=== PATIENT | male | born 1945 | race Caucasian/White ===

== ENCOUNTER 2020-05-31 05:21 | Inpatient (IN) | payer MEDICARE, MEDICAID, SELFPAY ==
[2020-05-31] VITALS (11 sets, daily range): BP systolic 98–128; BP diastolic 65–94; PULSE 16–101; RESP 14–18; TEMP 31.6–36.6; O2SAT 93–98; BMI 18.2; BMI 18.5
--- NOTE | 2020-05-31 05:34 | CT_ITS ---
STUDY: CT ABDOMEN AND PELVIS WITH CONTRAST REASON FOR EXAM: Male, 75 years old. abdominal pain RADIATION DOSAGE (If Supplied By Facility): CTDIvol = ( 10.48 ) mGy, DLP = ( 404.31 ) mGycm TECHNIQUE: Transaxial images were obtained from the dome of the diaphragm to the symphysis pubis without oral contrast. IV 100mL Isovue-300 was administered. Sagittal and coronal images were reconstructed. Individualized dose optimization techniques were used for this CT. COMPARISON: None. FINDINGS: Alveolar opacity in the left lower lobe consistent with pneumonia. The visualized portions of the heart are within normal limits. Normal liver. Normal gallbladder and extrahepatic biliary system. Normal spleen. Normal pancreas. Normal bilateral adrenal glands. Normal right kidney. Normal left kidney. Normal visualized stomach. Normal small intestine. There is moderate dilatation of the sigmoid colon which extends superiorly out of the pelvis into the upper abdomen with some twisting of the mesenteric vessels worrisome for sigmoid volvulus. Colon proximal to this is moderately dilated and filled with stool worrisome for obstruction. No pneumatosis to suggest ischemia. No pneumoperitoneum to suggest perforation. There is a small amount of free fluid in the pelvis. The appendix is visualized and appears normal. There is diffuse atherosclerotic calcification of the abdominal aorta, without a demonstrated aneurysm. Normal inferior vena cava. Normal retroperitoneum. Normal urinary bladder. Normal abdominal wall. Mild dextroscoliosis of the thoracolumbar spine with degenerative disc disease. CT/Abdomen/Pelvis W IV Cont ONLY IMPRESSION: 1. 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 Small amount of free fluid in the pelvis. 2. Left lower lobe pneumonia. Electronically Signed: Blue Fong MD at 6:44 EST Tel , Service support ,
--- NOTE | 2020-05-31 05:35 | ED.VIS.GEN ---
History of Present Illness Chief Complaint: Abd Pain Informant: Patient Narrative: 75-year-old male presenting with abdominal pain which she describes as gas pain. Patient states that he is having bowel movements and lots of gas overnight. He is having trouble sleeping because of it. Patient has not been vomiting. He has no black or bloody stool. He has no urinary complaints. He says currently he does not have any pain. Patient has past medical history of non-small cell lung cancer and is on chemotherapy. Last chemotherapy was done on Friday. Patient is also getting radiation therapy to the left lung. Patient denies previous surgeries in his abdomen. Past Medical History - Allergies and Home Meds Allergies/Adverse Reactions: Allergies Penicillins Adverse Reaction (Verified 05/31/20 05:24) Rash sulfamethoxazole [From Bactrim] Adverse Reaction (Verified 05/31/20 05:24) Rash trimethoprim [From Bactrim] Adverse Reaction (Verified 05/31/20 05:24) Rash Primary Care Physician: Shai Faustin DO [STAFF PHYSICIAN] - Prior records reviewed: Yes Past Medical History: - - Non-small cell lung cancer with mets to right hip Lives: Spouse/ Significant Other Smoking Status: Former smoker Alcohol: None Drugs: None Review of Systems General: Denies: Chills, Fever, Sweats Eyes: Denies: Visual changes - bilaterally, Diplopia ENT: Denies: Rhinorrhea, Sore throat Cardiovascular: Denies: Chest pain, Palpitations Respiratory: Denies: Dyspnea, Cough, Dyspnea on exertion Gastrointestinal: Reports: Abdominal pain, Constipation. Denies: Nausea, Vomiting Genitourinary: Denies: Dysuria, Hematuria, Frequency Musculoskeletal: Denies: Myalgias, Arthralgias Skin: Denies: Rash, Abscess Neurological: Denies: Headache, Weakness Psych: Denies: Depression, Anxiety Physical Exam Vital Signs/Narrative: Vital Signs Temp Pulse Resp BP Pulse Ox 05/31/20 05:21 96.9 F L 93 18 128/94 H 93 General: Well nourished, No Acute Distress Head: Normocephalic, Atraumatic Eyes: Perrl, EOMI ENT: Moist mucous membranes, No rhinorrhea Cardiovascular: Regular rate, Regular rhythm Respiratory: No distress, CTA bilaterally Abdomen: Soft, Nontender, Nondistended Extremities: Nontender, No edema Skin: Normal color, No rash. Negative for: Cyanosis, Diaphoresis Neurological: Alert, Oriented x3, Cranial nerves II-XII grossly intact Psychological: Normal affect, Normal Mood Diagnostic/Tx/Re-eval - Medical Decision Making Patient presenting with lower abdominal pain which is resolved. He felt this was probably gas pain. He has been experiencing some constipation but also having bowel movements which she describes are loose but not quite diarrhea. He denies black or bloody stool. Patient CBC shows white blood cell count of 3.1, hemoglobin of 10.3 which is stable. Hematocrit 31.4, platelet count 167, BUN/creatinine 22/0.83. Electrolytes normal. LFTs are normal as well. Patient was given IV fluids but declined anything for pain or nausea as he is pain and nausea free. Patient had CT of the abdomen pelvis with IV contrast which shows concern for left lower lobe pneumonia as well as a sigmoid volvulus with obstruction. There is no evidence of perforation. There is a small amount of free fluid in the pelvis. At this point I added a lactic acid, and give the patient some morphine because he had return of his pain. I added a rapid Covid antigen test. I discussed the patient with Dr. Acevedo who came to see the patient in the ED. Patient will be taken to the OR. Take aspirin Covid antigen test are pending. Patient was discussed with Dr. Gonsalez who agreed he would admit the patient to medicine. Patient will get antibiotics on the medical floor. Impression: 1. Left lower lobe pneumonia 2. Sigmoid volvulus with obstruction ED Disposition - Plan for ED Patient: Disposition: Acute Care [facility] Referrals: Shai Faustin DO [STAFF PHYSICIAN] -
[2020-05-31 05:40] LABS: Absolute Lymphocyte Count 0.23 X10^3/uL (0.83-4.51); Absolute Neutrophil Count 2.3 X10^3/uL (2.0-7.7); Basophil# 0.01 X10^3/uL; Basophil% 0.4 % (0-1); Eosinophil# 0.02 X10^3/uL; Eosinophils% 0.8 % (0-5); Hematocrit 31.4 % (40-54); Hemoglobin 10.3 g/dL (13.0-16.5); Lymphocyte # 0.23 X10^3/ul (4.0); Lymphocyte % 8.8 % (19-41); Mean Corp Hgb Conc 32.8 g/dL (32-36); Mean Corpuscular Hgb 32.7 pg (27.0-32.0); Mean Corpuscular Volume 99.7 fL (80-94); Mean Platelet Vol. 9.3 fl (6.2-12.0); Monocyte# 0.08 X10^3/uL; Monocyte% 3.1 % (0-10); NRBC Flagged by Analyzer 0 % (0-5); Neutrophil # 2.25 X10^3/uL (2.7-7.7); Neutrophil % 86.5 % (47-70); POSITIVE DIFFERENTIAL YES; Platelet Count 167 K/mm3 (150-450); RBC Distribution Width CV 12.4 % (11.6-14.6); RBC Distribution Width SD 42.9 fl (35.1-43.9); Red Blood Count 3.15 M/mm3 (4.6-6.2); White Blood Count 2.6 K/mm3 (4.4-11.0)
[2020-05-31 05:49] LABS: Differential Indicated SCAN CRITERIA MET
[2020-05-31 05:56] LABS: ALB/GLOB Ratio 0.6 RATIO (0.9-2.4); AST(SGOT) 30 U/L (15-37); Alanine Aminotransfer ALT/SGPT 18 U/L (16-61); Albumin, Serum 2.6 g/dL (3.2-5.0); Alkaline Phosphatase 100 U/L (45-117); Anion Gap 6 (5-15); BUN 22 mg/dL (7-18); BUN/Creat Ratio 26.5 RATIO (10-20); Calcium,Total 8.7 mg/dL (8.5-10.1); Chloride 103 mmol/L (98-107); Creatinine, Serum 0.83 mg/dL (0.70-1.30); EST Glomerular Filtration Rate 96 mL/min (>60); Est Glom Filt Rate - Afr Amer 116 mL/min (>60); Estimated Creatinine Clearance 66.35 ml/min; Globulin 4.4 g/dL (2.2-4.2); Glucose 119 mg/dL (74-106); Potassium 3.9 mmol/L (3.5-5.1); Sodium Level 137 mmol/L (136-145)
[2020-05-31 06:04] LABS: Differential Comment SCANNED
[2020-05-31 07:01] LABS: Bacteria 0 SEEN /hpf (None Seen); Mucous, Urine 0 SEEN /hpf (<or=2+); Squamous Epithelial Cells - UA 0 SEEN /hpf (0-5); White Blood Cells 0 SEEN /hpf (0-5)
[2020-05-31] MEDS: Morphine 4 MG/ML Syringe IV (07:01)
[2020-05-31 07:02] LABS: Color, Urine Yellow (Yellow); Glucose, Dipstick Normal (Normal); Ketone-Dipstick Negative (Negative); Leukocyte Esterase-Dipstick Negative /ul (Negative); Nitrite-Dipstick Negative (Negative); Occult Blood-Urine 25 /ul (Negative); Protein-Dipstick Negative (Negative); Urine Bilirubin Dipstick Negative (Negative); Urine Clarity Clear (Clear); Urine Urobilinogen Normal (Normal)
[2020-05-31 07:08] LABS: Red Blood Cells-Urine 0-5 SEEN /hpf (0-5)
--- NOTE | 2020-05-31 07:17 | PCM.HP.STD ---
History of Present Illness The patient is a 75 year old M [] Past Medical History Allergies Penicillins Adverse Reaction (Verified 05/31/20 05:24) Rash sulfamethoxazole [From Bactrim] Adverse Reaction (Verified 05/31/20 05:24) Rash trimethoprim [From Bactrim] Adverse Reaction (Verified 05/31/20 05:24) Rash Home Medications: Ambulatory Orders Medication Instructions Recorded Benzonatate 100 - 200 mg PO TID PRN PRN 05/31/20 Calcium Citrate/Vitamin D3 2 ea PO DAILY 05/31/20 [Citracal + D Maximum Caplet] Ergocalciferol (Vitamin D2) 1,250 mcg PO QWEEK 05/31/20 [Vitamin D2] Iron,Carbonyl/Ascorbic Acid [Fe C 1 ea PO DAILY 05/31/20 Tablet] Multivitamins,Therapeutic 1 tab PO DAILY 05/31/20 [Multivitamin] Promethazine HCl 25 mg PO Q6H PRN PRN 05/31/20 Lives: Spouse/ Significant Other Smoking Status: Former smoker Alcohol: None Drugs: None - Physical Exam Vitals/I&O's: Vital Signs Temp Pulse Resp BP Pulse Ox 96.9 F L 93 18 128/94 H 93 05/31/20 05:21 05/31/20 05:21 05/31/20 05:21 05/31/20 05:21 05/31/20 05:21 Oxygen Delivery Method Room Air Weight: 134 lb 7.712 oz Body Mass Index (BMI) 18.2 Laboratory Results 05/31/20 05:35: WBC 2.6 L, RBC 3.15 L, Hgb 10.3 L, Hct 31.4 L, MCV 99.7 H, MCH 32.7 H, MCHC 32.8, RDW Std Deviation 42.9, RDW Coeff of Natalie 12.4, Plt Count 167, MPV 9.3, Immature Gran % (Auto) 0.400, Neut % (Auto) 86.5 H, Lymph % (Auto) 8.8 L, [place] % (Auto) 3.1, Eos % (Auto) 0.8, Baso % (Auto) 0.4, Absolute Neuts (auto) 2.3, Absolute Lymphs (auto) 0.23 L, Nucleated RBC % 0, Differential Comment SCANNED, Diff Path Review July05/31/20 05:35: Sodium 137, Potassium 3.9, Chloride 103, Carbon Dioxide 28.0, Anion Gap 6, BUN 22 H, Creatinine 0.83, Estim Creat Clear Calc 66.35, Est GFR (MDRD) Af Amer 116, Est GFR (MDRD) Non-Af 96, BUN/Creatinine Ratio 26.5 H, Glucose 119 H, Calcium 8.7, Total Bilirubin 0.40, AST 30, ALT 18, Alkaline Phosphatase 100, Total Protein 7.0, Albumin 2.6 L, Globulin 4.4 H, Albumin/Globulin Ratio 0.6 L 05/31/20 06:55: Urine Color Yellow, Urine Clarity Clear, Urine pH 6.0, Ur Specific [place] 1.020, Urine Protein Negative, Urine Glucose (UA) Normal, Urine Ketones Negative, Urine Occult Blood 25 H, Urine Nitrite Negative, Urine Bilirubin Negative, Urine Urobilinogen Normal, Ur Leukocyte Esterase Negative, Urine RBC 0-5 SEEN, Urine WBC 0 SEEN, Ur Squamous Epith Cells 0 SEEN, Urine Bacteria 0 SEEN, Urine Mucus 0 SEEN 05/31/20 06:55: Lactic Acid Pending
--- NOTE | 2020-05-31 07:28 | CON.PCM_ITS ---
Reason for Consult Date of Consultation: 05/31/20 History of Present Illness: The patient is a 75 year old M sent to the ER due to off-and-on abdominal pain starting this morning. Patient to get morphine in the ER currently denies any abdominal pain. Patient CT abdomen pelvis does show a cecal volvulus. Patient does have a past medical history for lung cancer and sounds like metastatic disease to his right pelvis --currently getting chemo patient is currently on his fifth out of 6 round of chemotherapy fifth week and of 6 weeks of radiation daily. His last round of chemotherapy was on Friday. Sees Dr. Faustin. Patient was on levofloxacin for questionable left lower lobe pneumonia which he did comp lete per patient. Patient is white blood cell count is 2.2. CT is also questioning whether he has a left lower lobe pneumonia but also this location of his cancer as well. Past Medical History Medical History: Medical History (Last Updated 05/31/20 @ 07:[address] 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, C79.51 Allergies Penicillins Adverse Reaction (Verified 05/31/20 05:24) Rash sulfamethoxazole [From Bactrim] Adverse Reaction (Verified 05/31/20 05:24) Rash trimethoprim [From Bactrim] Adverse Reaction (Verified 05/31/20 05:24) Rash Home Medications: Ambulatory Orders Medication Instructions Recorded Benzonatate 100 - 200 mg PO TID PRN PRN 05/31/20 Calcium Citrate/Vitamin D3 2 ea PO DAILY 05/31/20 [Citracal + D Maximum Caplet] Ergocalciferol (Vitamin D2) 1,250 mcg PO QWEEK 05/31/20 [Vitamin D2] Iron,Carbonyl/Ascorbic Acid [Fe C 1 ea PO DAILY 05/31/20 Tablet] Multivitamins,Therapeutic 1 tab PO DAILY 05/31/20 [Multivitamin] Promethazine HCl 25 mg PO Q6H PRN PRN 05/31/20 Surgical History: no surgical history Psychiatric History: No pertinent psych hx Lives: Spouse/ Significant Other Smoking Status: Former smoker Alcohol: None Drugs: None - *Family History Maternal History Items: No pertinent history Review of Systems Constitutional: Reports: Anorexia Eyes: Denies: Blurred vision HEENT: Denies: Difficulty Swallowing Respiratory: Denies: Hemoptysis Gastrointestinal: Reports: Abdominal Pain. Denies: Nausea, Vomiting Skin: Denies: Jaundice Psychiatric: Denies: Depression Hematologic/ Lymphatic: Denies: Easy Bleeding - Physical Exam Vitals/I&O's: Vital Signs Temp Pulse Resp BP Pulse Ox 96.9 F L 93 18 128/94 H 93 05/31/20 05:21 05/31/20 05:21 05/31/20 05:21 05/31/20 05:21 05/31/20 05:21 Oxygen Delivery Method Room Air Weight: 134 lb 7.712 oz Body Mass Index (BMI) 18.2 General: Alert, Oriented x3, Cooperative, No apparent distress Lungs: Normal air movement Cardiovascular: Regular rate Abdomen: Soft, Non Tender, Distended - Mild Neurological: Cranial nerves II-XII grossly intact Psych/Mental Status: Normal Affect Laboratory Results 05/31/20 05:35: WBC 2.6 L, RBC 3.15 L, Hgb 10.3 L, Hct 31.4 L, MCV 99.7 H, MCH 32.7 H, MCHC 32.8, RDW Std Deviation 42.9, RDW Coeff of [place] 12.4, Plt Count 167, MPV 9.3, Immature Gran % (Auto) 0.400, Neut % (Auto) 86.5 H, Lymph % (Auto) 8.8 L, [place] % (Auto) 3.1, Eos % (Auto) 0.8, Baso % (Auto) 0.4, Absolute Neuts (auto) 2.3, Absolute Lymphs (auto) 0.23 L, Nucleated RBC % 0, Differential Comment SCANNED, Diff Path Review July05/31/20 05:35: Sodium 137, Potassium 3.9, Chloride 103, Carbon Dioxide 28.0, A nion Gap 6, BUN 22 H, Creatinine 0.83, Estim Creat Clear Calc 66.35, Est GFR (MDRD) Af Amer 116, Est GFR (MDRD) Non-Af 96, BUN/Creatinine Ratio 26.5 H, Glucose 119 H, Calcium 8.7, Total Bilirubin 0.40, AST 30, ALT 18, Alkaline Phosphatase 100, Total Protein 7.0, Albumin 2.6 L, Globulin 4.4 H, Albumin/Globulin Ratio 0.6 L 05/31/20 06:55: Urine Color Yellow, Urine Clarity Clear, Urine pH 6.0, Ur Specific [place] 1.020, Urine Protein Negative, Urine Glucose (UA) Normal, Urine Ketones Negative, Urine Occult Blood 25 H, Urine Nitrite Negative, Urine Bilirubin Negative, Urine Urobilinogen Normal, Ur Leukocyte Esterase Negative, Urine RBC 0-5 SEEN, Urine WBC 0 SEEN, Ur Squamous Epith Cells 0 SEEN, Urine Bacteria 0 SEEN, Urine Mucus 0 SEEN 05/31/20 06:55: Lactic Acid Pending Assessment/Plan 75-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 Discussed with patient the need for urgent sigmoidoscopy, insertion of rectal tube. Discussed with patient that if this does untwist the colon we would not need to emergently remove the colon. However it is likely that this will not completely keep the bowel untwisted and that he will need sigmoidectomy and end colostomy due to him being on chemotherapy for the last 5 weeks. Discussed with patient that if I were to put the bowel back together likely would fall apart as chemo does impair healing. Patient was agreeable with plan. Discussed the risk including but not limited to bleeding, infection, injury to another organ, and anesthesia. Also discussed with patient that the left lobe pneumonia could also put him at higher risk for surgery as well. Also discussed with patient his CODE STATUS patient does want to be full code currently he does not have a POA. He does have 2 sisters. Nasima Acevedo M.D. Pager: [phone] [facility] [address] [place] [address], [facility], [address] [place] [address] Office: [phone]
[2020-05-31 07:37] LABS: Lactic Acid 2.4 mmol/L (0.4-1.9)
[2020-05-31] MEDS: Lactated Ringers 1,000 ML 100 ML IV ×2 (07:51→12:54)
--- NOTE | 2020-05-31 08:00 | HP.PCM_ITS ---
History and Physical Date of Admission: 05/31/20 History of Present Illness: The patient is a 75 year old M sent to the ER due to off-and-on abdominal pain starting this morning. Patient to get morphine in the ER currently denies any abdominal pain. Patient CT abdomen pelvis does show a cecal volvulus. Patient does have a past medical history for lung cancer and sounds like metastatic disease to his right pelvis --currently getting chemo patient is currently on his fifth out of 6 round of chemotherapy fifth week and of 6 weeks of radiation daily. His last round of chemotherapy was on Friday. Sees Dr. Faustin. Patient was on levofloxacin for questionable left lower lobe pneumonia which he did comp lete per patient. Patient is white blood cell count is 2.2. CT is also questioning whether he has a left lower lobe pneumonia but also this location of his cancer as well. Past Medical History Medical History: Medical History (Last Updated 05/31/20 @ 07:[address] 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, C79.51 Allergies Penicillins Adverse Reaction (Verified 05/31/20 05:24) Rash sulfamethoxazole [From Bactrim] Adverse Reaction (Verified 05/31/20 05:24) Rash trimethoprim [From Bactrim] Adverse Reaction (Verified 05/31/20 05:24) Rash Home Medications: Ambulatory Orders Medication Instructions Recorded Benzonatate 100 - 200 mg PO TID PRN PRN 05/31/20 Calcium Citrate/Vitamin D3 2 ea PO DAILY 05/31/20 [Citracal + D Maximum Caplet] Ergocalciferol (Vitamin D2) 1,250 mcg PO QWEEK 05/31/20 [Vitamin D2] Iron,Carbonyl/Ascorbic Acid [Fe C 1 ea PO DAILY 05/31/20 Tablet] Multivitamins,Therapeutic 1 tab PO DAILY 05/31/20 [Multivitamin] Promethazine HCl 25 mg PO Q6H PRN PRN 05/31/20 Surgical History: no surgical history Psychiatric History: No pertinent psych hx Lives: Spouse/ Significant Other Smoking Status: Former smoker Alcohol: None Drugs: None - *Family History Maternal History Items: No pertinent history Review of Systems Constitutional: Reports: Anorexia Eyes: Denies: Blurred vision HEENT: Denies: Difficulty Swallowing Respiratory: Denies: Hemoptysis Gastrointestinal: Reports: Abdominal Pain. Denies: Nausea, Vomiting Skin: Denies: Jaundice Psychiatric: Denies: Depression Hematologic/ Lymphatic: Denies: Easy Bleeding - Physical Exam Vitals/I&O's: Vital Signs Temp Pulse Resp BP Pulse Ox 96.9 F L 93 18 128/94 H 93 05/31/20 05:21 05/31/20 05:21 05/31/20 05:21 05/31/20 05:21 05/31/20 05:21 Oxygen Delivery Method Room Air Weight: 134 lb 7.712 oz Body Mass Index (BMI) 18.2 General: Alert, Oriented x3, Cooperative, No apparent distress Lungs: Normal air movement Cardiovascular: Regular rate Abdomen: Soft, Non Tender, Distended - Mild Neurological: Cranial nerves II-XII grossly intact Psych/Mental Status: Normal Affect Laboratory Results 05/31/20 05:35: WBC 2.6 L, RBC 3.15 L, Hgb 10.3 L, Hct 31.4 L, MCV 99.7 H, MCH 32.7 H, MCHC 32.8, RDW Std Deviation 42.9, RDW Coeff of [place] 12.4, Plt Count 167, MPV 9.3, Immature Gran % (Auto) 0.400, Neut % (Auto) 86.5 H, Lymph % (Auto) 8.8 L, [place] % (Auto) 3.1, Eos % (Auto) 0.8, Baso % (Auto) 0.4, Absolute Neuts (auto) 2.3, Absolute Lymphs (auto) 0.23 L, Nucleated RBC % 0, Differential Comment SCANNED, Diff Path Review July05/31/20 05:35: Sodium 137, Potassium 3.9, Chloride 103, Carbon Dioxide 28.0, A nion Gap 6, BUN 22 H, Creatinine 0.83, Estim Creat Clear Calc 66.35, Est GFR (MDRD) Af Amer 116, Est GFR (MDRD) Non-Af 96, BUN/Creatinine Ratio 26.5 H, Glucose 119 H, Calcium 8.7, Total Bilirubin 0.40, AST 30, ALT 18, Alkaline Phosphatase 100, Total Protein 7.0, Albumin 2.6 L, Globulin 4.4 H, Albumin/Globulin Ratio 0.6 L 05/31/20 06:55: Urine Color Yellow, Urine Clarity Clear, Urine pH 6.0, Ur Specific [place] 1.020, Urine Protein Negative, Urine Glucose (UA) Normal, Urine Ketones Negative, Urine Occult Blood 25 H, Urine Nitrite Negative, Urine Bilirubin Negative, Urine Urobilinogen Normal, Ur Leukocyte Esterase Negative, Urine RBC 0-5 SEEN, Urine WBC 0 SEEN, Ur Squamous Epith Cells 0 SEEN, Urine Bacteria 0 SEEN, Urine Mucus 0 SEEN 05/31/20 06:55: Lactic Acid Pending Assessment/Plan 75-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 Discussed with patient the need for urgent sigmoidoscopy, insertion of rectal tube. Discussed with patient that if this does untwist the colon we would not need to emergently remove the colon. However it is likely that this will not completely keep the bowel untwisted and that he will need sigmoidectomy and end colostomy due to him being on chemotherapy for the last 5 weeks. Discussed with patient that if I were to put the bowel back together likely would fall apart as chemo does impair healing. Patient was agreeable with plan. Discussed the risk including but not limited to bleeding, infection, injury to another organ, and anesthesia. Also discussed with patient that the left lobe pneumonia could also put him at higher risk for surgery as well. Also discussed with patient his CODE STATUS patient does want to be full code currently he does not have a POA. He does have 2 sisters. Nasima Acevedo M.D. Pager: [phone] [facility] [place] [facility] [address] [place] [address], [address] [place] [address] Office: [phone] Procedure Criteria Procedure Type: Elective COVID Risk Discussion: The surgeon/proceduralist and patient have discussed in detail the risk of exposure to and/or potential harm posed by the COVID-19 virus with having a surgery/procedure at this time versus the risk of delaying the surgery/procedure. It is not possible to know either the risk of delaying the surgery or procedure or chance of getting an infection with perfect accuracy, but a joint decision was made between the patient and the surgeon/proceduralist to proceed at this time with the scheduled surgery/procedure as indicated on the consent form.
[2020-05-31] MEDS: metroNIDAZOLE 500 MG/100 ML BAG 100 MG IV ×3 (08:11→22:24)
[2020-05-31] MEDS: Ciprofloxacin 400 MG/200 ML BAG 200 MG IV ×2 (08:11→23:34)
--- NOTE | 2020-05-31 09:14 | OP.COLON_ITS ---
Patient Name: Zay Melara Procedure Date: 05/31/2020 8:17 AM Date of : 1945 Age: 75 Procedure: Colonoscopy Indications: Generalized abdominal pain, Abnormal CT of the GI tract, Volvulus Providers: Nasima Acevedo MD Medicines: Monitored Anesthesia Care Patient Profile: This is a 75 year old male. Last Colonoscopy: date unknown. Complications: No immediate complications. Procedure: Pre-Anesthesia Assessment: - Prior to the procedure, a History and Physical was performed, and patient medications and allergies were reviewed. The patient's tolerance of previous anesthesia was also reviewed. The risks and benefits of the procedure and the sedation options and risks were discussed with the patient. All questions were answered, and informed consent was obtained. Prior Anticoagulants: The patient has taken no previous anticoagulant or antiplatelet agents. ASA Grade Assessment: Per anesthesia. After reviewing the risks and benefits, the patient was deemed in satisfactory condition to undergo the procedure. After I obtained informed consent, the scope was passed under direct vision. Throughout the procedure, the patient's blood pressure, pulse, and oxygen saturations were monitored continuously. The Colonoscope was introduced through the anus and advanced to the transverse colon for evaluation. This was the intended extent. The colonoscopy was performed without difficulty. The patient tolerated the procedure well. No bowel preparation was given prior to the procedure. Scope In: 8:44:05 AM Scope Out: 8:58:02 AM Total Procedure Duration Time 0 hours 13 minutes 57 seconds Findings: Colonoscope was advanced passed the area of twist of the bowel and to the transverse colon which had formed stool- no cutler of liquid stool upon untwisting only decompressed bowel; [address] placed as a rectal tube passed the area of the previous twist of the bowel. Secure with tape and ABD pain on gluteus. Decompression of the volvulus was attempted and was successful, with complete decompression achieved. Following the maneuver, a tube was placed to maintain the decompression. Impression: - No specimens collected. Recommendation: - Admit the patient to hospital buck for ongoing care. - Clear liquid diet. - Continue present medications. - Plan for sigmoidectomy with colostomy 2/2 chemo tomorrow AM - No recommendation at this time regarding repeat colonoscopy. Procedure Code(s): --- Professional --- 77215, 52, Colonoscopy, flexible; with decompression (for pathologic distention) (eg, volvulus, megacolon), including placement of decompression tube, when performed Diagnosis Code(s): --- Professional --- R10.84, Generalized abdominal pain K56.2, Volvulus R93.3, Abnormal findings on diagnostic imaging of other parts of digestive tract CPT copyright 2017 [employer]. All rights reserved. The codes documented in this report are preliminary and upon pre coder review may be revised to meet current compliance requirements. MD Nasima Jolly MD 05/31/2020 9:13:56 AM This report has been signed electronically. Number of Addenda: 0 Note Initiated On: 05/31/2020 8:17 AM
--- NOTE | 2020-05-31 09:14 | OP.CCLET_ITS ---
05/31/2020 Jan Benson [address] [place] [address] Re : Colonoscopy procedure for Zay Figueroayer Dear Dr. Benson This procedure was performed on Sunday, May 31, 2020. My impressions and recommendations are as follows: Impressions : - No specimens collected. Recommendations : - Admit the patient to hospital buck for ongoing care. - Clear liquid diet. - Continue present medications. - Plan for sigmoidectomy with colostomy 2/2 chemo tomorrow AM - No recommendation at this time regarding repeat colonoscopy. My findings are described in the full procedure note, which is enclosed. If I can be of further assistance, please feel free to contact me at Doctor phone number(s): , Work: . Sincerely, MD Nasima Jolly MD 05/31/2020 9:13:56 AM This report has been signed electronically.
--- NOTE | 2020-05-31 10:35 | RAD_ITS ---
STUDY: X-RAY - ABDOMEN/PELVIS REASON FOR EXAM: Male, 75 years old. rectal tube placement -- pacu TECHNIQUE: Single AP view of the abdomen / pelvis. COMPARISON: CT earlier today FINDINGS: Excreted contrast in the trabeculated urinary bladder. Fecal residue throughout the colon. Rectal tube is identified with tip extending to the left upper quadrant. There is no demonstrated free abdominal air. The visualized liver, spleen and kidneys are grossly normal in size and morphology. Normal soft tissue structures. Normal visualized osseous structures. RAD/Abdomen Single View (Portable) IMPRESSION: Rectal tube, as above. Electronically Signed: Carlo Yanez MD (Brooks) at 10:52 EST , Service support ,
[2020-05-31 11:00] LABS: Reflex Lactate? Y
--- NOTE | 2020-05-31 11:18 | NT.THERAPY_ITS ---
Nutrition Therapy Report - History Nutrition Services has been consulted to:: Manage nutrient details of diet order Current diet / nutrition support order:: clear liquids; NPO at midnight - Anthropometric Measurements Height:: 6 ft Weight:: 61.961 kg Body Mass Index (BMI):: 18.5 - Relevant Labs Relevant Labs:: WBC 2.6 K/mm3 (4.4-11.0) L 05/31/20 05:35 RBC 3.15 M/mm3 (4.6-6.2) L 05/31/20 05:35 Hgb 10.3 g/dL (13.0-16.5) L 05/31/20 05:35 Hct 31.4 % (40-54) L 05/31/20 05:35 MCV 99.7 fL (80-94) H 05/31/20 05:35 MCH 32.7 pg (27.0-32.0) H 05/31/20 05:35 Neut % (Auto) 86.5 % (47-70) H 05/31/20 05:35 Lymph % (Auto) 8.8 % (19-41) L 05/31/20 05:35 Absolute Lymphs (auto) 0.23 X10^3/uL (0.83-4.51) L 05/31/20 05:35 BUN 22 mg/dL (7-18) H 05/31/20 05:35 BUN/Creatinine Ratio 26.5 RATIO (10-20) H 05/31/20 05:35 Glucose 119 mg/dL (74-106) H 05/31/20 05:35 Lactic Acid 2.4 mmol/L (0.4-1.9) H* 05/31/20 06:55 Albumin 2.6 g/dL (3.2-5.0) L 05/31/20 05:35 Globulin 4.4 g/dL (2.2-4.2) H 05/31/20 05:35 Albumin/Globulin Ratio 0.6 RATIO (0.9-2.4) L 05/31/20 05:35 - Assessment Food / Nutrition-Related History:: Pt w/ poor PO intake since start of chemotherapy 1 month ago. Pt states he has altered tastes and early satiety. UBW 1 month ago was 150#, CBW 136.6#-13.4#/9% wt loss x 1 month is significant for malnutrition. Tries to drink 2 bottles of Boost/day for additional ca lories/protein. - Nutrition Diagnosis Problem / Etiology / Signs & Symptoms (PES):: acute, severe malnutrition related to inadequate energy intake w/ increased energy needs in context of metastatic cancer as evidenced by unintentional wt loss of 13.4#/9% wt loss x 1 month and estimated PO intake meeting <75% of estimated energy needs x 1 month. Evidence of Malnutrition Exists:: Yes Severe PCM:: Acute Illness - Nutrition Intervention Nutrition Prescription:: [id number] calories/day (35calories/kg for wt gain). 80-90 g protein (1.5g/kg). 2000mL fluid/day (1mL/calorie) - Food / Nutrient Delivery Interventions Summary of nutrition intervention:: Currently on clear liquid diet w/ plans for NPO at midnight for sigmoidectomy w/ colostomy. Discussed ONS w/ pt-agreeble to trying Ensure Clear while on clear liquid diet. Nutrition support ordered as / adjusted to:: will add ensure clear w/ medpass while on clear liquid diet; recommend advance diet as tolerated to transitional w/ ensure enlive w/ medpass. Nutrition education provided?: Yes - MNT Monitoring Further MNT monitoring and evaluation required?: Yes MNT Follow-up in:: 3-5 days
[2020-05-31 11:49] LABS: Lactic Acid 1.7 mmol/L (0.4-1.9)
--- NOTE | 2020-05-31 11:52 | NURSING ---
Was asked to alexandra patient for colostomy. surgery is scheduled for tomorrow am. Pt is scheduled for a sigmoidectomy with colostomy per Dr Acevedo. Pt was admitted for abdominal pain and had decompression of volvulus this am and has a rectal tube in place. Abdomen is very thin. patient states he wears his pants slightly below the umbilical line. good muscle tone noted to abdomen. abdomen marked to the LLQ and is 3 fingerbreadths from the umbilicus. had patient sit up slightly in bed and there are very few creases to abdomen since patient is so thin. placed an opsite over the marked area of the abdomen. teaching booklet given to patient and did show patient an ostomy appliance. will continue teaching with patient post op.
[2020-05-31] MEDS: Ensure Clear 120 ML Liquid PO ×3 (12:54→22:31)
[2020-05-31 13:31] LABS: Prealbumin 19.9 mg/dL (20.0-40.0)
--- NOTE | 2020-05-31 13:35 | PN_ITS ---
Reason for Visit: Consult for postop medical management Subjective: D5-year-old male with past medical history of non-small cell lung CA, with a static to his right pelvis, follows with Dr. Faustin in the outpatient, status post chemotherapy and radiation therapy who had chemotherapy 2 days prior to admission comes in with concern for gas pain. He has received 5 cycles of chemotherapy and radiation. Recently treated for postobstructive pneumonia with Levaquin. Work-up with CT of the abdomen and pelvis was significant for mild v olvulus with obstruction. Patient underwent decompressive colonoscopy with rectal tube placement. The plan is to go for sigmoidectomy with colostomy tomorrow. We have been consulted for postop medical management. Patient denies any fever or chills or abdominal pain or nausea or vomiting or diarrhea. He feels improved compared to prior to admission. Denied any chest pain or cough. Vitals/I&O's: Vital Signs Temp Pulse Resp BP Pulse Ox 97.3 F L 91 16 107/65 94 05/31/20 10:26 05/31/20 10:26 05/31/20 10:26 05/31/20 10:26 05/31/20 10:26 Oxygen Delivery Method Room Air Weight: 61.961 kg Body Mass Index (BMI) 18.5 Intake and Output for Last 24 Hours 05/29/20 05/30/20 05/31/20 23:59 23:59 23:59 Intake Total 1305 / 1305 Balance 1305 / 1305 General: Alert, Oriented x3, Cooperative, No apparent distress HEENT: Atraumatic, PERRLA, EOMI, Normocephalic Oral: Moist Mucosa Neck: Supple Lungs: Diminished - especially in left lower lobe Cardiovascular: Regular rate, Regular Rhythm, Normal S1, Normal S2 Abdomen: Bowel Sounds Present, Soft, Non Tender, Non-Distended, No Hepato- splenomegaly Extremities: No edema Skin: No rashes Musculoskeletal: No Tenderness to Palpation of Joints or Extremities Lymphatic: No Cervical, Supraclavicular, or Inguinal Adenopathy Neurological: Cranial nerves II-XII grossly intact, Neuro grossly intact Psych/Mental Status: Normal Affect, Appropriate Microbiology Past 72 Hours 05/31/20 07:04 Mucosa - Nose SARS-CoV-2 Antigen (Rapid) - Final Laboratory Results 05/31/20 05:35: WBC 2.6 L, RBC 3.15 L, Hgb 10.3 L, Hct 31.4 L, MCV 99.7 H, MCH 32.7 H, MCHC 32.8, RDW Std Deviation 42.9, RDW Coeff of Natalie 12.4, Plt Count 167, MPV 9.3, Immature Gran % (Auto) 0.400, Neut % (Auto) 86.5 H, Lymph % (Auto) 8.8 L, [place] % (Auto) 3.1, Eos % (Auto) 0.8, Baso % (Auto) 0.4, Absolute Neuts (auto) 2.3, Absolute Lymphs (auto) 0.23 L, Nucleated RBC % 0, Differential Comment SCANNED, Diff Path Review July05/31/20 05:35: Sodium 137, Potassium 3.9, Chloride 103, Carbon Dioxide 28.0, Anion Gap 6, BUN 22 H, Creatinine 0.83, Estim Creat Clear Calc 66.35, Est GFR (MDRD) Af Amer 116, Est GFR (MDRD) Non-Af 96, BUN/Creatinine Ratio 26.5 H, Glucose 119 H, Calcium 8.7, Total Bilirubin 0.40, AST 30, ALT 18, Alkaline Phosphatase 100, Total Protein 7.0, Albumin 2.6 L, Globulin 4.4 H, Albumin/Globulin Ratio 0.6 L 05/31/20 05:35: Prealbumin 19.9 L 05/31/20 06:55: Urine Color Yellow, Urine Clarity Clear, Urine pH 6.0, Ur Specific [place] 1.020, Urine Protein Negative, Urine Glucose (UA) Normal, Urine Ketones Negative, Urine Occult Blood 25 H, Urine Nitrite Negative, Urine Bilirubin Negative, Urine Urobilinogen Normal, Ur Leukocyte Esterase Negative, Urine RBC 0-5 SEEN, Urine WBC 0 SEEN, Ur Squamous Epith Cells 0 SEEN, Urine Bacteria 0 SEEN, Urine Mucus 0 SEEN 05/31/20 06:55: Lactic Acid 2.4 H* 05/31/20 11:15: Lactic Acid 1.7 Current Medications Acetaminophen (Acetaminophen 325 Mg Tablet) 650 mg PO Q6H PRN PRN PRN Reason: Pain Score 1-10/Temp > 100.7 F Famotidine (Famotidine 20 Mg Tablet) 20 mg PO BID ARLENE Lactated Ringer's () 1,000 mls @ 100 mls/hr IV .Q10H ARLENE Last Admin: 05/31/20 12:54 Dose: 100 mls/hr Documented by: Sodium Chloride () 250 mls @ 15 mls/hr IV .[id number] PRN PRN Reason: Saline Flush Sodium Chloride () 250 mls @ 15 mls/hr IV .[id number] PRN PRN Reason: Additional IVPB Infusion Ciprofloxacin (Cipro) 400 mg in 200 mls @ 200 mls/hr IV Q12 ARLENE Metronidazole (Flagyl) 500 mg in 100 mls @ 100 mls/hr IV Q8 ARLENE Morphine Sulfate (Morphine 4 Mg/Ml Syringe) 4 mg IV Q3H PRN PRN PRN Reason: Pain Score 6-10 Nutritional Formula (Lactose Free) (Ensure Clear 120 Ml Liquid) 120 ml PO 4X/DAY [facility] Last Admin: 05/31/20 12:54 Dose: 120 ml Documented by: Ondansetron HCl (Ondansetron 4 Mg/2 Ml Vial) 4 mg IV Q8H PRN PRN PRN Reason: NAUSEA/VOMITING Oxycodone HCl (Oxycodone 5 Mg Tablet) 5 mg PO Q4H PRN PRN PRN Reason: Pain Score 4-5 Sodium Chloride (0.9% Saline Lock 10 Ml Syringe) 10 - 40 ml IV UD PRN PRN Reason: SALINE FLUSH STROKE Vital Signs/Narrative: Vital Signs Temp Pulse Resp BP Pulse Ox 05/31/20 10:26 97.3 F L 91 16 107/65 94 Medical Necessity - Tobacco Use Smoking Status: Former smoker Assessment/Plan All Active Problems (Last Updated 05/31/20 @ 07:[address] Nasima Acevedo MD) Lung cancer metastatic to bone (Acute) 1. Acute sigmoid volvulus status post decompressive sigmoidoscopy/rectal tube insertion Plan for sigmoidectomy with colostomy tomorrow Continue on IV fluids, clear liquid diet 2. Anemia, likely secondary to therapy side effects, no previous hemoglobin to compare We will continue to monitor with repeat blood work in a.m. 3. Leukopenia secondary to chemotherapy side effect, absolute neutrophil count is 2300. We will continue to monitor 4. Non-small cell lung CA status post chemotherapy and radiation therapy Follows with oncology in the outpatient. 5. DVT prophylaxis?Lovenox subcu/SCDS -would hold off on starting Lovenox till after surgery; encourage early ambulation Inpatient E&M: 65701 Init Hosp L3
--- NOTE | 2020-05-31 14:04 | NURSING ---
RN CM Assessment Introduced role of RN CM to patient and significant other Amina at bedside.? Patient is alert, oriented and able?to participate in RN CM Assessment. ?Care providers, pharmacy, and demographics verified. Admit Dx: Abd Pain, Plan for Sigmoid Colectomy tomorrow. Presentation: Per MD H&P- Patient CT abdomen pelvis does show a cecal volvulus. Patient does have a past medical history for lung cancer and sounds like metastatic disease to his right pelvis --currently getting chemo patient is currently on his fifth out of 6 round of chemotherapy fifth week and of 6 weeks of radiation daily. His last round of chemotherapy was on Friday. Sees Dr. Faustin. Patient was on levofloxacin for questionable left lower lobe pneumonia which he did complete per patient. Re-Admit: No Barriers/Issues: Patient has been staying with his Significant other's [address], [place] [address] while he is getting Chemo/Radiation, has lost a lot of weight. Significant other and her son are there to help patient with care needs- patient is never home alone. PCP: Jan Benson- has not seen in approx 3yrs Specialists: Onc- Dr Faustin Preferred [facility]acy: [facility] Insurance: [facility] A/B, [facility] Rx Benefit:?Yes LNOK: Significant other- Amina Bach LW/HPOA: None, provided advanced directive information with social service director rack card. Aware can return as an outpatient to complete with older adult social work specialist. Living Arrangements:? Lives alone in a mobile home, 3-4 steps to enter. ADL?s: Ambulated independently and independent with ADLs. Transportation: Patient drives, Sig. other to transport up on DC. DME: [employer] HHC: None SNF: None Goal: Home and does not think will have any needs. Denies any concerns, questions or issues with DC planning at this time. Aware RNCM will remain available should any emerging needs arise. DC PLAN: Home with no anticipated needs identified at this time. RNCM to f/u on mobility and potential needs after sigmoid colectomy tomorrow. RADHA Rogel
--- NOTE | 2020-05-31 14:19 | EKG12_ITS ---
Test Reason : Blood Pressure : / mmHG Vent. Rate : 101 BPM Atrial Rate : 101 BPM P-R Int : 126 ms QRS Dur : 078 ms QT Int : 378 ms P-R-T Axes : 086 043 085 degrees QTc Int : 490 ms Sinus tachycardia with occasional Premature ventricular complexes Nonspecific ST and T wave abnormality Abnormal ECG Confirmed by DAYANA AMAYA, CRISTIANA ([id number]), newspaper managing editor SAVANNA LEWIS ([id number]) on 06/05/2020 2:48:11 PM Referred By: Nasima Acevedo Confirmed By:CRISTIANA ANNE MD
--- NOTE | 2020-05-31 14:30 | RAD_ITS ---
STUDY: X-RAY CHEST REASON FOR EXAM: Male, 75 years old. pre op TECHNIQUE: Single AP portable view of the chest. COMPARISON: 10/06/2011 FINDINGS: Right internal jugular chest port which is unchanged. There is hyperinflation of the lungs consistent with chronic obstructive lung disease (COPD). There is no demonstrated pleural abnormality. Normal size heart. Normal mediastinum and aniket. Normal visualized pulmonary arteries. Normal visualized aortic arch and descending thoracic aorta. Normal visualized thoracic spine. Healed fracture the right clavicle. There is no demonstrated abnormality of the visualized soft tissue structures of the upper abdomen. RAD/Chest 1 View (Portable) IMPRESSION: Emphysema without pneumonia or atelectasis. Electronically Signed: Blue Fong MD at 14:56 EST Tel , Service support ,
[2020-05-31 14:56] LABS: Pathologist Review Reviewed
[2020-05-31] MEDS: Lactated Ringers 1,000 ML 999 ML IV (15:02)
[2020-05-31] MEDS: Famotidine 20 MG Tablet PO (22:27)
[2020-06-01] VITALS (12 sets, daily range): BP systolic 81–113; BP diastolic 56–87; PULSE 81–100; RESP 12–18; TEMP 36.4–37.3; O2SAT 95–100; BMI 18.5
[2020-06-01] MEDS: Lactated Ringers 1,000 ML 100 ML IV ×2 (02:26→16:12)
[2020-06-01] MEDS: metroNIDAZOLE 500 MG/100 ML BAG 100 MG IV ×3 (05:29→21:19)
[2020-06-01 06:30] LABS: Absolute Lymphocyte Count 0.18 X10^3/uL (0.83-4.51); Absolute Neutrophil Count 2.1 X10^3/uL (2.0-7.7); Eosinophil# 0.01 X10^3/uL; Eosinophils% 0.4 % (0-5); Hematocrit 26.8 % (40-54); Hemoglobin 9.1 g/dL (13.0-16.5); Lymphocyte # 0.18 X10^3/ul (4.0); Lymphocyte % 7.7 % (19-41); Mean Corpuscular Volume 97.1 fL (80-94); Mean Platelet Vol. 8.8 fl (6.2-12.0); Monocyte# 0.07 X10^3/uL; NRBC Flagged by Analyzer 0 % (0-5); Neutrophil # 2.07 X10^3/uL (2.7-7.7); POSITIVE DIFFERENTIAL YES; Platelet Count 132 K/mm3 (150-450); RBC Distribution Width CV 12.4 % (11.6-14.6); RBC Distribution Width SD 41.1 fl (35.1-43.9); Red Blood Count 2.76 M/mm3 (4.6-6.2); White Blood Count 2.4 K/mm3 (4.4-11.0)
[2020-06-01 06:36] LABS: Differential Indicated SCAN CRITERIA MET
[2020-06-01 06:49] LABS: Differential Comment SCANNED
[2020-06-01 06:53] LABS: Anion Gap 4 (5-15); BUN 10 mg/dL (7-18); BUN/Creat Ratio 14.4 RATIO (10-20); Calcium,Total 8.4 mg/dL (8.5-10.1); Chloride 105 mmol/L (98-107); Creatinine, Serum 0.69 mg/dL (0.70-1.30); EST Glomerular Filtration Rate 118 mL/min (>60); Est Glom Filt Rate - Afr Amer 143 mL/min (>60); Estimated Creatinine Clearance 55.94 ml/min; Glucose 97 mg/dL (74-106); Potassium 4.1 mmol/L (3.5-5.1); Sodium Level 138 mmol/L (136-145)
[2020-06-01] MEDS: Famotidine 20 MG Tablet PO ×2 (07:44→21:09)
--- NOTE | 2020-06-01 07:59 | NURSING ---
Pt having surgery this am. do recommend home health at discharge since patient will have colostomy. home health will be able to continue ostomy teaching with patient and family. script on front of chart for ostomy supplies. will discuss with case management. will hopefully get some more teaching with patient prior to discharge since this nurse will be out next week.
--- NOTE | 2020-06-01 08:33 | PCM.PN.SRG ---
Subjective: Retention Mccain was placed yesterday for 1300. Has had minimal stool out. - Physical Exam Vitals/I&O's: Vital Signs Temp Pulse Resp BP Pulse Ox 98.7 F 100 16 110/67 95 06/01/20 07:33 06/01/20 07:33 06/01/20 07:33 06/01/20 07:33 06/01/20 07:33 Oxygen Delivery Method Room Air Weight: 136 lb 9.61 oz Body Mass Index (BMI) 18.5 Intake and Output for Last 24 Hours 05/30/20 05/31/20 06/01/20 23:59 23:59 23:59 Intake Total 3676.66 / 3876.66 983.34 / 983.34 Output Total 1900 / 2900 1850 / 1850 Balance 1776.66 / 976.66 -866.66 / -866.66 General: Alert, Oriented x3, Cooperative, No apparent distress HEENT: Atraumatic Lungs: Normal air movement Cardiovascular: Regular rate Abdomen: Soft, Non Tender, Non-Distended, - - Rectal tube removed at bedside. Small stool present. Microbiology Past 72 Hours 05/31/20 07:04 Mucosa - Nose SARS-CoV-2 Antigen (Rapid) - Final Laboratory Results 05/31/20 05:35: Diff Path Review Reviewed 05/31/20 05:35: Prealbumin 19.9 L 05/31/20 11:15: Lactic Acid 1.7 06/01/20 06:20: WBC 2.4 L, RBC 2.76 L, Hgb 9.1 L, Hct 26.8 L, MCV 97.1 H, MCH 33.0 H, MCHC 34.0, RDW Std Deviation 41.1, RDW Coeff of Natalie 12.4, Plt Count 132 L, MPV 8.8, Immature Gran % (Auto) 0.900, Neut % (Auto) 88.0 H, Lymph % (Auto) 7.7 L, [place] % (Auto) 3.0, Eos % (Auto) 0.4, Baso % (Auto) 0.0, Absolute Neuts (auto) 2.1, Absolute Lymphs (auto) 0.18 L, Nucleated RBC % 0, Differential Comment SCANNED, Diff Path Review July06/01/20 06:20: Sodium 138, Potassium 4.1, Chloride 105, Carbon Dioxide 29.0, Anion Gap 4 L, BUN 10, Creatinine 0.69 L, Estim Creat Clear Calc 55.94, Est GFR (MDRD) Af Amer 143, Est GFR (MDRD) Non-Af 118, BUN/Creatinine Ratio 14.4, Glucose 97, Calcium 8.4 L 06/01/20 07:25: Blood Type O POSITIVE, Antibody Screen NEGATIVE Current Medications Acetaminophen (Acetaminophen 325 Mg Tablet) 650 mg PO Q6H PRN PRN PRN Reason: Pain Score 1-10/Temp > 100.7 F Enoxaparin Sodium (Enoxaparin 40 Mg/0.4 Ml Syringe) 40 mg SC DAILY@0600 ON LICENSE OF [facility] Famotidine (Famotidine 20 Mg Tablet) 20 mg PO BID ON LICENSE OF [facility] Last Admin: 06/01/20 07:44 Dose: 20 mg Documented by: Lactated Ringer's () 1,000 mls @ 100 mls/hr IV .Q10H ON LICENSE OF [facility] Last Infusion: 06/01/20 06:29 Dose: 100 mls/hr Documented by: Sodium Chloride () 250 mls @ 15 mls/hr IV .[id number] PRN PRN Reason: Saline Flush Sodium Chloride () 250 mls @ 15 mls/hr IV .[id number] PRN PRN Reason: Additional IVPB Infusion Ciprofloxacin (Cipro) 400 mg in 200 mls @ 200 mls/hr IV Q12 ON LICENSE OF [facility] Last Infusion: 06/01/20 00:34 Dose: Infused Documented by: Metronidazole (Flagyl) 500 mg in 100 mls @ 100 mls/hr IV Q8 ON LICENSE OF [facility] Last Infusion: 06/01/20 06:29 Dose: Infused Documented by: Morphine Sulfate (Morphine 4 Mg/Ml Syringe) 4 mg IV Q3H PRN PRN PRN Reason: Pain Score 6-10 Nutritional Formula (Lactose Free) (Ensure Clear 120 Ml Liquid) 120 ml PO 4X/DAY ON LICENSE OF [facility] Last Admin: 06/01/20 07:44 Dose: Not Given Documented by: Ondansetron HCl (Ondansetron 4 Mg/2 Ml Vial) 4 mg IV Q8H PRN PRN PRN Reason: NAUSEA/VOMITING Oxycodone HCl (Oxycodone 5 Mg Tablet) 5 mg PO Q4H PRN PRN PRN Reason: Pain Score 4-5 Sodium Chloride (0.9% Saline Lock 10 Ml Syringe) 10 - 40 ml IV UD PRN PRN Reason: SALINE FLUSH Medical Necessity - Tobacco Use Smoking Status: Former smoker Assessment/Plan All Active Problems (Last Updated 05/31/20 @ 07:[address] Nasima Acevedo MD) Lung cancer metastatic to bone (Acute) 75-year-old male with sigmoid volvulus status post rectal tube, lung cancer s/p chemo 1. Plan for an open sigmoidectomy and end colostomy due to him being on chemotherapy for the last 5 weeks. Discussed with patient that if I were to put the bowel back together likely would fall apart as chemo does impair healing. Patient was agreeable with plan. Discussed the risk including but not limited to bleeding, infection, injury to another organ, and anesthesia. Also discussed with patient that the possible (also location of cancer) left lobe pneumonia could also put him at higher risk for surgery as well. 2. Urinary retention for 1300 Mccain placed Nasima Acevedo M.D. Pager: [phone] [facility] [address] [place] [address], [address] [place] [address] Office: [phone]
--- NOTE | 2020-06-01 09:30 | COL_PTH ---
PATIENT: MICKY WOMACK Jr. LOC: [facility] U#:[id number] AGE/SX: 75/M ROOM: [facility] RE05/31/[address]: Dr. Pastora Henderson MD : 1945 BED: 1 DIS: 06/05/2020 SPEC #: [id number] RECD: 06/01/20 11:14 STATUS: DIALLO BARB #: [id number] PERRY: 06/01/20 09:[address]: Nasima Acevedo DEPT: SURGICAL PATHOLOGY RECD BY: Peace Mas ENTERED: 06/01/20 12:28 SP TYPE: COLON OTHR DR: MD Dr. Jan Metcalf MD Tissues: A - Colon, NOS B - Skin, NOS Procedures: Surgery Specimen Level III Surgery Specimen Level V HEADER OPERATION: Open sigmoidectomy, Richards procedure PRE-OP DIAGNOSIS: Sigmoid volvulus, lung cancer TISSUE SUBMITTED: A - Sigmoid colon, suture carolina distal sigmoid, B - Skin discs MICROSCOPIC DIAGNOSIS A. Sigmoid colon, sigmoidectomy: Dilated segment of colon, consistent with volvulus. Colonic donut, no pathologic diagnosis. B. Skin disc: A piece of skin, no pathologic diagnosis. SANJUANA:any 06/05/2020 MICROSCOPIC DESCRIPTION Slides are reviewed. GROSS DESCRIPTION A - Received in fixative is one container labeled with the patient's name and designated suture carolina distal sigmoid colon. The specimen consists of a segment of colon measuring 30 cm in length. A 16 cm segment of colon is dilated and measures up to 7 cm in diameter. The rest of the colon measures up to 4 cm in diameter. The attached pericolonic adipose tissue measures up to 4 cm in width. The distal margin is oriented by a suture. Both resection margins are stapled. The lumen is filled with solid fecal material. No mucosal lesion is identified. Also present in the container is a donut-shaped piece of colonic tissue measuring 3 x 1 x 0.5 cm. Sections will be submitted after overnight fixation. / SANJUANA:any 06/01/20 Sections of the pericolonic adipose tissue do not reveal any obvious mass lesion. No mucosal lesion is identified. Pail Tester sections are submitted as follows: 1 - donut, 2 - proximal resection margin, 3 - distal resection margin, 4 & 5 - dilated portion of bowel, 6 - uninvolved portion of bowel and pericolonic adipose tissue. / SANJUANA:any 06/02/20 B - Received in fixative is one container labeled with the patient's name and designated skin discs. The specimen consists of a round piece of skin measuring 2 x 1.5 x 0.5 cm. No skin lesion is identified. The specimen is serially sectioned and submitted entirely in one cassette. / SANJUANA:any 06/01/20 TC:5 CPT: 55036, 91835 x2
[2020-06-01] MEDS: Bupiv/Epi 0.25% 30 ML Vial (09:50)
[2020-06-01] MEDS: Ciprofloxacin 400 MG/200 ML BAG 200 MG IV ×2 (10:01→21:08)
--- NOTE | 2020-06-01 10:36 | OP.PCM_ITS ---
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 Timeout was completed verifying correct patient, procedure, site, positioning, special, prior began procedure. General anesthesia was induced. Patient previously had Mccain placed on the floor due to urinary retention. Abdomen is prepped and draped in usual sterile fashion. An inferior umbilical midline incision was made with a 10 blade scalpel. The fascia was elevated and incised with Metzenbaums. A large wound protector was placed. The dilated sigmoid colon was brought into the incision with edema in the mesentery. The rectosigmoid junction was noted as well as the distal descending colon. A SOL blue load stapler was used to divide the descending and sigmoid colon as well as the colon at the rectosigmoid junction. The LigaSure impact was used to come across the mesentery. There was good blood supply to the distal descending colon. Disk of skin was removed in the left lower quadrant to accommodate the ostomy. Electrocautery was used to deepen to the fascia. Fascia was incised with electrocautery muscle were split. The ostomy easily accommodated 2 fingers. The distal descending colon was brought into the ostomy location without any tension or twisting. Wound was irrigated with saline. Fascia was closed with 1-0 PDS running suture. Skin was closed with skin debra. Left lower quadrant colostomy was matured using 3-0 Vicryl sutures in a Adrienne fashion. Midline incision was dressed with Telfa and 4 x 4's and tape. The ostomy appliance was applied. Was extubated and tolerated procedure well. - Complications none
[2020-06-01] MEDS: 0.9% Saline Lock 10 ML Syringe IV ×3 (12:23→21:20)
[2020-06-01] MEDS: Morphine 2 MG/ML Syringe IV (12:23)
--- NOTE | 2020-06-01 12:53 | CASEMGMT ---
RN CM Note: Palliative Care referral made to [facility] [place] palliative Care. Parminder GROVEN RN ACM
[2020-06-01 13:33] LABS: Pathologist Review Reviewed
[2020-06-01] MEDS: Lactated Ringers 1,000 ML 999 ML IV (14:44)
[2020-06-01] MEDS: Ensure Clear 120 ML Liquid PO ×3 (14:44→21:09)
--- NOTE | 2020-06-01 14:46 | NURSING ---
In to assess the abdominal dressing and the the ostomy appliance. the midline abdominal dressing is currently D&I. ostomy appliance intact. there is a small amount of serosanguineous drainage noted in the appliance. pt states pain is tolerable. no needs voiced at this time.
--- NOTE | 2020-06-01 16:35 | PN_ITS ---
Patient Problems: Active and Suspected Problems (Last Updated 05/31/20 @ 07:[address] Nasima Acevedo MD) NSCLC metastatic to bone (Acute) Leukopenia due to antineoplastic chemotherapy (Acute) Malnutrition (Acute) Weakness (Acute) Reason for Visit: Follow-up on post-op medical management/sigmoid volvulus Subjective: Patient was seen and examined. He was seen on the immediate post-op period. He has slight pain in his abdomen, otherwise denied chest pain, fever or chills. Objective: Physical exam: General: Alert, Oriented x3, Cooperative, No apparent distress HEENT: Atraumatic, PERRLA, EOMI, Normocephalic Oral: Moist Mucosa Neck: Supple Lungs: Diminished - especially in left lower lobe Cardiovascular: Regular rate, Regular Rhythm, Normal S1, Normal S2 Abdomen: Bowel Sounds Present, Soft, Non Tender, Non-Distended, No Hepato- splenomegaly, LLQ colostomy, red Extremities: No edema Skin: No rashes Musculoskeletal: No Tenderness to Palpation of Joints or Extremities Lymphatic: No Cervical, Supraclavicular, or Inguinal Adenopathy Neurological: Cranial nerves II-XII grossly intact, Neuro grossly intact Psych/Mental Status: Normal Affect, Appropriate Vitals/I&O's: Vital Signs Temp Pulse Resp BP Pulse Ox 99.2 F H 99 16 101/63 98 06/01/20 16:07 06/01/20 16:07 06/01/20 16:07 06/01/20 16:07 06/01/20 16:07 Oxygen Flow Rate (L/min) 2 Oxygen Delivery Method Nasal Cannula Weight: 61.961 kg Body Mass Index (BMI) 18.5 Intake and Output for Last 24 Hours 05/30/20 05/31/20 06/01/20 23:59 23:59 23:59 Intake Total 3676.66 / 3876.66 2978.34 / 2978.34 Output Total 1900 / 2900 2049 / 2049 Balance 1776.66 / 976.66 928.34 / 928.34 Microbiology Past 72 Hours 05/31/20 07:04 Mucosa - Nose SARS-CoV-2 Antigen (Rapid) - Final Laboratory Results 06/01/20 06:20: WBC 2.4 L, RBC 2.76 L, Hgb 9.1 L, Hct 26.8 L, MCV 97.1 H, MCH 33.0 H, MCHC 34.0, RDW Std Deviation 41.1, RDW Coeff of Natalie 12.4, Plt Count 132 L, MPV 8.8, Immature Gran % (Auto) 0.900, Neut % (Auto) 88.0 H, Lymph % (Auto) 7.7 L, Dare % (Auto) 3.0, Eos % (Auto) 0.4, Baso % (Auto) 0.0, Absolute Neuts (auto) 2.1, Absolute Lymphs (auto) 0.18 L, Nucleated RBC % 0, Differential Comment SCANNED, Diff Path Review Reviewed 06/01/20 06:20: Sodium 138, Potassium 4.1, Chloride 105, Carbon Dioxide 29.0, Anion Gap 4 L, BUN 10, Creatinine 0.69 L, Estim Creat Clear Calc 55.94, Est GFR (MDRD) Af Amer 143, Est GFR (MDRD) Non-Af 118, BUN/Creatinine Ratio 14.4, Glucose 97, Calcium 8.4 L 06/01/20 07:25: Blood Type O POSITIVE, Antibody Screen NEGATIVE Current Medications Acetaminophen (Acetaminophen 325 Mg Tablet) 650 mg PO Q6H PRN PRN PRN Reason: Pain Score 1-10/Temp > 100.7 F Enoxaparin Sodium (Enoxaparin 40 Mg/0.4 Ml Syringe) 40 mg SC DAILY@0600 [facility] Famotidine (Famotidine 20 Mg Tablet) 20 mg PO BID [facility] Last Admin: 06/01/20 07:44 Dose: 20 mg Documented by: Lactated Ringer's () 1,000 mls @ 100 mls/hr IV .Q10H [facility] Last Admin: 06/01/20 16:12 Dose: 100 mls/hr Documented by: Sodium Chloride () 250 mls @ 15 mls/hr IV .[id number] PRN PRN Reason: Saline Flush Sodium Chloride () 250 mls @ 15 mls/hr IV .[id number] PRN PRN Reason: Additional IVPB Infusion Ciprofloxacin (Cipro) 400 mg in 200 mls @ 200 mls/hr IV Q12 [facility] Last Infusion: 06/01/20 11:03 Dose: Infused Documented by: Metronidazole (Flagyl) 500 mg in 100 mls @ 100 mls/hr IV Q8 [facility] Last Infusion: 06/01/20 14:45 Dose: Infused Documented by: Ketorolac Tromethamine (Ketorolac 15 Mg/Ml Vial) 15 mg IV Q6H PRN PRN PRN Reason: pain 3-7 Morphine Sulfate (Morphine 4 Mg/Ml Syringe) 4 mg IV Q3H PRN PRN PRN Reason: Pain Score 6-10 Morphine Sulfate (Morphine 2 Mg/Ml Syringe) 2 mg IV Q2H PRN PRN PRN Reason: Pain Score 1-10 Last Admin: 06/01/20 12:23 Dose: 2 mg Documented by: Nutritional Formula (Lactose Free) (Ensure Clear 120 Ml Liquid) 120 ml PO 4X/DAY [facility] Last Admin: 06/01/20 14:44 Dose: 120 ml Documented by: Ondansetron HCl (Ondansetron 4 Mg/2 Ml Vial) 4 mg IV Q8H PRN PRN PRN Reason: NAUSEA/VOMITING Oxycodone HCl (Oxycodone 5 Mg Tablet) 5 mg PO Q4H PRN PRN PRN Reason: Pain Score 4-5 Sodium Chloride (0.9% Saline Lock 10 Ml Syringe) 10 - 40 ml IV UD PRN PRN Reason: SALINE FLUSH Last Admin: 06/01/20 12:23 Dose: 10 ml Documented by: STROKE Vital Signs/Narrative: Vital Signs Temp Pulse Resp BP BP Pulse Ox 06/01/20 16:07 99.2 F H 99 16 101/63 98 06/01/20 15:04 97.6 F L 88 18 95/57 L 99 06/01/20 13:19 98.5 F 85 12 81/56 L 98 Medical Necessity - Tobacco Use Smoking Status: Former smoker Assessment/Plan All Active Problems (Last Updated 05/31/20 @ 07:[address] Nasima Acevedo MD) NSCLC metastatic to bone (Acute) Leukopenia due to antineoplastic chemotherapy (Acute) Malnutrition (Acute) Weakness (Acute) 1. POD #0, s/p open sigmoidectomy with Richards's procedur efor Acute sigmoid volvulus Status post decompressive sigmoidoscopy/rectal tube insertion on 05/31/20 Continue with pain control, IV fluids, empiric antibiotics 2. Anemia, likely secondary to therapy side effects, no previous hemoglobin to compare We will continue to monitor with repeat blood work in a.m. 3. Leukopenia secondary to chemotherapy side effect, absolute neutrophil count is 2300. We will continue to monitor 4. Severe malnutrition, mainframe developer consulted, will follow-up on recommendations 5. Non-small cell lung CA status post chemotherapy and radiation therapy Follows with oncology in the outpatient. 6. DVT prophylaxis?Lovenox subcu/SCDS Inpatient E&M: 37838 Subs Hosp L2
[2020-06-01] MEDS: Ketorolac 15 MG/ML Vial IV (17:45)
--- NOTE | 2020-06-01 17:49 | CON.PCM_ITS ---
Problem List (1) Weakness Status: Acute (2) Anemia Status: Chronic Qualifiers: Anemia type: unspecified type Qualified Code(s): D64.9 - Anemia, unspecified (3) NSCLC metastatic to bone Status: Acute (4) Leukopenia due to antineoplastic chemotherapy Status: Acute (5) Malnutrition Status: Acute Qualifiers: Malnutrition type: unspecified type Qualified Code(s): E46 - Unspecified protein-calorie malnutrition (6) Former smoker Status: Chronic (7) Lung cancer metastatic to bone Status: Chronic History of Present Illness Date of Consult: 06/01/20 Reason for Consult: metastatic NSCLC, weakness Requesting physician: [] Primary care physician: Dr. Jan Benson MD - History of Present Illness The patient is a 75 year old M with past medical history of NSCLC with mets to the right hip, being seen today for palliative care consultation secondary to weakness and malnutrition. Other past medical history as below. He presented to the emergency room with abdominal pain. His bowels were moving, but he was unable to sleep secondary to the intensity of the pain. No nausea or vomiting. Denied any blood in his stool. Patient does follow with Dr. Faustin, oncology and is currently receiving radiation to the left lung (6 weeks, daily) and chemotherapy is carbotaxol, which he gets every Friday. Last dose 05/29/2020. He has an inactive port to the chest which does not work. Work-up in the ED i ncluded a CT of the abdomen and pelvis, which showed a cecal volvulus. There was also a questionable left lower lobe pneumonia. Patient underwent an open sigmoidectomy with ostomy to the left lower quadrant. Patient lives with his significant other and is typically fairly independent, is able to do all ADLs independently. Lives at home but has significant other. Patient has developed acute, severe malnutrition related to inadequate energy intake with increased energy needs in context of metastatic cancer. He has had a weight loss of approximately 13.5 pounds in the last 30 days, with more in the past few months. His appetite has been very poor. Is not able to tolerate much solid food, gets full fast. Feels very weak and not sure he can tolerate radiation at this point. Dr. Faustin was wanting to start Zometa for bone health but patient needs dental work done prior to this. He has an appointment on June 15. Mr. Melara states it may be too early for a palliative care referral but is unable to tell me what he believes palliative care consists of, but is open to discussion. We discussed palliative care services and his questions were all answered. He is open to a f/u visit as an outpatient to explore his options some more. He reiterates that he is unsure of what the future will hold. Patient Problems: Chronic Problems (Last Updated 06/06/20 @ 08:30 by Juliette oKenig) Anemia (Chronic) Former smoker (Chronic) Postobstructive pneumonia (Chronic) Chronic cough (Chronic) Iron deficiency anemia (Chronic) Nausea (Chronic) Lung cancer metastatic to bone (Chronic) Surgical History: - - Sigmoidectomy with ostomy 06/01/2020 Psychiatric History: No pertinent psych hx Home Medications: Ambulatory Orders Medication Instructions Recorded Benzonatate 100 - 200 mg PO TID PRN PRN 05/31/20 Calcium Citrate/Vitamin D3 2 ea PO DAILY 05/31/20 [Citracal + D Maximum Caplet] Ergocalciferol (Vitamin D2) 1,250 mcg PO QWEEK 05/31/20 [Vitamin D2] Iron,Carbonyl/Ascorbic Acid [Fe C 1 ea PO DAILY 05/31/20 Tablet] Multivitamins,Therapeutic 1 tab PO DAILY 05/31/20 [Multivitamin] Promethazine HCl 25 mg PO Q6H PRN PRN 05/31/20 Acetaminophen [Tylenol Tablet] 650 mg PO Q6H PRN PRN tab 06/05/20 Amiodarone HCl [Cordarone] 200 mg PO BID 06/05/20 Apixaban [Eliquis] 2.5 mg PO BID 06/05/20 Allergies Penicillins Adverse Reaction (Verified 05/31/20 05:24) Rash sulfamethoxazole [From Bactrim] Adverse Reaction (Verified 05/31/20 05:24) Rash trimethoprim [From Bactrim] Adverse Reaction (Verified 05/31/20 05:24) Rash Maternal History Items: No pertinent history - Social History Lives: Spouse/ Significant Other Smoking Status: Former smoker Tobacco Use: Cigarettes Alcohol: None Drugs: None Code Status: Full Code Review of Systems Constitutional: Reports: Anorexia, Weakness, Weight Change, Fatigue. Denies: Chills, Fever Eyes: Denies: Vision Change HEENT: Denies: Difficulty Swallowing, Sore Throat Cardiovascular: Denies: Chest Pain, Edema, Palpitations Respiratory: Reports: Shortness of Breath. Denies: Cough, Sputum production Gastrointestinal: Reports: Abdominal Pain, Nausea, - - new colostomy. Denies: Constipation, Diarrhea, Vomiting Genitourinary: Denies: Dysuria, Incontinence Musculoskeletal: Reports: Back Pain, Joint Pain Skin: Reports: - - surgical sites to abdomen Neurological: Denies: Focal weakness, Numbness, Tingling Psychiatric: Denies: Anxiety, Depression Hematologic/ Lymphatic: Reports: Anemia Physical Exam General: Alert, Oriented x3, Cooperative, No apparent distress HEENT: Atraumatic, Normocephalic Oral: - - Poor dentition Neck: Supple, Trachea Midline, - - Neck muscles very apparent, emaciated Lungs: Clear to auscultation, Diminished Cardiovascular: Regular rate, Regular Rhythm, Normal S1, Normal S2, - - Port to right chest visible Abdomen: Soft, Tender, - - Abdominal dressing intact from surgery Extremities: No cyanosis, No edema Skin: No rashes, Incision - Not observed, fresh postop Musculoskeletal: Cachexia, Muscle Wasting Neurological: Cranial nerves II-XII grossly intact Psych/Mental Status: Normal Affect, Appropriate Objective: Vital Signs Temp Pulse Resp BP Pulse Ox 99.2 F H 99 16 101/63 98 06/01/20 16:07 06/01/20 16:07 06/01/20 16:07 06/01/20 16:07 06/01/20 16:07 Oxygen Flow Rate (L/min) 2 Oxygen Delivery Method Nasal Cannula Weight: 61.961 kg Body Mass Index (BMI) 18.5 Intake and Output for Last 24 Hours 05/30/20 05/31/20 06/01/20 23:59 23:59 23:59 Intake Total 3676.66 / 3876.66 3178.34 / 3178.34 Output Total 1900 / 2900 2400 / 2400 Balance 1776.66 / 976.66 778.34 / 778.34 Microbiology Past 72 Hours 05/31/20 07:04 SARS-CoV-2 Antigen (Rapid) - Final Mucosa - Nose Laboratory Tests Past 24 Hrs 06/01/20 06/01/20 06/01/20 06:20 06:20 07:25 WBC 2.4 L RBC 2.76 L Hgb 9.1 L Hct 26.8 L MCV 97.1 H MCH 33.0 H MCHC 34.0 RDW Std Deviation 41.1 RDW Coeff of Natalie 12.4 Plt Count 132 L MPV 8.8 Immature Gran % (Auto) 0.900 Neut % (Auto) 88.0 H Lymph % (Auto) 7.7 L Sherman % (Auto) 3.0 Eos % (Auto) 0.4 Baso % (Auto) 0.0 Absolute Neuts (auto) 2.1 Absolute Lymphs (auto) 0.18 L Nucleated RBC % 0 Differential Comment SCANNED Diff Path Review Reviewed Sodium 138 Potassium 4.1 Chloride 105 Carbon Dioxide 29.0 Anion Gap 4 L BUN 10 Creatinine 0.69 L Estim Creat Clear Calc 55.94 Est GFR (MDRD) Af Amer 143 Est GFR (MDRD) Non-Af 118 BUN/Creatinine Ratio 14.4 Glucose 97 Calcium 8.4 L Blood Type O POSITIVE Antibody Screen NEGATIVE Assessment/Plan All Active Problems (Last Updated 06/06/20 @ 08:30 by Juliette Koenig) Postoperative atrial fibrillation (Acute) NSCLC metastatic to bone (Acute) Leukopenia due to antineoplastic chemotherapy (Acute) Malnutrition (Acute) Weakness (Acute) Atrial fibrillation with RVR (Acute) Debility (Acute) Abdominal pain (Acute) Sigmoid volvulus (Acute) 75-year-old with metastatic NSCLC to bone, following with Dr. Faustin. Palliative care consultation due to comorbid conditions, as well as profound weakness and malnutrition. 1. Weakness/malnutrition: While he is in the hospital, he is following with the dietitian. Hopefully when he starts recovering from surgery, his appetite will improve. He is still on chemo and radiation as well. Receiving Ensure clear for caloric intake. He may need an appetite stimulant, we can assess as outpatient once he is ok to d/c. Unclear at this point if will go to SNF or home. 2. NSCLC with mets to the bone: Again, following with Dr. Faustin. Continuing with chemo and radiation. Very weak at this point but still able to function at home. Does have some nausea surrounding his chemotherapy at times but infrequent, may benefit from olanzapine if returns. Would start him at 10 mg nightly prior to chemo treatment, then for a few days after unless nausea is persistent, then would just continue it daily. He will have scans soon to see if improvement. 3. Anemia: Stable, hemoglobin 10.3 prior to surgery. no issues. Greater than 50% of visit dedicated to education and counseling of patient regarding palliative care services. Explained in great detail and answered any questions that he had. Touched lightly on advance directives, he is currently full code and will stay at that. Discussed his comorbid conditions, which are very few, however he has had significant weakness and malnutrition associated with his cancer and treatment. Thank you for the opportunity to participate in this patient's care, please do not hesitate to contact us with any further questions or concerns. RN visit will occur hopefully within 3 days of discharge to get services established.
[2020-06-02] VITALS (29 sets, daily range): BP systolic 71–114; BP diastolic 43–72; PULSE 86–217; RESP 12–23; TEMP 36.4–37.1; O2SAT 92–98; BMI 18.5
[2020-06-02] MEDS: Ketorolac 15 MG/ML Vial IV (05:07)
[2020-06-02] MEDS: Enoxaparin 40 MG/0.4 ML Syringe SC (05:08)
[2020-06-02] MEDS: Lactated Ringers 1,000 ML 100 ML IV (05:09)
[2020-06-02] MEDS: metroNIDAZOLE 500 MG/100 ML BAG 100 MG IV ×2 (05:28→13:31)
[2020-06-02 06:14] LABS: Absolute Lymphocyte Count 0.08 X10^3/uL (0.83-4.51); Absolute Neutrophil Count 1.2 X10^3/uL (2.0-7.7); Eosinophil# 0.02 X10^3/uL; Eosinophils% 1.5 % (0-5); Hematocrit 24.8 % (40-54); Hemoglobin 8.2 g/dL (13.0-16.5); Lymphocyte # 0.08 X10^3/ul (4.0); Lymphocyte % 6.2 % (19-41); Mean Corp Hgb Conc 33.1 g/dL (32-36); Mean Corpuscular Hgb 32.4 pg (27.0-32.0); Mean Platelet Vol. 9.3 fl (6.2-12.0); Monocyte# 0.04 X10^3/uL; Monocyte% 3.1 % (0-10); NRBC Flagged by Analyzer 0 % (0-5); Neutrophil # 1.15 X10^3/uL (2.7-7.7); Neutrophil % 88.4 % (47-70); POSITIVE COUNT YES; POSITIVE DIFFERENTIAL YES; Platelet Count 116 K/mm3 (150-450); RBC Distribution Width CV 12.5 % (11.6-14.6); RBC Distribution Width SD 42.2 fl (35.1-43.9); Red Blood Count 2.53 M/mm3 (4.6-6.2)
[2020-06-02 06:20] LABS: Differential Indicated SCAN CRITERIA MET; White Blood Count 1.3 K/mm3 (4.4-11.0)
[2020-06-02 06:41] LABS: Anion Gap 6 (5-15); BUN 10 mg/dL (7-18); BUN/Creat Ratio 16.1 RATIO (10-20); Calcium,Total 7.8 mg/dL (8.5-10.1); Chloride 103 mmol/L (98-107); Creatinine, Serum 0.62 mg/dL (0.70-1.30); EST Glomerular Filtration Rate 134 mL/min (>60); Est Glom Filt Rate - Afr Amer 163 mL/min (>60); Estimated Creatinine Clearance 55.94 ml/min; Glucose 106 mg/dL (74-106); Magnesium 1.3 mg/dL (1.6-2.6); Potassium 3.9 mmol/L (3.5-5.1); Sodium Level 137 mmol/L (136-145)
[2020-06-02 06:45] LABS: Differential Comment SCANNED
[2020-06-02] MEDS: Acetaminophen 325 MG Tablet 650 MG PO ×2 (07:17→21:17)
--- NOTE | 2020-06-02 07:39 | PCM.PN.SRG ---
Patient Problems: Active and Suspected Problems (Last Updated 05/31/20 @ 07:[address] Nasima Acevedo MD) NSCLC metastatic to bone (Acute) Leukopenia due to antineoplastic chemotherapy (Acute) Malnutrition (Acute) Weakness (Acute) Subjective: Patient is up to the chair had a little bit gas in his colostomy bag, pain controlled well with Toradol - Physical Exam Vitals/I&O's: Vital Signs Temp Pulse Resp BP Pulse Ox 98.4 F 100 16 108/66 96 06/02/20 02:05 06/02/20 07:26 06/02/20 02:05 06/02/20 02:05 06/02/20 07:29 Oxygen Flow Rate (L/min) 2 Oxygen Delivery Method Nasal Cannula Weight: 136 lb 9.61 oz Body Mass Index (BMI) 18.5 Intake and Output for Last 24 Hours 05/31/20 06/01/20 06/02/20 23:59 23:59 23:59 Intake Total 3676.66 / 3876.66 3975.01 / 3975.01 710.83 / 710.83 Output Total 1900 / 2900 2400 / 3075 1475 / 1475 Balance 1776.66 / 976.66 1575.01 / 900.01 -764.17 / -764.17 General: Alert, Oriented x3, Cooperative, No apparent distress Lungs: Normal air movement Cardiovascular: Regular rate Abdomen: Soft, Distended - Mild, Tender - Near incision clean dry intact dressing in place, - - Colostomy edematous/pink, small amount of sanguinous fluid in bag with some air. Microbiology Past 72 Hours 05/31/20 07:04 Mucosa - Nose SARS-CoV-2 Antigen (Rapid) - Final Laboratory Results 06/01/20 06:20: Diff Path Review Reviewed 06/01/20 07:25: Blood Type O POSITIVE, Antibody Screen NEGATIVE 06/02/20 05:45: WBC 1.3 L*, RBC 2.53 L, Hgb 8.2 L, Hct 24.8 L, MCV 98.0 H, MCH 32.4 H, MCHC 33.1, RDW Std Deviation 42.2, RDW Coeff of Natalie 12.5, Plt Count 116 L, MPV 9.3, Immature Gran % (Auto) 0.800, Neut % (Auto) 88.4 H, Lymph % (Auto) 6.2 L, [place] % (Auto) 3.1, Eos % (Auto) 1.5, Baso % (Auto) 0.0, Absolute Neuts (auto) 1.2 L, Absolute Lymphs (auto) 0.08 L, Nucleated RBC % 0, Differential Comment SCANNED, Diff Path Review July06/02/20 05:45: Sodium 137, Potassium 3.9, Chloride 103, Carbon Dioxide 28.0, Anion Gap 6, BUN 10, Creatinine 0.62 L, Estim Creat Clear Calc 55.94, Est GFR (MDRD) Af Amer 163, Est GFR (MDRD) Non-Af 134, BUN/Creatinine Ratio 16.1, Glucose 106, Calcium 7.8 L, Magnesium 1.3 L Current Medications Acetaminophen (Acetaminophen 325 Mg Tablet) 650 mg PO Q6H PRN PRN PRN Reason: Pain Score 1-10/Temp > 100.7 F Last Admin: 06/02/20 07:17 Dose: 650 mg Documented by: Enoxaparin Sodium (Enoxaparin 40 Mg/0.4 Ml Syringe) 40 mg SC DAILY@0600 [facility] Last Admin: 06/02/20 05:08 Dose: 40 mg Documented by: Famotidine (Famotidine 20 Mg Tablet) 20 mg PO BID [facility] Last Admin: 06/01/20 21:09 Dose: 20 mg Documented by: Sodium Chloride () 250 mls @ 15 mls/hr IV .[id number] PRN PRN Reason: Saline Flush Last Infusion: 06/02/20 06:28 Dose: 15 mls/hr Documented by: Sodium Chloride () 250 mls @ 15 mls/hr IV .[id number] PRN PRN Reason: Additional IVPB Infusion Ciprofloxacin (Cipro) 400 mg in 200 mls @ 200 mls/hr IV Q12 [facility] Last Infusion: 06/01/20 22:08 Dose: Infused Documented by: Metronidazole (Flagyl) 500 mg in 100 mls @ 100 mls/hr IV Q8 [facility] Last Infusion: 06/02/20 06:28 Dose: Infused Documented by: Magnesium Sulfate () 4 gm in 100 mls @ 25 mls/hr IV X1 ONE Stop: 06/02/20 11:44 Ketorolac Tromethamine (Ketorolac 15 Mg/Ml Vial) 15 mg IV Q6H PRN PRN PRN Reason: pain 3-7 Last Admin: 06/02/20 05:07 Dose: 15 mg Documented by: Morphine Sulfate (Morphine 4 Mg/Ml Syringe) 4 mg IV Q3H PRN PRN PRN Reason: Pain Score 6-10 Morphine Sulfate (Morphine 2 Mg/Ml Syringe) 2 mg IV Q2H PRN PRN PRN Reason: Pain Score 1-10 Last Admin: 06/01/20 12:23 Dose: 2 mg Documented by: Nutritional Formula (Lactose Free) (Ensure Clear 120 Ml Liquid) 120 ml PO 4X/DAY [facility] Last Admin: 06/01/20 21:09 Dose: 120 ml Documented by: Ondansetron HCl (Ondansetron 4 Mg/2 Ml Vial) 4 mg IV Q8H PRN PRN PRN Reason: NAUSEA/VOMITING Oxycodone HCl (Oxycodone 5 Mg Tablet) 5 mg PO Q4H PRN PRN PRN Reason: Pain Score 4-5 Sodium Chloride (0.9% Saline Lock 10 Ml Syringe) 10 - 40 ml IV UD PRN PRN Reason: SALINE FLUSH Last Admin: 06/01/20 21:20 Dose: 10 ml Documented by: Medical Necessity - Tobacco Use Smoking Status: Former smoker Tobacco Use: Cigarettes Assessment/Plan All Active Problems (Last Updated 05/31/20 @ 07:[address] Nasima Acevedo MD) NSCLC metastatic to bone (Acute) Leukopenia due to antineoplastic chemotherapy (Acute) Malnutrition (Acute) Weakness (Acute) 75-year-old male with sigmoid volvulus status post rectal tube--postop day 1 status post sigmoidectomy, Albert's procedure, lung cancer s/p chemo 1. Patient tolerated clears having some flatus in his colostomy bag will advance diet to full's if tolerates will advance to regular. 2. Urinary retention Mccain removed this morning we will continue to monitor Nasima Acevedo M.D. Pager: [phone] [facility] [address] [place] [address], [facility], [address] [place] [address] Office: [phone]
--- NOTE | 2020-06-02 08:07 | EKG12_ITS ---
Test Reason : POSS A FIB Blood Pressure : / mmHG Vent. Rate : 102 BPM Atrial Rate : 102 BPM P-R Int : 120 ms QRS Dur : 086 ms QT Int : 340 ms P-R-T Axes : 082 047 082 degrees QTc Int : 443 ms Sinus tachycardia with frequent Premature ventricular complexes Otherwise normal ECG When compared with ECG of 31-MAY-2020 14:47, MANUAL COMPARISON REQUIRED, DATA IS UNCONFIRMED Confirmed by JOSE AMAYA, FERNANDO ([id number]), dictionary editor SAVANNA LEWIS ([id number]) on 06/06/2020 12:39:48 PM Referred By: Nasima Acevedo Confirmed By:FERNANDO GARCIA MD
--- NOTE | 2020-06-02 08:08 | NURSING ---
nurse walked into room, and pt was very pale, shaking his right hand/arm, nurse called his name and came around. States he gets this feeling at times, at home at times also, and has nearly passed out at home. He thought it was the chemo kicking in. Charge nurse was called, and she texted Dr. Acevedo to call this nurse stat. This nurse reported the above with the heart rate fluctuating from 100 to 46, bp 100/71, pox 92% on ra, new orders were given. Pt was sitting upright and was placed in reclining position in the chair.
--- NOTE | 2020-06-02 08:22 | NURSING ---
The signed prescription form for the ostomy supplies in on the front of the chart for pt at discharge. Will also discuss with case management and recommend home health care to assist with ostomy at care at home until patient becomes comfortable with appliance change. Pt is POD#1 sigmoidectomy with end colostomy per Dr Acevedo.
--- NOTE | 2020-06-02 08:37 | NURSING ---
in to assess the ostomy appliance. there is a small amount of flatus noted in the pouch. demonstrated to patient how to burp the appliance. Pt states he had also read that in the teaching booklet. there is a small amount of serosanguineous drainage noted in the appliance. stoma is beefy red and edematous. no stool noted. Pt will be starting on clear liquids for breakfast. pt denies further needs at this time.
[2020-06-02] MEDS: Magnesium Sulfate 4gm/100mL 4 GM/100 ML IV.SOLN. IV (08:41)
[2020-06-02] MEDS: Ciprofloxacin 400 MG/200 ML BAG 200 MG IV (09:16)
[2020-06-02] MEDS: Ensure Clear 120 ML Liquid PO (09:19)
[2020-06-02] MEDS: Famotidine 20 MG Tablet PO (09:21)
--- NOTE | 2020-06-02 09:43 | PCM.PN.HOSP ---
Patient Problems: Active and Suspected Problems (Last Updated 05/31/20 @ 07:[address] Nasima Acevedo MD) NSCLC metastatic to bone (Acute) Leukopenia due to antineoplastic chemotherapy (Acute) Malnutrition (Acute) Weakness (Acute) Atrial fibrillation with RVR (Acute) Reason for Visit: Follow-up on post-op medical management/sigmoid volvulus Subjective: Patient was seen and examined. Early on in the ED, patient had episodes of V. tach. His magnesium was 1.3. This was replaced. He was later found to be hypotensive. He was said to have had a presyncopal episode 2 times in his room. Troponin was negative. Patient was transferred to the progressive care unit. After arrival, patient became hypotensive. His heart rate was in the 180s persistently. Telemetry was suggestive of SVT. Patient received adenosine 6 mg IV x1 with transient swallowing of the heart rate. He received another 12 mg x 1 which did not show any improvement. Heart rate slowed down briefly and goes up again. Received amiodarone 300 mg IV x1. Cardiology was consulted, patient underwent bedside cardioversion. He converted to normal sinus rhythm. CTA of the chest was negative for acute PE. Objective: Physical exam: General: Alert, Oriented x3, Cooperative, No apparent distress HEENT: Atraumatic, PERRLA, EOMI, Normocephalic Oral: Moist Mucosa Neck: Supple Lungs: Diminished - especially in left lower lobe Cardiovascular: Regular rate, Regular Rhythm, Normal S1, Normal S2 Abdomen: Bowel Sounds Present, Soft, Non Tender, Non-Distended, No Hepato-splenomegaly, LLQ colostomy, red Extremities: No edema Skin: No rashes Musculoskeletal: No Tenderness to Palpation of Joints or Extremities Lymphatic: No Cervical, Supraclavicular, or Inguinal Adenopathy Neurological: Cranial nerves II-XII grossly intact, Neuro grossly intact Psych/Mental Status: Normal Affect, Appropriate Vitals/I&O's: Vital Signs Temp Pulse Resp BP Pulse Ox 97.6 F L 99 18 100/71 92 06/02/20 07:44 06/02/20 08:06 06/02/20 07:45 06/02/20 08:06 06/02/20 08:06 Oxygen Flow Rate (L/min) 2 Oxygen Delivery Method Room Air Weight: 61.961 kg Body Mass Index (BMI) 18.5 Intake and Output for Last 24 Hours 05/31/20 06/01/20 06/02/20 23:59 23:59 23:59 Intake Total 3676.66 / 3876.66 3975.01 / 3975.01 1050.58 / 1050.58 Output Total 1900 / 2900 2400 / 3075 1475 / 1475 Balance 1776.66 / 976.66 1575.01 / 900.01 -424.42 / -424.42 Microbiology Past 72 Hours 05/31/20 07:04 Mucosa - Nose SARS-CoV-2 Antigen (Rapid) - Final Laboratory Results 06/01/20 06:20: Diff Path Review Reviewed 06/02/20 05:45: WBC 1.3 L*, RBC 2.53 L, Hgb 8.2 L, Hct 24.8 L, MCV 98.0 H, MCH 32.4 H, MCHC 33.1, RDW Std Deviation 42.2, RDW Coeff of Natalie 12.5, Plt Count 116 L, MPV 9.3, Immature Gran % (Auto) 0.800, Neut % (Auto) 88.4 H, Lymph % (Auto) 6.2 L, [place] % (Auto) 3.1, Eos % (Auto) 1.5, Baso % (Auto) 0.0, Absolute Neuts (auto) 1.2 L, Absolute Lymphs (auto) 0.08 L, Nucleated RBC % 0, Differential Comment SCANNED, Diff Path Review July06/02/20 05:45: Sodium 137, Potassium 3.9, Chloride 103, Carbon Dioxide 28.0, Anion Gap 6, BUN 10, Creatinine 0.62 L, Estim Creat Clear Calc 55.94, Est GFR (MDRD) Af Amer 163, Est GFR (MDRD) Non-Af 134, BUN/Creatinine Ratio 16.1, Glucose 106, Calcium 7.8 L, Magnesium 1.3 L 06/02/20 05:45: Troponin I < 0.015 06/02/20 08:24: Troponin I < 0.015 Current Medications Acetaminophen (Acetaminophen 325 Mg Tablet) 650 mg PO Q6H PRN PRN PRN Reason: Pain Score 1-10/Temp > 100.7 F Last Admin: 06/02/20 07:17 Dose: 650 mg Documented by: Enoxaparin Sodium (Enoxaparin 40 Mg/0.4 Ml Syringe) 40 mg SC DAILY@0600 [facility] Last Admin: 06/02/20 05:08 Dose: 40 mg Documented by: Famotidine (Famotidine 20 Mg Tablet) 20 mg PO BID [facility] Last Admin: 06/02/20 09:21 Dose: 20 mg Documented by: Sodium Chloride () 250 mls @ 15 mls/hr IV .[id number] PRN PRN Reason: Saline Flush Last Infusion: 06/02/20 09:27 Dose: 0 mls/hr Documented by: Sodium Chloride () 250 mls @ 15 mls/hr IV .[id number] PRN PRN Reason: Additional IVPB Infusion Ciprofloxacin (Cipro) 400 mg in 200 mls @ 200 mls/hr IV Q12 [facility] Last Admin: 06/02/20 09:16 Dose: 200 mls/hr Documented by: Metronidazole (Flagyl) 500 mg in 100 mls @ 100 mls/hr IV Q8 [facility] Last Infusion: 06/02/20 06:28 Dose: Infused Documented by: Magnesium Sulfate () 4 gm in 100 mls @ 25 mls/hr IV X1 ONE Stop: 06/02/20 11:44 Last Admin: 06/02/20 08:41 Dose: 25 mls/hr Documented by: Ketorolac Tromethamine (Ketorolac 15 Mg/Ml Vial) 15 mg IV Q6H PRN PRN PRN Reason: pain 3-7 Last Admin: 06/02/20 05:07 Dose: 15 mg Documented by: Morphine Sulfate (Morphine 4 Mg/Ml Syringe) 4 mg IV Q3H PRN PRN PRN Reason: Pain Score 6-10 Morphine Sulfate (Morphine 2 Mg/Ml Syringe) 2 mg IV Q2H PRN PRN PRN Reason: Pain Score 1-10 Last Admin: 06/01/20 12:23 Dose: 2 mg Documented by: Nutritional Formula (Lactose Free) (Ensure Clear 120 Ml Liquid) 120 ml PO 4X/DAY [facility] Last Admin: 06/02/20 09:19 Dose: 120 ml Documented by: Nutritional Formula (Lactose Free) (Ensure Enlive 120 Ml Liquid) 120 ml PO 4X/DAY [facility] Last Admin: 06/02/20 09:19 Dose: 120 ml Documented by: Ondansetron HCl (Ondansetron 4 Mg/2 Ml Vial) 4 mg IV Q8H PRN PRN PRN Reason: NAUSEA/VOMITING Oxycodone HCl (Oxycodone 5 Mg Tablet) 5 mg PO Q4H PRN PRN PRN Reason: Pain Score 4-5 Sodium Chloride (0.9% Saline Lock 10 Ml Syringe) 10 - 40 ml IV UD PRN PRN Reason: SALINE FLUSH Last Admin: 06/01/20 21:20 Dose: 10 ml Documented by: STROKE Vital Signs/Narrative: Vital Signs Temp Pulse Resp BP BP Pulse Ox 06/02/20 08:06 99 100/71 92 06/02/20 07:45 101 H 18 97 06/02/20 07:44 97.6 F L 101 H 18 98/63 97 06/02/20 07:29 96 06/02/20 07:26 100 Medical Necessity - Tobacco Use Smoking Status: Former smoker Tobacco Use: Cigarettes Assessment/Plan All Active Problems (Last Updated 05/31/20 @ 07:[address] Nasima Acevedo MD) NSCLC metastatic to bone (Acute) Leukopenia due to antineoplastic chemotherapy (Acute) Malnutrition (Acute) Weakness (Acute) Atrial fibrillation with RVR (Acute) 1. Acute arrhythmia with hemodynamic instability, status post DC cardioversion Acute PE ruled out with a negative CT of the chest. Cardiology consulted, continue amiodarone 200 mg twice daily, start apixaban 2.5 mg twice daily Continue to monitor on telemetry 2. POD #1, s/p open sigmoidectomy with Richards's procedure for Acute sigmoid volvulus Status post decompressive sigmoidoscopy/rectal tube insertion on 05/31/20 Continue with pain control, IV fluids, empiric antibiotics 3. Anemia, likely secondary to therapy side effects, no previous hemoglobin to compare Continue to monitor with repeat blood work in a.m. 4. Leukopenia secondary to chemotherapy side effect, WBC is 1.2, absolute neutrophil count is 1000 Will continue to monitor 5. Severe malnutrition, custodial operations manager consulted, will follow-up on recommendations 6. Non-small cell lung CA status post chemotherapy and radiation therapy Follows with oncology in the outpatient. 7. DVT prophylaxis?Lovenox subcu/SCDS Inpatient E&M: 06190 Subs Hosp L2
[2020-06-02 10:22] LABS: Hematocrit 24.9 % (40-54); Hemoglobin 8.7 g/dL (13.0-16.5)
[2020-06-02] MEDS: 0.9% Normal Saline 1,000 ML 125 ML IV ×3 (10:25→20:19)
--- NOTE | 2020-06-02 11:22 | CASEMGMT ---
Addendum entered by Aline Coe 06/02/20 16:22: Pt was agreeable to referral to [facility] and CM to follow up on Friday after he speaks with significant other. Original Note: RN CM notified by wound nurse that patient will need HHC at discharge for colostomy teaching. Patient was provided a list of HHC providers including quality and resource use data and consistent with the patient?s preferred geographic region, medical needs, and insurance network. Patient wishes to review list and will provide preferences. CM will continue to follow this patient and plan for a safe discharge.
--- NOTE | 2020-06-02 11:29 | NURSING ---
nurse in [facility] not able to accept transfer call now, states she will call me back.
--- NOTE | 2020-06-02 11:42 | ECHOCS_ITS ---
Reason For Study: Arrhythmia Procedure This was a 2D Doppler, Color Flow transthoracic echocardiogram. The study was technically difficult. Contrast injection was performed. Exam performed portable in patient room. Left Ventricle Normal LV size. The estimated ejection fraction is 45 %. Mild global left ventricular systolic dysfunction. There is mild global hypokinesis of the left ventricle. Right Ventricle Normal RV size. Normal systolic function. Atria Normal left atrium. Normal right atrium. Mitral Valve Normal mitral valve. Mild (1+) eccentric mitral valve insufficiency. Tricuspid Valve Normal tricuspid valve. Mild tricuspid valve insufficiency. Pulmonary artery systolic pressure is 30 mmHg. Pulmonic Valve The pulmonic valve is not well visualized. Great Vessels Normal aortic root. The pulmonary artery is normal size. Normal inferior vena cava. Pericardium/Pleural No pericardial effusion. Medication Diluted definity 4ml given slow IV push to enhance endocardial definition. MMode/2D Measurements & Calculations LVIDd: 5.1 cm IVSd: 0.77 cm Ao root diam: 3.3 cm LVIDs: 4.2 cm LVPWd: 0.89 cm LA dimension: 3.1 cm FS: 17.7 % LAV(MOD-bp): 55.2 ml LA A4 area: 19.3 cm2 RA A4 area: 15.2 cm2 LAV(MOD-bp) Indexed: 30.5 ml/m2 LAV(MOD-sp2): 59.0 ml LAV(MOD-sp4): 48.5 ml Time Measurements MV dec time: 0.17 sec Doppler Measurements & Calculations MV E max spencer: 56.1 cm/sec Lat Peak E' Spencer: 16.8 cm/sec Med Peak E' Spencer: 9.2 cm/sec MV A max spencer: 67.7 cm/sec E/E' lat: 3.3 E/E' med: 6.1 MV E/A: 0.83 MV V2 max: 78.9 cm/sec MV P1/2t max spencer: 68.2 cm/sec Ao V2 max: 107.2 cm/sec MV max P.5 mmHg MV P1/2t: 63.5 msec Ao max P.6 mmHg MV V2 mean: 47.2 cm/sec MV dec slope: 314.6 cm/sec2 MV mean P.1 mmHg MVA(P1/2t): 3.5 cm2 MV V2 VTI: 17.1 cm LV V1 max: 93.2 cm/sec PA V2 max: 86.7 cm/sec TR max spenecr: 259.5 cm/sec LV V1 max P.5 mmHg TR max P.9 mmHg Interpretation Summary Normal LV size. The estimated ejection fraction is 45 %. Mild global left ventricular systolic dysfunction. There is mild global hypokinesis of the left ventricle. Pulmonary artery systolic pressure is 30 mmHg. Contrast injection was performed. Ordering Physician: Susie Gonsalez Referring Physician: Nasima Acevedo Performed By: Mario Alberto Kennedy RCS
--- NOTE | 2020-06-02 11:43 | NURSING ---
Report called to Janie BARKLEY the receiving nurse.
--- NOTE | 2020-06-02 12:17 | EKG12_ITS ---
Test Reason : RAPID RESPONSE Blood Pressure : / mmHG Vent. Rate : 101 BPM Atrial Rate : 101 BPM P-R Int : 130 ms QRS Dur : 086 ms QT Int : 360 ms P-R-T Axes : 072 052 065 degrees QTc Int : 466 ms Sinus tachycardia with frequent and consecutive Premature ventricular complexes Nonspecific ST and T wave abnormality Abnormal ECG When compared with ECG of 02-JUN-2020 12:12, MANUAL COMPARISON REQUIRED, DATA IS UNCONFIRMED Confirmed by JOSE AMAYA, FERNANDO ([id number]), editor magazine SAVANNA LEWIS ([id number]) on 06/06/2020 12:55:15 PM Referred By: Nasima Acevedo Confirmed By:FERNANDO GARCIA MD
--- NOTE | 2020-06-02 12:18 | EKG12_ITS ---
Test Reason : RAPID RESPONSE Blood Pressure : / mmHG Vent. Rate : 176 BPM Atrial Rate : 178 BPM P-R Int : 000 ms QRS Dur : 082 ms QT Int : 260 ms P-R-T Axes : 000 046 084 degrees QTc Int : 445 ms Atrial fibrillation Marked ST abnormality, possible anterior subendocardial injury Abnormal ECG When compared with ECG of 02-JUN-2020 12:04, MANUAL COMPARISON REQUIRED, DATA IS UNCONFIRMED Confirmed by JOSE AMAYA, FERNANDO ([id number]), editor news SAVANNA LEWIS ([id number]) on 06/06/2020 12:55:28 PM Referred By: Nasima Acevedo Confirmed By:FERNANDO GARCIA MD
--- NOTE | 2020-06-02 12:27 | EKG12_ITS ---
Test Reason : RAPID Blood Pressure : / mmHG Vent. Rate : 164 BPM Atrial Rate : 174 BPM P-R Int : 000 ms QRS Dur : 080 ms QT Int : 272 ms P-R-T Axes : 000 044 222 degrees QTc Int : 449 ms Atrial fibrillation with premature ventricular or aberrantly conducted complexes ST & T wave abnormality, consider inferior ischemia ST & T wave abnormality, consider anterolateral ischemia Abnormal ECG When compared with ECG of 02-JUN-2020 08:15, MANUAL COMPARISON REQUIRED, DATA IS UNCONFIRMED Confirmed by JOSE AMAYA, FERNANDO ([id number]), commercial production editor SAVANNA LEWIS ([id number]) on 06/06/2020 12:55:44 PM Referred By: Nasima Acevedo Confirmed By:FERNANDO GARCIA MD
[2020-06-02 12:30] LABS: ALB/GLOB Ratio 0.6 RATIO (0.9-2.4); AST(SGOT) 27 U/L (15-37); Alanine Aminotransfer ALT/SGPT 15 U/L (16-61); Albumin, Serum 1.9 g/dL (3.2-5.0); Alkaline Phosphatase 75 U/L (45-117); Anion Gap 4 (5-15); BUN 10 mg/dL (7-18); BUN/Creat Ratio 15.7 RATIO (10-20); Calcium,Total 7.9 mg/dL (8.5-10.1); Chloride 103 mmol/L (98-107); Creatinine, Serum 0.64 mg/dL (0.70-1.30); EST Glomerular Filtration Rate 130 mL/min (>60); Est Glom Filt Rate - Afr Amer 157 mL/min (>60); Estimated Creatinine Clearance 55.94 ml/min; Globulin 3.4 g/dL (2.2-4.2); Glucose 128 mg/dL (74-106); Potassium 3.8 mmol/L (3.5-5.1); Protein, Total 5.3 g/dL (6.4-8.2); Sodium Level 134 mmol/L (136-145)
[2020-06-02 12:30] LABS: Absolute Lymphocyte Count 0.12 X10^3/uL (0.83-4.51); Eosinophil# 0.01 X10^3/uL; Eosinophils% 0.8 % (0-5); Hematocrit 25.4 % (40-54); Hemoglobin 8.9 g/dL (13.0-16.5); Lymphocyte # 0.12 X10^3/ul (4.0); Lymphocyte % 10.1 % (19-41); Mean Corpuscular Hgb 34.4 pg (27.0-32.0); Mean Corpuscular Volume 98.1 fL (80-94); Mean Platelet Vol. 9.3 fl (6.2-12.0); Monocyte# 0.06 X10^3/uL; NRBC Flagged by Analyzer 0 % (0-5); Neutrophil % 84.1 % (47-70); POSITIVE COUNT YES; POSITIVE DIFFERENTIAL YES; Platelet Count 100 K/mm3 (150-450); RBC Distribution Width CV 12.9 % (11.6-14.6); RBC Distribution Width SD 42.9 fl (35.1-43.9); Red Blood Count 2.59 M/mm3 (4.6-6.2)
--- NOTE | 2020-06-02 12:32 | CARDIOVERS ---
Cardioversion Cardioversion: Emergency DC cardioversion Was called emergently to see patient who was hypotensive and in atrial fibrillation with a ventricular response rate of 179 bpm and blood pressure of 71 mmHg systolic. Patient was evaluated history taken. Informed consent was obtained. Anterior posterior pads were applied. The patient was administered 5000 units of intravenous heparin. The patient was then administered 4 mg of intravenous etomidate by Dr. Nixon of the critical care division. 200 J of synchronized DC cardioversion energy were applied with prompt reversal to sinus rhythm. Patient tolerated the procedure well was awake and conversant post procedure. Conclusion: Successful DC cardioversion emergently from atrial fibrillation to sinus rhythm. Would recommend short-term anticoagulation. Would recommend short-term amiodarone dosing. Above discussed with hospitalist.
[2020-06-02 12:34] LABS: Differential Indicated SCAN CRITERIA MET; White Blood Count 1.2 K/mm3 (4.4-11.0)
--- NOTE | 2020-06-02 12:34 | CON.PCM_ITS ---
Reason for Consult Date of Consultation: 06/02/20 Reason for Consultation: Hypotensive and tachycardia History of Present Illness: The patient is a 75 year old M with a history of recently diagnosed malignancy of the lung who presented with sigmoid volvulus and underwent surgery. Pos toperative day 1 he was noted to be tachycardic and became hypotensive. He was seen by the hospitalist and administered 6 mg and 12 mg of adenosine with no improvement. I was called emergently to see the patient to assist in the management as patient was noted to be hypotensive. On arrival the patient was noted to be in atrial fibrillation with a rapid ventricular response rate and with blood pressures in the 70s. Informed consent was obtained and the patient was emergently DC cardioverted back to sinus rhythm. He says that he has not had that this episode previously. He has had no dizziness or diaphoresis near syncope or syncope. [] Past Medical History Allergies/Adverse Reactions: Allergies Penicillins Adverse Reaction (Verified 05/31/20 05:24) Rash sulfamethoxazole [From Bactrim] Adverse Reaction (Verified 05/31/20 05:24) Rash trimethoprim [From Bactrim] Adverse Reaction (Verified 05/31/20 05:24) Rash Home Medications: Ambulatory Orders Medication Instructions Recorded Benzonatate 100 - 200 mg PO TID PRN PRN 05/31/20 Calcium Citrate/Vitamin D3 2 ea PO DAILY 05/31/20 [Citracal + D Maximum Caplet] Ergocalciferol (Vitamin D2) 1,250 mcg PO QWEEK 05/31/20 [Vitamin D2] Iron,Carbonyl/Ascorbic Acid [Fe C 1 ea PO DAILY 05/31/20 Tablet] Multivitamins,Therapeutic 1 tab PO DAILY 05/31/20 [Multivitamin] Promethazine HCl 25 mg PO Q6H PRN PRN 05/31/20 Past Medical History (Chronic Problems): Chronic Problems (Last Updated 05/31/20 @ 07:[address] Nasima Acevedo MD) Anemia (Chronic) Former smoker (Chronic) Lung cancer metastatic to bone (Chronic) Surgical History: - - Sigmoidectomy with ostomy 06/01/2020 Psychiatric History: No pertinent psych hx - *Family History Maternal History Items: No pertinent history Lives: Spouse/ Significant Other Smoking Status: Former smoker Tobacco Use: Cigarettes Alcohol: None Drugs: None Review of Systems - Review of Systems General: Denies: Fever, Night Sweats, Fatigue HEENT: Denies: Vision Change Cardiovascular: Denies: Chest Discomfort, Shortness of Breath, Orthopnea, PND, Peripheral Edema, Palpitations, Lightheadedness, Dizziness, Near Syncope, Syncope Respiratory: Denies: Cough, Sputum Production, Hemoptysis Gastrointestinal: Denies: Hematemesis, Hematochezia, Melena Genitourinary: Denies: Dysuria, Hematuria Skin: Denies: Rash Neurological: Denies: Dizziness Psychiatric: Denies: Anxiety Objective: Vital Signs Temp Pulse Resp BP Pulse Ox 97.7 F L 217 H 12 87/43 L 97 06/02/20 11:51 06/02/20 11:51 06/02/20 11:51 06/02/20 11:51 06/02/20 11:51 Oxygen Flow Rate (L/min) 2 Oxygen Delivery Method Nasal Cannula Weight: 136 lb 9.61 oz Body Mass Index (BMI) 18.5 Intake and Output for Last 24 Hours 05/31/20 06/01/20 06/02/20 23:59 23:59 23:59 Intake Total 3676.66 / 3876.66 3975.01 / 3975.01 1752.66 / 1752.66 Output Total 1900 / 2900 2400 / 3075 1475 / 1475 Balance 1776.66 / 976.66 1575.01 / 900.01 277.66 / 277.66 General: Awake, Alert, Oriented x 3, Ill Appearing HEENT: PERRL, EOMI, Sclera Non Icteric Neck: Supple, Good ROM, No Lymph Node Enlargement Chest Wall: Midline Sternotomy Incision Lungs: Clear to auscultation Cardiovascular: Irregular Rhythm, Normal S1, Normal S2, No Murmurs, No Rubs, No Gallops Vascular: No Carotid Bruits, Normal Femoral Pulses, Normal Radial Pulses, Normal Dorsalis Pedal Pulse, Normal Posterior Tibial Pulses Abdomen: Bowel Sounds Present, Soft, Non Tender, No HSM, No Organomegaly Extremities: No Cyanosis, No Clubbing, No edema Musculoskeletal: No Erythema Skin: No Rashes Lymphatic: No Lymph Node Enlargement Neurological: No Focal Motor or Sensory Deficit 06/02/20 05:45: WBC 1.3 L*, RBC 2.53 L, Hgb 8.2 L, Hct 24.8 L, MCV 98.0 H, MCH 32.4 H, MCHC 33.1, Plt Count 116 L, MPV 9.3, Immature Gran % (Auto) 0.800, Neut % (Auto) 88.4 H, Lymph % (Auto) 6.2 L, [place] % (Auto) 3.1, Eos % (Auto) 1.5, Baso % (Auto) 0.0, Absolute Neuts (auto) 1.2 L, Nucleated RBC % 0 06/02/20 05:45: Sodium 137, Potassium 3.9, Chloride 103, Carbon Dioxide 28.0, Anion Gap 6, BUN 10, Creatinine 0.62 L, Est GFR (MDRD) Af Amer 163, Est GFR (MDRD) Non-Af 134, BUN/Creatinine Ratio 16.1, Glucose 106, Calcium 7.8 L, Magnesium 1.3 L 06/02/20 05:45: Troponin I < 0.015 06/02/20 08:24: Troponin I < 0.015 06/02/20 10:15: Hgb 8.7 L, Hct 24.9 L 06/02/20 11:48: Troponin I < 0.015 06/02/20 11:48: Sodium 134 L, Potassium 3.8, Chloride 103, Carbon Dioxide 27.0, Anion Gap 4 L, BUN 10, Creatinine 0.64 L, Est GFR (MDRD) Af Amer 157, Est GFR (MDRD) Non-Af 130, BUN/Creatinine Ratio 15.7, Glucose 128 H, Calcium 7.9 L, Total Bilirubin 0.70 06/02/20 12:15: WBC 1.2 L*, RBC 2.59 L, Hgb 8.9 L, Hct 25.4 L, MCV 98.1 H, MCH 34.4 H, MCHC 35.0 D, Plt Count 100 L, MPV 9.3, Immature Gran % (Auto) 0.000, Neut % (Auto) 84.1 H, Lymph % (Auto) 10.1 L, [place] % (Auto) 5.0, Eos % (Auto) 0.8, Baso % (Auto) 0.0, Absolute Neuts (auto) 1.0 L, Nucleated RBC % 0 Rhythm: EKG: Fibrillation with a rapid ventricular response rate of [address] depression noted laterally. ECHO: Pending Stress Test: Cardiac Cath: PCI: CT Surgery: Holter monitor: EPS: PPM: CXR: Chest CT Scan: Assessment/Plan 1. Symptomatic atrial fibrillation with a rapid ventricular response rate. * Patient presents postop day 1 with symptomatic atrial fibrillation with a rapid ventricular response rate requiring urgent DC cardioversion. This was performed successfully under emergent consent. He is currently in sinus rhythm. * Would recommend evaluating for a possible pulmonary embolism * Obtain echocardiogram to assess ventricular function * Would recommend short-term amiodarone 200 mg twice daily * Beta-sedrick can be started as blood pressure tolerates * Anticoagulation can be started as diagnosis of PE is excluded * Above discussed with hospitalist * * Thank you for allowing me to participate in the care of your patient. Please don't hesitate to call if any issues arise.
[2020-06-02] MEDS: Heparin Injection 5,000 UNITS/ML Syringe 5000 UNITS IV (12:38)
--- NOTE | 2020-06-02 12:45 | PRO.PCM_ITS ---
Problem List (1) Atrial fibrillation with RVR Status: Acute (2) NSCLC metastatic to bone Status: Acute (3) Anemia Status: Chronic Qualifiers: Anemia type: unspecified type Qualified Code(s): D64.9 - Anemia, unspecified (4) Malnutrition Status: Acute Qualifiers: Malnutrition type: unspecified type Qualified Code(s): E46 - Unspecified protein-calorie malnutrition (5) Former smoker Status: Chronic (6) Lung cancer metastatic to bone Status: Chronic Procedure Report Date of Procedure: 06/02/20 - Emergent conscious sedation CONSCIOUS SEDATION REPORT BRIEF HISTORY OF PRESENT ILLNESS: The patient is a 75-year-old male who presented to [facility] for a sigmoid volvulus. At approximately 12:00, patient had a rapid response called secondary to A. kristy with RVR and hypotension. I was asked to present emergently as patient was hypotensive, tachycardic, but still lucid. Dr. Vargas was at the bedside and determined the patient would benefit from emergent cardioversion. Given hypotension and emergent nature, etomidate was chosen. Patient was tolerating room air well. There was not time to do an extensive review of systems or physical exam prior to proceeding with the procedure. PHYSICAL EXAMINATION: VITAL SIGNS: Reviewed. GENERAL: The patient is a male, in no apparent distress, speaking in full sentences. HEENT: Normocephalic, atraumatic. Mucous membranes are moist and pink. Good mouth opening noted. Trachea is midline. Good neck mobility. MP I CHEST: S1, S2 irregularly irregular. No murmurs, rubs or gallops were noted. LUNGS: Clear to auscultation bilaterally without appreciable wheezes, rales or rhonchi. ABDOMEN: Soft, tender, nondistended. Positive bowel sounds. Incision was clean, dry and intact EXTREMITIES: There is no clubbing, cyanosis or edema. ASA Class: II DESCRIPTION OF PROCEDURE: After confirmation of informed consent, the patient's anesthesia plan was reviewed in detail. Etomidate was chosen. Risks and benefits were reviewed and the patient agreed to proceed. At 12:25 PM, the patient was given 4 mg of etomidate. The patient achieved an appropriate level of sedation and received 1 attempt synchronized cardioversion, at [address] Vargas at the bedside. This was successful in achieving normal sinus rhythm. The patient was monitored until 12:36 PM, at which time the patient reached their baseline mental status and function. The patient tolerated the procedure well. Patient's heart rate and blood pressure improved following cardioversion. No formal ICU consult was placed at that time COMPLICATIONS: None ESTIMATED BLOOD LOSS: None RECOMMENDATIONS: Okay to recover in usual fashion. [id number]: Other Procedure See Report - [id number]
[2020-06-02 12:58] LABS: Platelet Estimate MOD DEC (ADEQ)
[2020-06-02 12:59] LABS: Differential Comment SCANNED; Hypochromasia 2+
[2020-06-02] MEDS: Amiodarone 360 MG in Dextrose 5% Viaflo Bag 192.8 ML 33.3 MG CONT INF (13:18)
[2020-06-02] MEDS: 0.9% Saline Lock 10 ML Syringe IV ×3 (13:42→21:18)
--- NOTE | 2020-06-02 14:00 | CT_ITS ---
We are attempting to reach an attending provider to discuss findings. An addendum with communication details will be sent when the communication is complete. STUDY: CTA CHEST REASON FOR EXAM: Male, 75 years old. A. fib with RVR, concern for acute PE RADIATION DOSAGE (If Supplied By Facility): CTDIvol = ( 7.08 ) mGy, DLP = ( 188.75 ) mGycm TECHNIQUE: The examination was performed with the intravenous administration of IV 75mL Isovue-370. Post-processing of the angiographic images was performed, with multiplanar reformation and 3D reconstruction. Individualized dose optimization techniques were used for this CT. COMPARISON: None. FINDINGS: Normal enhancement of the main pulmonary artery and right and left pulmonary arteries. Normal enhancement of the bilateral peripheral pulmonary arteries. There is no demonstrated pulmonary embolism. Normal thoracic aorta and visualized great vessels. There is no demonstrated aortic dissection. There are calcifications of the coronary arteries. There are visualized mediastinal lymph nodes, which are within normal size limits, and with normal morphology. Hyperinflation and emphysematous changes with centrilobular emphysema. There is evidence of a 5.9 cm x 4.8 cm x 8.9 cm left hilar and infrahilar mass with dense post obstructive pneumonitis involving the left lower lobe and a small left pleural effusion. A neoplastic process should be ruled out. Mild degree of increased markings at the right lung base suggestive of atelectasis and/or possible scarring. Normal chest wall structures. There are degenerative changes of thoracic spine. There is evidence of free intraperitoneal air. CT/CTA Chest W/WO Contrast IMPRESSION: Large left hilar and infrahilar mass causing post obstructive pneumonitis in the left lower lobe with small left pleural effusion. Small right pleural thickening with the right basilar atelectasis. Intraperitoneal free air. Electronically Signed: Aly Bean MD at 14:50 EST , Service support ,
[2020-06-02 14:28] LABS: Magnesium 2.3 mg/dL (1.6-2.6)
--- NOTE | 2020-06-02 14:44 | PN_ITS ---
Progress Note Previous events noted with the cardioversion/V. tach/hypotension. Patient's vitals are currently stable. He is on amiodarone as well as anticoagulated currently going down for a CT of the chest to rule out PE.Currently patient denies any symptoms still has a little bit of gas in his colostomy will continue on full's today if increased output --will plan to change to a regular diet tonight or tomorrow. Appreciate cardiology and hospitalist assistance Dr. Ogden will be rounding over the weekend for me. From surgery standpoint okay to DC once his colostomy is functioning and patient is able to tolerate a diet. We will have him follow-up in 1 week in office with me. Nasima Acevedo M.D. Pager: [phone] [facility] [address] [place] [address], [facility], [address] [place] [address] Office: [phone] STROKE Vital Signs/Narrative: Vital Signs Temp Pulse Resp BP BP Pulse Ox 06/02/20 13:30 97 22 H 89/67 L 97 06/02/20 13:18 98 16 89/68 L 96 06/02/20 13:00 98 16 93/72 96 06/02/20 12:45 102 H 15 92/69 95 06/02/20 12:40 101 H 16 95/66 95 06/02/20 12:30 97.9 F 102 H 17 90/67 93 06/02/20 12:25 102 H 23 H 96/71 93 06/02/20 12:22 102 H 23 H 103/69 93 06/02/20 12:15 71/54 L 06/02/20 11:51 97.7 F L 217 H 12 87/43 L 97 06/02/20 11:13 107 H 85/57 L
--- NOTE | 2020-06-02 14:47 | DCINST_ITS ---
Discharge Diet: Light diet - advance as tolerated Discharge Activity: May not drive while taking narcotic pain medications., May Shower Lifting Restrictions: No lifting greater than 20 pounds x 2 weeks Call your doctor if your incision/area has: Continuous Slow Oozing, Sudden Increased Bleeding, Increased Pain/ Swelling, Increased Redness, Foul Smelling Discharge, Swelling at the incision site Call your doctor if you observe: Fever of 101 or Higher Allergies/Adverse Reactions: Allergies Penicillins Adverse Reaction (Verified 05/31/20 05:24) Rash sulfamethoxazole [From Bactrim] Adverse Reaction (Verified 05/31/20 05:24) Rash trimethoprim [From Bactrim] Adverse Reaction (Verified 05/31/20 05:24) Rash Medications to take at Discharge Benzonatate 100 - 200 mg PO TID PRN PRN 05/31/20 Calcium Citrate/Vitamin D3 [Citracal + D Maximum Caplet] 2 ea PO DAILY 05/31/20 Ergocalciferol (Vitamin D2) [Vitamin D2] 1,250 mcg PO QWEEK 05/31/20 Iron,Carbonyl/Ascorbic Acid [Fe C Tablet] 1 ea PO DAILY 05/31/20 Multivitamins,Therapeutic [Multivitamin] 1 tab PO DAILY 05/31/20 Promethazine HCl 25 mg PO Q6H PRN PRN 05/31/20 Primary Care Physician: Shai Faustin DO [STAFF PHYSICIAN] - Test Results: Test results from this visit will be discussed in further detail at your follow- up appointment, if applicable. Please Follow Up With: Nasima Acevedo MD - After 5 PM on the weekends call [phone] with any concerns When: Call the office for appointment in 10 days from surgery for staple removal
--- NOTE | 2020-06-02 16:06 | CASEMGMT ---
RN CM in to discuss dc planning with patient. Patient was provided HHC list prior. Pt first choice is [facility]. Pt states he is agreeable to HHC but wants to check with his significant other as he will be staying at her home. TC neelam Wood at [facility]. Left vm with referral information and where pt will be staying, requested returned call. Green sheet placed on pt chart.
[2020-06-02 16:31] LABS: Hemoglobin 8.5 g/dL (13.0-16.5)
[2020-06-02] MEDS: APIXABAN 2.5 MG TABLET PO (21:17)
[2020-06-02] MEDS: Famotidine 200 MG/20 ML MDV 20 MG in 0.9% Normal Saline (Pres. free 8 ML 300 MG IV (21:17)
[2020-06-02] MEDS: Amiodarone 200 MG Tablet PO (21:17)
[2020-06-02 21:29] LABS: Hematocrit 25.1 % (40-54); Hemoglobin 8.6 g/dL (13.0-16.5)
[2020-06-03] VITALS (15 sets, daily range): BP systolic 99–125; BP diastolic 66–90; PULSE 89–103; RESP 14–25; TEMP 36.4–37.1; O2SAT 92–99
[2020-06-03] MEDS: 0.9% Normal Saline 1,000 ML 125 ML IV (03:25)
--- NOTE | 2020-06-03 06:59 | PN.SURG_ITS ---
Patient Problems: Active and Suspected Problems (Last Updated 05/31/20 @ 07:[address] Nasima Acevedo MD) NSCLC metastatic to bone (Acute) Leukopenia due to antineoplastic chemotherapy (Acute) Malnutrition (Acute) Weakness (Acute) Atrial fibrillation with RVR (Acute) Subjective: Patient has no nausea or vomiting and tolerated full liquids well. He reports he is passing flatus and is having no abdominal pain. He is still having a significant cough. - Physical Exam Vitals/I&O's: Vital Signs Temp Pulse Resp BP Pulse Ox 98 F 89 18 118/85 H 99 06/03/20 03:30 06/03/20 03:30 06/03/20 03:30 06/03/20 03:30 06/03/20 03:30 Oxygen Flow Rate (L/min) 2 Oxygen Delivery Method Nasal Cannula Weight: 136 lb 9.61 oz Body Mass Index (BMI) 18.5 Intake and Output for Last 24 Hours 06/01/20 06/02/20 06/03/20 23:59 23:59 23:59 Intake Total 3975.01 / 3975.01 3198.44 / 3198.44 887.5 / 887.5 Output Total 2400 / 3075 3025 / 3025 Balance 1575.01 / 900.01 173.44 / 173.44 887.5 / 887.5 General: Alert, Oriented x3 Neck: No JVD Lungs: Normal air movement Cardiovascular: Regular rate, Regular Rhythm Abdomen: Soft, Non Tender, Non-Distended Microbiology Past 72 Hours 05/31/20 07:04 Mucosa - Nose SARS-CoV-2 Antigen (Rapid) - Final Laboratory Results 06/02/20 05:45: Troponin I < 0.015 06/02/20 08:24: Troponin I < 0.015 06/02/20 10:15: Hgb 8.7 L, Hct 24.9 L 06/02/20 11:48: Troponin I < 0.015 06/02/20 11:48: Sodium 134 L, Potassium 3.8, Chloride 103, Carbon Dioxide 27.0, Anion Gap 4 L, BUN 10, Creatinine 0.64 L, Estim Creat Clear Calc 55.94, Est GFR (MDRD) Af Amer 157, Est GFR (MDRD) Non-Af 130, BUN/Creatinine Ratio 15.7, Glucose 128 H, Calcium 7.9 L, Total Bilirubin 0.70, AST 27, ALT 15 L, Alkaline Phosphatase 75, Total Protein 5.3 L, Albumin 1.9 L, Globulin 3.4, A lbumin/Globulin Ratio 0.6 L 06/02/20 11:48: Magnesium 2.3 06/02/20 12:15: WBC 1.2 L*, RBC 2.59 L, Hgb 8.9 L, Hct 25.4 L, MCV 98.1 H, MCH 34.4 H, MCHC 35.0 D, RDW Std Deviation 42.9, RDW Coeff of Natalie 12.9, Plt Count 100 L, MPV 9.3, Immature Gran % (Auto) 0.000, Neut % (Auto) 84.1 H, Lymph % (Auto) 10.1 L, [place] % (Auto) 5.0, Eos % (Auto) 0.8, Baso % (Auto) 0.0, Absolute Neuts (auto) 1.0 L, Absolute Lymphs (auto) 0.12 L, Nucleated RBC % 0, Differential Comment SCANNED, Diff Path Review May kandis, Platelet Estimate MOD DEC, Hypochromasia 2+ 06/02/20 15:57: Hgb 8.5 L, Hct 26.0 L 06/02/20 21:23: Hgb 8.6 L, Hct 25.1 L Current Medications Acetaminophen (Acetaminophen 325 Mg Tablet) 650 mg PO Q6H PRN PRN PRN Reason: Pain Score 1-10/Temp > 100.7 F Last Admin: 06/02/20 21:17 Dose: 650 mg Documented by: Amiodarone HCl (Amiodarone 200 Mg Tablet) 200 mg PO BID [facility] Last Admin: 06/02/20 21:17 Dose: 200 mg Documented by: Apixaban (Apixaban 2.5 Mg Tablet) 2.5 mg PO BID [facility] Last Admin: 06/02/20 21:17 Dose: 2.5 mg Documented by: Sodium Chloride () 250 mls @ 15 mls/hr IV .[id number] PRN PRN Reason: Saline Flush Last Infusion: 06/02/20 09:27 Dose: 0 mls/hr Documented by: Sodium Chloride () 250 mls @ 15 mls/hr IV .[id number] PRN PRN Reason: Additional IVPB Infusion Sodium Chloride () 1,000 mls @ 125 mls/hr IV .Q8H [facility] Last Admin: 06/03/20 03:25 Dose: 125 mls/hr Documented by: Famotidine 20 mg/ Sodium (Chloride) 10 mls @ 300 mls/hr IV Q12 [facility] Last Infusion: 06/02/20 21:20 Dose: Infused Documented by: Nutritional Formula (Lactose Free) (Ensure Enlive 120 Ml Liquid) 120 ml PO 4X/DAY [facility] Last Admin: 06/02/20 21:17 Dose: Not Given Documented by: Ondansetron HCl (Ondansetron 4 Mg/2 Ml Vial) 4 mg IV Q8H PRN PRN PRN Reason: NAUSEA/VOMITING Oxycodone HCl (Oxycodone 5 Mg Tablet) 5 mg PO Q4H PRN PRN PRN Reason: Pain Score 4-5 Sodium Chloride (0.9% Saline Lock 10 Ml Syringe) 10 - 40 ml IV UD PRN PRN Reason: SALINE FLUSH Last Admin: 06/02/20 21:18 Dose: 10 ml Documented by: Medical Necessity - Tobacco Use Smoking Status: Former smoker Tobacco Use: Cigarettes Assessment/Plan All Active Problems (Last Updated 05/31/20 @ 07:[address] Nasima Acevedo MD) NSCLC metastatic to bone (Acute) Leukopenia due to antineoplastic chemotherapy (Acute) Malnutrition (Acute) Weakness (Acute) Atrial fibrillation with RVR (Acute) 75-year-old male status post sigmoid colectomy with colostomy 1. Patient required cardioversion yesterday. He tolerated full liquids with no nausea vomiting and he is passing flatus through his colostomy. His colostomy is pink and appears healthy. I will advance the patient to a transitional diet. If the patient tolerates diet he can be discharged from our standpoint and follow-up with Dr. Acevedo. Gibson Ogden MD Pager: [facility] [address] [place] [address], [address] [place] [address] Office:
[2020-06-03 07:50] LABS: Absolute Lymphocyte Count 0.07 X10^3/uL (0.83-4.51); Absolute Neutrophil Count 1.1 X10^3/uL (2.0-7.7); Basophil# 0.01 X10^3/uL; Basophil% 0.8 % (0-1); Eosinophil# 0.02 X10^3/uL; Eosinophils% 1.6 % (0-5); Hematocrit 27.1 % (40-54); Lymphocyte # 0.07 X10^3/ul (4.0); Lymphocyte % 5.6 % (19-41); Mean Corp Hgb Conc 33.2 g/dL (32-36); Mean Corpuscular Hgb 32.5 pg (27.0-32.0); Mean Corpuscular Volume 97.8 fL (80-94); Mean Platelet Vol. 9.5 fl (6.2-12.0); Monocyte# 0.05 X10^3/uL; NRBC Flagged by Analyzer 0 % (0-5); Neutrophil # 1.11 X10^3/uL (2.7-7.7); POSITIVE COUNT YES; POSITIVE DIFFERENTIAL YES; Platelet Count 123 K/mm3 (150-450); RBC Distribution Width CV 12.4 % (11.6-14.6); RBC Distribution Width SD 42.7 fl (35.1-43.9); Red Blood Count 2.77 M/mm3 (4.6-6.2)
[2020-06-03 08:09] LABS: Differential Indicated SCAN CRITERIA MET; White Blood Count 1.3 K/mm3 (4.4-11.0)
[2020-06-03 08:22] LABS: ALB/GLOB Ratio 0.5 RATIO (0.9-2.4); AST(SGOT) 32 U/L (15-37); Alanine Aminotransfer ALT/SGPT 18 U/L (16-61); Alkaline Phosphatase 76 U/L (45-117); Anion Gap 4 (5-15); BUN 7 mg/dL (7-18); Calcium,Total 8.2 mg/dL (8.5-10.1); Chloride 106 mmol/L (98-107); Creatinine, Serum 0.58 mg/dL (0.70-1.30); EST Glomerular Filtration Rate 144 mL/min (>60); Est Glom Filt Rate - Afr Amer 175 mL/min (>60); Estimated Creatinine Clearance 55.94 ml/min; Globulin 3.7 g/dL (2.2-4.2); Glucose 107 mg/dL (74-106); Potassium 4.1 mmol/L (3.5-5.1); Protein, Total 5.7 g/dL (6.4-8.2); Sodium Level 136 mmol/L (136-145)
[2020-06-03] MEDS: APIXABAN 2.5 MG TABLET PO ×2 (09:28→22:04)
[2020-06-03] MEDS: Famotidine 20 MG Tablet PO (09:28)
[2020-06-03] MEDS: Amiodarone 200 MG Tablet PO (09:28)
[2020-06-03] MEDS: NYSTATIN 500,000 UNIT/5 ML UDC 500000 UNIT PO ×3 (09:28→22:05)
[2020-06-03 10:50] LABS: Differential Comment SCANNED
--- NOTE | 2020-06-03 10:51 | CASEMGMT ---
As per physician, pt may actually need SNF placement rather than going home with home health. SW met w/pt, and pt's significant other Ann in her room in regard to discharge plan. Pt and Ann both expressed concern about pt going home. SW spoke w/them about assisted placement. Both would like pt to go to TCU. SW did provide a list of nursing facilities that includes quality and resource use data and is consistent with pt's preferred geographic region, medical needs, and insurance. SW explained to pt and Ann that we will need to see if TCU will have a bed, and if not they may need to pick a second choice. SW did let pt know which facilities are taking COVID+ patients, as he does not want to go to a facility with COVID+ patients. SW also did let pt and Ann know that wherever he ends up going, he will be quarantined for 14 days. They state understanding. SW did check w/physician, pt's radiation will be suspended for now. SW let pt know this as well, pt states understanding. BLAKE also sent an email to TCU inquiring about admission, and let pt and significant other know this as well. SW let pt, significant other and physician know it is anticipated pt will be here until Friday. SW again encouraged pt and Ann to choose other facilities in the event TCU cannot take pt. They state understanding. SW also spoke w/pt about all he has been through recently, support offered. Plan: SNF, possibly TCU if bed available. BLAKE will continue to follow. RADHA Martin
--- NOTE | 2020-06-03 11:16 | PCM.PN.HOSP ---
Patient Problems: Active and Suspected Problems (Last Updated 05/31/20 @ 07:[address] Nasima Acevedo MD) NSCLC metastatic to bone (Acute) Leukopenia due to antineoplastic chemotherapy (Acute) Malnutrition (Acute) Weakness (Acute) Atrial fibrillation with RVR (Acute) Reason for Visit: Follow-up on post-op medical management/sigmoid volvulus/A. fib with RVR Subjective: Patient was seen and examined. He complains of feeling generally tired. He has some mild shortness of breath. Denied any fever or chills. Telemetry shows sinus tachycardia. Objective: Physical exam: General: Alert, Oriented x3, Cooperative, No apparent distress HEENT: Atraumatic, PERRLA, EOMI, Normocephalic Oral: Moist Mucosa Neck: Supple Lungs: Diminished - especially in left lower lobe Cardiovascular: Regular rate, Regular Rhythm, Normal S1, Normal S2 Abdomen: Bowel Sounds Present, Soft, Non Tender, Non-Distended, No Hepato-splenomegaly, LLQ colostomy, red Extremities: No edema Skin: No rashes Musculoskeletal: No Tenderness to Palpation of Joints or Extremities Lymphatic: No Cervical, Supraclavicular, or Inguinal Adenopathy Neurological: Cranial nerves II-XII grossly intact, Neuro grossly intact Psych/Mental Status: Normal Affect, Appropriate Vitals/I&O's: Vital Signs Temp Pulse Resp BP Pulse Ox 97.6 F L 103 H 16 99/66 97 06/03/20 09:23 06/03/20 09:23 06/03/20 09:23 06/03/20 09:23 06/03/20 09:23 Oxygen Flow Rate (L/min) 2 Oxygen Delivery Method Room Air Weight: 61.961 kg Body Mass Index (BMI) 18.5 Intake and Output for Last 24 Hours 06/01/20 06/02/20 06/03/20 23:59 23:59 23:59 Intake Total 3975.01 / 3975.01 3198.44 / 3198.44 1491.67 / 1491.67 Output Total 2400 / 3075 3025 / 3025 Balance 1575.01 / 900.01 173.44 / 173.44 1491.67 / 1491.67 Microbiology Past 72 Hours 05/31/20 07:04 Mucosa - Nose SARS-CoV-2 Antigen (Rapid) - Final Laboratory Results 06/02/20 11:48: Troponin I < 0.015 06/02/20 11:48: Sodium 134 L, Potassium 3.8, Chloride 103, Carbon Dioxide 27.0, Anion Gap 4 L, BUN 10, Creatinine 0.64 L, Estim Creat Clear Calc 55.94, Est GFR (MDRD) Af Amer 157, Est GFR (MDRD) Non-Af 130, BUN/Creatinine Ratio 15.7, Glucose 128 H, Calcium 7.9 L, Total Bilirubin 0.70, AST 27, ALT 15 L, Alkaline Phosphatase 75, Total Protein 5.3 L, Albumin 1.9 L, Globulin 3.4, Albumin/Globulin Ratio 0.6 L 06/02/20 11:48: Magnesium 2.3 06/02/20 12:15: WBC 1.2 L*, RBC 2.59 L, Hgb 8.9 L, Hct 25.4 L, MCV 98.1 H, MCH 34.4 H, MCHC 35.0 D, RDW Std Deviation 42.9, RDW Coeff of Natalie 12.9, Plt Count 100 L, MPV 9.3, Immature Gran % (Auto) 0.000, Neut % (Auto) 84.1 H, Lymph % (Auto) 10.1 L, [place] % (Auto) 5.0, Eos % (Auto) 0.8, Baso % (Auto) 0.0, Absolute Neuts (auto) 1.0 L, Absolute Lymphs (auto) 0.12 L, Nucleated RBC % 0, Differential Comment SCANNED, Diff Path Review July, Platelet Estimate MOD DEC, Hypochromasia 2+ 06/02/20 15:57: Hgb 8.5 L, Hct 26.0 L 06/02/20 21:23: Hgb 8.6 L, Hct 25.1 L 06/03/20 07:25: WBC 1.3 L*, RBC 2.77 L, Hgb 9.0 L, Hct 27.1 L, MCV 97.8 H, MCH 32.5 H, MCHC 33.2 D, RDW Std Deviation 42.7, RDW Coeff of Natalie 12.4, Plt Count 123 L, MPV 9.5, Immature Gran % (Auto) 0.000, Neut % (Auto) 88.0 H, Lymph % (Auto) 5.6 L, [place] % (Auto) 4.0, Eos % (Auto) 1.6, Baso % (Auto) 0.8, Absolute Neuts (auto) 1.1 L, Absolute Lymphs (auto) 0.07 L, Nucleated RBC % 0, Differential Comment SCANNED, Diff Path Review July06/03/20 07:25: Sodium 136, Potassium 4.1, Chloride 106, Carbon Dioxide 26.0, Anion Gap 4 L, BUN 7, Creatinine 0.58 L, Estim Creat Clear Calc 55.94, Est GFR (MDRD) Af Amer 175, Est GFR (MDRD) Non-Af 144, BUN/Creatinine Ratio 12.0, Glucose 107 H, Calcium 8.2 L, Magnesium 2.0, Total Bilirubin 0.60, AST 32, ALT 18, Alkaline Phosphatase 76, Total Protein 5.7 L, Albumin 2.0 L, Globulin 3.7, Albumin/Globulin Ratio 0.5 L Current Medications Acetaminophen (Acetaminophen 325 Mg Tablet) 650 mg PO Q6H PRN PRN PRN Reason: Pain Score 1-10/Temp > 100.7 F Last Admin: 06/02/20 21:17 Dose: 650 mg Documented by: Amiodarone HCl (Amiodarone 200 Mg Tablet) 200 mg PO BID [facility] Last Admin: 06/03/20 09:28 Dose: 200 mg Documented by: Apixaban (Apixaban 2.5 Mg Tablet) 2.5 mg PO BID [facility] Last Admin: 06/03/20 09:28 Dose: 2.5 mg Documented by: Famotidine (Famotidine 20 Mg Tablet) 20 mg PO DAILY [facility] Last Admin: 06/03/20 09:28 Dose: 20 mg Documented by: Sodium Chloride () 250 mls @ 15 mls/hr IV .[id number] PRN PRN Reason: Saline Flush Last Infusion: 06/02/20 09:27 Dose: 0 mls/hr Documented by: Sodium Chloride () 250 mls @ 15 mls/hr IV .[id number] PRN PRN Reason: Additional IVPB Infusion Nutritional Formula (Lactose Free) (Ensure Enlive 120 Ml Liquid) 120 ml PO 4X/DAY [facility] Last Admin: 06/03/20 09:32 Dose: 120 ml Documented by: Nystatin (Nystatin 500,000 Unit/5 Ml Udc) 500,000 unit PO 4X/DAY [facility] Last Admin: 06/03/20 09:28 Dose: 500,000 unit Documented by: Ondansetron HCl (Ondansetron 4 Mg/2 Ml Vial) 4 mg IV Q8H PRN PRN PRN Reason: NAUSEA/VOMITING Oxycodone HCl (Oxycodone 5 Mg Tablet) 5 mg PO Q4H PRN PRN PRN Reason: Pain Score 4-5 Sodium Chloride (0.9% Saline Lock 10 Ml Syringe) 10 - 40 ml IV UD PRN PRN Reason: SALINE FLUSH Last Admin: 06/02/20 21:18 Dose: 10 ml Documented by: Throat Lozenges (Benzocaine/Menthol 1 Lozenge) 2 lozenge MUCOUS MEM Q2H PRN PRN PRN Reason: SORE THROAT STROKE Vital Signs/Narrative: Vital Signs Temp Pulse Resp BP Pulse Ox 06/03/20 09:23 97.6 F L 103 H 16 99/66 97 06/03/20 07:40 96 Medical Necessity - Tobacco Use Smoking Status: Former smoker Tobacco Use: Cigarettes Assessment/Plan All Active Problems (Last Updated 05/31/20 @ 07:[address] Nasima Acevedo MD) NSCLC metastatic to bone (Acute) Leukopenia due to antineoplastic chemotherapy (Acute) Malnutrition (Acute) Weakness (Acute) Atrial fibrillation with RVR (Acute) 1. Acute A. fib with RVR with hemodynamic instability, status post DC cardioversion Acute PE ruled out with a negative CT of the chest. Cardiology consulted, continue amiodarone 200 mg twice daily, apixaban 2.5 mg twice daily Continue to monitor on telemetry 2. POD #2, s/p open sigmoidectomy with Richards's procedure for Acute sigmoid volvulus Status post decompressive sigmoidoscopy/rectal tube insertion on 05/31/20 Continue with pain control, IV fluids, empiric antibiotics 3. Hypomagnesemia, resolved 4. Anemia, likely secondary to therapy side effects, Hb remained stable at 9.0 Continue to monitor with repeat blood work in a.m. 5. Leukopenia secondary to chemotherapy side effect, WBC is 1.3, absolute neutrophil count is 1100 Will continue to monitor 6. Severe malnutrition, private duty rn consulted, will follow-up on recommendations 7. Non-small cell lung CA status post chemotherapy and radiation therapy Follows with oncology in the outpatient. 8. DVT prophylaxis?Lovenox subcu/SCDS Inpatient E&M: 59237 Subs Hosp L2
[2020-06-03] MEDS: Furosemide 20 MG/2 ML VIAL IV (11:55)
[2020-06-03 17:16] LABS: Anion Gap 6 (5-15); BUN 13 mg/dL (7-18); Chloride 100 mmol/L (98-107); Creatinine, Serum 0.56 mg/dL (0.70-1.30); EST Glomerular Filtration Rate 150 mL/min (>60); Est Glom Filt Rate - Afr Amer 181 mL/min (>60); Estimated Creatinine Clearance 55.94 ml/min; Glucose 108 mg/dL (74-106); Magnesium 1.6 mg/dL (1.6-2.6); Potassium 3.7 mmol/L (3.5-5.1); Sodium Level 134 mmol/L (136-145)
[2020-06-03] MEDS: Amiodarone 360 MG in Dextrose 5% Viaflo Bag 192.8 ML 33.3 MG CONT INF (19:31)
[2020-06-03] MEDS: MELATONIN 3 MG TABLET PO (22:04)
[2020-06-04] VITALS (26 sets, daily range): BP systolic 96–120; BP diastolic 69–88; PULSE 75–96; RESP 16–23; TEMP 36.6–36.9; O2SAT 93–100
[2020-06-04] MEDS: Amiodarone 360 MG in Dextrose 5% Viaflo Bag 192.8 ML 16.7 MG CONT INF ×2 (01:35→13:06)
[2020-06-04 06:56] LABS: Absolute Lymphocyte Count 0.15 X10^3/uL (0.83-4.51); Absolute Neutrophil Count 1.2 X10^3/uL (2.0-7.7); Basophil# 0.01 X10^3/uL; Basophil% 0.7 % (0-1); Eosinophil# 0.02 X10^3/uL; Eosinophils% 1.4 % (0-5); Hematocrit 25.8 % (40-54); Hemoglobin 8.8 g/dL (13.0-16.5); Lymphocyte # 0.15 X10^3/ul (4.0); Lymphocyte % 10.5 % (19-41); Mean Corp Hgb Conc 34.1 g/dL (32-36); Mean Corpuscular Hgb 32.7 pg (27.0-32.0); Mean Corpuscular Volume 95.9 fL (80-94); Mean Platelet Vol. 8.9 fl (6.2-12.0); Monocyte# 0.06 X10^3/uL; Monocyte% 4.2 % (0-10); NRBC Flagged by Analyzer 0 % (0-5); Neutrophil # 1.18 X10^3/uL (2.7-7.7); Neutrophil % 82.5 % (47-70); POSITIVE COUNT YES; POSITIVE DIFFERENTIAL YES; Platelet Count 114 K/mm3 (150-450); RBC Distribution Width CV 12.4 % (11.6-14.6); RBC Distribution Width SD 40.4 fl (35.1-43.9); Red Blood Count 2.69 M/mm3 (4.6-6.2)
[2020-06-04 07:08] LABS: Differential Indicated SCAN CRITERIA MET; White Blood Count 1.4 K/mm3 (4.4-11.0)
[2020-06-04 07:19] LABS: ALB/GLOB Ratio 0.5 RATIO (0.9-2.4); AST(SGOT) 29 U/L (15-37); Alanine Aminotransfer ALT/SGPT 17 U/L (16-61); Alkaline Phosphatase 76 U/L (45-117); Anion Gap 6 (5-15); BUN 10 mg/dL (7-18); BUN/Creat Ratio 14.8 RATIO (10-20); Calcium,Total 8.4 mg/dL (8.5-10.1); Chloride 103 mmol/L (98-107); Creatinine, Serum 0.68 mg/dL (0.70-1.30); EST Glomerular Filtration Rate 122 mL/min (>60); Est Glom Filt Rate - Afr Amer 147 mL/min (>60); Estimated Creatinine Clearance 55.94 ml/min; Globulin 3.9 g/dL (2.2-4.2); Glucose 109 mg/dL (74-106); Potassium 3.9 mmol/L (3.5-5.1); Protein, Total 5.9 g/dL (6.4-8.2); Sodium Level 137 mmol/L (136-145)
--- NOTE | 2020-06-04 07:46 | PCM.PN.HOSP ---
Patient Problems: Active and Suspected Problems (Last Updated 05/31/20 @ 07:[address] Nasima Acevedo MD) NSCLC metastatic to bone (Acute) Leukopenia due to antineoplastic chemotherapy (Acute) Malnutrition (Acute) Weakness (Acute) Atrial fibrillation with RVR (Acute) Reason for Visit: Follow-up on post-op medical management/sigmoid volvulus/A. fib with RVR Subjective: Patient was seen and examined. He denied any new complains. No more episodes of SVT. Received IV amiodarone and currently on amiodarone drip. Objective: Physical exam: General: Alert, Oriented x3, Cooperative, No apparent distress HEENT: Atraumatic, PERRLA, EOMI, Normocephalic Oral: Moist Mucosa Neck: Supple Lungs: Diminished - especially in left lower lobe Cardiovascular: Regular rate, Regular Rhythm, Normal S1, Normal S2 Abdomen: Bowel Sounds Present, Soft, Non Tender, Non-Distended, No Hepato-splenomegaly, LLQ colostomy, red Extremities: No edema Skin: No rashes Musculoskeletal: No Tenderness to Palpation of Joints or Extremities Lymphatic: No Cervical, Supraclavicular, or Inguinal Adenopathy Neurological: Cranial nerves II-XII grossly intact, Neuro grossly intact Psych/Mental Status: Normal Affect, Appropriate Vitals/I&O's: Vital Signs Temp Pulse Resp BP Pulse Ox 98.2 F 86 21 H 105/80 99 06/04/20 02:00 06/04/20 06:00 06/04/20 06:00 06/04/20 06:00 06/04/20 06:00 Oxygen Flow Rate (L/min) 2 Oxygen Delivery Method Nasal Cannula Weight: 61.961 kg Body Mass Index (BMI) 18.5 Intake and Output for Last 24 Hours 06/02/20 06/03/20 06/04/20 23:59 23:59 23:59 Intake Total 3198.44 / 3198.44 1710.66 / 1743.96 157.77 / 157.77 Output Total 3025 / 3025 3075 / 3450 1974 Balance 173.44 / 173.44 -1364.34 / -1706.04 -1817.23 / -1817.23 Laboratory Results 06/03/20 07:25: WBC 1.3 L*, RBC 2.77 L, Hgb 9.0 L, Hct 27.1 L, MCV 97.8 H, MCH 32.5 H, MCHC 33.2 D, RDW Std Deviation 42.7, RDW Coeff of Natalie 12.4, Plt Count 123 L, MPV 9.5, Immature Gran % (Auto) 0.000, Neut % (Auto) 88.0 H, Lymph % (Auto) 5.6 L, [place] % (Auto) 4.0, Eos % (Auto) 1.6, Baso % (Auto) 0.8, Absolute Neuts (auto) 1.1 L, Absolute Lymphs (auto) 0.07 L, Nucleated RBC % 0, Differential Comment SCANNED, Diff Path Review July06/03/20 07:25: Sodium 136, Potassium 4.1, Chloride 106, Carbon Dioxide 26.0, Anion Gap 4 L, BUN 7, Creatinine 0.58 L, Estim Creat Clear Calc 55.94, Est GFR (MDRD) Af Amer 175, Est GFR (MDRD) Non-Af 144, BUN/Creatinine Ratio 12.0, Glucose 107 H, Calcium 8.2 L, Magnesium 2.0, Total Bilirubin 0.60, AST 32, ALT 18, Alkaline Phosphatase 76, Total Protein 5.7 L, Albumin 2.0 L, Globulin 3.7, Albumin/Globulin Ratio 0.5 L 06/03/20 16:50: Sodium 134 L, Potassium 3.7, Chloride 100, Carbon Dioxide 28.0, Anion Gap 6, BUN 13, Creatinine 0.56 L, Estim Creat Clear Calc 55.94, Est GFR (MDRD) Af Amer 181, Est GFR (MDRD) Non-Af 150, BUN/Creatinine Ratio 23.0 H, Glucose 108 H, Calcium 8.0 L, Magnesium 1.6 06/04/20 06:40: WBC 1.4 L*, RBC 2.69 L, Hgb 8.8 L, Hct 25.8 L, MCV 95.9 H, MCH 32.7 H, MCHC 34.1, RDW Std Deviation 40.4, RDW Coeff of Natalie 12.4, Plt Count 114 L, MPV 8.9, Immature Gran % (Auto) 0.700, Neut % (Auto) 82.5 H, Lymph % (Auto) 10.5 L, [place] % (Auto) 4.2, Eos % (Auto) 1.4, Baso % (Auto) 0.7, Absolute Neuts (auto) 1.2 L, Absolute Lymphs (auto) 0.15 L, Nucleated RBC % 0 06/04/20 06:40: Sodium 137, Potassium 3.9, Chloride 103, Carbon Dioxide 28.0, Anion Gap 6, BUN 10, Creatinine 0.68 L, Estim Creat Clear Calc 55.94, Est GFR (MDRD) Af Amer 147, Est GFR (MDRD) Non-Af 122, BUN/Creatinine Ratio 14.8, Glucose 109 H, Calcium 8.4 L, Total Bilirubin 0.60, AST 29, ALT 17, Alkaline Phosphatase 76, Total Protein 5.9 L, Albumin 2.0 L, Globulin 3.9, Albumin/Globulin Ratio 0.5 L Current Medications Acetaminophen (Acetaminophen 325 Mg Tablet) 650 mg PO Q6H PRN PRN PRN Reason: Pain Score 1-10/Temp > 100.7 F Last Admin: 06/02/20 21:17 Dose: 650 mg Documented by: Apixaban (Apixaban 2.5 Mg Tablet) 2.5 mg PO BID [facility] Last Admin: 06/03/20 22:04 Dose: 2.5 mg Documented by: Famotidine (Famotidine 20 Mg Tablet) 20 mg PO DAILY [facility] Last Admin: 06/03/20 09:28 Dose: 20 mg Documented by: Sodium Chloride () 250 mls @ 15 mls/hr IV .[id number] PRN PRN Reason: Saline Flush Last Infusion: 06/02/20 09:27 Dose: 0 mls/hr Documented by: Sodium Chloride () 250 mls @ 15 mls/hr IV .[id number] PRN PRN Reason: Additional IVPB Infusion Amiodarone HCl 360 mg/ (Dextrose) 200 mls @ 16.667 mls/hr CONT INF .Q12H [facility] Stop: 06/04/20 18:59 Last Infusion: 06/04/20 06:00 Dose: 0.5 mg/min, 16.7 mls/hr Documented by: Melatonin (Melatonin 3 Mg Tablet) 3 mg PO QHS PRN PRN Reason: INSOMNIA Last Admin: 06/03/20 22:04 Dose: 3 mg Documented by: Nutritional Formula (Lactose Free) (Ensure Enlive 120 Ml Liquid) 120 ml PO 4X/DAY [facility] Last Admin: 06/03/20 22:04 Dose: 120 ml Documented by: Nystatin (Nystatin 500,000 Unit/5 Ml Udc) 500,000 unit PO 4X/DAY [facility] Last Admin: 06/03/20 22:05 Dose: 500,000 unit Documented by: Ondansetron HCl (Ondansetron 4 Mg/2 Ml Vial) 4 mg IV Q8H PRN PRN PRN Reason: NAUSEA/VOMITING Oxycodone HCl (Oxycodone 5 Mg Tablet) 5 mg PO Q4H PRN PRN PRN Reason: Pain Score 4-5 Sodium Chloride (0.9% Saline Lock 10 Ml Syringe) 10 - 40 ml IV UD PRN PRN Reason: SALINE FLUSH Last Admin: 06/02/20 21:18 Dose: 10 ml Documented by: Throat Lozenges (Benzocaine/Menthol 1 Lozenge) 2 lozenge MUCOUS MEM Q2H PRN PRN PRN Reason: SORE THROAT STROKE Vital Signs/Narrative: Vital Signs Pulse Resp BP Pulse Ox 06/04/20 06:00 86 21 H 105/80 99 06/04/20 05:00 86 19 H 103/80 99 06/04/20 04:00 84 22 H 100/73 99 Medical Necessity - Tobacco Use Smoking Status: Former smoker Tobacco Use: Cigarettes Assessment/Plan All Active Problems (Last Updated 05/31/20 @ 07:[address] Nasima Acevedo MD) NSCLC metastatic to bone (Acute) Leukopenia due to antineoplastic chemotherapy (Acute) Malnutrition (Acute) Weakness (Acute) Atrial fibrillation with RVR (Acute) 75-year-old male with past medical history of lung cancer status post chemotherapy and radiation therapy in with acute sigmoid volvulus. He is status post sigmoidectomy. He developed SVT/A. fib with RVR on postop day 1, status post DC cardioversion 1. Acute A. fib with RVR with hemodynamic instability, status post DC cardioversion on 06/02/20 Acute PE ruled out with a negative CT of the chest. Patient had recurrence of frequent SVTs, received amiodarone IV bolus and continued on drip Discussed with cardiology; will resume back on amiodarone 200 mg twice daily, apixaban 2.5 mg twice daily Continue to monitor on telemetry 2. POD #3, s/p open sigmoidectomy with Richards's procedure for Acute sigmoid volvulus Status post decompressive sigmoidoscopy/rectal tube insertion on 05/31/20 Status post open sigmoidectomy, nelson procedure on 06/01/20 Continue with pain control 3. Hypomagnesemia, replaced, recheck in am 4. Oral thrush,on nystatin swish and swallow 5. Anemia, likely secondary to therapy side effects, Hb remained stable at 8.8 Continue to monitor with repeat blood work in a.m. 6. Leukopenia secondary to chemotherapy side effect, WBC is 1.4, absolute neutrophil count is 1200 Will continue to monitor 7. Severe malnutrition, press operator meat consulted, will follow-up on recommendations 8. Non-small cell lung CA status post chemotherapy and radiation therapy Follows with oncology in the outpatient. 9. Debility related to the above, PT/OT to evaluate and treat Discharge to TCU pending 10. DVT prophylaxis?Lovenox subcu/SCDS 11. Disposition: Awaiting discharge to TCU Hospital medicine is the primary service of patient now. Inpatient E&M: 92242 Subs Hosp L2
--- NOTE | 2020-06-04 07:48 | PCM.PN.SRG ---
Patient Problems: Active and Suspected Problems (Last Updated 05/31/20 @ 07:[address] Nasima Acevedo MD) NSCLC metastatic to bone (Acute) Leukopenia due to antineoplastic chemotherapy (Acute) Malnutrition (Acute) Weakness (Acute) Atrial fibrillation with RVR (Acute) Subjective: Patient is having no nausea or vomiting but he is not tolerating much of a diet due to lack of appetite. He has no abdominal pain and he is putting gas out through his colostomy. - Physical Exam Vitals/I&O's: Vital Signs Temp Pulse Resp BP Pulse Ox 98.2 F 86 21 H 105/80 99 06/04/20 02:00 06/04/20 06:00 06/04/20 06:00 06/04/20 06:00 06/04/20 06:00 Oxygen Flow Rate (L/min) 2 Oxygen Delivery Method Nasal Cannula Weight: 136 lb 9.61 oz Body Mass Index (BMI) 18.5 Intake and Output for Last 24 Hours 06/02/20 06/03/20 06/04/20 23:59 23:59 23:59 Intake Total 3198.44 / 3198.44 1710.66 / 1743.96 157.77 / 157.77 Output Total 3025 / 3025 3075 / 3450 1974 / 1974 Balance 173.44 / 173.44 -1364.34 / -1706.04 -1817.23 / -1817.23 General: Alert, Oriented x3, Cooperative Lungs: Normal air movement Abdomen: Soft, Non Tender, Non-Distended Laboratory Results 06/03/20 07:25: WBC 1.3 L*, RBC 2.77 L, Hgb 9.0 L, Hct 27.1 L, MCV 97.8 H, MCH 32.5 H, MCHC 33.2 D, RDW Std Deviation 42.7, RDW Coeff of Natalie 12.4, Plt Count 123 L, MPV 9.5, Immature Gran % (Auto) 0.000, Neut % (Auto) 88.0 H, Lymph % (Auto) 5.6 L, [place] % (Auto) 4.0, Eos % (Auto) 1.6, Baso % (Auto) 0.8, Absolute Neuts (auto) 1.1 L, Absolute Lymphs (auto) 0.07 L, Nucleated RBC % 0, Differential Comment SCANNED, Diff Path Review July06/03/20 07:25: Sodium 136, Potassium 4.1, Chloride 106, Carbon Dioxide 26.0, Anion Gap 4 L, BUN 7, Creatinine 0.58 L, Estim Creat Clear Calc 55.94, Est GFR (MDRD) Af Amer 175, Est GFR (MDRD) Non-Af 144, BUN/Creatinine Ratio 12.0, Glucose 107 H, Calcium 8.2 L, Magnesium 2.0, Total Bilirubin 0.60, AST 32, ALT 18, Alkaline Phosphatase 76, Total Protein 5.7 L, Albumin 2.0 L, Globulin 3.7, Albumin/Globulin Ratio 0.5 L 06/03/20 16:50: Sodium 134 L, Potassium 3.7, Chloride 100, Carbon Dioxide 28.0, Anion Gap 6, BUN 13, Creatinine 0.56 L, Estim Creat Clear Calc 55.94, Est GFR (MDRD) Af Amer 181, Est GFR (MDRD) Non-Af 150, BUN/Creatinine Ratio 23.0 H, Glucose 108 H, Calcium 8.0 L, Magnesium 1.6 06/04/20 06:40: WBC 1.4 L*, RBC 2.69 L, Hgb 8.8 L, Hct 25.8 L, MCV 95.9 H, MCH 32.7 H, MCHC 34.1, RDW Std Deviation 40.4, RDW Coeff of Natalie 12.4, Plt Count 114 L, MPV 8.9, Immature Gran % (Auto) 0.700, Neut % (Auto) 82.5 H, Lymph % (Auto) 10.5 L, [place] % (Auto) 4.2, Eos % (Auto) 1.4, Baso % (Auto) 0.7, Absolute Neuts (auto) 1.2 L, Absolute Lymphs (auto) 0.15 L, Nucleated RBC % 0 06/04/20 06:40: Sodium 137, Potassium 3.9, Chloride 103, Carbon Dioxide 28.0, Anion Gap 6, BUN 10, Creatinine 0.68 L, Estim Creat Clear Calc 55.94, Est GFR (MDRD) Af Amer 147, Est GFR (MDRD) Non-Af 122, BUN/Creatinine Ratio 14.8, Glucose 109 H, Calcium 8.4 L, Total Bilirubin 0.60, AST 29, ALT 17, Alkaline Phosphatase 76, Total Protein 5.9 L, Albumin 2.0 L, Globulin 3.9, Albumin/Globulin Ratio 0.5 L Current Medications Acetaminophen (Acetaminophen 325 Mg Tablet) 650 mg PO Q6H PRN PRN PRN Reason: Pain Score 1-10/Temp > 100.7 F Last Admin: 06/02/20 21:17 Dose: 650 mg Documented by: Apixaban (Apixaban 2.5 Mg Tablet) 2.5 mg PO BID [facility] Last Admin: 06/03/20 22:04 Dose: 2.5 mg Documented by: Famotidine (Famotidine 20 Mg Tablet) 20 mg PO DAILY [facility] Last Admin: 06/03/20 09:28 Dose: 20 mg Documented by: Sodium Chloride () 250 mls @ 15 mls/hr IV .[id number] PRN PRN Reason: Saline Flush Last Infusion: 06/02/20 09:27 Dose: 0 mls/hr Documented by: Sodium Chloride () 250 mls @ 15 mls/hr IV .[id number] PRN PRN Reason: Additional IVPB Infusion Amiodarone HCl 360 mg/ (Dextrose) 200 mls @ 16.667 mls/hr CONT INF .Q12H [facility] Stop: 06/04/20 18:59 Last Infusion: 06/04/20 06:00 Dose: 0.5 mg/min, 16.7 mls/hr Documented by: Magnesium Sulfate 2 gm/ Sodium (Chloride) 104 mls @ 52 mls/hr IV X1 ONE Stop: 06/04/20 09:46 Melatonin (Melatonin 3 Mg Tablet) 3 mg PO QHS PRN PRN Reason: INSOMNIA Last Admin: 06/03/20 22:04 Dose: 3 mg Documented by: Nutritional Formula (Lactose Free) (Ensure Enlive 120 Ml Liquid) 120 ml PO 4X/DAY [facility] Last Admin: 06/03/20 22:04 Dose: 120 ml Documented by: Nystatin (Nystatin 500,000 Unit/5 Ml Udc) 500,000 unit PO 4X/DAY [facility] Last Admin: 06/03/20 22:05 Dose: 500,000 unit Documented by: Ondansetron HCl (Ondansetron 4 Mg/2 Ml Vial) 4 mg IV Q8H PRN PRN PRN Reason: NAUSEA/VOMITING Oxycodone HCl (Oxycodone 5 Mg Tablet) 5 mg PO Q4H PRN PRN PRN Reason: Pain Score 4-5 Sodium Chloride (0.9% Saline Lock 10 Ml Syringe) 10 - 40 ml IV UD PRN PRN Reason: SALINE FLUSH Last Admin: 06/02/20 21:18 Dose: 10 ml Documented by: Throat Lozenges (Benzocaine/Menthol 1 Lozenge) 2 lozenge MUCOUS MEM Q2H PRN PRN PRN Reason: SORE THROAT Medical Necessity - Tobacco Use Smoking Status: Former smoker Tobacco Use: Cigarettes Assessment/Plan All Active Problems (Last Updated 05/31/20 @ 07:[address] Nasima Acevedo MD) NSCLC metastatic to bone (Acute) Leukopenia due to antineoplastic chemotherapy (Acute) Malnutrition (Acute) Weakness (Acute) Atrial fibrillation with RVR (Acute) 75-year-old male status post sigmoid colectomy for sigmoid volvulus 1. Patient appears to be doing well. He is passing gas through his colostomy and it is pink and viable. There is no stool coming out yet. I did order regular diet yesterday but he did not take in much due to lack of appetite. He said he is trying to take the ensures. From a surgical standpoint he would be ready to be discharged as soon as he is taking enough p.o. to satisfy caloric needs. Gibson Ogden MD Pager: [facility] [address] [place] [address], [address] [place] [address] Office:
[2020-06-04 07:56] LABS: Magnesium 1.7 mg/dL (1.6-2.6)
[2020-06-04 08:43] LABS: Differential Comment SCANNED
[2020-06-04] MEDS: Famotidine 20 MG Tablet PO (08:58)
[2020-06-04] MEDS: APIXABAN 2.5 MG TABLET PO ×2 (08:59→22:11)
[2020-06-04] MEDS: NYSTATIN 500,000 UNIT/5 ML UDC 500000 UNIT PO ×4 (08:59→22:10)
--- NOTE | 2020-06-04 12:04 | PCM.PN.CARD ---
Objective: Vital Signs Temp Pulse Resp BP Pulse Ox 98.2 F 96 19 H 112/88 H 100 06/04/20 02:00 06/04/20 10:00 06/04/20 10:00 06/04/20 10:00 06/04/20 10:00 Oxygen Flow Rate (L/min) 2 Oxygen Delivery Method Nasal Cannula Weight: 136 lb 9.61 oz Body Mass Index (BMI) 18.5 Intake and Output for Last 24 Hours 06/02/20 06/03/20 06/04/20 23:59 23:59 23:59 Intake Total 3198.44 / 3198.44 1710.66 / 1743.96 328.57 / 328.57 Output Total 3025 / 3025 3075 / 3450 2325 / 2325 Balance 173.44 / 173.44 -1364.34 / -1706.04 -1995.43 / - General: Oriented x 3 Cardiovascular: Regular Rhythm 06/03/20 16:50: Sodium 134 L, Potassium 3.7, Chloride 100, Carbon Dioxide 28.0, Anion Gap 6, BUN 13, Creatinine 0.56 L, Est GFR (MDRD) Af Amer 181, Est GFR (MDRD) Non-Af 150, BUN/Creatinine Ratio 23.0 H, Glucose 108 H, Calcium 8.0 L, Magnesium 1.6 06/04/20 06:40: WBC 1.4 L*, RBC 2.69 L, Hgb 8.8 L, Hct 25.8 L, MCV 95.9 H, MCH 32.7 H, MCHC 34.1, Plt Count 114 L, MPV 8.9, Immature Gran % (Auto) 0.700, Neut % (Auto) 82.5 H, Lymph % (Auto) 10.5 L, [place] % (Auto) 4.2, Eos % (Auto) 1.4, Baso % (Auto) 0.7, Absolute Neuts (auto) 1.2 L, Nucleated RBC % 0 06/04/20 06:40: Sodium 137, Potassium 3.9, Chloride 103, Carbon Dioxide 28.0, Anion Gap 6, BUN 10, Creatinine 0.68 L, Est GFR (MDRD) Af Amer 147, Est GFR (MDRD) Non-Af 122, BUN/Creatinine Ratio 14.8, Glucose 109 H, Calcium 8.4 L, Total Bilirubin 0.60 06/04/20 06:40: Magnesium 1.7 Rhythm: No further episodes of A. fib patient has normal sinus rhythm Medical Necessity - Tobacco Use Smoking Status: Former smoker Tobacco Use: Cigarettes Assessment/Plan 75-year-old Seen and evaluated today at bedside Discussed cardiac care plan with the nursing staff Patient with NSCLC, metastatic to bone Also has episode of A. fib with RVR converted to normal sinus rhythm And has also correction of his electrolytes Has generalized weakness, will continue treatment with amiodarone and anticoagulation with apixaban.
[2020-06-04] MEDS: Amiodarone 200 MG Tablet PO (17:03)
[2020-06-04] MEDS: 0.9% Saline Lock 10 ML Syringe IV (19:53)
[2020-06-04] MEDS: MELATONIN 3 MG TABLET PO (22:11)
[2020-06-05 03:24] VITALS: PULSE 97
[2020-06-05 04:15] VITALS: BP 104/63; PULSE 66; RESP 16; TEMP 36.7; O2SAT 98
[2020-06-05 04:57] LABS: Absolute Lymphocyte Count 0.17 X10^3/uL (0.83-4.51); Absolute Neutrophil Count 1.2 X10^3/uL (2.0-7.7); Basophil# 0.01 X10^3/uL; Basophil% 0.7 % (0-1); Differential Indicated SCAN CRITERIA MET; Eosinophil# 0.03 X10^3/uL; Hematocrit 25.4 % (40-54); Hemoglobin 8.8 g/dL (13.0-16.5); Lymphocyte # 0.17 X10^3/ul (4.0); Lymphocyte % 11.3 % (19-41); Mean Corp Hgb Conc 34.6 g/dL (32-36); Mean Corpuscular Hgb 33.2 pg (27.0-32.0); Mean Corpuscular Volume 95.8 fL (80-94); Mean Platelet Vol. 8.8 fl (6.2-12.0); Monocyte# 0.07 X10^3/uL; Monocyte% 4.6 % (0-10); NRBC Flagged by Analyzer 0 % (0-5); Neutrophil # 1.22 X10^3/uL (2.7-7.7); Neutrophil % 80.7 % (47-70); POSITIVE DIFFERENTIAL YES; Platelet Count 118 K/mm3 (150-450); RBC Distribution Width CV 12.3 % (11.6-14.6); Red Blood Count 2.65 M/mm3 (4.6-6.2); White Blood Count 1.5 K/mm3 (4.4-11.0)
[2020-06-05 05:14] LABS: ALB/GLOB Ratio 0.5 RATIO (0.9-2.4); AST(SGOT) 29 U/L (15-37); Alanine Aminotransfer ALT/SGPT 18 U/L (16-61); Alkaline Phosphatase 74 U/L (45-117); Anion Gap 6 (5-15); BUN 11 mg/dL (7-18); BUN/Creat Ratio 17.6 RATIO (10-20); Calcium,Total 8.4 mg/dL (8.5-10.1); Chloride 102 mmol/L (98-107); Creatinine, Serum 0.63 mg/dL (0.70-1.30); EST Glomerular Filtration Rate 133 mL/min (>60); Est Glom Filt Rate - Afr Amer 161 mL/min (>60); Estimated Creatinine Clearance 55.94 ml/min; Globulin 3.9 g/dL (2.2-4.2); Glucose 102 mg/dL (74-106); Magnesium 1.7 mg/dL (1.6-2.6); Potassium 3.7 mmol/L (3.5-5.1); Protein, Total 5.9 g/dL (6.4-8.2); Sodium Level 137 mmol/L (136-145)
[2020-06-05 07:00] VITALS: PULSE 87
[2020-06-05] MEDS: Polyethylene Glycol 3350 17 GM PACKET PO ×2 (08:41→12:14)
--- NOTE | 2020-06-05 08:53 | CASEMGMT ---
BLAKE spoke with Adrienne in TCU and she will have a bed for patient. BLAKE met with patient, introduced self and role at [facility]. BLAKE asked patient if he still would like to go to TCU for rehab. He said he still wants to go to TCU. SW let him know they will have a bed for him. BLAKE received a call from [facility] with Dr Vargas's office. ([facility]) She said patient only has 8 out of 30 treatments to complete. She heard he is going to TCU and he won't be able to get his radiation. She said the longer a break they take the less effective it is. BLAKE told her that patient is aware and he wants to go to TCU. She asked that [facility] communicate with her when he leaves TCU. BLAKE spoke with patient and asked if he was aware he will not be able to get his radiation while he is in TCU. He said he is aware. He does not feel like he is in any condition to go through radiation right now. Plan: d/c to [facility] TCU under skilled level of care. Kadie YODER MSW
--- NOTE | 2020-06-05 09:14 | PN.SURG_ITS ---
Patient Problems: Active and Suspected Problems (Last Updated 05/31/20 @ 07:[address] Nasima Acevedo MD) NSCLC metastatic to bone (Acute) Leukopenia due to antineoplastic chemotherapy (Acute) Malnutrition (Acute) Weakness (Acute) Atrial fibrillation with RVR (Acute) Subjective: Patient still states he does not have much of an appetite tolerating diet, nausea and vomiting. Patient is having flatus and his colostomy - Physical Exam Vitals/I&O's: Vital Signs Temp Pulse Resp BP Pulse Ox 98.1 F 87 16 104/63 98 06/05/20 04:15 06/05/20 07:00 06/05/20 04:15 06/05/20 04:15 06/05/20 04:15 Oxygen Flow Rate (L/min) 2 Oxygen Delivery Method Room Air Weight: 136 lb 9.61 oz Body Mass Index (BMI) 18.5 Intake and Output for Last 24 Hours 06/03/20 06/04/20 06/05/20 23:59 23:59 23:59 Intake Total 1710.66 / 1743.96 478.31 / 478.31 0 / 0 Output Total 3075 / 3450 3025 / 3025 Balance -1364.34 / -1706.04 -2546.69 / -2546.69 0 / 0 General: Alert, Oriented x3, Cooperative, No apparent distress Lungs: Normal air movement Cardiovascular: Regular rate Abdomen: Soft, Tender - Tenderness near the incisions, clean dry and intact with debra, peritoneal signs, - - Colostomy edematous, flatus in bag no stool Laboratory Results 06/05/20 04:35: WBC 1.5 L, RBC 2.65 L, Hgb 8.8 L, Hct 25.4 L, MCV 95.8 H, MCH 33.2 H, MCHC 34.6, RDW Std Deviation 41.0, RDW Coeff of Natalie 12.3, Plt Count 118 L, MPV 8.8, Immature Gran % (Auto) 0.700, Neut % (Auto) 80.7 H, Lymph % (Auto) 11.3 L, [place] % (Auto) 4.6, Eos % (Auto) 2.0, Baso % (Auto) 0.7, Absolute Neuts (auto) 1.2 L, Absolute Lymphs (auto) 0.17 L, Nucleated RBC % 0, Diff Path Review July foll 06/05/20 04:35: Sodium 137, Potassium 3.7, Chloride 102, Carbon Dioxide 29.0, Anion Gap 6, BUN 11, Creatinine 0.63 L, Estim Creat Clear Calc 55.94, Est GFR (MDRD) Af Amer 161, Est GFR (MDRD) Non-Af 133, BUN/Creatinine Ratio 17.6, Glucose 102, Calcium 8.4 L, Magnesium 1.7, Total Bilirubin 0.40, AST 29, ALT 18, Alkaline Phosphatase 74, Total Protein 5.9 L, Albumin 2.0 L, Globulin 3.9, Albumin/Globulin Ratio 0.5 L Current Medications Acetaminophen (Acetaminophen 325 Mg Tablet) 650 mg PO Q6H PRN PRN PRN Reason: Pain Score 1-10/Temp > 100.7 F Last Admin: 06/02/20 21:17 Dose: 650 mg Documented by: Amiodarone HCl (Amiodarone 200 Mg Tablet) 200 mg PO BID [facility] Last Admin: 06/04/20 17:03 Dose: 200 mg Documented by: Apixaban (Apixaban 2.5 Mg Tablet) 2.5 mg PO BID [facility] Last Admin: 06/04/20 22:11 Dose: 2.5 mg Documented by: Docusate Sodium (Docusate Sodium 100 Mg Capsule) 100 mg PO DAILY [facility] Famotidine (Famotidine 20 Mg Tablet) 20 mg PO DAILY [facility] Last Admin: 06/04/20 08:58 Dose: 20 mg Documented by: Sodium Chloride () 250 mls @ 15 mls/hr IV .[id number] PRN PRN Reason: Saline Flush Last Infusion: 06/05/20 07:52 Dose: Infused Documented by: Sodium Chloride () 250 mls @ 15 mls/hr IV .[id number] PRN PRN Reason: Additional IVPB Infusion Melatonin (Melatonin 3 Mg Tablet) 3 mg PO QHS PRN PRN Reason: INSOMNIA Last Admin: 06/04/20 22:11 Dose: 3 mg Documented by: Nutritional Formula (Lactose Free) (Ensure Enlive 120 Ml Liquid) 120 ml PO 4X/DAY [facility] Last Admin: 06/04/20 22:10 Dose: 120 ml Documented by: Nystatin (Nystatin 500,000 Unit/5 Ml Udc) 500,000 unit PO 4X/DAY [facility] Last Admin: 06/04/20 22:10 Dose: 500,000 unit Documented by: Ondansetron HCl (Ondansetron 4 Mg/2 Ml Vial) 4 mg IV Q8H PRN PRN PRN Reason: NAUSEA/VOMITING Oxycodone HCl (Oxycodone 5 Mg Tablet) 5 mg PO Q4H PRN PRN PRN Reason: Pain Score 4-5 Sodium Chloride (0.9% Saline Lock 10 Ml Syringe) 10 - 40 ml IV UD PRN PRN Reason: SALINE FLUSH Last Admin: 06/04/20 19:53 Dose: 10 ml Documented by: Throat Lozenges (Benzocaine/Menthol 1 Lozenge) 2 lozenge MUCOUS MEM Q2H PRN PRN PRN Reason: SORE THROAT Medical Necessity - Tobacco Use Smoking Status: Former smoker Tobacco Use: Cigarettes Assessment/Plan All Active Problems (Last Updated 05/31/20 @ 07:[address] Nasima Acevedo MD) NSCLC metastatic to bone (Acute) Leukopenia due to antineoplastic chemotherapy (Acute) Malnutrition (Acute) Weakness (Acute) Atrial fibrillation with RVR (Acute) 75-year-old male with sigmoid volvulus status post rectal tube--status post sigmoidectomy, Albert's procedure, lung cancer s/p chemo 1. On a regular diet having flatus but no bowel movements. Did give patient some MiraLAX as well as Colace. Nasima Acevedo M.D. Pager: [phone] [facility] [address] [place] [address], [facility], [address] [place] [address] Office: [phone]
[2020-06-05 09:15] VITALS: BP 104/67; PULSE 85; RESP 16; TEMP 36.4; O2SAT 96
[2020-06-05] MEDS: Amiodarone 200 MG Tablet PO (09:15)
[2020-06-05] MEDS: APIXABAN 2.5 MG TABLET PO (09:15)
[2020-06-05] MEDS: NYSTATIN 500,000 UNIT/5 ML UDC 500000 UNIT PO ×2 (09:15→14:21)
[2020-06-05] MEDS: Famotidine 20 MG Tablet PO (09:15)
[2020-06-05] MEDS: Docusate Sodium 100 MG Capsule PO ×2 (09:15→12:14)
[2020-06-05 09:55] LABS: Pathologist Review Reviewed
[2020-06-05 10:17] VITALS: O2SAT 96
--- NOTE | 2020-06-05 11:38 | CASEMGMT ---
Message left with Nina at [facility] to notify to disregard [facility] referral as pt now wants to go to TCU at this time. James BARKLEY CM
--- NOTE | 2020-06-05 11:52 | PCM.TXEXTCAR ---
- Diet 06/04/20 07:50 Diet: Regular - General Is pt able to select menu?: Yes - Routine Orders/Code Status Enema Type: Fleetz Enema Frequency: Daily PRN Suppository Type: Dulcolax 10mg Suppository Frequency: Daily PRN O2 Frequency: PRN Keep PO Greater than or Equal to (%): 90 Code Status: Full Code - Wound(s) RECTUM Wound Type: rectal tube placed ABD Wound Type: Surgical Incision Dressing Change: Dry Sterile Dressing - Therapies Weight Bearing: Weight bearing as tolerated Physical Therapy: Eval and Treat Occupational Therapy: Eval and Treat Speech Therapy: Eval and Treat - Allergies/Procedures Done in Hospital Allergies/Adverse Reactions: Allergies Penicillins Adverse Reaction (Verified 05/31/20 05:24) Rash sulfamethoxazole [From Bactrim] Adverse Reaction (Verified 05/31/20 05:24) Rash trimethoprim [From Bactrim] Adverse Reaction (Verified 05/31/20 05:24) Rash Procedures: None - Type of Care/Length of Stay Estimated LOS: Convalescent Care Less Than 30 days Type of Care Needed: Skilled Rehab Potential: Fair Prognosis: Fair - Additional Orders/Day of Discharge Day of Discharge: 06/05/20 - Dietary and Speech Recommendations Dietitian Recommendations/Changes: will add ensure clear w/ medpass while on clear liquid diet; recommend advance diet as tolerated to transitional w/ ensure enlive w/ medpass. - Follow Up Care Please follow up with your Primary Care Physician in: 1-2 weeks Please Follow Up With: Nasima Acevedo MD - After 5 PM on the weekends call [phone] with any concerns When: Call the office for appointment in 10 days from surgery for staple removal Please Follow Up With: Jan Benson MD When: 1-2 weeks
--- NOTE | 2020-06-05 12:49 | PHA.DC.MR ---
Pharmacy Service has performed discharge medication reconciliation for this patient upon transfer to TCU. Home Medications Benzonatate 100 - 200 mg PO TID PRN PRN 05/31/20 Calcium Citrate/Vitamin D3 [Citracal + D Maximum Caplet] 2 ea PO DAILY 05/31/20 Ergocalciferol (Vitamin D2) [Vitamin D2] 1,250 mcg PO QWEEK 05/31/20 Iron,Carbonyl/Ascorbic Acid [Fe C Tablet] 1 ea PO DAILY 05/31/20 Multivitamins,Therapeutic [Multivitamin] 1 tab PO DAILY 05/31/20 Promethazine HCl 25 mg PO Q6H PRN PRN 05/31/20 Acetaminophen [Tylenol Tablet] 650 mg PO Q6H PRN PRN tab 06/05/20 Amiodarone HCl [Cordarone] 200 mg PO BID #0 tab 06/05/20 Apixaban [Eliquis] 2.5 mg PO BID tab 06/05/20 The patient's discharge medication list was reviewed for discrepancies and discrepancies were resolved.
--- NOTE | 2020-06-05 12:53 | CASEMGMT ---
BLAKE copied medication list. Patient is ready for discharge to [facility] TCU. Plan: d/c to [facility] TCU under skilled level of care. Kadie YODER MSW
--- NOTE | 2020-06-05 13:28 | NURSING ---
Report called to TCU to Stacey BARKLEY.
[2020-06-05 14:24] VITALS: BP 100/66; PULSE 87; RESP 17; TEMP 36.6; O2SAT 96
--- NOTE | 2020-06-05 14:52 | PCM.DC.SUM ---
Discharge Date and Diagnosis - Problem List Patient Problems: Active and Suspected Problems (Last Updated 05/31/20 @ 07:[address] Nasima Acevedo MD) NSCLC metastatic to bone (Acute) Leukopenia due to antineoplastic chemotherapy (Acute) Malnutrition (Acute) Weakness (Acute) Atrial fibrillation with RVR (Acute) Date of Admission: 06/01/20 Date of Discharge: 06/05/20 - Primary Discharge Diagnosis Acute Problems: Active Problems (Last Updated 05/31/20 @ 07:[address] Nasima Acevedo MD) NSCLC metastatic to bone (Acute) Leukopenia due to antineoplastic chemotherapy (Acute) Malnutrition (Acute) Weakness (Acute) Atrial fibrillation with RVR (Acute) - Secondary Discharge Diagnosis Chronic Problems: Chronic Problems (Last Updated 05/31/20 @ 07:[address] Nasima Acevedo MD) Anemia (Chronic) Former smoker (Chronic) Lung cancer metastatic to bone (Chronic) Hospital Course and Treatment Imaging Results: Diagnostic Data Abdomen/Pelvis CT 05/31/20 05:34 IMPRESSION: 1. 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 Small amount of free fluid in the pelvis. 2. Left lower lobe pneumonia. Electronically Signed: Blue Fong MD at 6:44 EST Tel , Service support , KUB X-Ray 05/31/20 10:35 IMPRESSION: Rectal tube, as above. Electronically Signed: Carlo Yanez MD (Brooks) at 10:52 EST , Service support , Chest X-Ray 05/31/20 14:30 IMPRESSION: Emphysema without pneumonia or atelectasis. Electronically Signed: Blue Fong MD at 14:56 EST Tel , Service support , Chest CTA 06/02/20 14:00 IMPRESSION: Large left hilar and infrahilar mass causing post obstructive pneumonitis in the left lower lobe with small left pleural effusion. Small right pleural thickening with the right basilar atelectasis. Intraperitoneal free air. Electronically Signed: Aly Bean MD at 14:50 EST , Service support , ADDENDUM: 06/02/20 1515 IMPRESSION: Large left hilar and infrahilar mass causing post obstructive pneumonitis in the left lower lobe with small left pleural effusion. Small right pleural thickening with the right basilar atelectasis. Intraperitoneal free air. N.B. : The above information has been verbally conveyed by Aly Bean MD to Dr Deja MD, on 06/02/2020 15:08:51 (ET). Electronically Signed: Aly Bean MD at 14:50 EST , Service support , ADDENDUM: 06/02/20 1518 IMPRESSION: Large left hilar and infrahilar mass causing post obstructive pneumonitis in the left lower lobe with small left pleural effusion. Small right pleural thickening with the right basilar atelectasis. Intraperitoneal free air. N.B. : Dr. Wallace MD, confirmed on 06/02/2020 15:11:22 (ET) that the referring physician received the results and does not require a verbal communication. Electronically Signed: Aly Bean MD at 14:50 EST , Service support , Consultations 05/31/20 10:34 Consult: Onc/Wound/political analyst Routine Comment: general surgery- Dr Acevedo Operations: None Procedures: None Summary of Care Provided: The patient is a 75 year old M with a past medical history as outlined was admitted through the ED on 05/31/2020 with a complaint of episodic abdominal pain which started on the morning of admission. 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 He had recently been treated for postobstructive pneumonia with oral Levaquin. In the ED, CT of the abdomen and pelvis was significant for volvulus with obstruction. He therefore had decompressive colonoscopy with rectal tube placement. He subsequently had open sigmoidectomy with Albert procedure. Postop course was complicated by development of A. fib with RVR. He was placed on amiodarone drip and cardiology was consulted. He subsequently converted to normal sinus rhythm after he had cardioversion on 06/02/2020. He was placed on amiodarone p.o. 200 mg twice daily as well as Eliquis 2.5 mg twice daily. He remained stable and was cleared for admission to the transitional care unit. He was discharged to the transitional care unit on 06/05/2020. He is follow-up with his primary care doctor and with general surgery as well as cardiology. Patient was seen and examined prior to discharge. He was concerned that he was not fully back to his baseline but said he understood that he had to give himself time to recover. Review of symptoms otherwise negative. Labs and vitals reviewed. Home medication reviewed and reconciled. O/E: Vital Signs Temp Pulse Resp BP Pulse Ox 98 F 87 17 100/66 96 06/05/20 14:24 06/05/20 14:24 06/05/20 14:24 06/05/20 14:24 06/05/20 14:24 General: Alert, Oriented x3, Cooperative, No apparent distress HEENT: Atraumatic, PERRLA, EOMI, Normocephalic Oral: Moist Mucosa Neck: Supple Lungs: diminished breath sounds bibasally, no wheezes or crackles. Cardiovascular: Regular rate, Regular Rhythm, Normal S1, Normal S2 Abdomen: Bowel Sounds Present, Soft, Non Tender, Non-Distended, No Hepato-splenomegaly, LLQ colostomy Extremities: No edema Skin: No rashes Musculoskeletal: No Tenderness to Palpation of Joints or Extremities Lymphatic: No Cervical, Supraclavicular, or Inguinal Adenopathy Neurological: Cranial nerves II-XII grossly intact, Neuro grossly intact Psych/Mental Status: Normal Affect, Appropriate Plan is for discharge to the transitional care unit today Patient Problems: Active and Suspected Problems (Last Updated 05/31/20 @ 07:[address] Nasima Acevedo MD) NSCLC metastatic to bone (Acute) Leukopenia due to antineoplastic chemotherapy (Acute) Malnutrition (Acute) Weakness (Acute) Atrial fibrillation with RVR (Acute) - Physical Exam Vitals/I&O's: Vital Signs Temp Pulse Resp BP Pulse Ox 98 F 87 17 100/66 96 06/05/20 14:24 06/05/20 14:24 06/05/20 14:24 06/05/20 14:24 06/05/20 14:24 Oxygen Flow Rate (L/min) 2 Oxygen Delivery Method Room Air Weight: 136 lb 9.61 oz Body Mass Index (BMI) 18.5 Intake and Output for Last 24 Hours 06/03/20 06/04/20 06/05/20 23:59 23:59 23:59 Intake Total 1710.66 / 1743.96 478.31 / 478.31 520 / 520 Output Total 3075 / 3450 3025 / 3025 300 / 300 Balance -1364.34 / -1706.04 -2546.69 / -2546.69 220 / 220 Laboratory Results 06/02/20 05:45: Diff Path Review Reviewed 06/05/20 04:35: WBC 1.5 L, RBC 2.65 L, Hgb 8.8 L, Hct 25.4 L, MCV 95.8 H, MCH 33.2 H, MCHC 34.6, RDW Std Deviation 41.0, RDW Coeff of Natalie 12.3, Plt Count 118 L, MPV 8.8, Immature Gran % (Auto) 0.700, Neut % (Auto) 80.7 H, Lymph % (Auto) 11.3 L, Douglas % (Auto) 4.6, Eos % (Auto) 2.0, Baso % (Auto) 0.7, Absolute Neuts (auto) 1.2 L, Absolute Lymphs (auto) 0.17 L, Nucleated RBC % 0, Diff Path Review May 06/05/20 04:35: Sodium 137, Potassium 3.7, Chloride 102, Carbon Dioxide 29.0, Anion Gap 6, BUN 11, Creatinine 0.63 L, Estim Creat Clear Calc 55.94, Est GFR (MDRD) Af Amer 161, Est GFR (MDRD) Non-Af 133, BUN/Creatinine Ratio 17.6, Glucose 102, Calcium 8.4 L, Magnesium 1.7, Total Bilirubin 0.40, AST 29, ALT 18, Alkaline Phosphatase 74, Total Protein 5.9 L, Albumin 2.0 L, Globulin 3.9, Albumin/Globulin Ratio 0.5 L Diagnostic Data Abdomen/Pelvis CT 05/31/20 05:34 IMPRESSION: 1. 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 Small amount of free fluid in the pelvis. 2. Left lower lobe pneumonia. Electronically Signed: Blue Fong MD at 6:44 EST Tel , Service support , KUB X-Ray 05/31/20 10:35 IMPRESSION: Rectal tube, as above. Electronically Signed: Carlo Yanez MD (Brooks) at 10:52 EST , Service support , Chest X-Ray 05/31/20 14:30 IMPRESSION: Emphysema without pneumonia or atelectasis. Electronically Signed: Blue Fong MD at 14:56 EST Tel , Service support , Chest CTA 06/02/20 14:00 IMPRESSION: Large left hilar and infrahilar mass causing post obstructive pneumonitis in the left lower lobe with small left pleural effusion. Small right pleural thickening with the right basilar atelectasis. Intraperitoneal free air. Electronically Signed: Aly Bean MD at 14:50 EST , Service support , ADDENDUM: 06/02/20 1515 IMPRESSION: Large left hilar and infrahilar mass causing post obstructive pneumonitis in the left lower lobe with small left pleural effusion. Small right pleural thickening with the right basilar atelectasis. Intraperitoneal free air. N.B. : The above information has been verbally conveyed by Ayl Bean MD to Dr Deja MD, on 06/02/2020 15:08:51 (ET). Electronically Signed: Aly Bean MD at 14:50 EST , Service support , ADDENDUM: 06/02/20 1518 IMPRESSION: Large left hilar and infrahilar mass causing post obstructive pneumonitis in the left lower lobe with small left pleural effusion. Small right pleural thickening with the right basilar atelectasis. Intraperitoneal free air. N.B. : Dr. Wallace MD, confirmed on 06/02/2020 15:11:22 (ET) that the referring physician received the results and does not require a verbal communication. Electronically Signed: Aly Bean MD at 14:50 EST , Service support , Current Medications Acetaminophen (Acetaminophen 325 Mg Tablet) 650 mg PO Q6H PRN PRN PRN Reason: Pain Score 1-10/Temp > 100.7 F Last Admin: 06/02/20 21:17 Dose: 650 mg Documented by: Amiodarone HCl (Amiodarone 200 Mg Tablet) 200 mg PO BID [facility] Last Admin: 06/05/20 09:15 Dose: 200 mg Documented by: Apixaban (Apixaban 2.5 Mg Tablet) 2.5 mg PO BID [facility] Last Admin: 06/05/20 09:15 Dose: 2.5 mg Documented by: Docusate Sodium (Docusate Sodium 100 Mg Capsule) 100 mg PO DAILY [facility] Last Admin: 06/05/20 09:15 Dose: 100 mg Documented by: Famotidine (Famotidine 20 Mg Tablet) 20 mg PO DAILY [facility] Last Admin: 06/05/20 09:15 Dose: 20 mg Documented by: Sodium Chloride () 250 mls @ 15 mls/hr IV .[id number] PRN PRN Reason: Saline Flush Last Infusion: 06/05/20 07:52 Dose: Infused Documented by: Sodium Chloride () 250 mls @ 15 mls/hr IV .[id number] PRN PRN Reason: Additional IVPB Infusion Melatonin (Melatonin 3 Mg Tablet) 3 mg PO QHS PRN PRN Reason: INSOMNIA Last Admin: 06/04/20 22:11 Dose: 3 mg Documented by: Nutritional Formula (Lactose Free) (Ensure Enlive 120 Ml Liquid) 120 ml PO 4X/DAY [facility] Last Admin: 06/05/20 14:21 Dose: 120 ml Documented by: Nystatin (Nystatin 500,000 Unit/5 Ml Udc) 500,000 unit PO 4X/DAY [facility] Last Admin: 06/05/20 14:21 Dose: 500,000 unit Documented by: Ondansetron HCl (Ondansetron 4 Mg/2 Ml Vial) 4 mg IV Q8H PRN PRN PRN Reason: NAUSEA/VOMITING Oxycodone HCl (Oxycodone 5 Mg Tablet) 5 mg PO Q4H PRN PRN PRN Reason: Pain Score 4-5 Sodium Chloride (0.9% Saline Lock 10 Ml Syringe) 10 - 40 ml IV UD PRN PRN Reason: SALINE FLUSH Last Admin: 06/04/20 19:53 Dose: 10 ml Documented by: Throat Lozenges (Benzocaine/Menthol 1 Lozenge) 2 lozenge MUCOUS MEM Q2H PRN PRN PRN Reason: SORE THROAT Discharge Diet: Light diet - advance as tolerated Discharge Activity: May not drive while taking narcotic pain medications., May Shower Call your doctor if your incision/area has: Continuous Slow Oozing, Sudden Increased Bleeding, Increased Pain/ Swelling, Increased Redness, Foul Smelling Discharge, Swelling at the incision site Call your doctor if you observe: Fever of 101 or Higher Home Medications: Medications to take at Discharge Benzonatate 100 - 200 mg PO TID PRN PRN 05/31/20 Calcium Citrate/Vitamin D3 [Citracal + D Maximum Caplet] 2 ea PO DAILY 05/31/20 Ergocalciferol (Vitamin D2) [Vitamin D2] 1,250 mcg PO QWEEK 05/31/20 Iron,Carbonyl/Ascorbic Acid [Fe C Tablet] 1 ea PO DAILY 05/31/20 Multivitamins,Therapeutic [Multivitamin] 1 tab PO DAILY 05/31/20 Promethazine HCl 25 mg PO Q6H PRN PRN 05/31/20 Acetaminophen [Tylenol Tablet] 650 mg PO Q6H PRN PRN tab 06/05/20 Amiodarone HCl [Cordarone] 200 mg PO BID #0 tab 06/05/20 Apixaban [Eliquis] 2.5 mg PO BID tab 06/05/20 Primary Care Physician: Jan Benson MD [Primary Care Provider] - Please follow up with your Primary Care Physician in: 1-2 weeks Please Follow Up With: Nasima Acevedo MD - After 5 PM on the weekends call [phone] with any concerns When: Call the office for appointment in 10 days from surgery for staple removal Please Follow Up With: Jan Benson MD When: 1-2 weeks Disposition: Shelter facility Minutes spent on discharge:: 40 Patient Condition:: Fair Medical Necessity - Tobacco Use Smoking Status: Former smoker Tobacco Use: Cigarettes Meaningful Use Info Meaningful Use Diagnoses (Choose all that apply): None applicable Inpatient E&M: 71590 [facility]
[2020-06-06 09:56] LABS: Pathologist Review Reviewed
[2020-06-06 09:56] LABS: Pathologist Review Reviewed
[2020-06-06 09:57] LABS: Pathologist Review Reviewed
[2020-06-06 09:57] LABS: Pathologist Review Reviewed
== END 2020-06-05 15:16 | disposition skilled nursing facility (03) | DRG 329 ==
LOC: ED 07:31 → SDC 07:33 → AC 07:33 → MS3 08:53 → SDC 11:10 → MS3 11:10 → PCU 06-02 11:41
PROVIDERS: Internal Medicine; Physician Assistant; Admitting Provider Surgery; Emergency Provider Student in an Organized Health Care Education/Training Program; PCP Internal Medicine; Referring Provider Surgery; Visit Provider Student in an Organized Health Care Education/Training Program
PROC: 0DJD8ZZ Inspection of Lower Intestinal Tract, Via Natural or Artificial Opening Endoscopic (ICD-10-PCS; CPT 45378; principal; 2020-05-31 07:55)
DX: K56.2 Volvulus (principal); E43 Unspecified severe protein-calorie malnutrition; C34.90 Malignant neoplasm of unspecified part of unspecified bronchus or lung; C79.51 Secondary malignant neoplasm of bone; Z68.1 Body mass index [BMI] 19.9 or less, adult; B37.0 Candidal stomatitis; I47.1 Supraventricular tachycardia; I95.9 Hypotension, unspecified; I48.91 Unspecified atrial fibrillation; R33.9 Retention of urine, unspecified; D70.1 Agranulocytosis secondary to cancer chemotherapy; D64.81 Anemia due to antineoplastic chemotherapy; T45.1X5A Adverse effect of antineoplastic and immunosuppressive drugs, initial encounter; Y92.9 Unspecified place or not applicable; Z87.891 Personal history of nicotine dependence; Z87.01 Personal history of pneumonia (recurrent); D50.9 Iron deficiency anemia, unspecified; E83.42 Hypomagnesemia; Z79.899 Other long term (current) drug therapy; Z93.3 Colostomy status
CPT/HCPCS: 36415; 71045; 71275; 74018; 74177; 80048; 80053; 81001; 83605; 83735; 84134; 84484; 85014; 85018; 85025; 86850; 86900; 86901; 87426; 88304; 88305; 88307; 93005; 93306; 97110; 97162; 97165; 97530; 97535; 97802; 99251; 99285; J7030; J7040; J7050; J7120; Q9957; Q9967; A4216; C8929; G0463; J0153; J0744; J1940; J2405; J3490

== ENCOUNTER 2020-06-05 15:24 | Inpatient (IN) | payer MEDICARE, MEDICAID, SELFPAY ==
[2020-05-31 11:25] VITALS: BMI 18.5
[2020-06-05 15:34] VITALS: BP 111/56; PULSE 91; PULSE 93; RESP 16; TEMP 36.3; O2SAT 98; BMI 17.4
[2020-06-05] MEDS: Calcium Carb/Vitamin D 1 TABLET Tablet PO (16:52)
[2020-06-05] MEDS: Amiodarone 200 MG Tablet PO (16:52)
[2020-06-05] MEDS: APIXABAN 2.5 MG TABLET PO (16:53)
--- NOTE | 2020-06-05 16:55 | CASEMGMT ---
Social Work Met with patient for initial assessment. Discussed code status. Pt confirmed full code. MOLST form reviewed, communication to , placed in chart. Discussed mood - pt denied counseling resources and meds at this time. Pt expressed very poor appetite. Left note for to discuss appetite stimulant - pt agreeable. Pt remains agreeable to Palliative at DC. Pt does not have HCPOA or LW. Offered to assist to complete during stay. Pt to consider. Explained Medicare benefit and [facility] is not network with TCU. Pt would DC by day 20 or pay out of pocket for copays, which he is unable to do. Explained SW to assist with DC plans. Will continue to follow. Kaleigh Agrawal, REINFORCING STEEL MACHINE OPERATOR PIT CRANE OPERATOR
--- NOTE | 2020-06-05 18:28 | NURSING ---
Received call from Dr. Acevedo to order pt a one time dose of Miralax.
[2020-06-05] MEDS: Polyethylene Glycol 3350 17 GM PACKET PO (20:18)
[2020-06-05] MEDS: Menthol/Lanolin/Calamine/Znox 113 GM Tube 1 APPLIC TOPICAL (20:18)
[2020-06-05] MEDS: NYSTATIN 500,000 UNIT/5 ML UDC 500000 UNIT PO (20:19)
[2020-06-05] MEDS: Mirtazapine 15 MG Tablet 7.5 MG PO (20:20)
--- NOTE | 2020-06-05 20:27 | HP.PCM_ITS ---
Problem List (1) Debility Status: Acute (2) Abdominal pain Status: Acute (3) Sigmoid volvulus Status: Acute (4) Postobstructive pneumonia Status: Chronic (5) Chronic cough Status: Chronic (6) Iron deficiency anemia Status: Chronic (7) Nausea Status: Chronic (8) Atrial fibrillation with RVR Status: Acute (9) Lung cancer metastatic to bone Status: Chronic History of Present Illness Date of Admission: 06/05/20 Chief Complaint: Here for rehabilitation, strengthening, prior to discharge home with . 05/31/2020 The patient is a 75 year old Male with below past medical history presented to [facility] Emergency Department with abdominal pain. 05/31/2020 CT abdomen/pelvis showed sigmoid volvulus with obstruction, small amount free fluid in pelvis, left lower lobe pneumonia. Gas pain, BM's, gas overnight interrupting sleep. Chemotherapy, radiation currently for lung cancer. IV Fluids, morphine given. 05/31/2020 Admit to Hospital. 05/31/2020 General Surgery performed colonoscopy to decompress colon, inserted rectal tube. 06/01/2020 General Surgery performed open sigmoidectomy, Albert procedure. 06/02/2020 Echo showed normal LV size. EF 45%. Mild global Left ventricular dysfunction. Mild global hypokinesis of left ventricle. Pulmonary artery systolic pressure 30mm HG. Recent postobstructive pneumonia treated with Levaquin. Postoperative course complicated by atrial fibrillation with rapid ventricular response. Treated with amiodarone drip, cardioverted to normal sinus rhythm 06/02/2020. Amiodarone 200MG daily, Eliquis 2.5MG twice daily for atrial fibrillation.. 06/05/2020 Admit to TCU with debility, here for rehabilitation, strengthening, prior to discharge home with . Past Medical History Past Medical History (Chronic Problems): Chronic Problems (Last Updated 05/31/20 @ 07:[address] Nasima Acevedo MD) Anemia (Chronic) Former smoker (Chronic) Postobstructive pneumonia (Chronic) Chronic cough (Chronic) Iron deficiency anemia (Chronic) Nausea (Chronic) Lung cancer metastatic to bone (Chronic) Medical History: Medical History (Last Updated 05/31/20 @ 07:[address] Nasima Acevedo MD) Lung cancer metastatic to bone (Chronic) C34.90, C79.51 Allergies Penicillins Adverse Reaction (Verified 05/31/20 05:24) Rash sulfamethoxazole [From Bactrim] Adverse Reaction (Verified 05/31/20 05:24) Rash trimethoprim [From Bactrim] Adverse Reaction (Verified 05/31/20 05:24) Rash Home Medications: Ambulatory Orders Medication Instructions Recorded Benzonatate 100 - 200 mg PO TID PRN PRN 05/31/20 Calcium Citrate/Vitamin D3 2 ea PO DAILY 05/31/20 [Citracal + D Maximum Caplet] Ergocalciferol (Vitamin D2) 1,250 mcg PO QWEEK 05/31/20 [Vitamin D2] Iron,Carbonyl/Ascorbic Acid [Fe C 1 ea PO DAILY 05/31/20 Tablet] Multivitamins,Therapeutic 1 tab PO DAILY 05/31/20 [Multivitamin] Promethazine HCl 25 mg PO Q6H PRN PRN 05/31/20 Acetaminophen [Tylenol Tablet] 650 mg PO Q6H PRN PRN tab 06/05/20 Amiodarone HCl [Cordarone] 200 mg PO BID 06/05/20 Apixaban [Eliquis] 2.5 mg PO BID 06/05/20 Surgical History: - - Sigmoidectomy with ostomy 06/01/2020 Psychiatric History: No pertinent psych hx Lives: Spouse/ Significant Other Smoking Status: Former smoker Tobacco Use: Cigarettes Alcohol: None Drugs: None - *Family History Maternal History Items: No pertinent history Paternal History Items: No pertinent history Review of Systems Constitutional: Reports: Anorexia. Denies: Chills, Fever, Weight Change HEENT: Denies: Head Aches, Sinus Congestion, Sinus Drainage Cardiovascular: Denies: Chest Pain, Palpitations Respiratory: Denies: Cough, Shortness of breath at rest, Sputum production Gastrointestinal: Denies: Abdominal Pain, Nausea, Vomiting Genitourinary: Denies: Dysuria Musculoskeletal: Denies: Joint Pain, Joint Tenderness Skin: Denies: Rash, Wounds Neurological: Denies: Numbness, Tingling, Focal weakness Psychiatric: Denies: Anxiety, Depression, Homicidal Ideations, Suicidal Ideations Hematologic/ Lymphatic: Denies: Easy Bruising, Easy Bleeding VTE Information - Inpt Only VTE Present on Admission: No VTE Mechan Device Prophylaxis: Knee High SEVERINO Hose VTE Pharm Prophylaxis ordered?: No Reason prophylaxis not ordered:: Treatment Not Indicated Patient Problems: Active and Suspected Problems (Last Updated 05/31/20 @ 07:[address] Nasima Acevedo MD) Atrial fibrillation with RVR (Acute) Debility (Acute) Abdominal pain (Acute) Sigmoid volvulus (Acute) - Physical Exam Vitals/I&O's: Vital Signs Temp Pulse Resp BP Pulse Ox 97.4 F L 93 16 111/56 L 98 06/05/20 15:34 06/05/20 15:34 06/05/20 15:34 06/05/20 15:34 06/05/20 15:34 Oxygen Delivery Method Room Air Weight: 59.874 kg Body Mass Index (BMI) 17.4 General: Alert, Oriented x3, Cooperative HEENT: Atraumatic, PERRLA, EOMI, Normocephalic Neck: Supple, No JVD, Negative Carotid Bruits Lungs: Clear to auscultation, Normal air movement Cardiovascular: Regular rate, No murmurs Abdomen: Bowel Sounds Present, Soft, Non Tender, - - Colostomy left lower quadrant. Extremities: No edema, Capillary Refill Less than 3 Seconds Skin: No rashes, No breakdown Musculoskeletal: No Tenderness to Palpation of Joints or Extremities Neurological: Cranial nerves II-XII grossly intact Psych/Mental Status: Normal Affect, Appropriate Laboratory Results 06/05/20 16:49: COVID-19 (LUANN) Not Detected Current Medications Acetaminophen (Acetaminophen 325 Mg Tablet) 650 mg PO Q6H PRN PRN PRN Reason: Pain Score 1-10/Temp > 100.7 F Amiodarone HCl (Amiodarone 200 Mg Tablet) 200 mg PO BID [facility] Last Admin: 06/05/20 16:52 Dose: 200 mg Documented by: Apixaban (Apixaban 2.5 Mg Tablet) 2.5 mg PO BID [facility] Last Admin: 06/05/20 16:53 Dose: 2.5 mg Documented by: Ascorbic Acid (Ascorbic Acid 500 Mg Tablet) 250 mg PO DAILYCM [facility] Benzonatate (Benzonatate 100 Mg Capsule) 100 - 200 mg PO TID PRN PRN PRN Reason: COUGH Calamine/Phenol (Menthol/Lanolin/Calamine/Znox 113 Gm Tube) 1 applic TOPICAL BID@0600,2200 [facility]; Protocol Last Admin: 06/05/20 20:18 Dose: 1 applic Documented by: Calcium/Vitamin D (Calcium Carb/Vitamin D 1 Tablet Tablet) [facility] Last Admin: 06/05/20 16:52 Dose: 1 tablet Documented by: Ergocalciferol (Ergocalciferol 50,000 Unit Capsule) 50,000 unit PO SuWe [facility] Stop: 07/26/20 05:59 Ferrous Sulfate (Ferrous Sulfate 325 Mg Tablet) [facility] Mirtazapine (Mirtazapine 15 Mg Tablet) 7.5 mg PO QHS [facility] Last Admin: 06/05/20 20:20 Dose: 7.5 mg Documented by: Multivitamins (Multivitamins,Therapeutic Tablet) [facility] Nutritional Formula (Lactose Free) (Ensure Enlive 120 Ml Liquid) 120 ml PO 4X/DAY [facility] Last Admin: 06/05/20 20:20 Dose: 120 ml Documented by: Nystatin (Nystatin 500,000 Unit/5 Ml Udc) 500,000 unit PO 4X/DAY [facility] Stop: 06/15/20 22:01 Last Admin: 06/05/20 20:19 Dose: 500,000 unit Documented by: Promethazine HCl (Promethazine 25 Mg Tablet) 25 mg PO Q6H PRN PRN PRN Reason: NAUSEA Tuberculin PPD (Tuberculin,Purif.Prot.Deriv. 50 Tu/Ml Vial) 5 tu ID X1 ONE Stop: 06/06/20 10:01 Tuberculin PPD (Tuberculin,Purif.Prot.Deriv. 50 Tu/Ml Vial) 5 tu ID X1 ONE Stop: 06/13/20 10:01 Assessment/Plan All Active Problems (Last Updated 05/31/20 @ 07:[address] Nasima Acevedo MD) NSCLC metastatic to bone (Acute) Leukopenia due to antineoplastic chemotherapy (Acute) Malnutrition (Acute) Weakness (Acute) Atrial fibrillation with RVR (Acute) Debility (Acute) Abdominal pain (Acute) Sigmoid volvulus (Acute) 75 year old male with below past medical history significant for metastatic lung cancer to bone, hospitalized for sigmoid volvulus underwent open sigmoidectomy with colostomy 06/01/2020, postoperative course complicated by atrial fibrillation with rapid ventricular response, admitted to TCU with debility, here for rehabilitation, strengthening, prior to discharge home with . * Debility - PT/OT. * Pain - Tylenol 1000MG Q6H PRN pain (1-10). * Bowel - Miralax 17GM daily, MOM 30ML daily PRN, Dulcolax 10MG PO daily PRN. * Adult immunization - Administer Prevnar 13, Pneumovax 23, Fluzone, COVID19 vaccine as appropriate. * DVT prophylaxis - Not necessary, already on Eliquis. * Atrial fibrillation - Amiodarone 200MG BID, Eliquis 2.5MG BID. * Vitamin C deficiency - Vitamin C 250MG daily. * Chronic cough - Tessalon perle 100-200MG TID PRN. * Calcium deficiency - Calcium D 1 tablet BID. * Nutrition - Ensure Enlive 120ML 4x/day, MVI 1 tablet daily. * Vitamin D deficiency - D2 50,000 units 2 days/week * Iron deficiency anemia - Ferrous Sulfate 325MG daily. * Skin irritation - Calmoseptine topical BID. * Appetite loss/insomnia/depression - Mirtazapine 7.5MG QHS. * Thrush - Nystatin 500,000 4x/day thru 06/15/2020.
[2020-06-06] MEDS: Polyethylene Glycol 3350 17 GM PACKET PO (05:14)
[2020-06-06] MEDS: Amiodarone 200 MG Tablet PO ×2 (05:15→17:20)
[2020-06-06] MEDS: NYSTATIN 500,000 UNIT/5 ML UDC 500000 UNIT PO ×4 (05:15→20:02)
[2020-06-06] MEDS: APIXABAN 2.5 MG TABLET PO ×2 (05:15→17:20)
[2020-06-06] MEDS: Menthol/Lanolin/Calamine/Znox 113 GM Tube 1 APPLIC TOPICAL ×2 (05:21→20:02)
[2020-06-06 05:22] VITALS: BP 123/73; PULSE 92; RESP 16; TEMP 37.1; O2SAT 93
[2020-06-06 05:49] LABS: Absolute Neutrophil Count 1.3 X10^3/uL (2.0-7.7); Basophil# 0.01 X10^3/uL; Basophil% 0.6 % (0-1); Eosinophil# 0.03 X10^3/uL; Eosinophils% 1.8 % (0-5); Hematocrit 26.7 % (40-54); Hemoglobin 9.1 g/dL (13.0-16.5); Lymphocyte % 12.3 % (19-41); Mean Corp Hgb Conc 34.1 g/dL (32-36); Mean Corpuscular Hgb 33.2 pg (27.0-32.0); Mean Corpuscular Volume 97.4 fL (80-94); Monocyte% 6.1 % (0-10); NRBC Flagged by Analyzer 0 % (0-5); Neutrophil # 1.28 X10^3/uL (2.7-7.7); Neutrophil % 78.6 % (47-70); POSITIVE DIFFERENTIAL YES; Platelet Count 122 K/mm3 (150-450); RBC Distribution Width CV 12.6 % (11.6-14.6); RBC Distribution Width SD 42.5 fl (35.1-43.9); Red Blood Count 2.74 M/mm3 (4.6-6.2); White Blood Count 1.6 K/mm3 (4.4-11.0)
[2020-06-06 06:05] LABS: Differential Indicated SCAN CRITERIA MET
[2020-06-06 06:24] LABS: Anion Gap 5 (5-15); BUN 13 mg/dL (7-18); BUN/Creat Ratio 17.6 RATIO (10-20); Calcium,Total 8.7 mg/dL (8.5-10.1); Chloride 101 mmol/L (98-107); Creatinine, Serum 0.74 mg/dL (0.70-1.30); EST Glomerular Filtration Rate 110 mL/min (>60); Est Glom Filt Rate - Afr Amer 133 mL/min (>60); Estimated Creatinine Clearance 54.05 ml/min; Glucose 103 mg/dL (74-106); Potassium 4.2 mmol/L (3.5-5.1); Sodium Level 137 mmol/L (136-145)
[2020-06-06] MEDS: Ascorbic Acid 500 MG Tablet 250 MG PO (08:08)
[2020-06-06] MEDS: Ferrous Sulfate 325 MG Tablet PO (08:09)
[2020-06-06] MEDS: Calcium Carb/Vitamin D 1 TABLET Tablet PO ×2 (08:09→17:20)
[2020-06-06] MEDS: Multivitamins,Therapeutic Tablet 1 TABLET PO (08:09)
--- NOTE | 2020-06-06 11:19 | PCM.PN.RX ---
<Shelby Wahl - Last Filed: 06/06/20 11:19> Progress Note - Pharmacy Subjective: TCU Admission Objective: Allergies Penicillins Adverse Reaction (Verified 05/31/20 05:24) Rash sulfamethoxazole [From Bactrim] Adverse Reaction (Verified 05/31/20 05:24) Rash trimethoprim [From Bactrim] Adverse Reaction (Verified 05/31/20 05:24) Rash Current Medications Generic Name Dose Route Start Last Admin Trade Name Freq PRN Reason Stop Dose Admin Acetaminophen 1,000 mg 06/05/20 20:46 Acetaminophen 500 Mg Tablet PO Q6H PRN PRN Pain Score 1-10 Amiodarone HCl 200 mg 06/05/20 18:00 06/06/20 05:15 Amiodarone 200 Mg Tablet PO 200 mg BID [facility] Administration Apixaban 2.5 mg 06/05/20 18:00 06/06/20 05:15 Apixaban 2.5 Mg Tablet PO 2.5 mg BID [facility] Administration Ascorbic Acid 250 mg 06/06/20 08:00 06/06/20 08:08 [facility]ic [facility] Benzonatate 100 - 200 mg 06/05/20 15:37 Benzonatate 100 Mg Capsule PO TID PRN PRN COUGH Bisacodyl 10 mg 06/05/20 20:45 Bisacodyl 5 Mg Tablet PO DAILY PRN Constipation Calamine/Phenol 1 applic 06/05/20 22:00 06/06/20 05:21 Menthol/Lanolin/Calamine/Znox 113 Gm Tube TOPICAL 1 applic BID@0600,2200 [facility] Administration Protocol Calcium/Vitamin D 1 tablet 06/05/20 17:00 06/06/20 08:09 Calcium Carb/Vitamin D 1 Tablet [facility] Administration Ergocalciferol 50,000 unit 06/07/20 06:00 Ergocalciferol 50,000 Unit Capsule PO 07/26/20 05:59 SuWe [facility] Ferrous Sulfate 325 mg 06/06/20 08:00 06/06/20 08:09 Ferrous Sulfate 325 Mg Tablet PO 325 mg DAILYCM [facility] Administration Magnesium Hydroxide 30 ml 06/05/20 20:45 Magnesium Hydroxide 30 Ml Udc PO DAILY PRN Constipation Mirtazapine 7.5 mg 06/05/20 22:00 06/05/20 20:20 Mirtazapine 15 Mg Tablet PO 7.5 mg QHS [facility] Administration Multivitamins 1 tablet 06/06/20 08:00 06/06/20 08:09 Multivitamins,Therapeutic Tablet PO 1 tablet DAILYCM [facility] Administration Nutritional Formula (Lactose Free) 120 ml 06/05/20 17:00 06/06/20 05:14 Ensure Enlive 120 Ml Liquid PO 120 ml 4X/DAY [facility] Administration Nystatin 500,000 unit 06/05/20 22:00 06/06/20 05:15 Nystatin 500,000 Unit/5 Ml Udc PO 06/15/20 22:01 500,000 unit 4X/DAY [facility] Administration Polyethylene Glycol 17 gm 06/06/20 06:00 06/06/20 05:14 Polyethylene Glycol 3350 17 Gm Packet PO 17 gm DAILY [facility] Administration Promethazine HCl 25 mg 06/05/20 15:37 Promethazine 25 Mg Tablet PO Q6H PRN PRN NAUSEA Tuberculin PPD 5 tu 06/13/20 10:00 Tuberculin,Purif.Prot.Deriv. 50 Tu/Ml Vial ID 06/13/20 10:01 X1 ONE Problem List (Last Updated 06/06/20 @ 08:30 by Juliette Koenig) Atrial fibrillation with RVR (Acute) Debility (Acute) Abdominal pain (Acute) Sigmoid volvulus (Acute) Postobstructive pneumonia (Chronic) Chronic cough (Chronic) Iron deficiency anemia (Chronic) Nausea (Chronic) Lung cancer metastatic to bone (Chronic) Vital Signs Temp Pulse Resp BP Pulse Ox 98.7 F 92 16 123/73 H 93 06/06/20 05:22 06/06/20 05:22 06/06/20 05:22 06/06/20 05:22 06/06/20 05:22 Oxygen Delivery Method Room Air Weight: 59.874 kg Body Mass Index (BMI) 17.4 Sodium 137 mmol/L (136-145) 06/06/20 05:28 Potassium 4.2 mmol/L (3.5-5.1) 06/06/20 05:28 Chloride 101 mmol/L (98-107) 06/06/20 05:28 Carbon Dioxide 31.0 mmol/L (21.0-32.0) 06/06/20 05:28 Anion Gap 5 (5-15) 06/06/20 05:28 BUN 13 mg/dL (7-18) 06/06/20 05:28 Creatinine 0.74 mg/dL (0.70-1.30) 06/06/20 05:28 Est GFR (MDRD) Af Amer 133 mL/min (>60) 06/06/20 05:28 Est GFR (MDRD) Non-Af 110 mL/min (>60) 06/06/20 05:28 BUN/Creatinine Ratio 17.6 RATIO (10-20) 06/06/20 05:28 Glucose 103 mg/dL (74-106) 06/06/20 05:28 Assessment/Plan: 1. Pain: acetaminophen 1000mg PO Q6H PRN pain 1-01/07. Please continue to monitor for increased pain and PRN usage. *2. Atrial fibrillation: amiodarone 200mg PO BID and apixaban 2.5mg PO BID. Please continue to monitor potassium (last 4.2 mmol/L), magnesium (last 1.7mg/dL), BP (last 123/73), HR (last 92), S/S of bleeding, and hemoglobin (last 9.1g/dL). Based on patient age <80 and SCr <1.5, patient is appropriate for apixaban 5mg PO BID. Please consider increasing dose to 5mg BID if clinically appropriate. Thanks. 3. Iron deficiency anemia: ferrous sulfate 325mg PO daily. Please continue to monitor hemoglobin (last 9.1 g/dL) and for dark stools. 4. Thrush: nystatin 500,000units PO 4x/day thru 06/15/20. Please continue to monitor for S/S of thrush. 5. Chronic cough: benzonatate 100-200mg PO TID PRN cough. Please continue to monitor for cough and PRN usage. *6. Vitamin deficiencies/nutrition: ascorbic acid 250mg PO DAILYCM, calcium/vitamin D 1T PO BIDCM, ergocalciferol 50,000units PO twice weekly and multivitamin 1T PO DAILYCM. Please continue to monitor calcium (last 8.7mg/dL). Patient does not have a vitamin D level in the chart. Please consider ordering a vitamin D level if clinically appropriate. Thanks. 7. Nausea: promethazine 25mg PO Q6H PRN nausea. Please continue to monitor for nausea and PRN usage. Psychotropic Medications: *1. Appetite loss/insomnia/depression: mirtazapine 7.5mg PO QHS. Please consider GDR by 11/2020 if clinically appropriate. Thanks. Unnecessary Medications: None Bowel Regimen: Miralax 17gm PO daily, MOM 30mL PO daily PRN constipation, and bisacodyl 10mg PO daily PRN constipation. Please continue to monitor for S/S of constipation and PRN usage. Date of Note:: 06/06/20 - Provider Comments Provider responsibility: Provider responsible to enter orders to implement recommendations <Keith Dexter Chi - Last Filed: 06/06/20 11:41> Progress Note - Pharmacy Subjective: [] Objective: Allergies Penicillins Adverse Reaction (Verified 05/31/20 05:24) Rash sulfamethoxazole [From Bactrim] Adverse Reaction (Verified 05/31/20 05:24) Rash trimethoprim [From Bactrim] Adverse Reaction (Verified 05/31/20 05:24) Rash Current Medications Generic Name Dose Route Start Last Admin Trade Name Freq PRN Reason Stop Dose Admin Acetaminophen 1,000 mg 06/05/20 20:46 Acetaminophen 500 Mg Tablet PO Q6H PRN PRN Pain Score 1-10 Amiodarone HCl 200 mg 06/05/20 18:00 06/06/20 05:15 Amiodarone 200 Mg Tablet PO 200 mg BID [facility] Administration Apixaban 2.5 mg 06/05/20 18:00 06/06/20 05:15 Apixaban 2.5 Mg Tablet PO 2.5 mg BID [facility] Administration Ascorbic Acid 250 mg 06/06/20 08:00 06/06/20 08:08 Ascorbic Acid 500 Mg Tablet PO 250 mg DAILYCM [facility] Administration Benzonatate 100 - 200 mg 06/05/20 15:37 Benzonatate 100 Mg Capsule PO TID PRN PRN COUGH Bisacodyl 10 mg 06/05/20 20:45 Bisacodyl 5 Mg Tablet PO DAILY PRN Constipation Calamine/Phenol 1 applic 06/05/20 22:00 06/06/20 05:21 Menthol/Lanolin/Calamine/Znox 113 Gm Tube TOPICAL 1 applic BID@0600,2200 [facility] Administration Protocol Calcium/Vitamin D 1 tablet 06/05/20 17:00 06/06/20 08:09 Calcium Carb/Vitamin D 1 Tablet Tablet PO 1 tablet BIDCM [facility] Administration Ergocalciferol 50,000 unit 06/07/20 06:00 Ergocalciferol 50,000 Unit Capsule PO 07/26/20 05:59 SuWe [facility] Ferrous Sulfate 325 mg 06/06/20 08:00 06/06/20 08:09 Ferrous Sulfate 325 Mg Tablet PO 325 mg DAILYCM [facility] Administration Magnesium Hydroxide 30 ml 06/05/20 20:45 Magnesium Hydroxide 30 Ml Udc PO DAILY PRN Constipation Mirtazapine 7.5 mg 06/05/20 22:00 06/05/20 20:20 Mirtazapine 15 Mg Tablet PO 7.5 mg QHS [facility] Administration Multivitamins 1 tablet 06/06/20 08:00 06/06/20 08:09 Multivitamins,Therapeutic Tablet PO 1 tablet DAILYCM [facility] Administration Nutritional Formula (Lactose Free) 120 ml 06/05/20 17:00 06/06/20 11:40 Ensure Enlive 120 Ml Liquid PO 120 ml 4X/DAY [facility] Administration Nystatin 500,000 unit 06/05/20 22:00 06/06/20 05:15 Nystatin 500,000 Unit/5 Ml Udc PO 06/15/20 22:01 500,000 unit 4X/DAY [facility] Administration Polyethylene Glycol 17 gm 06/06/20 06:00 06/06/20 05:14 Polyethylene Glycol 3350 17 Gm Packet PO 17 gm DAILY [facility] Administration Promethazine HCl 25 mg 06/05/20 15:37 Promethazine 25 Mg Tablet PO Q6H PRN PRN NAUSEA Tuberculin PPD 5 tu 06/13/20 10:00 Tuberculin,Purif.Prot.Deriv. 50 Tu/Ml Vial ID 06/13/20 10:01 X1 ONE Problem List (Last Updated 06/06/20 @ 08:30 by Juliette Koenig) Atrial fibrillation with RVR (Acute) Debility (Acute) Abdominal pain (Acute) Sigmoid volvulus (Acute) Postobstructive pneumonia (Chronic) Chronic cough (Chronic) Iron deficiency anemia (Chronic) Nausea (Chronic) Lung cancer metastatic to bone (Chronic) Vital Signs Temp Pulse Resp BP Pulse Ox 98.7 F 92 16 123/73 H 93 06/06/20 05:22 06/06/20 05:22 06/06/20 05:22 06/06/20 05:22 06/06/20 05:22 Oxygen Delivery Method Room Air Weight: 59.874 kg Body Mass Index (BMI) 17.4 Sodium 137 mmol/L (136-145) 06/06/20 05:28 Potassium 4.2 mmol/L (3.5-5.1) 06/06/20 05:28 Chloride 101 mmol/L (98-107) 06/06/20 05:28 Carbon Dioxide 31.0 mmol/L (21.0-32.0) 06/06/20 05:28 Anion Gap 5 (5-15) 06/06/20 05:28 BUN 13 mg/dL (7-18) 06/06/20 05:28 Creatinine 0.74 mg/dL (0.70-1.30) 06/06/20 05:28 Est GFR (MDRD) Af Amer 133 mL/min (>60) 06/06/20 05:28 Est GFR (MDRD) Non-Af 110 mL/min (>60) 06/06/20 05:28 BUN/Creatinine Ratio 17.6 RATIO (10-20) 06/06/20 05:28 Glucose 103 mg/dL (74-106) 06/06/20 05:28 Assessment/Plan: Psychotropic Medications: Unnecessary Medications: Bowel Regimen: - Provider Comments Provider responsibility: Provider responsible to enter orders to implement recommendations Provider Comments to Recommendations by Pharmacy: Agree
[2020-06-06] MEDS: Tuberculin,Purif.prot.deriv. 50 TU/ML Vial 5 ML ID (11:40)
[2020-06-06 12:41] LABS: Pathologist Review Reviewed
[2020-06-06 14:26] VITALS: BP 91/57; PULSE 89; RESP 16; TEMP 36.9; O2SAT 95
--- NOTE | 2020-06-06 15:29 | PCM.PN.SRG ---
Patient Problems: Active and Suspected Problems (Last Updated 06/06/20 @ 08:30 by Juliette Koenig) Atrial fibrillation with RVR (Acute) Debility (Acute) Abdominal pain (Acute) Sigmoid volvulus (Acute) Subjective: Patient started to have some liquid stool per his colostomy lies denies any issues. - Physical Exam Vitals/I&O's: Vital Signs Temp Pulse Resp BP Pulse Ox 98.5 F 89 16 91/57 L 95 06/06/20 14:26 06/06/20 14:26 06/06/20 14:26 06/06/20 14:26 06/06/20 14:26 Oxygen Delivery Method Room Air Weight: 132 lb Body Mass Index (BMI) 17.4 Intake and Output for Last 24 Hours 06/04/20 06/05/20 06/06/20 23:59 23:59 23:59 Intake Total 1320 / 1320 Output Total 500 / 500 Balance 820 / 820 General: Alert, Oriented x3, Cooperative, No apparent distress HEENT: Atraumatic Cardiovascular: Regular rate Abdomen: Soft, Non Tender, Distended - Mild, - - Colostomy edematous, liquid brown stool Laboratory Results 06/05/20 16:49: COVID-19 (LUANN) Not Detected 06/06/20 05:28: WBC 1.6 L, RBC 2.74 L, Hgb 9.1 L, Hct 26.7 L, MCV 97.4 H, MCH 33.2 H, MCHC 34.1, RDW Std Deviation 42.5, RDW Coeff of Natalie 12.6, Plt Count 122 L, MPV 9.0, Immature Gran % (Auto) 0.600, Neut % (Auto) 78.6 H, Lymph % (Auto) 12.3 L, [place] % (Auto) 6.1, Eos % (Auto) 1.8, Baso % (Auto) 0.6, Absolute Neuts (auto) 1.3 L, Absolute Lymphs (auto) 0.20 L, Nucleated RBC % 0, Diff Path Review Reviewed 06/06/20 05:28: Sodium 137, Potassium 4.2, Chloride 101, Carbon Dioxide 31.0, Anion Gap 5, BUN 13, Creatinine 0.74, Estim Creat Clear Calc 54.05, Est GFR (MDRD) Af Amer 133, Est GFR (MDRD) Non-Af 110, BUN/Creatinine Ratio 17.6, Glucose 103, Calcium 8.7 Current Medications Acetaminophen (Acetaminophen 500 Mg Tablet) 1,000 mg PO Q6H PRN PRN PRN Reason: Pain Score 1-10 Amiodarone HCl (Amiodarone 200 Mg Tablet) 200 mg PO BID [facility] Last Admin: 06/06/20 05:15 Dose: 200 mg Documented by: Apixaban (Apixaban 2.5 Mg Tablet) 2.5 mg PO BID [facility] Last Admin: 06/06/20 05:15 Dose: 2.5 mg Documented by: Ascorbic Acid (Ascorbic Acid 500 Mg Tablet) [facility] Last Admin: 06/06/20 08:08 Dose: 250 mg Documented by: Benzonatate (Benzonatate 100 Mg Capsule) 100 - 200 mg PO TID PRN PRN PRN Reason: COUGH Bisacodyl (Bisacodyl 5 Mg Tablet) 10 mg PO DAILY PRN PRN Reason: Constipation Calamine/Phenol (Menthol/Lanolin/Calamine/Znox 113 Gm Tube) 1 applic TOPICAL BID@0600,2200 [facility]; Protocol Last Admin: 06/06/20 05:21 Dose: 1 applic Documented by: Calcium/Vitamin D (Calcium Carb/Vitamin D 1 Tablet Tablet) [facility] Last Admin: 06/06/20 08:09 Dose: 1 tablet Documented by: Ergocalciferol (Ergocalciferol 50,000 Unit Capsule) 50,000 unit PO SuWe [facility] Stop: 07/26/20 05:59 Ferrous Sulfate (Ferrous Sulfate 325 Mg Tablet) [facility] Last Admin: 06/06/20 08:09 Dose: 325 mg Documented by: Magnesium Hydroxide (Magnesium Hydroxide 30 Ml Udc) 30 ml PO DAILY PRN PRN Reason: Constipation Mirtazapine (Mirtazapine 15 Mg Tablet) 7.5 mg PO QHS [facility] Last Admin: 06/05/20 20:20 Dose: 7.5 mg Documented by: Multivitamins (Multivitamins,Therapeutic Tablet) [facility] Last Admin: 06/06/20 08:09 Dose: 1 tablet Documented by: Nutritional Formula (Lactose Free) (Ensure Enlive 120 Ml Liquid) 120 ml PO 4X/DAY [facility] Last Admin: 06/06/20 11:40 Dose: 120 ml Documented by: Nystatin (Nystatin 500,000 Unit/5 Ml Udc) 500,000 unit PO 4X/DAY [facility] Stop: 06/15/20 22:01 Last Admin: 06/06/20 13:53 Dose: 500,000 unit Documented by: Polyethylene Glycol (Polyethylene Glycol 3350 17 Gm Packet) 17 gm PO DAILY [facility] Last Admin: 06/06/20 05:14 Dose: 17 gm Documented by: Promethazine HCl (Promethazine 25 Mg Tablet) 25 mg PO Q6H PRN PRN PRN Reason: NAUSEA Tuberculin PPD (Tuberculin,Purif.Prot.Deriv. 50 Tu/Ml Vial) 5 tu ID X1 ONE Stop: 06/13/20 10:01 Medical Necessity - Tobacco Use Smoking Status: Former smoker Tobacco Use: Cigarettes Assessment/Plan All Active Problems (Last Updated 06/06/20 @ 08:30 by Juliette Koenig) Postoperative atrial fibrillation (Acute) NSCLC metastatic to bone (Acute) Leukopenia due to antineoplastic chemotherapy (Acute) Malnutrition (Acute) Weakness (Acute) Atrial fibrillation with RVR (Acute) Debility (Acute) Abdominal pain (Acute) Sigmoid volvulus (Acute) We will give patient half bottle magnesium citrate see if this helps with the stool its been in his colon since before surgery. Likely once the stool is able to pass the ostomy will be less edematous as well. Nasima Acevedo M.D. Pager: [phone] [facility] [address] [place] [address], [address] [place] [id number] Office: [phone]
--- NOTE | 2020-06-06 16:26 | CHAPLAIN ---
Type of Pastoral Visit _x__ Initial Visit ___ Follow-up Visit ___ On-call Visit ___ General Patient Visit ___ Spiritual Assessment ___ Family Conference ___ Bereavement ___ Rapid Response ___ Code Blue ___ Other (describe below) Pastoral Care Referral From ___ Patient ___ Family ___ Nurse ___ Physician _x__ Janitor Supervisor ___ Streetsweeper Operator ___ Other (describe below) Sacrament/Intervention _x__ Active listening ___ Anointing ___ Caodaism ___ Bereavement ___ Communion _x__ [place]mina exploration ___ _x__ Life review _x__ Prayer ___ Reconciliation ___ Sacrament of Sick _x__ Supportive presence ___ Wedding ___ Other (describe below) Pastoral Comments long discussion of health history and coping with cancer; some frustration with change of plans, slow progress, his physical appearance, and the unknowns were discussed; pt is 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
[2020-06-06] MEDS: Magnesium Citrate 300 ML 150 ML PO (16:33)
[2020-06-06 17:22] VITALS: BP 126/63; PULSE 94
[2020-06-06] MEDS: Mirtazapine 15 MG Tablet 7.5 MG PO (20:01)
[2020-06-06 22:00] VITALS: RESP 16
[2020-06-07 06:39] VITALS: BP 105/56; PULSE 52; RESP 16; TEMP 36.7; O2SAT 94
[2020-06-07] MEDS: APIXABAN 2.5 MG TABLET PO ×2 (06:41→17:12)
[2020-06-07] MEDS: Polyethylene Glycol 3350 17 GM PACKET PO (06:41)
[2020-06-07] MEDS: Amiodarone 200 MG Tablet PO ×2 (06:41→17:12)
[2020-06-07] MEDS: Menthol/Lanolin/Calamine/Znox 113 GM Tube 1 APPLIC TOPICAL ×2 (06:49→21:20)
[2020-06-07] MEDS: NYSTATIN 500,000 UNIT/5 ML UDC 500000 UNIT PO ×4 (06:50→21:15)
--- NOTE | 2020-06-07 07:33 | NURSING ---
pts colostomy bag ruptured, was last emptied at 3am, large amt of loose stool with one marble size stool, pt washed up, linens and gown changed, new bag applied.
--- NOTE | 2020-06-07 08:11 | EKG12_ITS ---
Test Reason : Blood Pressure : / mmHG Vent. Rate : 095 BPM Atrial Rate : 095 BPM P-R Int : 134 ms QRS Dur : 080 ms QT Int : 368 ms P-R-T Axes : 073 035 028 degrees QTc Int : 462 ms Sinus rhythm with occasional Premature ventricular complexes Nonspecific ST and T wave abnormality Prolonged QT Abnormal ECG Confirmed by JOSE AMAYA, FERNANDO ([id number]), assistant film editor DELVIS MOON ([id number]) on 06/16/2020 8:52:11 AM Referred By: Nasima Acevedo Confirmed By:FERNANDO GARCIA MD
[2020-06-07] MEDS: Calcium Carb/Vitamin D 1 TABLET Tablet PO ×2 (08:16→17:12)
[2020-06-07] MEDS: Ferrous Sulfate 325 MG Tablet PO (08:16)
[2020-06-07] MEDS: Multivitamins,Therapeutic Tablet 1 TABLET PO (08:16)
[2020-06-07] MEDS: Ascorbic Acid 500 MG Tablet 250 MG PO (08:17)
--- NOTE | 2020-06-07 08:22 | RAD_ITS ---
STUDY: X-RAY - ABDOMEN/PELVIS REASON FOR EXAM: Male, 75 years old. Constipation TECHNIQUE: Single AP view of the abdomen / pelvis. COMPARISON: 05/31/2020 FINDINGS: Skin debra in midline consistent with recent abdominal surgery. Suspect left lower quadrant colostomy. Mild colonic dilatation possibly consistent with a mild ileus. The visualized liver, spleen and kidneys are grossly normal in size and morphology. Normal soft tissue structures. Normal visualized osseous structures. RAD/Abdomen Single View IMPRESSION: Recent abdominal surgery with mild ileus per Electronically Signed: Blue Fong MD at 10:22 EST Tel , Service support ,
[2020-06-07 08:44] LABS: Absolute Lymphocyte Count 0.19 X10^3/uL (0.83-4.51); Absolute Neutrophil Count 1.4 X10^3/uL (2.0-7.7); Basophil# 0.01 X10^3/uL; Basophil% 0.6 % (0-1); Eosinophil# 0.05 X10^3/uL; Eosinophils% 2.8 % (0-5); Hematocrit 25.6 % (40-54); Hemoglobin 8.8 g/dL (13.0-16.5); Lymphocyte # 0.19 X10^3/ul (4.0); Lymphocyte % 10.8 % (19-41); Mean Corp Hgb Conc 34.4 g/dL (32-36); Mean Corpuscular Hgb 33.6 pg (27.0-32.0); Mean Corpuscular Volume 97.7 fL (80-94); Mean Platelet Vol. 8.6 fl (6.2-12.0); Monocyte# 0.11 X10^3/uL; Monocyte% 6.3 % (0-10); NRBC Flagged by Analyzer 0 % (0-5); Neutrophil % 79.5 % (47-70); POSITIVE DIFFERENTIAL YES; Platelet Count 129 K/mm3 (150-450); RBC Distribution Width SD 42.4 fl (35.1-43.9); Red Blood Count 2.62 M/mm3 (4.6-6.2); White Blood Count 1.8 K/mm3 (4.4-11.0)
[2020-06-07 08:57] LABS: Differential Indicated SCAN CRITERIA MET
[2020-06-07 09:00] LABS: Anion Gap 4 (5-15); BUN 17 mg/dL (7-18); Calcium,Total 8.9 mg/dL (8.5-10.1); Chloride 100 mmol/L (98-107); Creatinine, Serum 0.85 mg/dL (0.70-1.30); EST Glomerular Filtration Rate 93 mL/min (>60); Est Glom Filt Rate - Afr Amer 113 mL/min (>60); Estimated Creatinine Clearance 63.59 ml/min; Glucose 120 mg/dL (74-106); Potassium 3.4 mmol/L (3.5-5.1); Sodium Level 137 mmol/L (136-145)
[2020-06-07 09:12] LABS: CPK Total, Creatine Kinase 35 U/L (39-308)
[2020-06-07 09:14] LABS: Differential Comment SCANNED
[2020-06-07 10:58] LABS: Bacteria 0 SEEN /hpf (None Seen); Mucous, Urine 0 SEEN /hpf (<or=2+); Red Blood Cells-Urine 0 SEEN /hpf (0-5); Squamous Epithelial Cells - UA 0 SEEN /hpf (0-5); White Blood Cells 0 SEEN /hpf (0-5)
[2020-06-07 11:03] LABS: Color, Urine Yellow (Yellow); Glucose, Dipstick Normal (Normal); Ketone-Dipstick Negative (Negative); Leukocyte Esterase-Dipstick Negative /ul (Negative); Nitrite-Dipstick Negative (Negative); Occult Blood-Urine Negative /ul (Negative); Protein-Dipstick Negative (Negative); Urine Bilirubin Dipstick Negative (Negative); Urine Clarity Clear (Clear); Urine Urobilinogen Normal (Normal)
--- NOTE | 2020-06-07 13:06 | PN.SURG_ITS ---
Patient Problems: Active and Suspected Problems (Last Updated 06/06/20 @ 08:30 by Juliette Koenig) Atrial fibrillation with RVR (Acute) Debility (Acute) Abdominal pain (Acute) Sigmoid volvulus (Acute) Subjective: Patient did have large amount of stool per his colostomy to getting magnesium citrate yesterday, also had a little bit of vomiting this morning. - Physical Exam Vitals/I&O's: Vital Signs Temp Pulse Resp BP Pulse Ox 98.0 F 52 L 16 105/56 L 94 06/07/20 06:39 06/07/20 06:39 06/07/20 06:39 06/07/20 06:39 06/07/20 06:39 Oxygen Delivery Method Room Air Weight: 131 lb 15.993 oz Body Mass Index (BMI) 17.4 Intake and Output for Last 24 Hours 06/05/20 06/06/20 06/07/20 23:59 23:59 23:59 Intake Total 1440 / 1440 120 / 120 Output Total 500 / 500 200 / 200 Balance 940 / 940 -80 / -80 General: Alert, Oriented x3, Cooperative Lungs: Normal air movement Cardiovascular: Regular rate Abdomen: Soft, Distended, Tender - Near incisions and colostomy, colostomy pink, edematous?digitized got about 400 cc of liquid stool no obvious hard impacted stool on exam. Laboratory Results 06/07/20 08:36: WBC 1.8 L, RBC 2.62 L, Hgb 8.8 L, Hct 25.6 L, MCV 97.7 H, MCH 33.6 H, MCHC 34.4, RDW Std Deviation 42.4, RDW Coeff of Natalie 13.0, Plt Count 129 L, MPV 8.6, Immature Gran % (Auto) 0.000, Neut % (Auto) 79.5 H, Lymph % (Auto) 10.8 L, [place] % (Auto) 6.3, Eos % (Auto) 2.8, Baso % (Auto) 0.6, Absolute Neuts (auto) 1.4 L, Absolute Lymphs (auto) 0.19 L, Nucleated RBC % 0, Differential Comment SCANNED, Diff Path Review July06/07/20 08:36: Sodium 137, Potassium 3.4 L, Chloride 100, Carbon Dioxide 33.0 H , Anion Gap 4 L, BUN 17, Creatinine 0.85, Estim Creat Clear Calc 63.59, Est GFR (MDRD) Af Amer 113, Est GFR (MDRD) Non-Af 93, BUN/Creatinine Ratio 20.0, Glucose 120 H, Calcium 8.9 06/07/20 08:36: Total Creatine Kinase 35 L, Troponin I < 0.015 06/07/20 10:30: Urine Color Yellow, Urine Clarity Clear, Urine pH 7.0, Ur Spe cific [place] 1.010, Urine Protein Negative, Urine Glucose (UA) Normal, Urine Ketones Negative, Urine Occult Blood Negative, Urine Nitrite Negative, Urine Bilirubin Negative, Urine Urobilinogen Normal, Ur Leukocyte Esterase Negative, Urine RBC 0 SEEN, Urine WBC 0 SEEN, Ur Squamous Epith Cells 0 SEEN, Urine Bacteria 0 SEEN, Urine Mucus 0 SEEN Current Medications Acetaminophen (Acetaminophen 500 Mg Tablet) 1,000 mg PO Q6H PRN PRN PRN Reason: Pain Score 1-10 Amiodarone HCl (Amiodarone 200 Mg Tablet) 200 mg PO BID [facility] Last Admin: 06/07/20 06:41 Dose: 200 mg Documented by: Apixaban (Apixaban 2.5 Mg Tablet) 2.5 mg PO BID [facility] Last Admin: 06/07/20 06:41 Dose: 2.5 mg Documented by: Ascorbic Acid (Ascorbic Acid 500 Mg Tablet) [facility] Last Admin: 06/07/20 08:17 Dose: 250 mg Documented by: Benzonatate (Benzonatate 100 Mg Capsule) 100 - 200 mg PO TID PRN PRN PRN Reason: COUGH Bisacodyl (Bisacodyl 5 Mg Tablet) 10 mg PO DAILY PRN PRN Reason: Constipation Calamine/Phenol (Menthol/Lanolin/Calamine/Znox 113 Gm Tube) 1 applic TOPICAL BID@0600,2200 [facility]; Protocol Last Admin: 06/07/20 06:49 Dose: 1 applic Documented by: Calcium/Vitamin D (Calcium Carb/Vitamin D 1 Tablet Tablet) [facility] Last Admin: 06/07/20 08:16 Dose: 1 tablet Documented by: Ergocalciferol (Ergocalciferol 50,000 Unit Capsule) 50,000 unit PO [facility] Stop: 07/26/20 05:59 Last Admin: 06/07/20 06:41 Dose: 50,000 unit Documented by: Ferrous Sulfate (Ferrous Sulfate 325 Mg Tablet) 325 [facility] Last Admin: 06/07/20 08:16 Dose: 325 mg Documented by: Magnesium Hydroxide (Magnesium Hydroxide 30 Ml Udc) 30 ml PO DAILY PRN PRN Reason: Constipation Mirtazapine (Mirtazapine 15 Mg Tablet) 7.5 mg PO QHS [facility] Last Admin: 06/06/20 20:01 Dose: 7.5 mg Documented by: Multivitamins (Multivitamins,Therapeutic Tablet) [facility] Last Admin: 06/07/20 08:16 Dose: 1 tablet Documented by: Nutritional Formula (Lactose Free) (Ensure Enlive 120 Ml Liquid) 120 ml PO 4X/DAY [facility] Last Admin: 06/07/20 11:43 Dose: 120 ml Documented by: Nystatin (Nystatin 500,000 Unit/5 Ml Udc) 500,000 unit PO 4X/DAY [facility] Stop: 06/15/20 22:01 Last Admin: 06/07/20 06:50 Dose: 500,000 unit Documented by: Polyethylene Glycol (Polyethylene Glycol 3350 17 Gm Packet) 17 gm PO DAILY [facility] Last Admin: 06/07/20 06:41 Dose: 17 gm Documented by: Promethazine HCl (Promethazine 25 Mg Tablet) 25 mg PO Q6H PRN PRN PRN Reason: NAUSEA Tuberculin PPD (Tuberculin,Purif.Prot.Deriv. 50 Tu/Ml Vial) 5 tu ID X1 ONE Stop: 06/13/20 10:01 Medical Necessity - Tobacco Use Smoking Status: Former smoker Tobacco Use: Cigarettes Assessment/Plan All Active Problems (Last Updated 06/06/20 @ 08:30 by Juliette Koenig) Postoperative atrial fibrillation (Acute) NSCLC metastatic to bone (Acute) Leukopenia due to antineoplastic chemotherapy (Acute) Malnutrition (Acute) Weakness (Acute) Atrial fibrillation with RVR (Acute) Debility (Acute) Abdominal pain (Acute) Sigmoid volvulus (Acute) Patient is having liquid stools likely due to the magnesium citrate. However his KUB still showed some gas in the colon please able to get up and walk around little bit see if that helps it come out. Did digitize the stoma no obvious hard stool that I am able to feel on exam. Nasima Acevedo M.D. Pager: [phone] [facility] [address] [place] [address], [address] [place] [address] Office: [phone]
[2020-06-07 14:00] VITALS: BP 90/57; PULSE 86; RESP 16; TEMP 36.7; O2SAT 92
--- NOTE | 2020-06-07 15:23 | NURSING ---
Addendum entered by Adenike Sanchez 06/07/20 15:28: Dr. Acevedo came to floor and Digitalized stoma. Pt had 500cc of loose stool expelled from stoma. Reapplied new appliance pt handled procedure well. Continue to having loose stool from stoma. Stoma is large and beefy red. Pt stated he had some relief. Will continue to monitor output. Original Note: Pt c/o of nausea and vomited up his breakfast. HR 102 BP 91/60 Right arm Semi Fowlers Temp 98.0 Temporal SpO2 93% RA. Pt stated I just don't feel well. Dr. Dexter updated and new orders entered EKG CBC BMP Cardiac Enzymes UA with CLOCK MAKER KUB. Dr. Acevedo updated on KUB order.
[2020-06-07] MEDS: Potassium Chloride Oral Tablet 20 MEQ 40 MEQ PO (18:23)
[2020-06-07] MEDS: Mirtazapine 15 MG Tablet 7.5 MG PO (21:17)
[2020-06-08 05:21] VITALS: BP 96/65; PULSE 89; RESP 16; TEMP 36.8; O2SAT 95
[2020-06-08] MEDS: APIXABAN 2.5 MG TABLET PO ×2 (05:24→17:55)
[2020-06-08] MEDS: Amiodarone 200 MG Tablet PO ×2 (05:24→17:55)
[2020-06-08] MEDS: Menthol/Lanolin/Calamine/Znox 113 GM Tube 1 APPLIC TOPICAL ×2 (05:24→22:48)
[2020-06-08] MEDS: Polyethylene Glycol 3350 17 GM PACKET PO (05:24)
[2020-06-08] MEDS: NYSTATIN 500,000 UNIT/5 ML UDC 500000 UNIT PO ×4 (05:25→22:46)
[2020-06-08 06:21] LABS: Anion Gap 4 (5-15); BUN 17 mg/dL (7-18); BUN/Creat Ratio 23.7 RATIO (10-20); Calcium,Total 8.6 mg/dL (8.5-10.1); Chloride 102 mmol/L (98-107); Creatinine, Serum 0.72 mg/dL (0.70-1.30); EST Glomerular Filtration Rate 113 mL/min (>60); Est Glom Filt Rate - Afr Amer 137 mL/min (>60); Estimated Creatinine Clearance 54.05 ml/min; Glucose 95 mg/dL (74-106); Potassium 3.8 mmol/L (3.5-5.1); Sodium Level 138 mmol/L (136-145)
[2020-06-08] MEDS: Ascorbic Acid 500 MG Tablet 250 MG PO (08:00)
[2020-06-08] MEDS: Multivitamins,Therapeutic Tablet 1 TABLET PO (08:01)
[2020-06-08] MEDS: Calcium Carb/Vitamin D 1 TABLET Tablet PO ×2 (08:01→17:55)
[2020-06-08] MEDS: Ferrous Sulfate 325 MG Tablet PO (08:01)
[2020-06-08] MEDS: 0.9% Normal Saline 1,000 ML 999 ML IV (08:36)
[2020-06-08] MEDS: 0.9% Saline Lock 10 ML Syringe IV (10:03)
[2020-06-08 12:54] LABS: Pathologist Review Reviewed
[2020-06-08 18:02] VITALS: BP 100/71; PULSE 86; RESP 16; TEMP 36.9; O2SAT 94
[2020-06-08] MEDS: Mirtazapine 15 MG Tablet 7.5 MG PO (22:47)
[2020-06-09 06:50] VITALS: BP 105/77; PULSE 68; RESP 16; TEMP 36.9; O2SAT 94
[2020-06-09] MEDS: APIXABAN 2.5 MG TABLET PO ×2 (06:57→17:39)
[2020-06-09] MEDS: Amiodarone 200 MG Tablet PO ×2 (06:57→17:39)
[2020-06-09] MEDS: NYSTATIN 500,000 UNIT/5 ML UDC 500000 UNIT PO ×4 (06:57→21:47)
[2020-06-09] MEDS: Polyethylene Glycol 3350 17 GM PACKET PO (06:59)
[2020-06-09] MEDS: Menthol/Lanolin/Calamine/Znox 113 GM Tube 1 APPLIC TOPICAL ×2 (07:00→21:46)
[2020-06-09] MEDS: Ferrous Sulfate 325 MG Tablet PO (07:57)
[2020-06-09] MEDS: Multivitamins,Therapeutic Tablet 1 TABLET PO (07:57)
[2020-06-09] MEDS: Calcium Carb/Vitamin D 1 TABLET Tablet PO ×2 (07:57→17:39)
[2020-06-09] MEDS: Ascorbic Acid 500 MG Tablet 250 MG PO (07:57)
[2020-06-09 10:00] VITALS: PULSE 94; RESP 16; O2SAT 97
[2020-06-09 13:11] VITALS: BP 85/50; PULSE 87; RESP 14; TEMP 36.4; O2SAT 96
[2020-06-09 17:44] VITALS: BP 93/58; PULSE 83
[2020-06-09] MEDS: Mirtazapine 15 MG Tablet 7.5 MG PO (21:47)
[2020-06-10 05:33] VITALS: BP 108/75; PULSE 89; RESP 16; TEMP 36.9; O2SAT 96
[2020-06-10] MEDS: Amiodarone 200 MG Tablet PO ×2 (05:35→17:05)
[2020-06-10] MEDS: NYSTATIN 500,000 UNIT/5 ML UDC 500000 UNIT PO ×4 (05:35→20:46)
[2020-06-10] MEDS: Polyethylene Glycol 3350 17 GM PACKET PO (05:35)
[2020-06-10] MEDS: APIXABAN 2.5 MG TABLET PO ×2 (05:35→17:05)
[2020-06-10] MEDS: Menthol/Lanolin/Calamine/Znox 113 GM Tube 1 APPLIC TOPICAL ×2 (05:38→20:49)
[2020-06-10] MEDS: Ferrous Sulfate 325 MG Tablet PO (08:43)
[2020-06-10] MEDS: Calcium Carb/Vitamin D 1 TABLET Tablet PO ×2 (08:43→17:05)
[2020-06-10] MEDS: Multivitamins,Therapeutic Tablet 1 TABLET PO (08:43)
[2020-06-10] MEDS: Ascorbic Acid 500 MG Tablet 250 MG PO (08:44)
[2020-06-10 13:45] VITALS: BP 93/51; PULSE 80; RESP 16; TEMP 36.9; O2SAT 94
[2020-06-10] MEDS: Mirtazapine 15 MG Tablet 7.5 MG PO (20:46)
[2020-06-11] MEDS: NYSTATIN 500,000 UNIT/5 ML UDC 500000 UNIT PO ×4 (06:13→20:19)
[2020-06-11] MEDS: Polyethylene Glycol 3350 17 GM PACKET PO (06:13)
[2020-06-11] MEDS: Amiodarone 200 MG Tablet PO ×2 (06:13→17:37)
[2020-06-11] MEDS: APIXABAN 2.5 MG TABLET PO ×2 (06:13→17:37)
[2020-06-11] MEDS: Menthol/Lanolin/Calamine/Znox 113 GM Tube 1 APPLIC TOPICAL ×2 (06:14→20:19)
[2020-06-11 06:20] VITALS: BP 106/69; PULSE 90; RESP 18; TEMP 37.1; O2SAT 94
[2020-06-11] MEDS: Multivitamins,Therapeutic Tablet 1 TABLET PO (08:39)
[2020-06-11] MEDS: Ferrous Sulfate 325 MG Tablet PO (08:39)
[2020-06-11] MEDS: Ascorbic Acid 500 MG Tablet 250 MG PO (08:39)
[2020-06-11] MEDS: Calcium Carb/Vitamin D 1 TABLET Tablet PO ×2 (08:39→17:37)
[2020-06-11 09:23] VITALS: PULSE 82; RESP 16; O2SAT 94
[2020-06-11 14:48] VITALS: BP 100/55; PULSE 87; RESP 16; TEMP 37.1; O2SAT 95
[2020-06-11] MEDS: 0.9% Saline Lock 10 ML Syringe IV (18:22)
[2020-06-11 20:15] VITALS: BP 96/56; PULSE 81; RESP 16; TEMP 36.8; O2SAT 94
[2020-06-11] MEDS: Mirtazapine 15 MG Tablet 7.5 MG PO (20:20)
[2020-06-12] MEDS: Polyethylene Glycol 3350 17 GM PACKET PO (05:26)
[2020-06-12] MEDS: NYSTATIN 500,000 UNIT/5 ML UDC 500000 UNIT PO ×4 (05:26→21:07)
[2020-06-12] MEDS: APIXABAN 2.5 MG TABLET PO ×2 (05:26→17:50)
[2020-06-12] MEDS: Amiodarone 200 MG Tablet PO ×2 (05:26→17:50)
[2020-06-12] MEDS: Menthol/Lanolin/Calamine/Znox 113 GM Tube 1 APPLIC TOPICAL ×2 (05:26→19:41)
[2020-06-12 07:45] VITALS: BP 73/55; PULSE 93; RESP 18; TEMP 36.6; O2SAT 97
[2020-06-12] MEDS: Ascorbic Acid 500 MG Tablet 250 MG PO (07:56)
[2020-06-12] MEDS: Ferrous Sulfate 325 MG Tablet PO (07:56)
[2020-06-12] MEDS: Calcium Carb/Vitamin D 1 TABLET Tablet PO ×2 (07:56→17:50)
[2020-06-12] MEDS: Multivitamins,Therapeutic Tablet 1 TABLET PO (07:57)
[2020-06-12] MEDS: Midodrine HCl 5 MG Tablet PO ×3 (08:57→17:50)
[2020-06-12 10:00] VITALS: PULSE 92; RESP 16; O2SAT 96
[2020-06-12] MEDS: 0.9% Saline Lock 10 ML Syringe IV (12:30)
[2020-06-12 14:20] VITALS: BP 78/60; PULSE 95; RESP 16; TEMP 36.3; O2SAT 92
--- NOTE | 2020-06-12 16:06 | NURSING ---
stoma photo: left lower abdomen
--- NOTE | 2020-06-12 16:07 | NURSING ---
In to reassess the stoma to the left lower abdomen. there was a mod amt of unformed brown stool in the appliance. removed appliance. cleansed skin with warm water. pat dry. applied a new 2 piece flat [place] appliance with a small amount of stoma paste. pt was very attentive with appliance change. will have pt cut opening to flange for next appliance change and maybe try placing it while looking in the mirror. pt wants to be as independent as he can with the stoma. pt states he does not want his significant other to have to help if she doesn't have to.
[2020-06-12] MEDS: Mirtazapine 15 MG Tablet 7.5 MG PO (21:07)
[2020-06-13] MEDS: APIXABAN 2.5 MG TABLET PO ×2 (05:36→16:26)
[2020-06-13] MEDS: NYSTATIN 500,000 UNIT/5 ML UDC 500000 UNIT PO ×4 (05:36→22:14)
[2020-06-13] MEDS: Polyethylene Glycol 3350 17 GM PACKET PO (05:36)
[2020-06-13] MEDS: Amiodarone 200 MG Tablet PO ×2 (05:36→16:26)
[2020-06-13] MEDS: Menthol/Lanolin/Calamine/Znox 113 GM Tube 1 APPLIC TOPICAL ×2 (05:40→22:15)
[2020-06-13 05:41] VITALS: BP 102/61; PULSE 87; RESP 18; TEMP 36.8; O2SAT 94
[2020-06-13 05:49] LABS: Absolute Lymphocyte Count 0.26 X10^3/uL (0.83-4.51); Absolute Neutrophil Count 2.1 X10^3/uL (2.0-7.7); Basophil# 0.02 X10^3/uL; Basophil% 0.8 % (0-1); Eosinophil# 0.07 X10^3/uL; Eosinophils% 2.7 % (0-5); Hematocrit 27.7 % (40-54); Hemoglobin 9.3 g/dL (13.0-16.5); Lymphocyte # 0.26 X10^3/ul (4.0); Mean Corp Hgb Conc 33.6 g/dL (32-36); Mean Corpuscular Hgb 33.6 pg (27.0-32.0); Mean Platelet Vol. 8.5 fl (6.2-12.0); Monocyte# 0.14 X10^3/uL; Monocyte% 5.4 % (0-10); NRBC Flagged by Analyzer 0 % (0-5); Neutrophil # 2.11 X10^3/uL (2.7-7.7); Neutrophil % 80.7 % (47-70); POSITIVE DIFFERENTIAL YES; Platelet Count 153 K/mm3 (150-450); RBC Distribution Width CV 14.5 % (11.6-14.6); RBC Distribution Width SD 46.3 fl (35.1-43.9); Red Blood Count 2.77 M/mm3 (4.6-6.2); White Blood Count 2.6 K/mm3 (4.4-11.0)
[2020-06-13 05:50] LABS: Differential Indicated SCAN CRITERIA MET
[2020-06-13 06:05] LABS: Anion Gap 2 (5-15); BUN 16 mg/dL (7-18); BUN/Creat Ratio 18.8 RATIO (10-20); Calcium,Total 9.7 mg/dL (8.5-10.1); Chloride 100 mmol/L (98-107); Creatinine, Serum 0.85 mg/dL (0.70-1.30); EST Glomerular Filtration Rate 93 mL/min (>60); Est Glom Filt Rate - Afr Amer 113 mL/min (>60); Estimated Creatinine Clearance 63.59 ml/min; Glucose 99 mg/dL (74-106); Potassium 5.1 mmol/L (3.5-5.1); Sodium Level 135 mmol/L (136-145)
[2020-06-13 06:20] LABS: Differential Comment SCANNED
[2020-06-13 06:21] LABS: Macrocytosis RARE
[2020-06-13] MEDS: Multivitamins,Therapeutic Tablet 1 TABLET PO (07:55)
[2020-06-13] MEDS: Midodrine HCl 5 MG Tablet PO ×3 (07:55→16:26)
[2020-06-13] MEDS: Ferrous Sulfate 325 MG Tablet PO (07:55)
[2020-06-13] MEDS: Calcium Carb/Vitamin D 1 TABLET Tablet PO ×2 (07:55→16:26)
[2020-06-13] MEDS: Ascorbic Acid 500 MG Tablet 250 MG PO (07:56)
[2020-06-13] MEDS: Tuberculin,Purif.prot.deriv. 50 TU/ML Vial 5 ML ID (09:05)
[2020-06-13 13:21] VITALS: BP 96/61; PULSE 93; RESP 16; TEMP 36.7; O2SAT 99
[2020-06-13 14:49] LABS: Pathologist Review Reviewed
[2020-06-13] MEDS: Mirtazapine 15 MG Tablet 7.5 MG PO (22:16)
[2020-06-14 06:39] VITALS: BP 102/65; PULSE 83; RESP 18; TEMP 36.9; O2SAT 95
[2020-06-14] MEDS: Amiodarone 200 MG Tablet PO ×2 (06:41→18:10)
[2020-06-14] MEDS: NYSTATIN 500,000 UNIT/5 ML UDC 500000 UNIT PO ×4 (06:41→21:03)
[2020-06-14] MEDS: APIXABAN 2.5 MG TABLET PO ×2 (06:41→18:10)
[2020-06-14] MEDS: Polyethylene Glycol 3350 17 GM PACKET PO (06:41)
[2020-06-14] MEDS: Menthol/Lanolin/Calamine/Znox 113 GM Tube 1 APPLIC TOPICAL ×2 (06:41→21:06)
[2020-06-14] MEDS: Ascorbic Acid 500 MG Tablet 250 MG PO (08:39)
[2020-06-14] MEDS: Calcium Carb/Vitamin D 1 TABLET Tablet PO ×2 (08:39→18:10)
[2020-06-14] MEDS: Ferrous Sulfate 325 MG Tablet PO (08:39)
[2020-06-14] MEDS: Midodrine HCl 5 MG Tablet PO ×3 (08:39→18:10)
[2020-06-14] MEDS: Multivitamins,Therapeutic Tablet 1 TABLET PO (08:39)
--- NOTE | 2020-06-14 13:20 | CASEMGMT ---
Social Work IDT met with patient and S.O. via conference call for care plan meeting. Discussed patient's progress in therapy and nursing. Pt progressing well. Pt attentive to colostomy changes. Encouraged pt to begin learning to change on his own to prepare for DC - pt agreed. Discussed weight loss and poor appetite and dieticians interventions. Nursing continuing to monitor and intervene with medical changes. Explained Medicare benefit and secondary is KAITLIN, thus pt would either DC on day 21 or pay privately. Pt would like to DC and IDT agreeable as long as pt is medically stable. Pt expressed understanding. The goal is for pt to DC to S.O. home under her care. Pt remains agreeable to Palliative and agrees to complete HCPOA, naming Ann, S.O. SW to assist prior to DC. Will continue to follow. Kaleigh Agrawal, BARKEEP EXTRA HAND
[2020-06-14 14:17] VITALS: BP 93/57; PULSE 78; RESP 17; TEMP 37; O2SAT 93
[2020-06-14] MEDS: Mirtazapine 15 MG Tablet 7.5 MG PO (21:03)
--- NOTE | 2020-06-14 22:06 | NURSING ---
attempted to teach pt about colostomy. Pt covered nose with kleenex and said the smell makes him want to vomit. Advise pt he will get use to it
[2020-06-15 05:57] VITALS: BP 109/68; PULSE 87; RESP 18; TEMP 37.6; O2SAT 94
[2020-06-15] MEDS: APIXABAN 2.5 MG TABLET PO ×2 (06:00→17:18)
[2020-06-15] MEDS: Amiodarone 200 MG Tablet PO ×2 (06:00→17:19)
[2020-06-15] MEDS: Polyethylene Glycol 3350 17 GM PACKET PO (06:00)
[2020-06-15] MEDS: NYSTATIN 500,000 UNIT/5 ML UDC 500000 UNIT PO ×4 (06:00→23:20)
[2020-06-15] MEDS: Menthol/Lanolin/Calamine/Znox 113 GM Tube 1 APPLIC TOPICAL ×2 (06:03→21:48)
[2020-06-15] MEDS: Calcium Carb/Vitamin D 1 TABLET Tablet PO ×2 (08:33→17:18)
[2020-06-15] MEDS: Ferrous Sulfate 325 MG Tablet PO (08:33)
[2020-06-15] MEDS: Midodrine HCl 5 MG Tablet PO ×3 (08:33→17:19)
[2020-06-15] MEDS: Multivitamins,Therapeutic Tablet 1 TABLET PO (08:33)
[2020-06-15] MEDS: Ascorbic Acid 500 MG Tablet 250 MG PO (08:33)
--- NOTE | 2020-06-15 10:41 | MDS.RN ---
Information for the mds was obtained from review of the clinical record, interview of resident, staff, and direct observation of resident's care.
[2020-06-15 15:18] VITALS: BP 83/51; PULSE 103; RESP 17; TEMP 36.7; O2SAT 97
--- NOTE | 2020-06-15 15:27 | CHAPLAIN ---
Type of Pastoral Visit ___ Initial Visit _x__ Follow-up Visit ___ On-call Visit ___ General Patient Visit ___ Spiritual Assessment ___ Family Conference ___ Bereavement ___ Rapid Response ___ Code Blue ___ Other (describe below) Pastoral Care Referral From _x__ Patient ___ Family ___ Nurse ___ Physician ___ Mailroom Manager ___ Bulk Filler ___ Other (describe below) Sacrament/Intervention _x__ Active listening ___ Anointing ___ Lutheran ___ Bereavement ___ Communion ___ Tahmina exploration ___ ___ Life review ___ Prayer ___ Reconciliation ___ Sacrament of Sick _x__ Supportive presence ___ Wedding ___ Other (describe below) Pastoral Comments
--- NOTE | 2020-06-15 19:39 | NURSING ---
Colostomy appliance changed this shift. Pt not willing to learn looks away and covers nose stated makes him nauseated.
[2020-06-15 19:50] VITALS: BP 90/54; PULSE 79
[2020-06-15] MEDS: Mirtazapine 15 MG Tablet 7.5 MG PO (21:41)
[2020-06-16] MEDS: Acetaminophen 500 MG Tablet 1000 MG PO ×2 (04:14→22:21)
[2020-06-16] MEDS: Polyethylene Glycol 3350 17 GM PACKET PO (04:16)
[2020-06-16] MEDS: APIXABAN 2.5 MG TABLET PO ×2 (04:17→16:46)
[2020-06-16] MEDS: Amiodarone 200 MG Tablet PO ×2 (04:18→16:46)
[2020-06-16] MEDS: Menthol/Lanolin/Calamine/Znox 113 GM Tube 1 APPLIC TOPICAL ×2 (04:21→19:55)
[2020-06-16 04:22] VITALS: BP 117/73; PULSE 75; RESP 18; TEMP 36.7; O2SAT 95
[2020-06-16] MEDS: Ascorbic Acid 500 MG Tablet 250 MG PO (07:57)
[2020-06-16] MEDS: Midodrine HCl 5 MG Tablet PO ×3 (07:57→16:46)
[2020-06-16] MEDS: Multivitamins,Therapeutic Tablet 1 TABLET PO (07:57)
[2020-06-16] MEDS: Ferrous Sulfate 325 MG Tablet PO (07:57)
[2020-06-16] MEDS: Calcium Carb/Vitamin D 1 TABLET Tablet PO ×2 (07:57→16:46)
--- NOTE | 2020-06-16 10:10 | NURSING ---
Colostomy appliance was changed by nursing last evening. pt still needs much encouragement to start caring for ostomy appliance.
[2020-06-16 12:55] VITALS: BP 93/64; PULSE 74; RESP 16; TEMP 36.4; O2SAT 96
--- NOTE | 2020-06-16 14:11 | PCA ---
Addendum entered by Renay Andrade 06/19/20 08:30: Ann is unable to take pt to appt with Dr. Johnston on FridayJune 20. [facility] to pharmacy picking tech via w/c at 8:20am. Dr. Johnston office updated. Original Note: Appt with Dr. Johnston office on June 20 2020 at 9:20 am. Office is to fax new patient paperwork. Please have patient fill out and bring to appt. Patient states that his significant other Ann will take him to appt. Nursing updated
[2020-06-16 19:47] VITALS: BP 96/59; PULSE 75; RESP 16; TEMP 36.4; O2SAT 95
[2020-06-16] MEDS: Mirtazapine 15 MG Tablet 7.5 MG PO (19:55)
[2020-06-17] MEDS: Acetaminophen 500 MG Tablet 1000 MG PO ×3 (04:24→21:59)
[2020-06-17] MEDS: Polyethylene Glycol 3350 17 GM PACKET PO (04:25)
[2020-06-17] MEDS: Amiodarone 200 MG Tablet PO ×2 (04:25→17:58)
[2020-06-17] MEDS: Carbamide Peroxide 15 ML Bottle 5 DRP OTIC (04:25)
[2020-06-17] MEDS: APIXABAN 2.5 MG TABLET PO ×2 (04:25→17:58)
[2020-06-17] MEDS: Menthol/Lanolin/Calamine/Znox 113 GM Tube 1 APPLIC TOPICAL ×2 (04:26→22:04)
[2020-06-17] MEDS: Multivitamins,Therapeutic Tablet 1 TABLET PO (08:10)
[2020-06-17] MEDS: Ferrous Sulfate 325 MG Tablet PO (08:10)
[2020-06-17] MEDS: Calcium Carb/Vitamin D 1 TABLET Tablet PO ×2 (08:10→17:58)
[2020-06-17] MEDS: Ascorbic Acid 500 MG Tablet 250 MG PO (08:10)
[2020-06-17] MEDS: Midodrine HCl 5 MG Tablet PO ×3 (08:10→17:59)
[2020-06-17 09:49] VITALS: PULSE 71; RESP 16; O2SAT 95
[2020-06-17 14:06] VITALS: BP 104/64; PULSE 78; RESP 16; TEMP 36.6; O2SAT 96
[2020-06-17] MEDS: Mirtazapine 15 MG Tablet 7.5 MG PO (21:58)
[2020-06-18] MEDS: Acetaminophen 500 MG Tablet 1000 MG PO ×3 (06:02→23:06)
[2020-06-18] MEDS: Polyethylene Glycol 3350 17 GM PACKET PO (06:03)
[2020-06-18] MEDS: APIXABAN 2.5 MG TABLET PO ×2 (06:03→17:16)
[2020-06-18] MEDS: Amiodarone 200 MG Tablet PO ×2 (06:03→17:16)
[2020-06-18] MEDS: Menthol/Lanolin/Calamine/Znox 113 GM Tube 1 APPLIC TOPICAL ×2 (06:04→21:30)
[2020-06-18] MEDS: Carbamide Peroxide 15 ML Bottle 5 DRP OTIC (06:04)
[2020-06-18 06:06] VITALS: BP 113/78; PULSE 71; RESP 16; TEMP 36.5
[2020-06-18] MEDS: Ferrous Sulfate 325 MG Tablet PO (08:00)
[2020-06-18] MEDS: Ascorbic Acid 500 MG Tablet 250 MG PO (08:00)
[2020-06-18] MEDS: Multivitamins,Therapeutic Tablet 1 TABLET PO (08:00)
[2020-06-18] MEDS: Calcium Carb/Vitamin D 1 TABLET Tablet PO ×2 (08:01→17:16)
[2020-06-18] MEDS: Midodrine HCl 5 MG Tablet PO ×3 (08:02→17:16)
[2020-06-18 15:24] VITALS: BP 107/61; PULSE 83; RESP 16; TEMP 36.8; O2SAT 96
[2020-06-18] MEDS: Mirtazapine 15 MG Tablet 7.5 MG PO (21:33)
[2020-06-19 05:00] VITALS: BP 122/80; PULSE 77; RESP 16; TEMP 36.8; O2SAT 95
[2020-06-19] MEDS: APIXABAN 2.5 MG TABLET PO ×2 (06:32→17:56)
[2020-06-19] MEDS: Acetaminophen 500 MG Tablet 1000 MG PO ×3 (06:32→21:21)
[2020-06-19] MEDS: Amiodarone 200 MG Tablet PO ×2 (06:32→17:56)
[2020-06-19] MEDS: Menthol/Lanolin/Calamine/Znox 113 GM Tube 1 APPLIC TOPICAL ×2 (06:33→21:25)
[2020-06-19] MEDS: Polyethylene Glycol 3350 17 GM PACKET PO (06:33)
[2020-06-19] MEDS: Carbamide Peroxide 15 ML Bottle 5 DRP OTIC (06:35)
[2020-06-19] MEDS: Midodrine HCl 5 MG Tablet PO ×3 (08:13→17:56)
[2020-06-19] MEDS: Ferrous Sulfate 325 MG Tablet PO (08:13)
[2020-06-19] MEDS: Multivitamins,Therapeutic Tablet 1 TABLET PO (08:13)
[2020-06-19] MEDS: Ascorbic Acid 500 MG Tablet 250 MG PO (08:13)
[2020-06-19] MEDS: Calcium Carb/Vitamin D 1 TABLET Tablet PO ×2 (08:13→17:55)
--- NOTE | 2020-06-19 09:50 | NURSING ---
faxed MAR and papers signed by pt back to Dr Johnston office at this time.
--- NOTE | 2020-06-19 13:41 | NURSING ---
In to do more ostomy teaching with patient. reviewed again emptying the appliance with the patient. Pt still did not want to empty it yet, but was willing to watch. pt states someone mentioned that they make disposable pouches that can just be thrown away. Did explain to the patient that typically we do not recommend using the disposable appliances if pt is able to empty the appliance well and if it would need emptied more than twice a day. Insurance typically approves 60 pouches a month which would only allow the pt to use two a day and then patient would need to pay out of pocket. highly encourage patient to continue to learn and attempt to empty the appliance on his own. pt states I know I need to just do it. Pt having a difficult time with the smell of the stool. gently removed the appliance. peristomal skin is intact. stoma smaller in size than last appliance change, so made pt a new pattern. reminded patient that the size of the stoma can change up to 8 weeks post op so the current pattern may end up being too big. cleansed peristomal skin with warm water. pt asked about using baby wipes to clean around the stoma. educated patient that warm water and a mild soap is recommended. Dial or Ivory would be the best choices. some soaps and wipes have too much oil in them and prevent the appliance from sticking well. once the flange was cut to size, placed on skin and pouch snapped in place. pt states he has been burping the appliance and will become more active in the care of the appliance. pt tolerated well. denies further needs at this time.
[2020-06-19 13:43] VITALS: PULSE 78; RESP 18; O2SAT 94
--- NOTE | 2020-06-19 13:49 | NURSING ---
colostomy appliance changed by wound nurse today, incsion well approx. healed.
[2020-06-19 14:04] VITALS: BP 99/58; PULSE 79; RESP 16; TEMP 36.7; O2SAT 94
[2020-06-19] MEDS: Mirtazapine 15 MG Tablet 7.5 MG PO (21:21)
[2020-06-20] MEDS: Acetaminophen 500 MG Tablet 1000 MG PO ×3 (03:39→20:02)
[2020-06-20 05:00] VITALS: BP 108/72; PULSE 74; RESP 16; TEMP 36.1; O2SAT 95
[2020-06-20 05:34] LABS: Absolute Neutrophil Count 1.8 X10^3/uL (2.0-7.7); Basophil# 0.03 X10^3/uL; Basophil% 1.2 % (0-1); Eosinophil# 0.12 X10^3/uL; Eosinophils% 4.8 % (0-5); Hematocrit 26.2 % (40-54); Hemoglobin 8.9 g/dL (13.0-16.5); Mean Corpuscular Hgb 34.2 pg (27.0-32.0); Mean Corpuscular Volume 100.8 fL (80-94); Mean Platelet Vol. 8.1 fl (6.2-12.0); Monocyte# 0.25 X10^3/uL; NRBC Flagged by Analyzer 0 % (0-5); Neutrophil # 1.78 X10^3/uL (2.7-7.7); Neutrophil % 71.6 % (47-70); POSITIVE DIFFERENTIAL YES; Platelet Count 193 K/mm3 (150-450); RBC Distribution Width SD 53.6 fl (35.1-43.9); White Blood Count 2.5 K/mm3 (4.4-11.0)
[2020-06-20 05:36] LABS: Differential Indicated SCAN CRITERIA MET
[2020-06-20 05:52] LABS: Anion Gap 5 (5-15); BUN 18 mg/dL (7-18); BUN/Creat Ratio 18.6 RATIO (10-20); Calcium,Total 9.5 mg/dL (8.5-10.1); Chloride 100 mmol/L (98-107); Creatinine, Serum 0.97 mg/dL (0.70-1.30); EST Glomerular Filtration Rate 81 mL/min (>60); Est Glom Filt Rate - Afr Amer 97 mL/min (>60); Estimated Creatinine Clearance 51.71 ml/min; Glucose 89 mg/dL (74-106); Potassium 4.3 mmol/L (3.5-5.1); Sodium Level 137 mmol/L (136-145)
[2020-06-20] MEDS: APIXABAN 2.5 MG TABLET PO ×2 (06:41→16:47)
[2020-06-20] MEDS: Amiodarone 200 MG Tablet PO ×2 (06:41→16:47)
[2020-06-20] MEDS: Carbamide Peroxide 15 ML Bottle 5 DRP OTIC (06:42)
[2020-06-20] MEDS: Polyethylene Glycol 3350 17 GM PACKET PO (06:42)
[2020-06-20] MEDS: Menthol/Lanolin/Calamine/Znox 113 GM Tube 1 APPLIC TOPICAL ×2 (06:47→20:14)
[2020-06-20] MEDS: Multivitamins,Therapeutic Tablet 1 TABLET PO (07:49)
[2020-06-20] MEDS: Calcium Carb/Vitamin D 1 TABLET Tablet PO ×2 (07:49→16:47)
[2020-06-20] MEDS: Midodrine HCl 5 MG Tablet PO ×3 (07:49→16:47)
[2020-06-20] MEDS: Ferrous Sulfate 325 MG Tablet PO (07:49)
[2020-06-20] MEDS: Ascorbic Acid 500 MG Tablet 250 MG PO (07:50)
--- NOTE | 2020-06-20 10:11 | NURSING ---
Addendum entered by Kitty Luke 06/20/20 10:14: R' REPORTED HAD EAR WAX REMOVAL AND FLUID DRAINED OUT OF LEFT EAR. NO NEW ORDERS. Original Note: R' BACK FROM APPT WITH DR SCHNEIDER.
[2020-06-20 11:44] LABS: Pathologist Review Reviewed
[2020-06-20 13:58] VITALS: BP 101/63; PULSE 79; RESP 16; TEMP 36.9; O2SAT 96
--- NOTE | 2020-06-20 16:20 | CASEMGMT ---
Social Work Met with patient in room. This social work job titles communicating that discharge date has been set for 06/25/2020. Patient is agreeable to discharge date. Patient plans to discharge to friend, Ann's home. This social work job titles communicating that therapy and nursing are recommending for patient to have continued services within the home. Patient is agreeable to physical and occupational therapy as well as longterm. Patient requesting for home health services to be set up through [facility]. Patient also reports need for a front wheeled walker. Patient does not have a preference of [employer] equipment [employer], [employer] to be utilized. Patient with new ostomy. Supplies to be set up through [facility]. Nursing to begin teaching ostomy management with patient. Patient reports plan to update Ann on discharge plan/date. Patient signed and voiced understanding to rights of Notice of Medicare Non Coverage. Proposed discharge date: 06/25/2020 Will continue to follow. Nino REAVES, RADHA
[2020-06-20] MEDS: Mirtazapine 15 MG Tablet 7.5 MG PO (20:15)
[2020-06-20 20:18] VITALS: PULSE 74; O2SAT 94
[2020-06-21] MEDS: Acetaminophen 500 MG Tablet 1000 MG PO ×4 (02:28→22:59)
[2020-06-21 02:30] VITALS: BP 117/72; PULSE 76; RESP 14; TEMP 36.8; O2SAT 93
[2020-06-21] MEDS: Menthol/Lanolin/Calamine/Znox 113 GM Tube 1 APPLIC TOPICAL (05:36)
[2020-06-21] MEDS: APIXABAN 2.5 MG TABLET PO ×2 (05:37→16:39)
[2020-06-21] MEDS: Amiodarone 200 MG Tablet PO ×2 (05:37→16:40)
[2020-06-21] MEDS: Polyethylene Glycol 3350 17 GM PACKET PO (05:37)
[2020-06-21] MEDS: Carbamide Peroxide 15 ML Bottle 5 DRP OTIC (05:38)
[2020-06-21] MEDS: Multivitamins,Therapeutic Tablet 1 TABLET PO (07:48)
[2020-06-21] MEDS: Calcium Carb/Vitamin D 1 TABLET Tablet PO ×2 (07:48→16:39)
[2020-06-21] MEDS: Ferrous Sulfate 325 MG Tablet PO (07:48)
[2020-06-21] MEDS: Midodrine HCl 5 MG Tablet PO ×3 (07:49→16:39)
[2020-06-21] MEDS: Ascorbic Acid 500 MG Tablet 250 MG PO (07:49)
--- NOTE | 2020-06-21 08:17 | DCINST_ITS ---
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) You will use the following diet at home:: No restrictions, Regular Your food should be the consistency of: Regular Your liquids should be the consistency of: Regular/Thin Discharge Activity: Return to Normal Activity, May Shower, Use Walker Weight Bearing Status: Weight bearing as tolerated Call your doctor if you observe: Fever of 101 or Higher, Inability to urinate, Inability to have a bowel movement, Shortness of breath, Chest pain, Uncontrolled pain Allergies/Adverse Reactions: Allergies Penicillins Adverse Reaction (Verified 05/31/20 05:24) Rash sulfamethoxazole [From Bactrim] Adverse Reaction (Verified 05/31/20 05:24) Rash trimethoprim [From Bactrim] Adverse Reaction (Verified 05/31/20 05:24) Rash Medications to take at Discharge Benzonatate 100 - 200 mg PO TID PRN PRN 05/31/20 Calcium Citrate/Vitamin D3 [Citracal + D Maximum Caplet] 2 ea PO DAILY 05/31/20 Ergocalciferol (Vitamin D2) [Vitamin D2] 1,250 mcg PO QWEEK 05/31/20 Multivitamins,Therapeutic [Multivitamin] 1 tab PO DAILY 05/31/20 Promethazine HCl 25 mg PO Q6H PRN PRN 05/31/20 Acetaminophen [Tylenol] 1,000 mg PO Q6H PRN PRN tablet 06/21/20 Amiodarone HCl [Cordarone] 200 mg PO BID #60 tablet 06/21/20 Apixaban [Eliquis] 2.5 mg PO BID #60 tablet 06/21/20 Ascorbic Acid [Vitamin C] 250 mg PO DAILYCM tablet 06/21/20 Ferrous Sulfate 325 mg PO DAILYCM #30 tablet 06/21/20 Menthol/Lanolin/Calamine/Znox [Calmoseptine Ointment] 1 applic TOPICAL BID@0600,2200 tube 06/21/20 Midodrine HCl [Proamatine] 5 mg PO TIDCM #90 tablet 06/21/20 Mirtazapine [Remeron] 7.5 mg PO QHS #30 tablet 06/21/20 The following prescriptions were given: Amiodarone HCl [Cordarone] 200 mg PO BID #60 tablet Transmission Status: Pending to [facility]30 Apixaban [Eliquis] 2.5 mg PO BID #60 tablet Transmission Status: Pending to [employer] [facility] #30 Ferrous Sulfate 325 mg PO DAILYCM #30 tablet Transmission Status: Pending to [facility] #30 Midodrine HCl [Proamatine] 5 mg PO TIDCM #90 tablet Transmission Status: Pending to [facility]30 Mirtazapine [Remeron] 7.5 mg PO QHS #30 tablet Transmission Status: Pending to [facility] Primary Care Physician: Jan Benson MD [Primary Care Provider] - Please follow up with your Primary Care Physician in: 1 week. Test Results: Test results from this visit will be discussed in further detail at your follow- up appointment, if applicable. Please Follow Up With: Nasima Acevedo MD When: 10 days from sugery for staple removal Please Follow Up With: Jan Benson MD (PCP) When: 1-2 weeks Please Follow Up With: Dr. Johnston When: 1 week. Proposed Discharge Date: 06/25/20
--- NOTE | 2020-06-21 08:19 | DS.PCM_ITS ---
Discharge Date and Diagnosis - Problem List Patient Problems: Active and Suspected Problems (Last Updated 06/06/20 @ 08:30 by Juliette Koenig) Atrial fibrillation with RVR (Acute) Debility (Acute) Abdominal pain (Acute) Sigmoid volvulus (Acute) Date of Admission: 06/05/20 Date of Discharge: 06/25/20 - Primary Discharge Diagnosis Acute Problems: Active Problems (Last Updated 06/06/20 @ 08:30 by Juliette Koenig) Atrial fibrillation with RVR (Acute) Debility (Acute) Abdominal pain (Acute) Sigmoid volvulus (Acute) - Secondary Discharge Diagnosis Chronic Problems: Chronic Problems (Last Updated 06/06/20 @ 08:30 by Juliette Koenig) Anemia (Chronic) Former smoker (Chronic) Postobstructive pneumonia (Chronic) Chronic cough (Chronic) Iron deficiency anemia (Chronic) Nausea (Chronic) Lung cancer metastatic to bone (Chronic) Hospital Course and Treatment Imaging Results: 06/05/20 15:40 Diet: Regular - General Food consistency:: Regular Liquid Consistency:: Regular/Thin Is pt able to select menu?: Yes Diet Comments: ensure pudding or magic cup w/ all meals Clinical Impression(s) from Imaging Studies KUB X-Ray 06/07/20 08:22 IMPRESSION: Recent abdominal surgery with mild ileus per Electronically Signed: Blue Fong MD at 10:22 EST Tel , Service support , Labs (Last 48 Hours) 06/20/20 06/20/20 05:17 05:17 WBC 2.5 L RBC 2.60 L Hgb 8.9 L Hct 26.2 L MCV 100.8 H MCH 34.2 H MCHC 34.0 RDW Std Deviation 53.6 H RDW Coeff of Natalie 16.0 H Plt Count 193 MPV 8.1 Immature Gran % (Auto) 0.400 Neut % (Auto) 71.6 H Lymph % (Auto) 12.0 L Payette % (Auto) 10.0 Eos % (Auto) 4.8 Baso % (Auto) 1.2 H Absolute Neuts (auto) 1.8 L Absolute Lymphs (auto) 0.30 L Nucleated RBC % 0 Diff Path Review Reviewed Sodium 137 Potassium 4.3 Chloride 100 Carbon Dioxide 32.0 Anion Gap 5 BUN 18 Creatinine 0.97 Estim Creat Clear Calc 51.71 Est GFR (MDRD) Af Amer 97 Est GFR (MDRD) Non-Af 81 BUN/Creatinine Ratio 18.6 Glucose 89 Calcium 9.5 Consultations 06/05/20 16:08 Consult: Onc/Wound/center director lead teacher Routine Comment: New Colostomy Operations: None Procedures: None Summary of Care Provided: The patient is a 75 year old Male with below past medical history significant for metastatic lung cancer to bone, hospitalized for sigmoid volvulus underwent open sigmoidectomy with colostomy 06/01/2020, postoperative course complicated by atrial fibrillation with rapid ventricular response, admitted to TCU with debility, here for rehabilitation, strengthening, prior to discharge home with . On TCU, resident learning to manage new colostomy. Midodrine added for orthostatic hypotension. Iron added for iron deficiency anemia. Mirtazapine added for decreased appetite. Discharge home to friend [facility] for PT/OT/SN, [employer] Front Wheeled Walker. Patient Problems: Active and Suspected Problems (Last Updated 06/06/20 @ 08:30 by Juliette Koenig) Atrial fibrillation with RVR (Acute) Debility (Acute) Abdominal pain (Acute) Sigmoid volvulus (Acute) - Physical Exam Vitals/I&O's: Vital Signs Temp Pulse Resp BP Pulse Ox 98.3 F 76 14 117/72 93 06/21/20 02:30 06/21/20 02:30 06/21/20 02:30 06/21/20 02:30 06/21/20 02:30 Oxygen Delivery Method Room Air Weight: 58.57 kg Body Mass Index (BMI) 17.4 Intake and Output for Last 24 Hours 06/19/20 06/20/20 06/21/20 23:59 23:59 23:59 Intake Total 600 / 600 840 / 840 Output Total 300 / 300 Balance 600 / 600 840 / 840 -300 / -300 Laboratory Results 06/20/20 05:17: Diff Path Review Reviewed Current Medications Acetaminophen (Acetaminophen 500 Mg Tablet) 1,000 mg PO Q6H PRN PRN PRN Reason: Pain Score 1-10 Last Admin: 06/21/20 02:28 Dose: 1,000 mg Documented by: Amiodarone HCl (Amiodarone 200 Mg Tablet) 200 mg PO BID [facility] Last Admin: 06/21/20 05:37 Dose: 200 mg Documented by: Apixaban (Apixaban 2.5 Mg Tablet) 2.5 mg PO BID [facility] Last Admin: 06/21/20 05:37 Dose: 2.5 mg Documented by: Ascorbic Acid (Ascorbic Acid 500 Mg Tablet) [facility] Last Admin: 06/21/20 07:49 Dose: 250 mg Documented by: Benzonatate (Benzonatate 100 Mg Capsule) 100 - 200 mg PO TID PRN PRN PRN Reason: COUGH Bisacodyl (Bisacodyl 5 Mg Tablet) 10 mg PO DAILY PRN PRN Reason: Constipation Calamine/Phenol (Menthol/Lanolin/Calamine/Znox 113 Gm Tube) 1 applic TOPICAL BID@0600,2200 [facility]; Protocol Last Admin: 06/21/20 05:36 Dose: 1 applic Documented by: Calcium/Vitamin D (Calcium Carb/Vitamin D 1 Tablet Tablet) 1 tablet PO [facility]ID[facility] Last Admin: 06/21/20 07:48 Dose: 1 tablet Documented by: Carbamide Perox/Anhydrous Glycerin (Carbamide Peroxide 15 Ml Bottle) 5 drop OTIC DAILY [facility] Last Admin: 06/21/20 05:38 Dose: 5 drop Documented by: Ergocalciferol (Ergocalciferol 50,000 Unit Capsule) 50,000 unit PO [facility] Stop: 07/26/20 05:59 Last Admin: 06/21/20 05:37 Dose: 50,000 unit Documented by: Ferrous Sulfate (Ferrous Sulfate 325 Mg Tablet) 325 mg PO [facility]ILY[facility] Last Admin: 06/21/20 07:48 Dose: 325 mg Documented by: Magnesium Hydroxide (Magnesium Hydroxide 30 Ml Udc) 30 ml PO DAILY PRN PRN Reason: Constipation Midodrine (Midodrine Hcl 5 Mg Tablet) [facility] Last Admin: 06/21/20 07:49 Dose: 5 mg Documented by: Mirtazapine (Mirtazapine 15 Mg Tablet) 7.5 mg PO QHS [facility] Last Admin: 06/20/20 20:15 Dose: 7.5 mg Documented by: Multivitamins (Multivitamins,Therapeutic Tablet) 1 tablet PO DAILY[facility] Last Admin: 06/21/20 07:48 Dose: 1 tablet Documented by: Nutritional Formula (Lactose Free) (Ensure Enlive 120 Ml Liquid) 120 ml PO 4X/DAY [facility] Last Admin: 06/21/20 05:35 Dose: 120 ml Documented by: Polyethylene Glycol (Polyethylene Glycol 3350 17 Gm Packet) 17 gm PO DAILY [facility] Last Admin: 06/21/20 05:37 Dose: 17 gm Documented by: Promethazine HCl (Promethazine 25 Mg Tablet) 25 mg PO Q6H PRN PRN PRN Reason: NAUSEA Sodium Chloride (0.9% Saline Lock 10 Ml Syringe) 10 - 40 ml IV UD PRN PRN Reason: SALINE FLUSH Last Admin: 06/12/20 12:30 Dose: 10 ml Documented by: Discharge Diet: No Restrictions Discharge Activity: Return to Normal Activity, May Shower, Use Walker Weight Bearing Status: Weight bearing as tolerated Call your doctor if you observe: Fever of 101 or Higher, Inability to urinate, Inability to have a bowel movement, Shortness of breath, Chest pain, Uncontrolled pain Home Medications: Medications to take at Discharge Benzonatate 100 - 200 mg PO TID PRN PRN 05/31/20 Calcium Citrate/Vitamin D3 [Citracal + D Maximum Caplet] 2 ea PO DAILY 05/31/20 Ergocalciferol (Vitamin D2) [Vitamin D2] 1,250 mcg PO QWEEK 05/31/20 Multivitamins,Therapeutic [Multivitamin] 1 tab PO DAILY 05/31/20 Promethazine HCl 25 mg PO Q6H PRN PRN 05/31/20 Acetaminophen [Tylenol] 1,000 mg PO Q6H PRN PRN tablet 06/21/20 Amiodarone HCl [Cordarone] 200 mg PO BID #60 tablet 06/21/20 Apixaban [Eliquis] 2.5 mg PO BID #60 tablet 06/21/20 Ascorbic Acid [Vitamin C] 250 mg PO DAILYCM tablet 06/21/20 Ferrous Sulfate 325 mg PO DAILYCM #30 tablet 06/21/20 Menthol/Lanolin/Calamine/Znox [Calmoseptine Ointment] 1 applic TOPICAL BID@0600,2200 tube 06/21/20 Midodrine HCl [Proamatine] 5 mg PO TIDCM #90 tablet 06/21/20 Mirtazapine [Remeron] 7.5 mg PO QHS #30 tablet 06/21/20 Following Prescriptions Were Given to Patient: Amiodarone HCl [Cordarone] 200 mg PO BID #60 tablet Transmission Status: Pending to [employer] #30 Apixaban [Eliquis] 2.5 mg PO BID #60 tablet Transmission Status: Pending to [employer] #30 Ferrous Sulfate 325 mg PO DAILYCM #30 tablet Transmission Status: Pending to [employer] #30 Midodrine HCl [Proamatine] 5 mg PO TIDCM #90 tablet Transmission Status: Pending to [employer] #30 Mirtazapine [Remeron] 7.5 mg PO QHS #30 tablet Transmission Status: Pending to [employer] #30 Primary Care Physician: Jan Benson MD [Primary Care Provider] - Please follow up with your Primary Care Physician in: 1 week. Please Follow Up With: Nasima Acevedo MD When: 10 days from sugery for staple removal Please Follow Up With: Jan Benson MD (PCP) When: 1-2 weeks Please Follow Up With: Dr. Johnston When: 1 week. Disposition: Home with Home Health Minutes spent on discharge:: 35 Patient Condition:: Stable Medical Necessity - Tobacco Use Smoking Status: Former smoker Tobacco Use: Cigarettes Meaningful Use Info Meaningful Use Diagnoses (Choose all that apply): None applicable
[2020-06-21 10:00] VITALS: PULSE 79; RESP 16; O2SAT 97
--- NOTE | 2020-06-21 12:52 | CASEMGMT ---
Social Work Telephone call to [facility] Nina REDDY. Referral made for physical and occupational therapy as well as care home. Order for ostomy supplies faxed. Nina updated that patient will be discharging to [facility] in [place]. Telephone call from patient friend, Ann. Ann to come on 06/23/2020 at 10am for teaching of ostomy management. Ann confirms plan for patient to come home with Ann. This social insurance analyst updated nursing staff, Stacey on above. Proposed discharge date: 06/25/2020 PLAN: Patient to discharge to [facility] with [facility]. Nino REAVES, RADHA
--- NOTE | 2020-06-21 13:05 | CASEMGMT ---
Social Work Therapy recommending for patient to have a front wheeled walker. Patient reports to not have a front wheeled walker. Patient with no preference of [employer], [employer] to be utilized. Telephone call to Tahmina Garcia. Order for front wheeled walker faxed and made. Tahmina reports plan to have walker delivered on 06/23/2020. PLAN: Discharge to [facility] with walker and home health services. Nino REAVES, PARESH-S
--- NOTE | 2020-06-21 13:21 | NURSING ---
Assisted patient into the bathroom. Pt was able to demonstrate how to empty the appliance in the toilet with very minimal assistance. Pt very pleased that he was able to empty it. Pt states that wasn't as bad as I thought it would be. Will continue with teaching. pt denies further needs or questions at this time.
[2020-06-21 13:45] VITALS: BP 105/60; PULSE 83; RESP 16; TEMP 36.7; O2SAT 95
[2020-06-21] MEDS: Mirtazapine 15 MG Tablet 7.5 MG PO (20:55)
[2020-06-22] MEDS: Acetaminophen 500 MG Tablet 1000 MG PO ×3 (06:47→23:37)
[2020-06-22] MEDS: Carbamide Peroxide 15 ML Bottle 5 DRP OTIC (06:48)
[2020-06-22] MEDS: APIXABAN 2.5 MG TABLET PO ×2 (06:48→17:11)
[2020-06-22] MEDS: Amiodarone 200 MG Tablet PO ×2 (06:48→17:11)
[2020-06-22] MEDS: Ascorbic Acid 500 MG Tablet 250 MG PO (08:21)
[2020-06-22] MEDS: Ferrous Sulfate 325 MG Tablet PO (08:22)
[2020-06-22] MEDS: Midodrine HCl 5 MG Tablet PO ×3 (08:22→17:11)
[2020-06-22] MEDS: Calcium Carb/Vitamin D 1 TABLET Tablet PO ×2 (08:22→17:11)
[2020-06-22] MEDS: Multivitamins,Therapeutic Tablet 1 TABLET PO (08:22)
[2020-06-22 10:10] VITALS: BP 106/68; PULSE 77; RESP 18; TEMP 37.2; O2SAT 95
--- NOTE | 2020-06-22 10:22 | NURSING ---
Notified Dr. Dexter of patient c/o unable to close left eye completely and when asked to smile, his left side is higher than the right. Pupils are PERRL, arm strength is equal with no drifting present. Received order for MRI to r/o stroke.
--- NOTE | 2020-06-22 10:56 | MRI_ITS ---
STUDY: MRI BRAIN WITHOUT CONTRAST REASON FOR EXAM: Male, 75 years old. STROKE TECHNIQUE: Standardized multiplanar fat and water weighted pulse sequences were obtained. COMPARISON: None. FINDINGS: No diffusion restriction to suspect acute or subacute ischemic infarct. No focal signal abnormalities throughout the brain parenchyma in all of the pulse sequences. Normal size of the ventricles and extra-axial spaces for the patient''s age. Normal white matter tracts of the supratentorial brain. Normal bilateral basal ganglia. Normal thalami. There is no extra-axial fluid accumulation. Normal flow voids within the major intracranial circulation suggesting patency by spin echo criteria. Normal sella turcica, pituitary gland, infundibular stalk, optic chiasm and hypothalamus. Normal tectal plate and pineal gland. Normal midbrain, brendan and medulla. Normal cerebellum. Normal basal cisterns. Mucosal edema of the left temporal mastoid bone is not coalescent. Normal bilateral internal auditory canals. No demonstrated orbital abnormality, within the constraints of a routine brain study. Normal visualized paranasal sinuses. Normal calvarium and skull base. Normal visualized soft tissue structures. Normal visualized upper cervical spine. MRI/Brain without Contrast IMPRESSION: 1. Normal unenhanced MRI of the brain. 2. Noncoalescent left mastoiditis. Electronically Signed: Lew Chandra MD at 14:22 EDT , Service support ,
--- NOTE | 2020-06-22 14:26 | MDS.RN ---
Completed pain interview for geovany 06/25/20
--- NOTE | 2020-06-22 14:38 | CASEMGMT ---
Social Work Spoke with pt about DC plans. Pt's 21st day is 06/25. Pt had MRI this date and results will determine a DC Plan. Pt agreeable that he may need to go to a SNF until safe to return home. Provided list of SNFs and [facility] agencies that provides include quality and resource data that is consistent with the pt's preferred geographic region, medical needs and insurance networks. Pt to discuss list with S.O. at visit the following day for either DC plan. If pt DC's home, pt will need FWW. SW to continue to follow. Kaleigh Agrawal, PUBLISHER ASSISTANT COLOR BUFFER
--- NOTE | 2020-06-22 16:34 | CASEMGMT ---
Social Work Completed HCPOA paperwork with pt. Pt declined LW. Pt named Osvaldo Bach as HCPOA. Copies placed on chart. Kaleigh Agrawal, EXAMINING CHAIR ASSEMBLER PARKS RECREATION COORDINATOR
--- NOTE | 2020-06-22 16:53 | CHAPLAIN ---
Type of Pastoral Visit ___ Initial Visit _x__ Follow-up Visit ___ On-call Visit ___ General Patient Visit ___ Spiritual Assessment ___ Family Conference ___ Bereavement ___ Rapid Response ___ Code Blue ___ Other (describe below) Pastoral Care Referral From _x__ Patient ___ Family ___ Nurse ___ Physician ___ Director Health ___ Senior Online Marketing Manager ___ Other (describe below) Sacrament/Intervention _x__ Active listening ___ Anointing ___ Religion ___ Bereavement ___ Communion _x__ Tahmina exploration ___ ___ Life review _x__ Prayer ___ Reconciliation ___ Sacrament of Sick _x__ Supportive presence ___ Wedding ___ Other (describe below) Pastoral Comments patient immediately talks about MRI and how he is now waiting on those results; pt is more talkative today about his health, life, history, and spiritual tahmina; pt declares that what will be will be but also requests prayer for healing; pt speaks of his journey of tahmina and his realization of God's work in his life; pt states he has no other needs at this time but expresses appreciation for the visit and prayer
[2020-06-22 16:58] VITALS: BP 93/54; PULSE 64; RESP 12; TEMP 36.8; O2SAT 100
[2020-06-22] MEDS: oxyCODONE 5 MG Tablet PO ×2 (20:14→23:38)
[2020-06-22] MEDS: Mirtazapine 15 MG Tablet 7.5 MG PO (20:16)
[2020-06-22 22:00] VITALS: RESP 16
[2020-06-23] MEDS: oxyCODONE 5 MG Tablet PO ×2 (04:01→23:31)
[2020-06-23 04:08] VITALS: BP 101/66; PULSE 72; RESP 16; TEMP 36.8; O2SAT 94
[2020-06-23] MEDS: APIXABAN 2.5 MG TABLET PO ×2 (05:03→17:05)
[2020-06-23] MEDS: Amiodarone 200 MG Tablet PO ×2 (05:03→17:05)
[2020-06-23] MEDS: Polyethylene Glycol 3350 17 GM PACKET PO (05:03)
[2020-06-23] MEDS: Carbamide Peroxide 15 ML Bottle 5 DRP OTIC (05:11)
[2020-06-23] MEDS: Acetaminophen 500 MG Tablet 1000 MG PO ×2 (05:23→14:40)
[2020-06-23] MEDS: Ferrous Sulfate 325 MG Tablet PO (08:29)
[2020-06-23] MEDS: Midodrine HCl 5 MG Tablet PO ×3 (08:29→17:05)
[2020-06-23] MEDS: Multivitamins,Therapeutic Tablet 1 TABLET PO (08:29)
[2020-06-23] MEDS: Calcium Carb/Vitamin D 1 TABLET Tablet PO ×2 (08:30→17:05)
[2020-06-23] MEDS: Ascorbic Acid 500 MG Tablet 250 MG PO (08:30)
--- NOTE | 2020-06-23 08:51 | NURSING ---
Called Dr. Johnston office to update on pt having increased pain on the left side, left side smile droop, eye unable to fully close. Left Message and Awaiting call back.
--- NOTE | 2020-06-23 11:10 | NURSING ---
iv started to rt wrist for ct scan ordered per dr. hernandez. pt and girlfriend aware of why testing. pt denies any pain at this time. dr hernandez up and spoke with pt's girlfriend regarding presumptive findings on mri. pt down for scans via [facility].
--- NOTE | 2020-06-23 12:03 | PCM.CONS.GEN ---
Problem List (1) Facial palsy Status: Acute Reason for Consult Date of Consultation: 06/23/20 Reason for Consultation: new onset left facial weakness History of Present Illness: The patient is a 75 year old M who I had seen earlier in the week for left ear pain and hearing loss. He was subsequently found to have a middle ear effusion and this was treated by myringotomy tube placement which resulted in significant improvement of his hearing loss. Yesterday evening he developed a left facial palsy with inability to close the eye and facial droop. He denies any otalgia or otorrhea but does continue to have left pressure sensation. He had an MRI ordered by Dr. Dexter that showed middle ear effusion and was read as normal scan however I have personally reviewed these images where a large mass along the left skull base was noted and I personally communicated with the reading radiologist and an addended report has been submitted reflecting a 3 x 1.7 x 1.5 cm mass along the left jugular foramen. 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 He denies any complaints of his balance or worsened hearing and is otherwise in his usual state of health. Ports nothing has improved or worsened his facial palsy and he is not at this point instituted any protective measures for the eye although he does feel this closes adequately from his perspective. Any irritation of the eye watering blurred vision or pain on the left side. 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) C34.90, C79.51 Allergies Penicillins Adverse Reaction (Verified 05/31/20 05:24) Rash sulfamethoxazole [From Bactrim] Adverse Reaction (Verified 05/31/20 05:24) Rash trimethoprim [From Bactrim] Adverse Reaction (Verified 05/31/20 05:24) Rash Home Medications: Ambulatory Orders Medication Instructions Recorded Benzonatate 100 - 200 mg PO TID PRN PRN 05/31/20 Calcium Citrate/Vitamin D3 2 ea PO DAILY 05/31/20 [Citracal + D Maximum Caplet] Ergocalciferol (Vitamin D2) 1,250 mcg PO QWEEK 05/31/20 [Vitamin D2] Multivitamins,Therapeutic 1 tab PO DAILY 05/31/20 [Multivitamin] Promethazine HCl 25 mg PO Q6H PRN PRN 05/31/20 Acetaminophen [Tylenol] 1,000 mg PO Q6H PRN PRN tablet 06/21/20 Amiodarone HCl [Cordarone] 200 mg PO BID #60 tablet 06/21/20 Apixaban [Eliquis] 2.5 mg PO BID #60 tablet 06/21/20 Ascorbic Acid [Vitamin C] 250 mg PO DAILYCM tablet 06/21/20 Ferrous Sulfate 325 mg PO DAILYCM #30 tablet 06/21/20 Menthol/Lanolin/Calamine/Znox 1 applic TOPICAL BID@0600,2200 06/21/20 [Calmoseptine Ointment] tube Midodrine HCl [Proamatine] 5 mg PO TIDCM #90 tablet 06/21/20 Mirtazapine [Remeron] 7.5 mg PO QHS #30 tablet 06/21/20 Surgical History: Surgical History (Last Updated 06/06/20 @ 08:30 by Juliette Koenig) History of cardioversion Onset Date: ~06/02/20 Z98.890 Surgical History: - - Sigmoidectomy with ostomy 06/01/2020 Psychiatric History: No pertinent psych hx Lives: Spouse/ Significant Other Smoking Status: Former smoker Tobacco Use: Cigarettes Alcohol: None Drugs: None - *Family History Maternal History Items: No pertinent history Paternal History Items: No pertinent history Review of Systems Constitutional: Reports: Anorexia. Denies: Chills, Fever, Night Sweats, Malaise Eyes: Denies: Blurred vision, Conjunctivae Inflammation, Double vision, Pain, Redness HEENT: Denies: Difficulty Hearing, Difficulty Swallowing, Dysphasia, Ear Pain, Eye Pain Cardiovascular: Denies: Chest Pain, Claudication, Chest Pressure Respiratory: Denies: Cough, Hemoptysis, Pleuritic Pain Gastrointestinal: Denies: Abdominal Pain, Constipation Musculoskeletal: Denies: Arm Pain, Back Pain Skin: Denies: Dryness, Jaundice Neurological: Reports: - - facial weakness. Denies: Balance problems, Blurred vision, Double vision, Change in Speech, Difficulty swallowing Psychiatric: Denies: Anxiety, Depression Endocrine: Denies: Heat/ Cold Intolerance, Polydipsia, Polyuria Hematologic/ Lymphatic: Denies: Anemia, Easy Bruising, Easy Bleeding Patient Problems: Active and Suspected Problems (Last Updated 06/06/20 @ 08:30 by Juliette Koenig) Atrial fibrillation with RVR (Acute) Debility (Acute) Abdominal pain (Acute) Sigmoid volvulus (Acute) Subjective: Well-appearing male no acute distress. There is a grade 5 out of 6 left facial palsy with incomplete eye closure and Zhu's phenomena. Tongue movements are intact as well as elevation of the soft palate which is normal. There is a tympanostomy tube placed in the left ear without drainage. - Physical Exam Vitals/I&O's: Vital Signs Temp Pulse Resp BP Pulse Ox 98.2 F 72 16 101/66 94 06/23/20 04:08 06/23/20 04:08 06/23/20 04:08 06/23/20 04:08 06/23/20 04:08 Oxygen Delivery Method Room Air Weight: 58.57 kg Body Mass Index (BMI) 17.4 Intake and Output for Last 24 Hours 06/21/20 06/22/20 06/23/20 23:59 23:59 23:59 Intake Total 840 / 840 600 / 600 360 / 360 Output Total 300 / 300 Balance 540 / 540 600 / 600 360 / 360 General: Alert, Oriented x3, Cooperative, No apparent distress HEENT: Atraumatic, PERRLA, Normocephalic Oral: Moist Mucosa, No Gingival or Mucosal Lesions/ Ulcerations Neck: Supple, Trachea Midline, Thyroid Normal Size and Texture Lungs: No rhonchi, No wheeze, No rales Cardiovascular: Regular rate, Regular Rhythm Abdomen: Soft, Non Tender, Non-Distended Extremities: No clubbing, No cyanosis, No edema Skin: No rashes, No breakdown Musculoskeletal: No Tenderness to Palpation of Joints or Extremities, Cachexia Neurological: Facial Droop Psych/Mental Status: Normal Affect, Appropriate, Alert and oriented to time, place, person, mood and affect Current Medications Acetaminophen (Acetaminophen 500 Mg Tablet) 1,000 mg PO Q6H PRN PRN PRN Reason: Pain Score 1-10 Last Admin: 06/23/20 05:23 Dose: 1,000 mg Documented by: Amiodarone HCl (Amiodarone 200 Mg Tablet) 200 mg PO BID [facility] Last Admin: 06/23/20 05:03 Dose: 200 mg Documented by: Apixaban (Apixaban 2.5 Mg Tablet) 2.5 mg PO BID [facility] Last Admin: 06/23/20 05:03 Dose: 2.5 mg Documented by: Ascorbic Acid (Ascorbic Acid 500 Mg Tablet) [facility] Last Admin: 06/23/20 08:30 Dose: 250 mg Documented by: Benzonatate (Benzonatate 100 Mg Capsule) 100 - 200 mg PO TID PRN PRN PRN Reason: COUGH Bisacodyl (Bisacodyl 5 Mg Tablet) 10 mg PO DAILY PRN PRN Reason: Constipation Calamine/Phenol (Menthol/Lanolin/Calamine/Znox 113 Gm Tube) 1 applic TOPICAL BID@0600,2200 [facility]; Protocol Last Admin: 06/23/20 05:03 Dose: Not Given Documented by: Calcium/Vitamin D (Calcium Carb/Vitamin D 1 Tablet Tablet) 1 tablet PO [facility]IDUNIV[facility] Last Admin: 06/23/20 08:30 Dose: 1 tablet Documented by: Carbamide Perox/Anhydrous Glycerin (Carbamide Peroxide 15 Ml Bottle) 5 drop OTIC DAILY [facility] Last Admin: 06/23/20 05:11 Dose: 5 drop Documented by: Ergocalciferol (Ergocalciferol 50,000 Unit Capsule) 50,000 unit PO [facility] Stop: 07/26/20 05:59 Last Admin: 06/21/20 05:37 Dose: 50,000 unit Documented by: Ferrous Sulfate (Ferrous Sulfate 325 Mg Tablet) 325 mg PO DAILYUN[facility] Last Admin: 06/23/20 08:29 Dose: 325 mg Documented by: Magnesium Hydroxide (Magnesium Hydroxide 30 Ml Udc) 30 ml PO DAILY PRN PRN Reason: Constipation Midodrine (Midodrine Hcl 5 Mg Tablet) 5 mg PO [facility] Last Admin: 06/23/20 08:29 Dose: 5 mg Documented by: Mirtazapine (Mirtazapine 15 Mg Tablet) 7.5 mg PO QHS [facility] Last Admin: 06/22/20 20:16 Dose: 7.5 mg Documented by: Multivitamins (Multivitamins,Therapeutic Tablet) 1 tablet PO DAILYUN[facility] Last Admin: 06/23/20 08:29 Dose: 1 tablet Documented by: Nutritional Formula (Lactose Free) (Ensure Enlive 120 Ml Liquid) 120 ml PO 4X/DAY [facility] Last Admin: 06/23/20 11:55 Dose: 120 ml Documented by: Oxycodone HCl (Oxycodone 5 Mg Tablet) 5 mg PO Q4H PRN PRN PRN Reason: Pain Score 6-10 Last Admin: 06/23/20 04:01 Dose: 5 mg Documented by: Polyethylene Glycol (Polyethylene Glycol 3350 17 Gm Packet) 17 gm PO DAILY [facility] Last Admin: 06/23/20 05:03 Dose: 17 gm Documented by: Promethazine HCl (Promethazine 25 Mg Tablet) 25 mg PO Q6H PRN PRN PRN Reason: NAUSEA Sodium Chloride (0.9% Saline Lock 10 Ml Syringe) 10 - 40 ml IV UD PRN PRN Reason: SALINE FLUSH Last Admin: 06/12/20 12:30 Dose: 10 ml Documented by: Assessment/Plan All Active Problems (Last Updated 06/06/20 @ 08:30 by Juliette Koenig) Facial palsy (Acute) Postoperative atrial fibrillation (Acute) NSCLC metastatic to bone (Acute) Leukopenia due to antineoplastic chemotherapy (Acute) Malnutrition (Acute) Weakness (Acute) Atrial fibrillation with RVR (Acute) Debility (Acute) Abdominal pain (Acute) Sigmoid volvulus (Acute) Mr. Pino is a 75-year-old male who had seen previously for middle ear effusion and aural fullness. He has responded well to this with improvement of his hearing but continues to have left aural fullness and now left facial palsy. MRI shows a large mass and this is likely the proximate cause of this facial paralysis. Although suggestion of a benign schwannoma was made by radiology given his history of metastatic non-small cell carcinoma of the lung this seems like a more likely culprit and would be more consistent with the acute onset of his facial weakness. I have recommended to him and his significant other at the bedside that I care to prevent dryness and corneal abrasion is advised with a protective eye cup and Lacri-Lube ointment particularly at night to prevent corneal dryness. I have a encouraged him to discuss this new finding with his treating oncologist as well as review of his prior PET scan to see whether this lesion was apparent on those studies as I do not have those reports or images readily available for my review. Should this not be a PET avid lesion suggestive of a benign schwannoma consultation with a neurootologist is advised and I have suggested Dr. Jensen at [facility] for such evaluation if warranted. I will continue to follow him on an outpatient basis for his ear tube as well as coordinate any care with neuro otology specialist evaluation if this appears indicated. He has just completed a CT scan of this area as well we are awaiting that final report and I will review the images as well.
--- NOTE | 2020-06-23 12:17 | CASEMGMT ---
Social Work BIMS and PHQ-9 completed for MDS assessment. Kaleigh Agrawal, [employer] HOLE DIGGER TRUCK DRIVER
--- NOTE | 2020-06-23 12:59 | NURSING ---
This nurse called [facility] to update Dr. Faustin on CT and MRI findings. MRI, CT and ENT consult report sent to Dr. Faustin's office for review.
[2020-06-23 13:54] VITALS: BP 90/55; PULSE 80; RESP 17; TEMP 36.7; O2SAT 94
--- NOTE | 2020-06-23 15:16 | CASEMGMT ---
Social Work Spoke with pt about DC. Pt would like to DC home with S.O. as planned with Palliative and [facility]. Pt received news from MRI from he has a mass. Unsure about tx at this time. Provided emotional support. Added SW to C order. Kaleigh Agrawal, SYSTEMS DEVELOPER CRIB TENDER
[2020-06-23] MEDS: Petrolatum,White 3.75GM OPTH.TUBE 1 APPLIC OPHTHALMIC (21:27)
[2020-06-23] MEDS: Mirtazapine 15 MG Tablet 7.5 MG PO (21:27)
[2020-06-23] MEDS: Menthol/Lanolin/Calamine/Znox 113 GM Tube 1 APPLIC TOPICAL (21:28)
[2020-06-24 03:45] VITALS: BP 120/72; PULSE 73; RESP 16; TEMP 37.2; O2SAT 93
[2020-06-24] MEDS: oxyCODONE 5 MG Tablet PO ×3 (03:47→22:40)
[2020-06-24] MEDS: Acetaminophen 500 MG Tablet 1000 MG PO ×3 (03:47→22:40)
[2020-06-24] MEDS: Amiodarone 200 MG Tablet PO ×2 (06:36→16:23)
[2020-06-24] MEDS: APIXABAN 2.5 MG TABLET PO ×2 (06:36→16:23)
[2020-06-24] MEDS: Polyethylene Glycol 3350 17 GM PACKET PO (06:36)
[2020-06-24] MEDS: Menthol/Lanolin/Calamine/Znox 113 GM Tube 1 APPLIC TOPICAL ×2 (06:36→21:37)
[2020-06-24] MEDS: Carbamide Peroxide 15 ML Bottle 5 DRP OTIC (06:38)
[2020-06-24] MEDS: Ascorbic Acid 500 MG Tablet 250 MG PO (08:25)
[2020-06-24] MEDS: Calcium Carb/Vitamin D 1 TABLET Tablet PO ×2 (08:25→16:23)
[2020-06-24] MEDS: Multivitamins,Therapeutic Tablet 1 TABLET PO (08:26)
[2020-06-24] MEDS: Ferrous Sulfate 325 MG Tablet PO (08:26)
[2020-06-24] MEDS: Midodrine HCl 5 MG Tablet PO ×3 (08:26→16:23)
[2020-06-24 13:35] VITALS: BP 98/59; PULSE 86; RESP 16; TEMP 37.1; O2SAT 92
[2020-06-24] MEDS: Mirtazapine 15 MG Tablet 7.5 MG PO (21:38)
[2020-06-25] MEDS: oxyCODONE 5 MG Tablet PO ×2 (03:24→07:47)
[2020-06-25 05:29] VITALS: BP 107/70; PULSE 73; RESP 16; TEMP 36.3; O2SAT 95
[2020-06-25] MEDS: Acetaminophen 500 MG Tablet 1000 MG PO (05:30)
[2020-06-25] MEDS: Menthol/Lanolin/Calamine/Znox 113 GM Tube 1 APPLIC TOPICAL (05:31)
[2020-06-25] MEDS: Polyethylene Glycol 3350 17 GM PACKET PO (05:33)
[2020-06-25] MEDS: Carbamide Peroxide 15 ML Bottle 5 DRP OTIC (05:34)
[2020-06-25] MEDS: Amiodarone 200 MG Tablet PO (05:35)
[2020-06-25] MEDS: APIXABAN 2.5 MG TABLET PO (05:35)
[2020-06-25] MEDS: Ferrous Sulfate 325 MG Tablet PO (07:45)
[2020-06-25] MEDS: Midodrine HCl 5 MG Tablet PO ×2 (07:45→11:50)
[2020-06-25] MEDS: Ascorbic Acid 500 MG Tablet 250 MG PO (07:45)
[2020-06-25] MEDS: Multivitamins,Therapeutic Tablet 1 TABLET PO (07:45)
[2020-06-25] MEDS: Calcium Carb/Vitamin D 1 TABLET Tablet PO (07:45)
[2020-06-25 07:54] VITALS: PULSE 81; RESP 16; O2SAT 94
--- NOTE | 2020-06-25 12:04 | NURSING ---
Colostomy appliance changed by pt today with instructions and teaching done by this nurse. S.O. here to watch. Both asked questions and appreciated the teaching. Both verbalized understanding of supplies.
== END 2020-06-25 12:08 | disposition home health service (06) | DRG 949 ==
LOC: TCU 15:33
PROVIDERS: Admitting Provider Family Medicine Geriatric Medicine; PCP Internal Medicine; Visit Provider Family Medicine Geriatric Medicine
DX: Z48.815 Encounter for surgical aftercare following surgery on the digestive system (principal); K56.2 Volvulus; E43 Unspecified severe protein-calorie malnutrition; C34.90 Malignant neoplasm of unspecified part of unspecified bronchus or lung; C79.51 Secondary malignant neoplasm of bone; Z68.1 Body mass index [BMI] 19.9 or less, adult; E55.9 Vitamin D deficiency, unspecified; E54 Ascorbic acid deficiency; I48.91 Unspecified atrial fibrillation; D50.9 Iron deficiency anemia, unspecified; B37.9 Candidiasis, unspecified; F32.9 Major depressive disorder, single episode, unspecified; Z93.3 Colostomy status; Z79.899 Other long term (current) drug therapy; Z87.891 Personal history of nicotine dependence; I95.1 Orthostatic hypotension; G51.0 Bell's palsy; H93.8X2 Other specified disorders of left ear; R22.0 Localized swelling, mass and lump, head
CPT/HCPCS: 36415; 70551; 74018; 80048; 81001; 82550; 84484; 85025; 87086; 87426; 87635; 93005; 97110; 97116; 97161; 97165; 97530; 97535; 97802; J7030; A4216; U0002

== ENCOUNTER 2020-06-13 13:48 | Outpatient (RCR) | payer MEDICARE, MEDICAID, SELFPAY ==
[2020-06-05 15:34] VITALS: BMI 17.4
[2020-06-13] MEDS: COVID-19 VACC, MRNA(PFIZER)/PF 30 MCG/0.3 ML SYRINGE IM (13:48)
[2020-07-04] MEDS: COVID-19 VACC, MRNA(PFIZER)/PF 30 MCG/0.3 ML SYRINGE IM (11:44)
== END 2020-06-13 23:59 ==
LOC: IMMUN 13:48
PROVIDERS: PCP Internal Medicine; Visit Provider Family Medicine
DX: Z23 Encounter for immunization (principal)
CPT/HCPCS: 0001A; 0002A; 91300

== ENCOUNTER → 2020-06-22 10:50 | Outpatient (CLI) | payer MEDICARE, MEDICAID, SELFPAY ==
[2020-06-05 15:34] VITALS: BMI 17.4
== END ==
PROVIDERS: PCP Internal Medicine; Visit Provider Family Medicine Geriatric Medicine
DX: Z00.00 Encounter for general adult medical examination without abnormal findings (principal)

== ENCOUNTER → 2020-06-23 10:47 | Outpatient (CLI) | payer MEDICARE, MEDICAID, SELFPAY ==
[2020-06-05 15:34] VITALS: BMI 17.4
--- NOTE | 2020-06-23 10:53 | CT_ITS ---
STUDY: CT BRAIN WITH AND WITHOUT CONTRAST REASON FOR EXAM: Male, 75 years old. LEFT MASTOID AREA MASS RADIATION DOSAGE (If Supplied By Facility): CTDIvol = ( 44.99 ) mGy, DLP = ( 1834.06 ) mGycm TECHNIQUE: Transaxial CT imaging of the brain was performed pre and post contrast administration. The examination was performed with intravenous administration of IV-50 ML ISOVUE 300. Individualized dose optimization techniques were used for this CT. COMPARISON: None. FINDINGS: Expansile mass in the left jugular bulb with erosion of the surrounding bony wall without obvious contrast enhancement. It is immediately lateral to the enhancing left internal jugular vein and anterior to the left sigmoid sinus. It extends caudally behind the left mastoid tip and behind the left carotid sheath. The mass measures at least 3.4 x 1.9 x 1.3 cm. Normal size ventricles and extra-axial spaces for the patient''s age. Normal white matter tracts of the cerebral hemispheres. Normal basal ganglia and thalami. Normal brainstem. Normal cerebellum. There is no intracranial hemorrhage. There are no findings of an acute ischemic infarction. Normal visualized paranasal sinuses. CT/Brain/Head W/WO Contrast IMPRESSION: 3.4 x 1.9 x 1.3 cm solid expansile mass adjacent to the enhancing left jugular bulb, anterior to the enhancing left sigmoid sinus and extending caudally behind the mastoid tip and carotid sheath. This is most likely benign schwannoma until proven otherwise. No obvious contrast enhancement on CT but contrast enhancement schwannomas are better visualized on MRI with intravenous contrast if desired. COMMENT: In my opinion, the mass portion behind the mastoid tip is feasible for CT guided core biopsy. Electronically Signed: Lew Chandra MD at 11:47 EDT , Service support ,
== END ==
PROVIDERS: PCP Internal Medicine; Referring Provider Otolaryngology; Visit Provider Otolaryngology
DX: R22.1 Localized swelling, mass and lump, neck (principal)
CPT/HCPCS: 70470; Q9967; A4216

== ENCOUNTER 2020-10-09 14:06 | Observation (INO) | payer MEDICARE, SELFPAY ==
[2020-06-05 15:34] VITALS: BMI 17.4
[2020-10-09] VITALS (11 sets, daily range): BP systolic 90–107; BP diastolic 60–78; PULSE 74–99; RESP 15–18; TEMP 36.4–36.9; O2SAT 95–98; BMI 16.7; BMI 16.0
--- NOTE | 2020-10-09 14:31 | EKG12_ITS ---
Test Reason : SYNCOPE Blood Pressure : / mmHG Vent. Rate : 089 BPM Atrial Rate : 089 BPM P-R Int : 138 ms QRS Dur : 096 ms QT Int : 380 ms P-R-T Axes : 088 053 100 degrees QTc Int : 462 ms Normal sinus rhythm Nonspecific T wave abnormality Abnormal ECG When compared with ECG of 07-JUN-2020 09:21, Premature ventricular complexes are no longer Present Confirmed by JOSE AMAYA, FERNANDO ([id number]), industrial editor SAVANNA LEWIS ([id number]) on 10/13/2020 9:40:58 AM Referred By: DACIA Confirmed By:FERNANDO GARCIA MD
--- NOTE | 2020-10-09 14:32 | EDS_ITS ---
HPI History of Present Illness Chief Complaint: Syncope Informant: patient and spouse/S.O. Onset/Context/Timing Onset: Today Context: Sudden Onset Timing: Intermittent Current Severity: Gone Maximum Severity: Mild Narrative Narrative: 75-year-old male history of prior lung cancer which is being treated for and also has brain mets. 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 He has had decreased oral intake recently. Today felt faint and passed out at his significant other's home. He was lowered to the ground. She is here also and states he had no seizure activity. He had no injury. Said he felt faint before but never actually passed out. He does have a history of A. fib and is on Eliquis. He denies any recent illness. He denies any recent nausea, vomiting, diarrhea or fever. He denies any melena. Prior similar symptoms: No Recent Illness/Hospitalization: No [facility] Medical History Atrial fibrillation Zhu's palsy COPD (chronic obstructive pulmonary disease) Lung cancer metastatic to bone Home Medications calcium citrate-vitamin D3 2 ea PO DAILY 05/31/20 [History Last Taken 05/30/20 20:30] ergocalciferol (vitamin D2) 1,250 mcg PO QWEEK 05/31/20 [History Last Taken 05/28/20] multivitamin 1 tab PO DAILY 05/31/20 [History Last Taken 05/30/20] promethazine 25 mg PO Q6H PRN PRN 05/31/20 [History Last Taken Unknown] acetaminophen 1,000 mg PO Q6H PRN PRN tablet 06/21/20 [Rx Last Taken Unknown] amiodarone 200 mg PO BID #60 tablet 06/21/20 [Rx Last Taken Unknown] apixaban 2.5 mg PO BID #60 tablet 06/21/20 [Rx Last Taken Unknown] ascorbic acid (vitamin C) 250 mg PO DAILYCM tablet 06/21/20 [Rx Last Taken Unknown] ferrous sulfate 325 mg PO DAILYCM #30 tablet 06/21/20 [Rx Last Taken Unknown] mirtazapine 7.5 mg PO QHS #30 tablet 06/21/20 [Rx Last Taken Unknown] dexamethasone 4 mg PO DAILY 10/09/20 [History Last Taken Unknown] famotidine 20 mg PO BID 10/09/20 [History Last Taken Unknown] gabapentin 100 mg PO TID 10/09/20 [History Last Taken Unknown] oxycodone 5 mg PO Q4H PRN 10/09/20 [History Last Taken Unknown] Allergy/AdvReac Type Severity Reaction Status Date / Time Penicillins AdvReac Rash Verified 10/09/20 14:16 sulfamethoxazole AdvReac Rash Verified 10/09/20 14:16 [From Bactrim] trimethoprim [From Bactrim] AdvReac Rash Verified 10/09/20 14:16 Surgical History History of cardioversion (~06/02/20) Social History Smoking Status: Former smoker ROS ROS ED ROS Narrative Denies any recent illness. Decreased oral intake. Review of Systems ROS Unobtainable: Denies due to encephalopathy Constitutional Constitutional ED: Denies chills, fever(s) or sweats Eyes Eyes: Denies change in vision ENT ENT ED: Denies ear pain or sore throat Cardiovascular Cardiovascular: Denies chest pain or palpitations Respiratory/Chest Respiratory/Chest: Denies cough, dyspnea or sputum Gastrointestinal Gastrointestinal: Reports nausea; Denies abdominal pain Genitourinary Genitourinary ED: Denies dysuria or hematuria Musculoskeletal Musculoskeletal: Denies myalgias Integumentary Denies rash Neurologic Neurologic: Denies headache(s) Psychiatric Psychiatric: Denies depression Endocrine Endocrinology: Denies polyuria Allergic/Immunologic Allergic/Immunologic ED: Denies urticaria EXAM Physical Exam Narrative Exam Narrative: Older male vital signs stable afebrile. His blood pressure is 102/73. Is very thin. HEENT exam PRL reactive light. Much extremities. 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 There is no trauma. Neck nontender. Lungs clear to auscultation bilaterally. Heart regular rhythm rate about 90 no murmur. Chest nontender. Abdomen soft nontender normal bowel sounds no peritoneal signs. He has a colostomy bag left lower quadrant which is brown stool. No melena. Moving all 4 extremities. Nontender. No edema. No deformities. Back nontender. Neurologically is awake and alert. 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 That is not new. Const Vital Signs: 10/09/20 14:08 10/09/20 14:16 10/09/20 14:34 Temperature 97.8 F Temperature Source Temporal Pulse Rate 91 Pulse Rate [Lying] Pulse Rate [Sitting] Pulse Rate [Standing] Respiratory Rate 18 Respiratory Effort Normal Non-Labored Blood Pressure 102/73 Blood Pressure [Lying] Blood Pressure [Sitting] Blood Pressure [Standing] Blood Pressure Mean 82 Blood Pressure Mean [Lying] Blood Pressure Mean [Sitting] Blood Pressure Mean [Standing] Pulse Ox 96 95 Oxygen Delivery Method Room Air Room Air 10/09/20 15:07 10/09/20 16:00 Temperature Temperature Source Pulse Rate 91 80 Pulse Rate [Lying] 99 Pulse Rate [Sitting] 91 Pulse Rate [Standing] 95 Respiratory Rate 18 18 Respiratory Effort Blood Pressure 96/60 93/70 Blood Pressure [Lying] 98/63 Blood Pressure [Sitting] 90/60 Blood Pressure [Standing] 96/60 Blood Pressure Mean 72 77 Blood Pressure Mean [Lying] 74 Blood Pressure Mean [Sitting] 70 Blood Pressure Mean [Standing] 72 Pulse Ox 98 96 Oxygen Delivery Method Room Air Room Air Positive well nourished, well developed and cachectic General Appearance ED: well developed, cachectic and NAD Nutritional Appearance: cachectic HEENT Reports moist mucous membranes Negative for trauma or tenderness Eyes PERRL and EOMs intact bilaterally Neck no lymphadenopathy, supple and no JVD General: Negative for tenderness Chest Wall inspection of chest normal and palpation of chest normal Resp normal respiratory effort and clear to auscultation bilaterally Cardio regular rate, regular rhythm, S1 normal heart sound, S2 normal heart sound and no murmurs GI normal to inspection, nondistended, normoactive bowel sounds, non-tender, non-distended and no masses Inspection: Negative for abdominal distention Auscultation: normoactive bowel sounds Palpation: soft; Negative for tender, guarding or rebound tenderness present Back/Spine no CVA tenderness Extremity normal to inspection General Extremety ED: Negative for edema or tenderness General Extremity: Negative for edema Neuro oriented x3 Neuro Narrative: Left-sided facial droop with a known Zhu's palsy. Sensorium / Orientation: alert Motor Exam: strength 5/5 throughout Psych mental status grossly normal Skin no rashes or lesions noted and no wounds MDM MDM MDM Narrative Medical decision making narrative: 75-year-old male known lung cancer with mets to his brain. Also has a colostomy and history of prior A. fib on Eliquis. Patient had a syncopal episode today. States had decreased oral intake due to poor appetite nausea from the chemotherapy. Repeat exam patient is doing well at 4:55 PM. His orthostatic vital signs remain low. Discussed with patient he is comfortable being admitted. Of the hospitalist on page. Patient is currently doing well. Blood pressure 104/76 after a liter of fluid. Lab Data Attestation: I reviewed the patient's lab results. Lab results narrative: CBC shows white count 5. Hemoglobin 8.1 previously was 8.9. But he is chronically anemic. Electrolytes unremarkable gap of 9. Creatinine 0.9. High-sensitivity troponin V. EKG is no significant change from her prior. Labs: Laboratory Results - last 24 hr 10/09/20 10/09/20 14:00 14:00 WBC 5.5 RBC 2.35 L Hgb 8.1 L Hct 24.6 L MCV 104.7 H MCH 34.5 H MCHC 32.9 RDW Std Deviation 55.5 H RDW Coeff of Natalie 15.1 H Plt Count 222 MPV 9.4 Neut % (Auto) Not Reportable Absolute Neuts (auto) 4.8 Absolute Lymphs (auto) 0.44 L Total Counted 100 Neutrophils % (Manual) 85 H Band Neutrophils % 2 Lymphocytes % (Manual) 8 L Monocytes % (Manual) 4 Metamyelocytes % 1 Nucleated RBCs/100 WBC 2 Diff Path Review May foll Platelet Estimate ADEQUATE RBC Morphology N CHROM Anisocytosis 1+ Sodium 135 L Potassium 3.9 Chloride 99 Carbon Dioxide 27.0 Anion Gap 9 BUN 20 H Creatinine 0.93 Estim Creat Clear Calc 55.62 Est GFR (MDRD) Af Amer 101 Est GFR (MDRD) Non-Af 84 BUN/Creatinine Ratio 21.5 H Glucose 158 H Calcium 8.8 Troponin I High Sens 5.6 Radiography Chest X-Ray - ED: 1 View, Read by ED Physician, Read by Radiologist, Heart, Lungs, Mediastinum, Bony Structures, No Acute Disease and Chronic Changes Diagnostic Testing: Radiology Impression Chest X-Ray 10/09/20 14:45 IMPRESSION: Hyperinflation. Decreased bronchovascular markings suggestive of emphysematous change. Electronically Signed: Aly Bean MD at 14:59 EDT , Service support , EKG Initial EKG: Attestation: I personally reviewed and interpreted this EKG as follows: Interpretation: Sinus Rhythm and No Acute Injury Pattern Comments: Normal sinus rhythm rate 89. Inverted T waves V4 through V6. Prior EKG tracings: available for review Discharge Plan Dx/Rx/DC Orders Clinical Impression: Syncope Disposition Disposition: Acute Care Hospital [facility]
[2020-10-09] MEDS: 0.9% Normal Saline 1,000 ML 999 ML IV (14:41)
[2020-10-09 14:44] LABS: Hematocrit 24.6 % (40-54); Hemoglobin 8.1 g/dL (13.0-16.5); Mean Corp Hgb Conc 32.9 g/dL (32-36); Mean Corpuscular Hgb 34.5 pg (27.0-32.0); Mean Corpuscular Volume 104.7 fL (80-94); Mean Platelet Vol. 9.4 fl (6.2-12.0); POSITIVE COUNT YES; POSITIVE DIFFERENTIAL YES; POSITIVE MORPHOLOGY YES; Platelet Count 222 K/mm3 (150-450); RBC Distribution Width CV 15.1 % (11.6-14.6); RBC Distribution Width SD 55.5 fl (35.1-43.9); Red Blood Count 2.35 M/mm3 (4.6-6.2); White Blood Count 5.5 K/mm3 (4.4-11.0)
[2020-10-09 14:45] LABS: Differential Indicated MANUAL DIFF
--- NOTE | 2020-10-09 14:45 | RAD_ITS ---
STUDY: X-RAY CHEST REASON FOR EXAM: Male, 75 years old. Chest pain TECHNIQUE: Single AP portable view of the chest. COMPARISON: Comparison is made with prior study dated 05/31/2020. FINDINGS: A right-sided portacatheter is seen with the tip at the junction of the superior vena cava and right atrium. EKG electrodes are seen. There is hyperinflation of the lungs consistent with chronic obstructive lung disease (COPD). There is no demonstrated pleural abnormality. Normal size heart. Normal mediastinum and aniket. There is prominence of the pulmonary hilar arteries without peripheral pulmonary vascular congestion, suggesting pulmonary hypertension. There is atherosclerotic calcification of the aortic arch with tortuosity. Normal visualized thoracic spine. Normal visualized ribs, clavicles, and shoulders. There is no demonstrated abnormality of the visualized soft tissue structures of the upper abdomen. RAD/Chest 1 View (Portable) IMPRESSION: Hyperinflation. Decreased bronchovascular markings suggestive of emphysematous change. Electronically Signed: Aly Bean MD at 14:59 EDT , Service support ,
[2020-10-09 15:00] LABS: Anion Gap 9 (5-15); BUN 20 mg/dL (7-18); BUN/Creat Ratio 21.5 RATIO (10-20); Calcium,Total 8.8 mg/dL (8.5-10.1); Chloride 99 mmol/L (98-107); Creatinine, Serum 0.93 mg/dL (0.70-1.30); EST Glomerular Filtration Rate 84 mL/min (>60); Est Glom Filt Rate - Afr Amer 101 mL/min (>60); Estimated Creatinine Clearance 55.62 ml/min; Glucose 158 mg/dL (74-106); Potassium 3.9 mmol/L (3.5-5.1); Sodium Level 135 mmol/L (136-145); Troponin-I HS 5.6 pg/mL (3.0-78.5)
[2020-10-09 15:22] LABS: Lymphocyte 8 % (19-41); Metamyelocyte 1 % (0-1); Monocyte 4 % (0-10); Neutrophil-Band 2 % (0-5); Neutrophil-Segmented 85 % (47-70); Nucleated Red Bld Cells,Manual 2 % (0-5); Total Cells Counted 100 (MANUAL DIFF)
[2020-10-09 15:23] LABS: Anisocytosis 1+; Platelet Estimate ADEQUATE (ADEQ); Red Cell Morphology N CHROM NORMAL (NORM C&C)
[2020-10-09 15:24] LABS: Absolute Neutrophil Count 4.8 X10^3/uL (2.0-7.7)
[2020-10-09 15:25] LABS: Absolute Lymphocyte Count 0.44 X10^3/uL (0.83-4.51)
--- NOTE | 2020-10-09 17:18 | HP.PCM_ITS ---
Documented by User: CHECO Rashid 10/09/20 17:42 HPI - General HPI Narrative MICKY WOMACK, is a 75 M who presents following a syncopal episode at home. Patient states he began to feel faint and lost consciousness however he did not hit his head as he was lowered to the ground by his significant other. Patient states that he has not felt unwell but that this is his third week of chemo this month as he has lung cancer with mets to the brain. Patient states his chemo schedule is 3 weeks on 1 week off and this past Friday was his third treatment of the cycle. 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 Patient states that he does drink a bottle of boost at least 3 times a day. Patient denies fever, chills, shortness of breath, chest pain, nausea, vomiting, diarrhea. 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 COPD (chronic obstructive pulmonary disease) Depression Lung cancer metastatic to bone Substance abuse Home Medications calcium citrate-vitamin D3 2 ea PO DAILY 05/31/20 [History Last Taken 05/30/20 20:30] ergocalciferol (vitamin D2) 1,250 mcg PO QWEEK 05/31/20 [History Last Taken ] multivitamin 1 tab PO DAILY 05/31/20 [History Last Taken 05/30/20] promethazine 25 mg PO Q6H PRN PRN 05/31/20 [History Last Taken Unknown] acetaminophen 1,000 mg PO Q6H PRN PRN tablet 06/21/20 [Rx Last Taken 10/09/20] amiodarone 200 mg PO BID #60 tablet 06/21/20 [Rx Last Taken 10/09/20] apixaban 2.5 mg PO BID #60 tablet 06/21/20 [Rx Last Taken 10/09/20] ferrous sulfate 325 mg PO DAILYCM #30 tablet 06/21/20 [Rx Last Taken Unknown] mirtazapine 7.5 mg PO QHS #30 tablet 06/21/20 [Rx Last Taken Unknown] benzonatate 1 - 2 mg PO TID PRN PRN 10/09/20 [History Last Taken Unknown] dexamethasone 4 mg PO DAILY 10/09/20 [History Last Taken Unknown] famotidine 20 mg PO BID 10/09/20 [History Last Taken Unknown] gabapentin 100 mg PO TID 10/09/20 [History Last Taken Unknown] oxycodone 5 mg PO Q4H PRN 10/09/20 [History Last Taken Unknown] Allergy/AdvReac Type Severity Reaction Status Date / Time Penicillins AdvReac Rash Verified 10/09/20 14:16 sulfamethoxazole AdvReac Rash Verified 10/09/20 14:16 [From Bactrim] trimethoprim [From Bactrim] AdvReac Rash Verified 10/09/20 14:16 Surgical History History of cardioversion (~06/02/20) Social History (Updated 10/09/20 @ 17:23 by CHECO Rashid) Smoking Status: Former smoker alcohol intake: current alcohol intake frequency: holidays/special occasions only Alcohol type: beer substance use type: does not use ROS Constitutional Constitutional: Reports poor appetite, weakness and weight loss; Denies chills, fatigue, fever(s) or headache(s) Cardiovascular Cardiovascular: Denies chest pain, edema or palpitations Respiratory/Chest Respiratory/Chest: Denies cough, shortness of breath at rest or shortness of breath with exertion Gastrointestinal Gastrointestinal: Denies abdominal pain, constipation, diarrhea, nausea or vomiting Genitourinary Genitourinary: Denies dysuria Musculoskeletal Musculoskeletal: Denies back pain, extremity pain, joint pain or joint stiffness Integumentary Integumentary: Denies dry skin Neurologic Neurologic: Denies abnormal gait, abnormal speech, confusion or dizziness Psychiatric Psychiatric: Denies anxiety or depression Endocrine Endocrinology: Denies change in body appearance Hematologic/Lymphatic Hematologic/Lymphatic: Denies easy bleeding or easy bruising Vital Signs Vital Signs Vital Signs: 10/09/20 14:08 10/09/20 14:16 10/09/20 14:34 Temperature 97.8 F Temperature Source Temporal Pulse Rate 91 Pulse Rate [Lying] Pulse Rate [Sitting] Pulse Rate [Standing] Respiratory Rate 18 Respiratory Effort Normal Non-Labored Blood Pressure 102/73 Blood Pressure [Lying] Blood Pressure [Sitting] Blood Pressure [Standing] Blood Pressure Mean 82 Blood Pressure Mean [Lying] Blood Pressure Mean [Sitting] Blood Pressure Mean [Standing] Pulse Ox 96 95 Oxygen Delivery Method Room Air Room Air 10/09/20 15:07 10/09/20 16:00 Temperature Temperature Source Pulse Rate 91 80 Pulse Rate [Lying] 99 Pulse Rate [Sitting] 91 Pulse Rate [Standing] 95 Respiratory Rate 18 18 Respiratory Effort Blood Pressure 96/60 93/70 Blood Pressure [Lying] 98/63 Blood Pressure [Sitting] 90/60 Blood Pressure [Standing] 96/60 Blood Pressure Mean 72 77 Blood Pressure Mean [Lying] 74 Blood Pressure Mean [Sitting] 70 Blood Pressure Mean [Standing] 72 Pulse Ox 98 96 Oxygen Delivery Method Room Air Room Air Weight Weight: 126 lb 5.198 oz Body Mass Index (BMI) 16.7 Physical Exam Const alert, oriented x3 and no apparent distress General Appearance: cooperative HEENT normocephalic and head/scalp atraumatic Eyes conjunctivae normal and no scleral icterus Neck supple and no JVD General: trachea midline Resp normal respiratory effort, normal air movement and clear to auscultation bilaterally Cardio regular rate, regular rhythm, S1 normal heart sound and S2 normal heart sound GI normal to inspection, nondistended, normoactive bowel sounds, soft to palpation and non-tender Extremity normal capillary refill and no clubbing, cyanosis or edema General Extremity: no tenderness to palpation of joints or extremities Skin General Skin Exam: no breakdown and turgor normal Lesions: no lesions Rashes: no rashes Neuro no focal motor deficits and no sensory deficits noted Speech: speech normal Motor Exam: general weakness Psych thought process normal, cooperative and affect normal Appearance: appropriate Results Lab / Micro Data Result Diagrams: 10/09/20 14:00 10/09/20 14:00 Labs: Laboratory Results - last 24 hr 10/09/20 14:00: WBC 5.5, RBC 2.35 L, Hgb 8.1 L, Hct 24.6 L, MCV 104.7 H, MCH 34.5 H, MCHC 32.9, RDW Std Deviation 55.5 H, RDW Coeff of Natalie 15.1 H, Plt Count 222, MPV 9.4, Neut % (Auto) Not Reportable, Absolute Neuts (auto) 4.8, Absolute Lymphs (auto) 0.44 L, Total Counted 100, Neutrophils % (Manual) 85 H, Band Neutrophils % 2, Lymphocytes % (Manual) 8 L, Monocytes % (Manual) 4, Metamyelocytes % 1, Nucleated RBCs/100 WBC 2, Diff Path Review May foll, Platelet Estimate ADEQUATE, RBC Morphology N CHROM, Anisocytosis 1+ 10/09/20 14:00: Sodium 135 L, Potassium 3.9, Chloride 99, Carbon Dioxide 27.0, Anion Gap 9, BUN 20 H, Creatinine 0.93, Estim Creat Clear Calc 55.62, Est GFR ( MDRD) Af Amer 101, Est GFR (MDRD) Non-Af 84, BUN/Creatinine Ratio 21.5 H, Glucose 158 H, Calcium 8.8, Troponin I High Sens 5.6 Radiology Impression Chest X-Ray 10/09/20 14:45 IMPRESSION: Hyperinflation. Decreased bronchovascular markings suggestive of emphysematous change. Electronically Signed: Aly Bean MD at 14:59 EDT , Service support , Assessment & Plan Assessment/Plan (1) Syncope: QUALIFIERS: Syncope type: unspecified Qualified Code(s): R55 - Syncope and collapse PLAN: 1. Syncope -Likely secondary to malnutrition as patient states he has not been eating or drinking appropriately due to chemo -Echo complete 06/02/2020 shows EF 45% with mild systolic dysfunction. -Orthostatic vital signs obtained in ER were negative however systolics have been low since arrival. Will repeat in a.m. -Vital signs per protocol -Cardiac monitoring ordered, patient has chronic atrial fibrillation -Will hydrate patient with judicious IV fluid resuscitation -Consult nutrition for assistance in choosing high-calorie foods to maintain w eight 2. Lung cancer with metastases to the brain -Complicates treatment, last chemo 10/03/2020 patient reports this is his week off from chemo -MRI obtained 06/22/2020 demonstrates large 3 x 1.7 x 1.9 solid mass medial to the mucosal edema to the left temporal mastoid bone anterior to the left sigmoid sinus and extending caudally behind the left carotid sheath -Will continue home medications for pain and symptom management 3. Atrial fibrillation -Patient currently in normal sinus rhythm with a heart rate of 89 -Continue amiodarone, Eliquis. 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 Lancaster Documented by User: Dr. 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 COPD (chronic obstructive pulmonary disease) Depression Lung cancer metastatic to bone Substance abuse Home Medications calcium citrate-vitamin D3 2 ea PO DAILY 05/31/20 [History Last Taken 05/30/20 20:30] ergocalciferol (vitamin D2) 1,250 mcg PO QWEEK 05/31/20 [History Last Taken 05/28/20] multivitamin 1 tab PO DAILY 05/31/20 [History Last Taken 05/30/20] promethazine 25 mg PO Q6H PRN PRN 05/31/20 [History Last Taken Unknown] acetaminophen 1,000 mg PO Q6H PRN PRN tablet 06/21/20 [Rx Last Taken 10/09/20] amiodarone 200 mg PO BID #60 tablet 06/21/20 [Rx Last Taken 10/09/20] apixaban 2.5 mg PO BID #60 tablet 06/21/20 [Rx Last Taken 10/09/20] ferrous sulfate 325 mg PO DAILYCM #30 tablet 06/21/20 [Rx Last Taken Unknown] mirtazapine 7.5 mg PO QHS #30 tablet 06/21/20 [Rx Last Taken Unknown] benzonatate 1 - 2 mg PO TID PRN PRN 10/09/20 [History Last Taken Unknown] dexamethasone 4 mg PO DAILY 10/09/20 [History Last Taken Unknown] famotidine 20 mg PO BID 10/09/20 [History Last Taken Unknown] gabapentin 100 mg PO TID 10/09/20 [History Last Taken Unknown] oxycodone 5 mg PO Q4H PRN 10/09/20 [History Last Taken Unknown] Allergy/AdvReac Type Severity Reaction Status Date / Time Penicillins AdvReac Rash Verified 10/09/20 14:16 sulfamethoxazole AdvReac Rash Verified 10/09/20 14:16 [From Bactrim] trimethoprim [From Bactrim] AdvReac Rash Verified 10/09/20 14:16 Surgical History History of cardioversion (~06/02/20) Social History (Updated 10/09/20 @ 17:23 by ELVIRA RashidC) Smoking Status: Former smoker alcohol intake: current alcohol intake frequency: holidays/special occasions only Alcohol type: beer substance use type: does not use Results Lab / Micro Data Result Diagrams: 10/09/20 14:00 10/09/20 14:00 Charges/Coding Addendum Addendum: Dr. Lancaster: I personally reviewed the chart and examined the patient, and agree with the jose cano findings. 75-year-old male with metastatic lung cancer to the brain presents with syncope. He states that he was getting up to walk into the bathroom to empty his colostomy and urinate, and on the way back he just blacked out. He was being supported by his significant other and was lowered to the ground slowly. He woke up fairly quickly and did not have any seizure-like activity. He denies any palpitations prior to this event. He did have an echo recently that was unremarkable and therefore will not repeat. He does have an MRI from May with demonstrates lesion in his brain that could potentially be compressing his carotid however it is on just 1 side of his brain so unlikely to be causing his syncope but will obtain an MRA of his head and neck for further evaluation. Orthostatics in the ER were unremarkable however will repeat in the morning and provide him with IV fluids. I did have a 20-minute discussion with him on advance care planning specifically the difference between palliative care and hospice. He is agreeable to meet with palliative care for further outpati ent assistance. Visit Charges OBSV E&M: 13400 Initial observation care L3
--- NOTE | 2020-10-09 18:21 | MRI_ITS ---
STUDY: MRA NECK WITH AND WITHOUT CONTRAST REASON FOR EXAM: Male, 75 years old. carotid TECHNIQUE: 3-D [id number] (TOF) imaging was performed in an 1.5 T MRI scanner. dotarem 10ml iv was administered for the contrast enhanced images. COMPARISON: None. FINDINGS: RIGHT CAROTID ARTERIES: Normal right common carotid artery (CCA). Normal right common carotid bulb. Normal origin of the right internal carotid (ICA) artery without a hemodynamically significant stenosis. Normal visualized cervical portion of the right internal carotid artery. Normal origin of the right external carotid artery (ECA). LEFT CAROTID ARTERIES: Normal left common carotid artery (CCA). Normal left common carotid bulb. Normal origin of the left internal carotid (ICA) artery without a hemodynamically significant stenosis. Normal visualized cervical portion of the left internal carotid artery. Normal origin of the left external carotid artery (ECA). VERTEBRAL ARTERIES: Normal antegrade flow within the bilateral vertebral artery without a hemodynamically significant stenosis. MRI/MRA Neck WITH and W/O Contrast IMPRESSION: Normal bilateral cervical carotid and vertebral arteries. Electronically Signed: Toño Thornton MD at 20:10 EDT , Service support ,
--- NOTE | 2020-10-09 18:21 | MRI_ITS ---
STUDY: MRA OF THE HEAD WITHOUT CONTRAST REASON FOR EXAM: Male, 75 years old. carotid TECHNIQUE: 3-D hlfn-ou-cyxiyh (TOF) imaging was performed with MIPs. The study was performed unenhanced. COMPARISON: None. FINDINGS: Normal bilateral petrous carotid arteries. Normal right cavernous carotid artery with a normal supraclinoid bifurcation. Normal left cavernous carotid artery with a normal supraclinoid bifurcation. Normal right A1 segments of the anterior cerebral artery. Normal left A1 segments of the anterior cerebral artery. Normal intact anterior communicating artery (ACOM). Normal bilateral A2 segments of the anterior cerebral arteries. Normal right M1 and M2 segments of the middle cerebral arteries, with a normal M1 bifurcation. Normal left M1 and M2 segments of the middle cerebral arteries, with a normal M1 bifurcation. Posterior communicating arteries are not visualized consistent variant Normal bilateral vertebral arteries. Normal basilar artery with a normal basilar bifurcation. The visualized bilateral superior cerebellar (SCA) arteries are normal. Normal bilateral P1, P2 and visualized P3 segments of the posterior cerebral arteries. There is no demonstrated aneurysm of the [place]. There is no major vessel occlusion or hemodynamically significant stenosis. There is no demonstrated abnormality of the visualized brain. MRI/MRA Head ONLY without Contrast IMPRESSION: Normal MRA of the head No mass effect upon the left petrous carotid by known mastoid area mass Electronically Signed: Toño Thornton MD at 20:09 EDT , Service support ,
[2020-10-09] MEDS: 0.9% Saline Lock 10 ML Syringe IV (19:58)
[2020-10-09] MEDS: 0.9% Normal Saline 1,000 ML 100 ML IV (19:58)
[2020-10-09] MEDS: Gabapentin 100 MG Capsule PO (22:16)
[2020-10-09] MEDS: Famotidine 20 MG Tablet PO (22:16)
[2020-10-09] MEDS: APIXABAN 2.5 MG TABLET PO (22:16)
[2020-10-09] MEDS: Amiodarone 200 MG Tablet PO (22:16)
[2020-10-09] MEDS: Mirtazapine 15 MG Tablet 7.5 MG PO (22:17)
[2020-10-09 22:26] LABS: Bedside Glucose 123 mg/dL (70-110)
[2020-10-10] VITALS (10 sets, daily range): BP systolic 85–110; BP diastolic 57–78; PULSE 68–95; RESP 12–16; TEMP 36.8–37; O2SAT 95–98; BMI 16.0
[2020-10-10 05:32] LABS: Hematocrit 25.6 % (40-54); Hemoglobin 8.3 g/dL (13.0-16.5); Mean Corp Hgb Conc 32.4 g/dL (32-36); Mean Corpuscular Hgb 34.4 pg (27.0-32.0); Mean Corpuscular Volume 106.2 fL (80-94); Mean Platelet Vol. 9.1 fl (6.2-12.0); POSITIVE COUNT YES; POSITIVE DIFFERENTIAL YES; POSITIVE MORPHOLOGY YES; Platelet Count 202 K/mm3 (150-450); RBC Distribution Width CV 15.3 % (11.6-14.6); RBC Distribution Width SD 58.3 fl (35.1-43.9); Red Blood Count 2.41 M/mm3 (4.6-6.2); White Blood Count 4.7 K/mm3 (4.4-11.0)
[2020-10-10 05:43] LABS: Differential Indicated MANUAL DIFF
[2020-10-10 05:56] LABS: Anion Gap 8 (5-15); BUN 17 mg/dL (7-18); BUN/Creat Ratio 22.2 RATIO (10-20); Calcium,Total 8.5 mg/dL (8.5-10.1); Chloride 103 mmol/L (98-107); Creatinine, Serum 0.77 mg/dL (0.70-1.30); EST Glomerular Filtration Rate 105 mL/min (>60); Est Glom Filt Rate - Afr Amer 127 mL/min (>60); Estimated Creatinine Clearance 49.56 ml/min; Glucose 99 mg/dL (74-106); Potassium 3.8 mmol/L (3.5-5.1); Sodium Level 138 mmol/L (136-145)
[2020-10-10 05:58] LABS: Absolute Neutrophil Count 3.6 X10^3/uL (2.0-7.7); Lymphocyte 13 % (19-41); Metamyelocyte 7 % (0-1); Monocyte 3 % (0-10); Neutrophil-Band 1 % (0-5); Neutrophil-Segmented 76 % (47-70); Total Cells Counted 100 (MANUAL DIFF)
[2020-10-10 05:59] LABS: Platelet Estimate ADEQUATE (ADEQ); Red Cell Morphology NORM C+C NORMAL (NORM C&C)
[2020-10-10] MEDS: 0.9% Normal Saline 1,000 ML 100 ML IV (06:06)
[2020-10-10] MEDS: Gabapentin 100 MG Capsule PO ×2 (06:07→14:09)
[2020-10-10 06:31] LABS: Bedside Glucose 93 mg/dL (70-110)
[2020-10-10] MEDS: Multivitamins,Therapeutic Tablet 1 TABLET PO (08:16)
[2020-10-10] MEDS: Ferrous Sulfate 325 MG Tablet PO (08:16)
[2020-10-10] MEDS: Ascorbic Acid 500 MG Tablet 250 MG PO (08:20)
[2020-10-10] MEDS: Glucerna Shake 120 ML LIQUID PO ×2 (08:20→12:31)
[2020-10-10] MEDS: dexAMETHasone 4 MG Tablet PO (10:03)
[2020-10-10] MEDS: Famotidine 20 MG Tablet PO (10:03)
[2020-10-10] MEDS: Amiodarone 200 MG Tablet PO (10:03)
[2020-10-10] MEDS: APIXABAN 2.5 MG TABLET PO (10:03)
--- NOTE | 2020-10-10 12:34 | NT.THERAPY_ITS ---
Medical Nutrition Therapy - History Nutrition Services has been consulted to:: Manage nutrient details of diet order Current diet/nutrition support order:: Regular - general diet. Regular food consistency. Regular/thin liquid consistency. Glucerna 120mL PO TID. - Anthropometric Measurements Height:: 6 ft 1 in Weight:: 54.9 kg Body Mass Index (BMI):: 16.0 - Relevant Labs Relevant Labs:: RBC 2.41 M/mm3 (4.6-6.2) L 10/10/20 04:56 Hgb 8.3 g/dL (13.0-16.5) L 10/10/20 04:56 Hct 25.6 % (40-54) L 10/10/20 04:56 MCV 106.2 fL (80-94) H 10/10/20 04:56 MCH 34.4 pg (27.0-32.0) H 10/10/20 04:56 RDW Std Deviation 58.3 fl (35.1-43.9) H 10/10/20 04:56 RDW Coeff of Natalie 15.3 % (11.6-14.6) H 10/10/20 04:56 Absolute Lymphs (auto) 0.60 X10^3/uL (0.83-4.51) L 10/10/20 04:56 Neutrophils % (Manual) 76 % (47-70) H 10/10/20 04:56 Lymphocytes % (Manual) 13 % (19-41) L 10/10/20 04:56 Metamyelocytes % 7 % (0-1) H 10/10/20 04:56 Sodium 135 mmol/L (136-145) L 10/09/20 14:00 BUN 20 mg/dL (7-18) H 10/09/20 14:00 BUN/Creatinine Ratio 22.2 RATIO (10-20) H 10/10/20 04:56 Glucose 158 mg/dL (74-106) H 10/09/20 14:00 - Assessment Food and Nutrient Intake: Pt ate only 25% of his breakfast this morning but pt feels that he did good this morning with eating his breakfast. Pt reports that he has a decrease in appetite. Reports that he started experiencing a decreased appetite when he started chemotherapy ~4 months ago. States that since treatment food hasn't tasted good to him and it suppressed his appetite. Denies presence of nausea, vomiting, constipation, or diarrhea. Pt's UBW is 145# and CBW is 121# representing 24#/17% unintentional weight loss. Food intake and weight loss are significant for malnutrition. Physical findings as follows: fat and muscle wasting of orbital, buccal, and clavicle regions. - Nutrition Diagnosis: Clinical Problem Chronic Disease or Condition Related Malnutrition Clinical Problem - Etiology: r/t inadequate oral intake and increased metabolic needs d/t metastatic cancer Clinical Problem - Signs/Symptoms: as evidenced by patient report of consuming </=50% of estimated energy requirements x4 months, 24#/17% unintentional weight loss x4 months, and physical findings as follows: fat and muscle wasting of orbital, buccal, and clavicle regions, BMI 16.0 Status: Active Problem - Protein Calorie Malnutrition Evidence of Malnutrition Exists: Yes Severe Protein Calorie Malnutrition:: Chronic - Nutrition Intervention Nutrition Prescription: 2,000-2,200kcal/day (RMR x 1.2 +500 for wt gain). Protein 80-90g/day (1.5g/kg). Fluid 2,000mL/day (35mL/kg) - Food / Nutrient Delivery Interventions Summary of nutrition intervention:: Nutrition education provided, Provide oral nutrition supplement Nutrition support ordered as / adjusted to:: Continue regular - general diet. D/c glucerna 120mL PO TID and add ensure enlive 120mL PO 4x/day. Add vanilla magic cup BID at lunch and dinner. May benefit from BEHAVIORAL HEALTH TECH evaluation to address food pocketing in pt's mouth d/t facial palsy if swallowing issues persist. If unable to consume sufficient nutrition via PO Diet and wt loss continues, may consider discussion about enteral nutrition support. Nutrition education provided?: Yes - encouraged increase intake of protein/calories Coordination of Nutrition Care: May benefit from BEHAVIORAL HEALTH TECH eval to assess pt's ability to consume adequate nutrition d/t reported facial palsy. - MNT Monitoring Active Nutrition Patient: Yes Nutrition Status: Requires Follow Up 3-5 Days
[2020-10-10 12:36] LABS: Bedside Glucose 111 mg/dL (70-110)
--- NOTE | 2020-10-10 12:36 | PCM.DC ---
Discharge Instructions Diet Discharge Diet: No restrictions Activity Discharge Activity: Return to Normal Activity Follow Up Care Test Results: Test results from this visit will be discussed in further detail at your follow-up appointment, if applicable. Discharge Plan Admission Admit Date/Time: 10/09/20 18:05 Primary Reason for Your Visit: syncope Attending Provider: Héctor Ramirez Primary Care Provider: Jan Benson Instructions Additional Instructions / Restrictions: follow up with oncology as directed Discharge Orders/Prescriptions Prescriptions: Continued multivitamin 1 TABLET tablet 1 tab PO DAILY RF: 0 promethazine 25 MG tablet 25 mg PO Q6H PRN PRN (Reason: Nausea) RF: 0 ergocalciferol (vitamin D2) 1,250 MCG capsule 1,250 mcg PO QWEEK RF: 0 calcium citrate-vitamin D3 1 EACH tablet 2 ea PO DAILY RF: 0 acetaminophen 500 MG tablet 1,000 mg PO Q6H PRN PRN (Reason: Pain Score 1-10) RF: 0 ferrous sulfate 325 MG tablet 325 mg PO DAILYCM Qty: 30 RF: 0 mirtazapine 15 MG tablet 7.5 mg PO QHS Qty: 30 RF: 0 amiodarone 200 MG tablet 200 mg PO BID Qty: 60 RF: 0 apixaban 2.5 MG tablet 2.5 mg PO BID Qty: 60 RF: 0 famotidine 20 mg Tablet 20 mg PO BID RF: 0 dexamethasone 4 mg Tablet 4 mg PO DAILY RF: 0 oxycodone 5 mg Capsule 5 mg PO Q4H PRN (Reason: Pain) RF: 0 gabapentin 100 mg Tablet 100 mg PO TID RF: 0 benzonatate 100 mg capsule 1 - 2 mg PO TID PRN PRN (Reason: .) RF: 0 Referrals / Follow Up: Jan Benson MD [Primary Care Provider] - Within 2 Weeks Disposition Disposition (needs filled in before D/C Order can be placed): Home, Self Care
[2020-10-10 13:12] LABS: Pathologist Review Reviewed
--- NOTE | 2020-10-10 13:16 | CASEMGMT ---
Dr. Lancaster had put in for palliative referral. Per [facility], pt had been referred for palliative back in May 2020 and declined at that time. Per Dr. Lancaster' H&P, pt is agreeable to talk with palliative again. Facesheet faxed to [facility] and Skylar updated, voices understanding. CM to follow for PT/OT notes, recommendations. SStmichelle RN CM
--- NOTE | 2020-10-10 13:27 | PHA.DC.MR ---
Pharmacy Service has performed discharge medication reconciliation for this patient. The patient's discharge medication list was reviewed for discrepancies and discrepancies were resolved. Home Medications calcium citrate-vitamin D3 2 ea PO DAILY 05/31/20 ergocalciferol (vitamin D2) 1,250 mcg PO QWEEK 05/31/20 multivitamin 1 tab PO DAILY 05/31/20 promethazine 25 mg PO Q6H PRN PRN 05/31/20 acetaminophen 1,000 mg PO Q6H PRN PRN tablet 06/21/20 amiodarone 200 mg PO BID #60 tablet 06/21/20 apixaban 2.5 mg PO BID #60 tablet 06/21/20 ferrous sulfate 325 mg PO DAILYCM #30 tablet 06/21/20 mirtazapine 7.5 mg PO QHS #30 tablet 06/21/20 benzonatate 1 - 2 mg PO TID PRN PRN 10/09/20 dexamethasone 4 mg PO DAILY 10/09/20 famotidine 20 mg PO BID 10/09/20 gabapentin 100 mg PO TID 10/09/20 oxycodone 5 mg PO Q4H PRN 10/09/20
--- NOTE | 2020-10-10 14:09 | CASEMGMT ---
Per therapy, pt does not need any addl therapy at this time. This RN CM to room and pt declines any further questions/concerns/needs. SStaten RN CM
[2020-10-11 13:38] LABS: Pathologist Review Reviewed
--- NOTE | 2020-10-12 17:22 | DS.PCM_ITS ---
Providers Date of Admission: 10/09/20 Date of Discharge: 10/10/20 Primary Care Physician: Dr. Jan Benson MD Reason For Visit: SYNCOPE Diagnosis Discharge Diagnosis (1) Syncope: Status: Acute Code(s): R55 - Syncope and collapse Qualifiers: Syncope type: unspecified Qualified Code(s): R55 - Syncope and collapse Plan: 1. 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 #8 chronic obstructive pulmonary disease Medications at Discharge Home Medications calcium citrate-vitamin D3 2 ea PO DAILY 05/31/20 ergocalciferol (vitamin D2) 1,250 mcg PO QWEEK 05/31/20 multivitamin 1 tab PO DAILY 05/31/20 promethazine 25 mg PO Q6H PRN PRN 05/31/20 acetaminophen 1,000 mg PO Q6H PRN PRN tablet 06/21/20 amiodarone 200 mg PO BID #60 tablet 06/21/20 apixaban 2.5 mg PO BID #60 tablet 06/21/20 ferrous sulfate 325 mg PO DAILYCM #30 tablet 06/21/20 mirtazapine 7.5 mg PO QHS #30 tablet 06/21/20 benzonatate 1 - 2 mg PO TID PRN PRN 10/09/20 dexamethasone 4 mg PO DAILY 10/09/20 famotidine 20 mg PO BID 10/09/20 gabapentin 100 mg PO TID 10/09/20 oxycodone 5 mg PO Q4H PRN 10/09/20 Hospital Course Operations None Summary of Care Provided Minutes Spent on Discharge: 30 Hospital Course: This 75-year-old white male was seen in the emergency room after experiencing a syncopal episode at home. Patient sustained no injury during the syncopal episode as he was lowered to the ground. There is no evidence of seizure activity. Work-up in the emergency room included labs which showed a hemoglobin of 8.1, chemistry profile was remarkable for glucose of 158 and a sodium of 135. BUN was also slightly elevated at 20. Chest x-ray showed hyperinflation and markings suggestive of emphysematous changes. EKG showed a normal sinus rhythm. Patient was placed in observation status for syncope, he was monitored on telemetry and he had no recurrence of syncope. On 10/10/2020, patient was seen and examined: On examination he appeared much older than his stated age. Vital signs as documented. Skin warm and dry and without overt rashes. Neck without JVD, neck was supple, trachea midline, thy roid was normal. Lungs clear bilaterally, normal air movement was noted. Heart exam notable for regular rhythm, normal sounds and absence of murmurs, rubs or gallops. Abdomen unremarkable and without evidence of organomegaly, masses, or abdominal aortic enlargement. Bowel sounds are present, abdomen is not distended. Extremities nonedematous, no cyanosis was noted, no clubbing was noted. Neuro: Cranial nerves II through XII are grossly intact, patient has evidence of left facial paralysis which is chronic from Zhu's palsy-otherwise no focal motor deficits were noted, sensation to light touch and pinprick intact, motor exam 5/5 throughout. Psych: Patient is alert and oriented x3, he does not appear anxious or depressed, he does not appear agitated. The exact etiology of the patient's syncope was unknown, on 10/10/2020, patient was discharged home in stable condition Weight / BMI Weight Weight: 54.9 kg Body Mass Index (BMI) 16.0 ABG / Lab / Microbiology Data Result Diagrams: 10/10/20 04:56 10/10/20 04:56 D/C Instructions Discharge Diet: No restrictions Meaningful Use Info Meaningful Use Diagnoses (Choose all that apply): None applicable Discharge Plan Admission Admit Date/Time: 10/09/20 18:05 Primary Reason for Your Visit: syncope Attending Provider: Héctor Ramirez Primary Care Provider: Jan Benson Instructions Additional Instructions / Restrictions: follow up with oncology as directed Discharge Orders/Prescriptions Prescriptions: Continued multivitamin 1 TABLET tablet 1 tab PO DAILY RF: 0 promethazine 25 MG tablet 25 mg PO Q6H PRN PRN (Reason: Nausea) RF: 0 ergocalciferol (vitamin D2) 1,250 MCG capsule 1,250 mcg PO QWEEK RF: 0 calcium citrate-vitamin D3 1 EACH tablet 2 ea PO DAILY RF: 0 acetaminophen 500 MG tablet 1,000 mg PO Q6H PRN PRN (Reason: Pain Score 1-10) RF: 0 ferrous sulfate 325 MG tablet 325 mg PO DAILYCM Qty: 30 RF: 0 mirtazapine 15 MG tablet 7.5 mg PO QHS Qty: 30 RF: 0 amiodarone 200 MG tablet 200 mg PO BID Qty: 60 RF: 0 apixaban 2.5 MG tablet 2.5 mg PO BID Qty: 60 RF: 0 famotidine 20 mg Tablet 20 mg PO BID RF: 0 dexamethasone 4 mg Tablet 4 mg PO DAILY RF: 0 oxycodone 5 mg Capsule 5 mg PO Q4H PRN (Reason: Pain) RF: 0 gabapentin 100 mg Tablet 100 mg PO TID RF: 0 benzonatate 100 mg capsule 1 - 2 mg PO TID PRN PRN (Reason: .) RF: 0 Referrals / Follow Up: Jan Benson MD [Primary Care Provider] - Within 2 Weeks Disposition Disposition (needs filled in before D/C Order can be placed): Home, Self Care Charges/Coding Visit Charges OBSV E&M: 53255 Observation care discharge
== END 2020-10-10 15:45 | disposition home or self-care (01) ==
LOC: ED 16:59 → PCU 17:27
PROVIDERS: Nurse Practitioner Family; Admitting Provider Family Medicine; Emergency Provider Emergency Medicine; PCP Internal Medicine; Visit Provider Internal Medicine
DX: R55 Syncope and collapse (principal); I48.0 Paroxysmal atrial fibrillation; Z79.01 Long term (current) use of anticoagulants; J44.9 Chronic obstructive pulmonary disease, unspecified; C34.90 Malignant neoplasm of unspecified part of unspecified bronchus or lung; C79.51 Secondary malignant neoplasm of bone; Z79.899 Other long term (current) drug therapy; Z79.52 Long term (current) use of systemic steroids; Z87.891 Personal history of nicotine dependence; Z93.3 Colostomy status; Z51.11 Encounter for antineoplastic chemotherapy; G51.0 Bell's palsy; Z92.3 Personal history of irradiation; E43 Unspecified severe protein-calorie malnutrition; Z68.1 Body mass index [BMI] 19.9 or less, adult; D63.8 Anemia in other chronic diseases classified elsewhere; D63.0 Anemia in neoplastic disease
CPT/HCPCS: 36415; 70544; 70549; 71045; 80048; 82962; 84484; 85025; 93005; 96360; 96361; 97162; 97166; 97802; 99218; 99251; 99285; A9575; J7030; A4216; G0378; G0463

== ENCOUNTER → 2020-11-03 08:42 | Outpatient (CLI) | payer MEDICARE, MEDICAID, SELFPAY ==
[2020-10-10 12:37] VITALS: BMI 16.0
[2020-11-03 08:53] VITALS: BP 113/71; PULSE 88; RESP 16; TEMP 36.1; O2SAT 100; BMI 16.0
[2020-11-03 09:35] VITALS: BP 110/72; PULSE 75; RESP 16; TEMP 36.3; O2SAT 97
[2020-11-03 10:30] VITALS: BP 101/67; PULSE 76; RESP 16; TEMP 36.2; O2SAT 98
[2020-11-03 11:32] VITALS: BP 109/77; PULSE 71; TEMP 36.3; O2SAT 97
[2020-11-03 12:09] VITALS: BP 123/85; PULSE 84; RESP 16; TEMP 36.1; O2SAT 97
[2020-11-03 13:15] VITALS: BP 110/73; PULSE 83; RESP 16; TEMP 36.3; O2SAT 98
== END ==
PROVIDERS: PCP Internal Medicine; Referring Provider Internal Medicine Hematology & Oncology; Visit Provider Internal Medicine Hematology & Oncology
DX: D64.9 Anemia, unspecified (principal)
CPT/HCPCS: 36430; 86850; 86900; 86901; 86920; 86922; J7040; P9016; A4216

== ENCOUNTER 2020-11-07 11:48 | Inpatient (IN) | payer MEDICARE, SELFPAY ==
[2020-11-03 08:53] VITALS: BMI 16.0
[2020-11-07] VITALS (39 sets, daily range): BP systolic 61–100; BP diastolic 42–60; PULSE 88–114; RESP 12–88; TEMP 36.6–37.1; O2SAT 80–97; BMI 16.7; BMI 16.8
--- NOTE | 2020-11-07 11:53 | EKG12_ITS ---
Test Reason : SYNCOPE Blood Pressure : / mmHG Vent. Rate : 091 BPM Atrial Rate : 091 BPM P-R Int : 134 ms QRS Dur : 094 ms QT Int : 368 ms P-R-T Axes : 074 014 091 degrees QTc Int : 452 ms Normal sinus rhythm Nonspecific T wave abnormality Abnormal ECG Confirmed by RAJ AMAYA, MARK ([id number]), editor magazine SAVANNA LEWIS ([id number]) on 11/10/2020 9:18:41 AM Referred By: ZAY Confirmed By:JULIA ANTHONY MD
[2020-11-07] MEDS: 0.9% Normal Saline 1,000 ML 999 ML IV ×2 (11:59→14:30)
--- NOTE | 2020-11-07 12:09 | EDS_ITS ---
HPI History of Present Illness Chief Complaint: Syncope Narrative Narrative: 75-year-old male with history of non-small cell carcinoma with metastasis currently on chemotherapy presenting with 2 episodes of syncope. One occurred at home this morning and one occurred via EMS. Patient states that he did not take his morning medications. He also states he was post take midodrine this morning to keep his blood pressure up. Patient states his normal blood pressure is about 109/70. Today he presents with a blood pressure of 62/44. Patient denies fever, chills, chest pain. He is anticoagulated on Eliquis for A. fib. He denies black or bloody stools. He does feel generally weak. Patient was scheduled to have chemotherapy today but did not feel well enough. [facility] Medical History Alcohol abuse Atrial fibrillation Zhu's palsy Colostomy in place COPD (chronic obstructive pulmonary disease) Depression Lung cancer metastatic to bone Substance abuse Home Medications promethazine 25 mg PO Q6H PRN PRN 05/31/20 [History Last Taken Unknown] acetaminophen 1,000 mg PO Q6H PRN PRN tablet 06/21/20 [Rx Last Taken 10/09/20] apixaban 2.5 mg PO BID #60 tablet 06/21/20 [Rx Last Taken 10/09/20] mirtazapine 7.5 mg PO QHS #30 tablet 06/21/20 [Rx Last Taken Unknown] benzonatate 1 - 2 mg PO TID PRN PRN 10/09/20 [History Last Taken Unknown] dexamethasone 4 mg PO DAILY 10/09/20 [History Last Taken Unknown] famotidine 20 mg PO BID 10/09/20 [History Last Taken Unknown] gabapentin 100 mg PO TID 10/09/20 [History Last Taken Unknown] oxycodone 5 mg PO Q4H PRN 10/09/20 [History Last Taken Unknown] amiodarone 100 mg PO BID 11/07/20 [History Last Taken Unknown] melatonin 3 mg PO QHS 11/07/20 [History Last Taken Unknown] midodrine 2.5 mg PO BID 11/07/20 [History Last Taken Unknown] Allergy/AdvReac Type Severity Reaction Status Date / Time Penicillins AdvReac Rash Verified 11/03/20 09:03 sulfamethoxazole AdvReac Rash Verified 11/03/20 09:03 [From Bactrim] trimethoprim [From Bactrim] AdvReac Rash Verified 11/03/20 09:03 Surgical History History of cardioversion (~06/02/20) Social History Smoking Status: Former smoker alcohol intake: current alcohol intake frequency: holidays/special occasions only Alcohol type: beer substance use type: does not use ROS ROS ED Constitutional Constitutional ED: Denies chills or fever(s) Eyes Eyes: Denies blurry vision or diplopia ENT ENT ED: Denies rhinorrhea or sore throat Cardiovascular Cardiovascular: Denies chest pain or palpitations Respiratory/Chest Respiratory/Chest: Reports dyspnea; Denies sputum Gastrointestinal Gastrointestinal: Denies abdominal pain, constipation, diarrhea, nausea or vomiting Genitourinary Genitourinary ED: Denies dysuria or hematuria Musculoskeletal Musculoskeletal: Denies arthralgias, back pain, myalgias or neck pain Integumentary Denies Abrasions or rash Neurologic Neurologic: Reports other Details: Left-sided facial droop and decreased sensation over the left side of the face that involves the forehead ; Denies headache(s) or seizure-like activity EXAM Physical Exam Const Vital Signs: 11/07/20 11:48 11/07/20 11:52 11/07/20 11:53 Temperature 98.5 F 98.5 F Temperature Source Temporal Temporal Pulse Rate 95 95 Respiratory Rate 24 H 24 H Respiratory Effort Short of Breath Respiratory Pattern Tachypnea Blood Pressure 62/44 L 62/44 L Blood Pressure Mean 50 50 Pulse Ox 91 91 Oxygen Delivery Method Nasal Cannula Nasal Cannula Oxygen Flow Rate (L/min) 2 2 11/07/20 11:57 11/07/20 12:12 11/07/20 12:40 Temperature 98.6 F Temperature Source Temporal Pulse Rate 92 Respiratory Rate 23 H Respiratory Effort Respiratory Pattern Blood Pressure 62/44 L 79/48 L Blood Pressure Mean 50 58 Pulse Ox 94 Oxygen Delivery Method Nasal Cannula Oxygen Flow Rate (L/min) 2 11/07/20 13:00 11/07/20 14:00 Temperature 98.8 F 98.2 F Temperature Source Temporal Temporal Pulse Rate 97 88 Respiratory Rate 21 H 16 Respiratory Effort Respiratory Pattern Blood Pressure 78/48 L 78/52 L Blood Pressure Mean 58 60 Pulse Ox 97 96 Oxygen Delivery Method Nasal Cannula Nasal Cannula Oxygen Flow Rate (L/min) 2 2 Positive cachectic General Appearance ED: cachectic; Negative for cyanotic or diaphoretic Nutritional Appearance: cachectic HEENT Reports dry mucous membranes Negative for trauma Mouth ED: Yes dry mucous membranes Mouth: dry mucous membranes Eyes PERRL and EOMs intact bilaterally General Eye ED: Negative for pale conjunctiva or scleral icterus Resp normal respiratory effort and clear to auscultation bilaterally Cardio regular rate and regular rhythm GI normal to inspection, nondistended, normoactive bowel sounds Extremity normal to inspection Neuro oriented x3 Neuro Narrative: Left-sided facial droop which does not spare the forehead consistent with patient's history of Zhu's palsy Sensorium / Orientation: alert MDM MDM MDM Narrative Medical decision making narrative: Patient presenting with shortness of breath, cough, hypotension. He was supposed to take midodrine today and did not. He st ates that he is unsure what his dosing regimen is. Given his hypoxia and hypotension sepsis work-up was pursued. Patient's CBC shows a white blood cell count of 0.4, hemoglobin 8.6 and is at baseline. Hematocrit 26.5, platelets 133. INR is normal. Creatinine is 0.96 however BUN/creatinine ratio is 26.9. Patient was given an initial bolus of 2 L of IV fluids and his blood pressure did respond up into the 80s. I reviewed the medical record and saw that he was in the 90s over 60s range when he was in the hospital last time. Troponin is 10.2. Lactic acid was 3.9. EKG on my interpretation is sinus rhythm with ventricular rate of [address] wave changes. Chest x-ray on my interpretation shows bilateral patchy infiltrates. Covid testing is negative. After initial bolus of fluids patient's blood pressure did respond. He requested something for his back pain and was given fentanyl due to his low blood pressures at this point he became slightly hypoxic which may be due to the medication. Due to the low oxygen hospitalist quested that he be placed on BiPAP and his blood pressure dropped to back to the 70s. Patient did have another liter of IV fluids and his pressures are now 87/52. Hospitalist did request a central line be placed however after trying to consent the patient he does not want this if his blood pressures were near his baseline from his previous hospitalization. This was discussed with the hospitalist. Patient was started with vancomycin and aztreonam for hospital-acquired pneumonia. Impression: 1. Septic shock 2. Bilateral pneumonia 3. Lactic acidosis 4. Neutropenia Lab Data Attestation: I reviewed the patient's lab results. Labs: Laboratory Results - last 24 hr 11/07/20 11/07/20 11/07/20 11:58 11:58 12:00 WBC 0.4 L* RBC 2.64 L Hgb 8.6 L Hct 26.5 L MCV 100.4 H MCH 32.6 H MCHC 32.5 RDW Std Deviation 61.7 H RDW Coeff of Natalie 16.9 H Plt Count 133 L MPV 9.5 Immature Gran % (Auto) 17.900 H Neut % (Auto) 12.8 L Lymph % (Auto) 66.7 H [place] % (Auto) 2.6 Eos % (Auto) 0.0 Baso % (Auto) 0.0 Absolute Neuts (auto) 0.1 L Absolute Lymphs (auto) 0.26 L Nucleated RBC % 12.8 H Differential Comment SCANNED Diff Path Review May foll PT 15.0 H INR 1.3 APTT 29.3 Sodium 134 L Potassium 3.8 Chloride 99 Carbon Dioxide 26.0 Anion Gap 9 BUN 26 H Creatinine 0.96 Estim Creat Clear Calc 54.07 Est GFR (MDRD) Af Amer 97 Est GFR (MDRD) Non-Af 81 BUN/Creatinine Ratio 26.9 H Glucose 104 Lactic Acid Calcium 8.4 L Total Bilirubin 0.60 AST 35 ALT 43 Alkaline Phosphatase 128 H Troponin I High Sens 10.2 Total Protein 6.0 L Albumin 1.9 L Globulin 4.1 Albumin/Globulin Ratio 0.5 L 11/07/20 12:00 WBC RBC Hgb Hct MCV MCH MCHC RDW Std Deviation RDW Coeff of Natalie Plt Count MPV Immature Gran % (Auto) Neut % (Auto) Lymph % (Auto) [place] % (Auto) Eos % (Auto) Baso % (Auto) Absolute Neuts (auto) Absolute Lymphs (auto) Nucleated RBC % Differential Comment Diff Path Review PT INR APTT Sodium Potassium Chloride Carbon Dioxide Anion Gap BUN Creatinine Estim Creat Clear Calc Est GFR (MDRD) Af Amer Est GFR (MDRD) Non-Af BUN/Creatinine Ratio Glucose Lactic Acid 3.9 H* Calcium Total Bilirubin AST ALT Alkaline Phosphatase Troponin I High Sens Total Protein Albumin Globulin Albumin/Globulin Ratio Radiography Diagnostic Testing: Radiology Impression Chest X-Ray 11/07/20 12:10 IMPRESSION: Patchy airspace opacity in both lungs which is likely infectious in etiology. Electronically Signed: Jl Romero MD at 12:54 EDT Tel , Service support , Discharge Plan Triage Chief Complaint: Syncope ED Provider: Antwon Winston Dx/Rx/DC Orders Primary Care Provider: Jan Benson
--- NOTE | 2020-11-07 12:10 | RAD_ITS ---
STUDY: X-RAY CHEST REASON FOR EXAM: Male, 75 years old. Hypotension TECHNIQUE: Frontal view of the chest COMPARISON: 10/09/20 FINDINGS: There is a right-sided port with its tip in the superior vena cava. There is patchy airspace opacity in both lungs. There are no pleural effusions. There is no pneumothorax. The heart is normal in size. The visualized osseous structures are within normal limits. RAD/Chest 1 View (Portable) IMPRESSION: Patchy airspace opacity in both lungs which is likely infectious in etiology. Electronically Signed: Jl Romero MD at 12:54 EDT Tel , Service support ,
[2020-11-07 12:11] LABS: Absolute Lymphocyte Count 0.26 X10^3/uL (0.83-4.51); Absolute Neutrophil Count 0.1 X10^3/uL (2.0-7.7); Hematocrit 26.5 % (40-54); Hemoglobin 8.6 g/dL (13.0-16.5); Lymphocyte # 0.26 X10^3/ul (0.83-4.51); Lymphocyte % 66.7 % (19-41); Mean Corp Hgb Conc 32.5 g/dL (32-36); Mean Corpuscular Hgb 32.6 pg (27.0-32.0); Mean Corpuscular Volume 100.4 fL (80-94); Mean Platelet Vol. 9.5 fl (6.2-12.0); Monocyte# 0.01 X10^3/uL; Monocyte% 2.6 % (0-10); NRBC Flagged by Analyzer 12.8 % (0-5); Neutrophil # 0.05 X10^3/uL (2.7-7.7); Neutrophil % 12.8 % (47-70); POSITIVE COUNT YES; POSITIVE DIFFERENTIAL YES; POSITIVE MORPHOLOGY YES; Platelet Count 133 K/mm3 (150-450); RBC Distribution Width CV 16.9 % (11.6-14.6); RBC Distribution Width SD 61.7 fl (35.1-43.9); Red Blood Count 2.64 M/mm3 (4.6-6.2); White Blood Count 0.4 K/mm3 (4.4-11.0)
[2020-11-07 12:13] LABS: Differential Indicated SCAN CRITERIA MET
[2020-11-07 12:17] LABS: International Normalized Ratio 1.3
[2020-11-07 12:18] LABS: Partial Thromboplast Time 29.3 Seconds (24.1-36.2)
[2020-11-07 12:19] LABS: ALB/GLOB Ratio 0.5 RATIO (0.9-2.4); AST(SGOT) 35 U/L (15-37); Alanine Aminotransfer ALT/SGPT 43 U/L (16-61); Albumin, Serum 1.9 g/dL (3.2-5.0); Alkaline Phosphatase 128 U/L (45-117); Anion Gap 9 (5-15); BUN 26 mg/dL (7-18); BUN/Creat Ratio 26.9 RATIO (10-20); Calcium,Total 8.4 mg/dL (8.5-10.1); Chloride 99 mmol/L (98-107); Creatinine, Serum 0.96 mg/dL (0.70-1.30); EST Glomerular Filtration Rate 81 mL/min (>60); Est Glom Filt Rate - Afr Amer 97 mL/min (>60); Estimated Creatinine Clearance 54.07 ml/min; Globulin 4.1 g/dL (2.2-4.2); Glucose 104 mg/dL (74-106); Potassium 3.8 mmol/L (3.5-5.1); Sodium Level 134 mmol/L (136-145); Troponin-I HS 10.2 pg/mL (3.0-78.5)
[2020-11-07 12:25] LABS: Differential Comment SCANNED
[2020-11-07 12:45] LABS: Lactic Acid 3.9 mmol/L (0.4-1.9)
[2020-11-07] MEDS: Midodrine HCl 5 MG Tablet 10 MG PO (13:24)
[2020-11-07] MEDS: levoFLOXacin IV 750 MG/150 ML BAG 100 MG IV (13:27)
--- NOTE | 2020-11-07 14:34 | HP.PCM.HOS_ITS ---
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 with ongoing chemotherapy with associated pancytopenia, Fe Deficiency anemia, Severe Protein-Calorie malnutrition, recently discharged 10/10/2020 following evaluation for syncope and collapse of unclear etiology with stable appearing EKG, no cardiac telemetry events who presents to the [facility] ED on 11/07/20 with history of 10 days of progressively worsening dyspnea with mildly productive cough of yellow sputum however he notes coughing is significantly worsened over the last 2 days with no specific fevers and chills but notable fatigue, malaise and difficulty even taking care of himself secondary to his debility prompting eventual ED evaluation. EMS reported patient being initially 84% on room air upon their initial evaluation. Work-up in the ED included T 98.6 temporally, heart rate 97, initial BP 62/44 on the improving to 78/52, respiratory rate upon presentation 24, 91% on 2 L improved to 96% on 2 L, CBC with WBC 0.4, hemoglobin 8.6 (recent Hgb 10/10/20 8.3), platelet 133 with neutropenia, lymphopenia, coags with PT 15, INR 1.3, PTT 29.3, CMP with sodium 134, BUN/creatinine 26/0.96, lactic acid 3.9, alk phos 128 otherwise not marked appearing hepatic profile aside expected decreased protein and albumin, high- sensitivity troponin 10.2, chest x-ray with patchy airspace opacity bilaterally suspicious for infectious etiology, right-sided port with tip in the superior vena cava present. In the ED patient administered Vanc, Levaquin, Midodrine 10 mg po x 1, NS 2L. In the ED patient was significantly hypoxic again with decent waveform therefore requested respiratory therapy evaluation with ABG although not marked appearing with BiPAP placed and improvement. Patient blood pressure transiently did improve however then decreased again despite 30 cc/kg bolus therefore per discussion with ED physician central line placed with plan for pressor initiation. [facility] Medical History (Updated 11/07/20 @ 20:[address] Nisha Dias MD) Alcohol abuse Atrial fibrillation Zhu's palsy Colostomy in place COPD (chronic obstructive pulmonary disease) Depression History of open sigmoidectomy Lung cancer metastatic to bone Parkinson's disease Substance abuse Home Medications promethazine 25 mg PO Q6H PRN PRN 05/31/20 [History Last Taken Unknown] acetaminophen 1,000 mg PO Q6H PRN PRN tablet 06/21/20 [Rx Last Taken 10/09/20] apixaban 2.5 mg PO BID #60 tablet 06/21/20 [Rx Last Taken 11/06/20] benzonatate 1 - 2 mg PO TID PRN PRN 10/09/20 [History Last Taken Unknown] dexamethasone 4 mg PO DAILY 10/09/20 [History Last Taken 11/06/20] famotidine 20 mg PO BID 10/09/20 [History Last Taken 11/06/20] gabapentin 100 mg PO TID 10/09/20 [History Last Taken 11/06/20] oxycodone 5 mg PO Q4H PRN 10/09/20 [History Last Taken 11/07/20] amiodarone 100 mg PO BID 11/07/20 [History Last Taken 11/06/20] melatonin 3 mg PO QHS 11/07/20 [History Last Taken 11/06/20] midodrine 2.5 mg PO BID 11/07/20 [History Last Taken 11/06/20] mirtazapine 15 mg PO QHS 11/07/20 [History Last Taken 11/06/20] Allergy/AdvReac Type Severity Reaction Status Date / Time Penicillins AdvReac Rash Verified 11/03/20 09:03 sulfamethoxazole AdvReac Rash Verified 11/03/20 09:03 [From Bactrim] trimethoprim [From Bactrim] AdvReac Rash Verified 11/03/20 09:03 Family History (Updated 11/07/20 @ 20:[address] Nisha Dias MD) Mother CVA (cerebral vascular accident) Father Cancer Oral/throat CA with history of chew tobacco use. Surgical History (Updated 11/07/20 @ 20:[address] Nisha Dias MD) Albert's pouch of intestine History of cardioversion (~06/02/20) History of eyelid surgery Social History (Updated 11/07/20 @ 20:[address] Nisha Dias MD) household members: significant other Smoking Status: Former smoker how long ago did patient quit smoking: Patient quit cigarette tobacco 2006, started as teen, 1.5-2 ppd. alcohol intake: former details: Prior 4-5 beers daily, stopped 6 months prior to current presentation. substance use type: does not use ROS ROS Narrative Admission Review of Systems: CONSTITUTIONAL: No weight loss, fever, chills, + weakness or fatigue. HEENT: Eyes: No visual loss, blurred vision, double vision or yellow sclerae. Ears, Nose, Throat: No hearing loss, sneezing, congestion, runny nose or sore throat. SKIN: No rash or itching, lesions, wounds. CARDIOVASCULAR: + Syncope, No chest pain, chest pressure or chest discomfort, palpitations, edema, orthopnea. RESPIRATORY: + shortness of breath, cough with sputum, wheezing, No hemoptysis. GASTROINTESTINAL: + anorexia, No nausea, vomiting or diarrhea, abdominal pain, melena, BRBPR. GENITOURINARY: No dysuria, frequency, urgency or retention. NEUROLOGICAL: + Syncope. No headache, paralysis, ataxia, numbness or tingling in the extremities, focal weakness, change in bowel or bladder control, seizure. MUSCULOSKELETAL: + muscle, back pain, joint pain or stiffness. HEMATOLOGIC: + anemia, bleeding or bruising. LYMPHATICS: No enlarged nodes. No history of splenectomy. PSYCHIATRIC: + history of depression or anxiety. ENDOCRINOLOGIC: No reports of sweating, cold or heat intolerance. No polyuria or polydipsia. ALLERGIES: No history of asthma, hives, eczema or rhinitis. Vital Signs Vital Signs Vital Signs: 11/07/20 11:48 11/07/20 11:52 11/07/20 11:53 Temperature 98.5 F 98.5 F Temperature Source Temporal Temporal Pulse Rate 95 95 Respiratory Rate 24 H 24 H Respiratory Effort Short of Breath Respiratory Pattern Tachypnea Blood Pressure 62/44 L 62/44 L Blood Pressure Mean 50 50 Pulse Ox 91 91 Oxygen Delivery Method Nasal Cannula Nasal Cannula Oxygen Flow Rate (L/min) 2 2 11/07/20 11:57 11/07/20 12:12 11/07/20 12:40 Temperature 98.6 F Temperature Source Temporal Pulse Rate 92 Respiratory Rate 23 H Respiratory Effort Respiratory Pattern Blood Pressure 62/44 L 79/48 L Blood Pressure Mean 50 58 Pulse Ox 94 Oxygen Delivery Method Nasal Cannula Oxygen Flow Rate (L/min) 2 11/07/20 13:00 11/07/20 14:00 Temperature 98.8 F 98.2 F Temperature Source Temporal Temporal Pulse Rate 97 88 Respiratory Rate 21 H 16 Respiratory Effort Respiratory Pattern Blood Pressure 78/48 L 78/52 L Blood Pressure Mean 58 60 Pulse Ox 97 96 Oxygen Delivery Method Nasal Cannula Nasal Cannula Oxygen Flow Rate (L/min) 2 2 Weight Weight: 126 lb 12.253 oz Body Mass Index (BMI) 16.7 Physical Exam Narrative Physical Examination: General: Awake, alert, oriented x 3, remains cooperative, seated upright in the ED bed, upon initial evaluation increased work of breathing, accessory muscle usage, evident respiratory distress with ongoing significant hypotension noted on monitor with recent vital signs. Skin: Normal color, normal turgor, no icterus, no cyanosis except occasional staged ecchymoses. HEENT: AT/NC, EOMI, PERRLA, dry MM, no carotid bruits or JVD noted. Lungs: Significantly diffusely diminished, greater bases, increased work of breathing with accessory muscle usage, evidence of respiratory distress, no obvious specific rales, rhonchi or wheezing currently but extremely tight. Heart: Mildly tachycardic with regular rhythm; no gallop, rub audible. Abdomen: Soft, thin cachectic habitus, NTTP, ND, normal BS, no obvious HSM, ostomy in place with appropriate output. Extremities: No cyanosis, clubbing, or edema. Neurological: Patient awake, alert, oriented as noted, cognitive function appears primarily intact but becoming more fatigued; pupils equally reactive to light and accommodation, cranial nerves II-XII grossly normal, moving all 4 extremities, no focal deficits, strength severely global decreased secondary to acute presentation worsening status. Psychiatric: Affect appears ill, evident respiratory distress, no acute evidence of depressive or anxiety feelings. Results Lab / Micro Data Result Diagrams: 11/07/20 11:58 11/07/20 11:58 Labs: Laboratory Results - last 24 hr 11/07/20 11:58: WBC 0.4 L*, RBC 2.64 L, Hgb 8.6 L, Hct 26.5 L, MCV 100.4 H, MCH 32.6 H, MCHC 32.5, RDW Std Deviation 61.7 H, RDW Coeff of Natalie 16.9 H, Plt Count 133 L, MPV 9.5, Immature Gran % (Auto) 17.900 H, Neut % (Auto) 12.8 L, Lymph % (Auto) 66.7 H, [place] % (Auto) 2.6, Eos % (Auto) 0.0, Baso % (Auto) 0.0, Absolute Neuts (auto) 0.1 L, Absolute Lymphs (auto) 0.26 L, Nucleated RBC % 12.8 H, Differential Comment SCANNED, Diff Path Review July11/07/20 11:58: Sodium 134 L, Potassium 3.8, Chloride 99, Carbon Dioxide 26.0, Anion Gap 9, BUN 26 H, Creatinine 0.96, Estim Creat Clear Calc 54.07, Est GFR (MDRD) Af Amer 97, Est GFR (MDRD) Non-Af 81, BUN/Creatinine Ratio 26.9 H, Glucose 104, Calcium 8.4 L, Total Bilirubin 0.60, AST 35, ALT 43, Alkaline Phosphatase 128 H, Troponin I High Sens 10.2, Total Protein 6.0 L, Albumin 1.9 L , Globulin 4.1, Albumin/Globulin Ratio 0.5 L 11/07/20 12:00: PT 15.0 H, INR 1.3, APTT 29.3 11/07/20 12:00: Lactic Acid 3.9 H* Radiology Impression Chest X-Ray 11/07/20 12:10 IMPRESSION: Patchy airspace opacity in both lungs which is likely infectious in etiology. Electronically Signed: Jl Romero MD at 12:54 EDT Tel , Service support , Assessment & Plan Assessment/Plan (1) Septic shock: PLAN: The patient is a 75 y/o M w/ PMHx: Hx sigmoid volvulus s/p resection with ostomy, Depression and Anxiety, Chronic COPD w/ Former Tobacco use, Hx EtOH abuse, Hx L sided chronic facial Zhu's palsy, PAF, Metastatic Lung Cancer (NSCLC) to Bone with ongoing chemotherapy with associated pancytopenia, Fe Deficiency anemia, Severe Protein-Calorie malnutrition, recently discharged 10/10/2020 following evaluation for syncope and collapse of unclear etiology with stable appearing EKG, no cardiac telemetry events who presents to the [facility] ED on 11/07/20 with history of 10 days of progressively worsening dyspnea with mildly productive cough of yellow sputum however he notes coughing is significantly w orsened over the last 2 days with no specific fevers and chills but notable fatigue, malaise and difficulty even taking care of himself secondary to his debility prompting eventual ED evaluation. 1. Acute Septic Shock secondary to Acute Hypoxic Respiratory Failure secondary to Acute BL Pneumonia, Possible GN/GP organism: Will admit to the ICU, request juvenile court judge consultation, continue norepinephrine with central line placed in the ED given continued hypotension despite 30 cc/kg bolus, trend lactic acid as moderately elevated upon presentation, continue BiPAP with transition to supplemental oxygen as able, continue ATC duonebs, PRN albuterol, maintained on IV Rocephin, Levaquin and Vancomycin given severity of presentation with requested MRSA screen and de-escalation as able, HOB, IS parameters w/ pending sputum cultures and urine antigens as well as respiratory viral panel. Covid testing in the ED with antigen negative. Given presentation will hold home decadron and place on stress dose steroids given chronic usage. Bld cx x 2 obtained in the ED. Of note 06/02/20 ECHO w/ normal LV size, EF 45%, mild global LV systolic dysfunction, mild global hypokinesis LV, PASP 30 mmHg. 2. History of metastatic lung cancer with associated pancytopenia: Patient with non-small cell lung cancer to the bone with ongoing chemotherapy with associated pancytopenia as noted, continue to closely monitor WBC, hemoglobin which is stable compared to prior and platelets, magnesium and phosphorus levels requested. 3. PAF: We will continue patient home amiodarone regimen although can sometimes affect pressure therefore will be cautious with as noted ongoing usage of IV pressors, continue apixaban. 4. Chronic COPD: Complicates presentation as noted above #1, continue ATC duonebs, PRN albuterol, HOB, IS parameters. 5. Depression and anxiety: We will continue patient home mirtazapine regimen. 6. History of chronic facial Zhu's palsy: Patient with chronic left-sided facial Zhu's palsy, status post left lid intervention with weight to assist. 7. History of prior alcohol abuse: Patient with former usage of at least 4-5 beers daily however he notes none in the last 6 months secondary to his current status, encouraged continued sobriety. 8. History of sigmoid volvulus: Patient status post resection with eventual Albert pouch, monitor ostomy. 9. Former tobacco use: Encourage continued tobacco cessation. 10. CODE status: Patient JURGEN is his significant Ann and living will is not in place he notes. Discussed that he could obtain information about setting up with CM/SW during his admission. Discussed CODE status at length including difference between FULL code, DNR-CCA and DNR-CC status. Following discussions about the differences in these status, requested Full Code status. Discussed frankly his current health history and likelihood of a poor outcome and patient continues to request Full Code status. Advanced Care Planning Face to Face Time: 16 minutes. Charges/Coding Visit Charges Inpatient E&M: 28728 Init Hosp L3 Procedures Hospitalists Procedures: 98418 Advncd Care Plan 30 Min
[2020-11-07] MEDS: fentaNYL 100 MCG/2 ML Ampul 25 MCG IV (14:59)
[2020-11-07 16:01] LABS: Base Excess -6 mmol/L (-2 to +2); Bicarbonate 18.4 mmol/L (22-26); Blood Gas Specimen Type ART; FI02 50; Mode BiLevel; PEEP 4; PO2 71 mmHG (75-100); PS 10; SITE L Radial; SO2 94 % (95-99); Total Carbon Dioxide 19 mmol/L; pCO2 29.6 mmHg (35-45)
[2020-11-07 16:03] LABS: Reflex Lactate? Y
[2020-11-07 16:33] LABS: Probe Check PASS; Specimen Processing Control PASS
--- NOTE | 2020-11-07 16:35 | ED.RN ---
UNABLE TO OBTAIN REPEAT LACTIC WITH PERIPHERAL DRAW, WILL DRAW WITH CENTRAL LINE PLACEMENT
[2020-11-07 18:15] LABS: Lactic Acid 4.8 mmol/L (0.4-1.9)
[2020-11-07 18:42] LABS: Magnesium 1.8 mg/dL (1.6-2.6); Phosphorus 1.8 mg/dL (2.5-4.9)
--- NOTE | 2020-11-07 19:55 | RAD_ITS ---
STUDY: X-RAY CHEST REASON FOR EXAM: Male, 75 years old. CENTRAL LINE PLACEMENT TECHNIQUE: AP portable COMPARISON: 11/07/2020 12:04 PM FINDINGS: Patchy areas of increased density is seen in left lower lobe and more so pronounced in the right lower lobe. There is calcified granuloma in the right upper lobe.. There is no demonstrated pleural abnormality. Mediport catheter seen with tip in distal superior vena cava. Normal size heart. Normal mediastinum and aniket. Normal visualized pulmonary arteries. Mildly calcified aortic arch and descending thoracic aorta. Central line placement on the right with tip in distal superior vena cava Normal visualized thoracic spine. Normal visualized ribs, clavicles, and shoulders. There is no demonstrated abnormality of the visualized soft tissue structures of the upper abdomen. The consolidative density in the right lower lobe has increased since earlier exam. No other significant interval change RAD/Chest 1 View (Portable) IMPRESSION: Increasing right lower lobe consolidation. No evidence of pneumothorax status post right central line placement with tip in distal superior vena cava Electronically Signed: Toño Thornton MD at 20:25 EDT , Service support ,
--- NOTE | 2020-11-07 20:37 | EDS_ITS ---
HPI History of Present Illness Chief Complaint: Syncope Narrative Narrative: Patient was still in the department after previous physicians end of shift. Currently pending going up to the ICU. Patient's blood pressure continues to decrease. Initially patient did not want a central line placed but patient is now agreeable with this. Patient was consented for this. [facility] Medical History (Updated 11/08/20 @ 00:[address] Michael Steel DO) Alcohol abuse Atrial fibrillation Zhu's palsy Colostomy in place COPD (chronic obstructive pulmonary disease) Depression History of open sigmoidectomy Lung cancer metastatic to bone Parkinson's disease Substance abuse Home Medications promethazine 25 mg PO Q6H PRN PRN 05/31/20 [History Last Taken Unknown] acetaminophen 1,000 mg PO Q6H PRN PRN tablet 06/21/20 [Rx Last Taken 10/09/20] apixaban 2.5 mg PO BID #60 tablet 06/21/20 [Rx Last Taken 11/06/20] benzonatate 1 - 2 mg PO TID PRN PRN 10/09/20 [History Last Taken Unknown] dexamethasone 4 mg PO DAILY 10/09/20 [History Last Taken 11/06/20] famotidine 20 mg PO BID 10/09/20 [History Last Taken 11/06/20] gabapentin 100 mg PO TID 10/09/20 [History Last Taken 11/06/20] oxycodone 5 mg PO Q4H PRN 10/09/20 [History Last Taken 11/07/20] amiodarone 100 mg PO BID 11/07/20 [History Last Taken 11/06/20] melatonin 3 mg PO QHS 11/07/20 [History Last Taken 11/06/20] midodrine 2.5 mg PO BID 11/07/20 [History Last Taken 11/06/20] mirtazapine 15 mg PO QHS 11/07/20 [History Last Taken 11/06/20] Allergy/AdvReac Type Severity Reaction Status Date / Time Penicillins AdvReac Rash Verified 11/03/20 09:03 sulfamethoxazole AdvReac Rash Verified 11/03/20 09:03 [From Bactrim] trimethoprim [From Bactrim] AdvReac Rash Verified 11/03/20 09:03 Family History (Updated 11/07/20 @ 20:[address] Nisha Dias MD) Mother CVA (cerebral vascular accident) Father Cancer Oral/throat CA with history of chew tobacco use. Surgical History (Updated 11/07/20 @ 20:[address] Nisha Dias MD) Albert's pouch of intestine History of cardioversion (~06/02/20) History of eyelid surgery Social History (Updated 11/07/20 @ 20:[address] Nisha Dias MD) household members: significant other Smoking Status: Former smoker how long ago did patient quit smoking: Patient quit cigarette tobacco 2006, started as teen, 1.5-2 ppd. alcohol intake: former details: Prior 4-5 beers daily, stopped 6 months prior to current presentation. substance use type: does not use EXAM Physical Exam Const Vital Signs: 11/07/20 11:48 11/07/20 11:52 11/07/20 11:53 Temperature 98.5 F 98.5 F Temperature Source Temporal Temporal Pulse Rate 95 95 Respiratory Rate 24 H 24 H Respiratory Effort Short of Breath Respiratory Pattern Tachypnea Blood Pressure 62/44 L 62/44 L Blood Pressure Mean 50 50 Pulse Ox 91 91 Oxygen Delivery Method Nasal Cannula Nasal Cannula Oxygen Flow Rate (L/min) 2 2 11/07/20 11:57 11/07/20 12:12 11/07/20 12:40 Temperature 98.6 F Temperature Source Temporal Pulse Rate 92 Respiratory Rate 23 H Respiratory Effort Respiratory Pattern Blood Pressure 62/44 L 79/48 L Blood Pressure Mean 50 58 Pulse Ox 94 Oxygen Delivery Method Nasal Cannula Oxygen Flow Rate (L/min) 2 11/07/20 13:00 11/07/20 14:00 Temperature 98.8 F 98.2 F Temperature Source Temporal Temporal Pulse Rate 97 88 Respiratory Rate 21 H 16 Respiratory Effort Respiratory Pattern Blood Pressure 78/48 L 78/52 L Blood Pressure Mean 58 60 Pulse Ox 97 96 Oxygen Delivery Method Nasal Cannula Nasal Cannula Oxygen Flow Rate (L/min) 2 2 MDM MDM MDM Narrative Medical decision making narrative: Procedure note: Central line placement. Informed consent was obtained. Risk associated with infection, bleeding, arterial injury, pneumothorax were discussed. Patient understands and accept this risk. Patient placed in supine position. The area was cleaned with chlorhexidine. Using sterile precautions including handwashing, sterile gloves, gown, hat and mask were utilized. The patient was draped. Using ultrasound the right IJ was identified. The area was anesthetized with 4 cc of 1% lidocaine without epinephrine. Using Seldinger technique the jugular vein was accessed. Nonpulsatile, dark blood was obtained. The area was dilated after a small magda was made in the skin. Triple-lumen catheter was then threaded over the wire. This was then sutured to the skin. Blood return from all ports and saline flowed easily. Sterile dressing applied. Post line placement x-ray was obtained and did not show any pneumothorax. It was in adequate position. Patient tolerated procedure well without any apparent complications. At this time patient is admitted to the hospital for further evaluation and management. Lab Data Labs: Laboratory Results - last 24 hr 11/07/20 11/07/20 11/07/20 11:58 11:58 11:58 WBC 0.4 L* RBC 2.64 L Hgb 8.6 L Hct 26.5 L MCV 100.4 H MCH 32.6 H MCHC 32.5 RDW Std Deviation 61.7 H RDW Coeff of Natalie 16.9 H Plt Count 133 L MPV 9.5 Immature Gran % (Auto) 17.900 H Neut % (Auto) 12.8 L Lymph % (Auto) 66.7 H [place] % (Auto) 2.6 Eos % (Auto) 0.0 Baso % (Auto) 0.0 Absolute Neuts (auto) 0.1 L Absolute Lymphs (auto) 0.26 L Nucleated RBC % 12.8 H Differential Comment SCANNED Diff Path Review July foll PT INR APTT Sodium 134 L Potassium 3.8 Chloride 99 Carbon Dioxide 26.0 Anion Gap 9 BUN 26 H Creatinine 0.96 Estim Creat Clear Calc 54.07 Est GFR (MDRD) Af Amer 97 Est GFR (MDRD) Non-Af 81 BUN/Creatinine Ratio 26.9 H Glucose 104 Lactic Acid Calcium 8.4 L Phosphorus 1.8 L Magnesium 1.8 Total Bilirubin 0.60 AST 35 ALT 43 Alkaline Phosphatase 128 H Troponin I High Sens 10.2 Total Protein 6.0 L Albumin 1.9 L Globulin 4.1 Albumin/Globulin Ratio 0.5 L 11/07/20 11/07/20 12:00 12:00 WBC RBC Hgb Hct MCV MCH MCHC RDW Std Deviation RDW Coeff of Natalie Plt Count MPV Immature Gran % (Auto) Neut % (Auto) Lymph % (Auto) [place] % (Auto) Eos % (Auto) Baso % (Auto) Absolute Neuts (auto) Absolute Lymphs (auto) Nucleated RBC % Differential Comment Diff Path Review PT 15.0 H INR 1.3 APTT 29.3 Sodium Potassium Chloride Carbon Dioxide Anion Gap BUN Creatinine Estim Creat Clear Calc Est GFR (MDRD) Af Amer Est GFR (MDRD) Non-Af BUN/Creatinine Ratio Glucose Lactic Acid 3.9 H* Calcium Phosphorus Magnesium Total Bilirubin AST ALT Alkaline Phosphatase Troponin I High Sens Total Protein Albumin Globulin Albumin/Globulin Ratio Radiography Diagnostic Testing: Radiology Impression Chest X-Ray 11/07/20 12:10 IMPRESSION: Patchy airspace opacity in both lungs which is likely infectious in etiology. Electronically Signed: lJ Romero MD at 12:54 EDT Tel , Service support , Discharge Plan Dx/Rx/DC Orders Clinical Impression: Septic shock Disposition Disposition: Acute Care Hospital [facility] Discharge Date/Time: 11/07/20 20:37
[2020-11-07] MEDS: 0.9% Saline Lock 10 ML Syringe IV (21:01)
[2020-11-07] MEDS: 0.9% Normal Saline 1,000 ML 100 ML IV (21:02)
[2020-11-07] MEDS: Hydrocortisone Sod Succinate 100 MG/2 ML Vial 50 MG IV (21:44)
[2020-11-07] MEDS: Vancomycin IV 500 MG/100 ML BAG 100 MG IV (21:50)
[2020-11-07] MEDS: MELATONIN 3 MG TABLET PO (22:05)
[2020-11-07] MEDS: Famotidine 20 MG Tablet PO (22:05)
[2020-11-07] MEDS: Mirtazapine 15 MG Tablet 7.5 MG PO (22:05)
[2020-11-07] MEDS: Gabapentin 100 MG Capsule PO (22:05)
[2020-11-07] MEDS: APIXABAN 2.5 MG TABLET PO (22:06)
[2020-11-07] MEDS: Midodrine HCl 5 MG Tablet 2.5 MG PO (22:06)
[2020-11-07 22:12] LABS: Troponin-I HS 17.2 pg/mL (3.0-78.5)
[2020-11-07 23:23] LABS: M R Staph aureus DNA By PCR Negative (Negative); Specimen Processing Control PASS
[2020-11-07 23:24] LABS: Probe Check PASS
[2020-11-08] VITALS (56 sets, daily range): BP systolic 81–103; BP diastolic 59–80; PULSE 82–114; RESP 12–33; TEMP 36.9–37.8; O2SAT 85–99
[2020-11-08] MEDS: 0.9% Saline Lock 10 ML Syringe IV ×3 (01:04→21:37)
[2020-11-08 01:28] LABS: Troponin-I HS 19.3 pg/mL (3.0-78.5)
[2020-11-08 04:00] LABS: Hematocrit 23.9 % (40-54); Hemoglobin 7.4 g/dL (13.0-16.5); Mean Corpuscular Hgb 32.6 pg (27.0-32.0); Mean Corpuscular Volume 105.3 fL (80-94); Mean Platelet Vol. 9.7 fl (6.2-12.0); POSITIVE COUNT YES; POSITIVE DIFFERENTIAL YES; POSITIVE MORPHOLOGY YES; Platelet Count 101 K/mm3 (150-450); RBC Distribution Width CV 17.4 % (11.6-14.6); RBC Distribution Width SD 67.6 fl (35.1-43.9); Red Blood Count 2.27 M/mm3 (4.6-6.2)
[2020-11-08 04:03] LABS: White Blood Count 0.5 K/mm3 (4.4-11.0)
[2020-11-08 04:13] LABS: ALB/GLOB Ratio 0.5 RATIO (0.9-2.4); AST(SGOT) 63 U/L (15-37); Alanine Aminotransfer ALT/SGPT 47 U/L (16-61); Albumin, Serum 1.5 g/dL (3.2-5.0); Alkaline Phosphatase 112 U/L (45-117); Anion Gap 12 (5-15); BUN 31 mg/dL (7-18); BUN/Creat Ratio 28.2 RATIO (10-20); Calcium,Total 7.3 mg/dL (8.5-10.1); Chloride 105 mmol/L (98-107); EST Glomerular Filtration Rate 69 mL/min (>60); Est Glom Filt Rate - Afr Amer 84 mL/min (>60); Estimated Creatinine Clearance 47.52 ml/min; Globulin 3.3 g/dL (2.2-4.2); Glucose 91 mg/dL (74-106); Potassium 4.7 mmol/L (3.5-5.1); Protein, Total 4.8 g/dL (6.4-8.2); Sodium Level 137 mmol/L (136-145)
[2020-11-08] MEDS: CHLORHEXIDINE GLUC 2% CLOTH 1 EACH TOWELETTE TOPICAL (04:28)
[2020-11-08 04:33] LABS: Differential Indicated SCAN CRITERIA MET
[2020-11-08] MEDS: oxyCODONE 5 MG Tablet PO (05:09)
[2020-11-08 05:10] LABS: Mucous, Urine 0 SEEN /hpf (<or=2+); Red Blood Cells-Urine 0 SEEN /hpf (0-5); Squamous Epithelial Cells - UA 0 SEEN /hpf (0-5)
[2020-11-08] MEDS: Hydrocortisone Sod Succinate 100 MG/2 ML Vial 50 MG IV ×3 (05:10→21:38)
[2020-11-08] MEDS: Gabapentin 100 MG Capsule PO ×2 (05:10→21:38)
--- NOTE | 2020-11-08 05:28 | CON.PCM.CC_ITS ---
Assessment & Plan Assessment/Plan (1) Septic shock: PLAN: RECOMMENDATIONS: 1. Continue broad-spectrum antimicrobials. 2. Continue Levophed and vasopressin to maintain a mean arterial pressure at or above 65 mmHg. 3. Continue stress dose steroids. 4. Continue BiPAP therapy and wean FiO2 to maintain oxygen saturations at or above 90%. 5. Continue scheduled bronchodilator therapy. IMPRESSIONS: 1. Gram-negative septic shock The patient appears to have gram-negative bacteremia with possible urinary and pulmonary sources. Although the patient did receive IV fluid resuscitation, he subsequently developed a need for vasopressor support to maintain hemodynamic stability. Plan to continue Levophed and vasopressin in an attempt to maintain a mean arterial pressure at or above 65 mmHg. In addition, the patient will be continued on stress dose steroids for now. Continue broad-spectrum antimicrobials, pending further infectious work-up. 2. Acute hypoxemic respiratory failure The patient does have questionable underlying obstructive lung disease with what appears to be superimposed pneumonia. Plan to continue supportive measures including BiPAP. We will continue to wean FiO2 as tolerated to maintain saturations at or above 90%. As noted above, antimicrobials will be continued. In addition, the patient will be maintained on scheduled bronchodilator therapy. 3. Pancytopenia Likely related to recent chemotherapy. Will discuss need for Neupogen with oncology. Continue to monitor counts daily. Send type and screen. 4. History of metastatic non-small cell lung cancer The patient has a history of metastatic non-small cell lung cancer with overall poor prognosis, per my discussion with his oncologist. The patient would likely benefit from palliative care consultation, if he is not already active with the service. We will continue ongoing goals of care discussion with the patient and his family. 5. History of paroxysmal atrial fibrillation/questionable COPD/depression/anxiety Complicates care, management, recovery and prognosis. Continue home indications as indicated. TIME: 42 minutes of critical care time, independent of procedures, was spent addressing the patient's gram-negative septic shock, acute hypoxemic respiratory failure, pancytopenia, history of metastatic non-small cell lung cancer, review of all data and collaboration with the care team. ([id number]) HPI Consult Data Date of Consult: 11/08/20 HPI Narrative Reason for Consultation: Septic shock, hypoxemia, pancytopenia, pneumonia HPI Narrative: The patient is a 75-year-old male, with a history as outlined below, who presented to the emergency department via EMS on November 07 with syncope, generalized weakness and dyspnea. The patient was just admitted to the hospital in mid September 2020 with syncope as well. The etiology for the patient's presenting syncope was unknown. The patient was maintained on telemetry at that time without any arrhythmogenic focus identified. The patient did report to me that his blood pressure typically runs low with systolic readings in the 90s. He does report decreased p.o. intake over the last week as well. He has felt weak and fatigued. The patient is unable to confirm a diagnosis of COPD. He denies the use of outpatient inhalers and does not utilize supplemental oxygen at his baseline. The patient does have a history of metastatic lung cancer, currently under the management of Dr. Faustin at [facility]. I did call and personally speak with the patient's oncologist, Dr. Faustin, this morning. Per the patient's oncologist, the patient's overall prognosis from a cancer perspective is quite poor. The patient did have a brain metastatic lesion identified previously which was treated with gamma knife. He also underwent palliative radiation therapy and received a cycle of single agent chemotherapy. His response to that therapy has yet to be reassessed. On presentation to the emergency department, the patient was noted to be afebrile but was tachypneic and hypotensive with a presenting blood pressure of 62/44 mmHg. Initial laboratory evaluation revealed evidence of pancytopenia. Coagulation profile revealed an INR of 1.3. Chemistry profile was notable for a sodium of 134 and BUN of 26. Lactate was elevated at 3.9. Phosphorus was low at 1.8. MRSA screen was negative. Coronavirus PCR was negative. Chest x-ray revealed patchy bilateral airspace opacities. The patient received supplemental IV fluid hydration and was started on broad-spectrum antimicrobials. The patient was subsequently admitted to the medical intensive care unit for further management. [facility] Medical History (Updated 11/08/20 @ 09:[address] 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 COPD (chronic obstructive pulmonary disease) Depression History of open sigmoidectomy Lung cancer metastatic to bone Parkinson's disease Substance abuse Home Medications promethazine 25 mg PO Q6H PRN PRN 05/31/20 [History Last Taken Unknown] acetaminophen 1,000 mg PO Q6H PRN PRN tablet 06/21/20 [Rx Last Taken 10/09/20] apixaban 2.5 mg PO BID #60 tablet 06/21/20 [Rx Last Taken 11/06/20] benzonatate 1 - 2 mg PO TID PRN PRN 10/09/20 [History Last Taken Unknown] dexamethasone 4 mg PO DAILY 10/09/20 [History Last Taken 11/06/20] famotidine 20 mg PO BID 10/09/20 [History Last Taken 11/06/20] gabapentin 100 mg PO TID 10/09/20 [History Last Taken 11/06/20] oxycodone 5 mg PO Q4H PRN 10/09/20 [History Last Taken 11/07/20] amiodarone 100 mg PO BID 11/07/20 [History Last Taken 11/06/20] melatonin 3 mg PO QHS 11/07/20 [History Last Taken 11/06/20] midodrine 2.5 mg PO BID 11/07/20 [History Last Taken 11/06/20] mirtazapine 15 mg PO QHS 11/07/20 [History Last Taken 11/06/20] Allergy/AdvReac Type Severity Reaction Status Date / Time Penicillins AdvReac Rash Verified 11/03/20 09:03 sulfamethoxazole AdvReac Rash Verified 11/03/20 09:03 [From Bactrim] trimethoprim [From Bactrim] AdvReac Rash Verified 11/03/20 09:03 Family History (Updated 11/07/20 @ 20:[address] Nisha Dias MD) Mother CVA (cerebral vascular accident) Father Cancer Oral/throat CA with history of chew tobacco use. Surgical History (Updated 11/07/20 @ 20:[address] Nisha Dias MD) Albert's pouch of intestine History of cardioversion (~06/02/20) History of eyelid surgery Social History (Updated 11/07/20 @ 20:[address] Nisha Dias MD) household members: significant other Smoking Status: Former smoker how long ago did patient quit smoking: Patient quit cigarette tobacco 2006, started as teen, 1.5-2 ppd. alcohol intake: former details: Prior 4-5 beers daily, stopped 6 months prior to current presentation. substance use type: does not use ROS Constitutional Constitutional: Reports fatigue, malaise and weakness Eyes Eyes: Denies blurry vision or change in vision ENT HEENT: Denies headache(s), loss taste/smell or nasal congestion Cardiovascular Cardiovascular: Reports dizziness and dyspnea Respiratory/Chest Respiratory/Chest: Reports cough and dyspnea Gastrointestinal Gastrointestinal: Denies abdominal pain, diarrhea, nausea or vomiting Genitourinary Genitourinary: Reports difficulty urinating Musculoskeletal Musculoskeletal: Denies arthralgias or back pain Integumentary Integumentary: Denies wounds Neurologic Neurologic: Reports syncope Psychiatric Psychiatric: Denies anxiety or depression Endocrine Endocrinology: Reports fatigue Hematologic/Lymphatic Hematologic/Lymphatic: Denies easy bleeding or easy bruising Physical Exam Const alert General Appearance: cooperative, ill appearing, frail and on BiPAP Nutritional Appearance: cachectic HEENT normocephalic and head/scalp atraumatic Eyes PERRL and EOMs intact bilaterally Neck supple General: trachea midline and CVC in place Resp Effort and Inspection: tachypneic Auscultation: diminished lung sounds; Negative for rales, rhonchi or wheezes Cardio regular rate and regular rhythm GI normal to inspection, nondistended, normoactive bowel sounds GI Narrative: +Ostomy Extremity no clubbing, cyanosis or edema Skin no rashes or lesions noted Neuro no focal motor deficits Psych cooperative and affect normal Lab / Micro Data Result Diagrams: 11/08/20 03:45 11/08/20 03:45 Labs: Laboratory Results - last 24 hr 11/07/20 11:58: WBC 0.4 L*, RBC 2.64 L, Hgb 8.6 L, Hct 26.5 L, MCV 100.4 H, MCH 32.6 H, MCHC 32.5, RDW Std Deviation 61.7 H, RDW Coeff of Natalie 16.9 H, Plt Count 133 L, MPV 9.5, Immature Gran % (Auto) 17.900 H, Neut % (Auto) 12.8 L, Lymph % (Auto) 66.7 H, [place] % (Auto) 2.6, Eos % (Auto) 0.0, Baso % (Auto) 0.0, Absolute Neuts (auto) 0.1 L, Absolute Lymphs (auto) 0.26 L, Nucleated RBC % 12.8 H, Differential Comment SCANNED, Diff Path Review July11/07/20 11:58: Sodium 134 L, Potassium 3.8, Chloride 99, Carbon Dioxide 26.0, Anion Gap 9, BUN 26 H, Creatinine 0.96, Estim Creat Clear Calc 54.07, Est GFR (MDRD) Af Amer 97, Est GFR (MDRD) Non-Af 81, BUN/Creatinine Ratio 26.9 H, Glucose 104, Calcium 8.4 L, Total Bilirubin 0.60, AST 35, ALT 43, Alkaline Phosphatase 128 H, Troponin I High Sens 10.2, Total Protein 6.0 L, Albumin 1.9 L , Globulin 4.1, Albumin/Globulin Ratio 0.5 L 11/07/20 11:58: Phosphorus 1.8 L, Magnesium 1.8 11/07/20 12:00: PT 15.0 H, INR 1.3, APTT 29.3 11/07/20 12:00: Lactic Acid 3.9 H* 11/07/20 15:05: COVID-19 (LUANN) Negative 11/07/20 17:10: Lactic Acid 4.8 H* 11/07/20 21:20: MRSA (PCR) Negative 11/07/20 21:20: Troponin I High Sens 17.2 11/08/20 01:00: Troponin I High Sens 19.3 11/08/20 03:45: WBC 0.5 L*, RBC 2.27 L, Hgb 7.4 L, Hct 23.9 L, MCV 105.3 H, MCH 32.6 H, MCHC 31.0 L, RDW Std Deviation 67.6 H, RDW Coeff of Natalie 17.4 H, Plt Cou nt 101 L, MPV 9.7, Neut % (Auto) Not Reportable, Absolute Neuts (auto) Not Reportable, Absolute Lymphs (auto) Not Reportable, Diff Path Review July11/08/20 03:45: Sodium 137, Potassium 4.7, Chloride 105, Carbon Dioxide 20.0 L, Anion Gap 12, BUN 31 H, Creatinine 1.10, Estim Creat Clear Calc 47.52, Est GFR (MDRD) Af Amer 84, Est GFR (MDRD) Non-Af 69, BUN/Creatinine Ratio 28.2 H, Glucose 91, Calcium 7.3 L, Total Bilirubin 0.60, AST 63 H, ALT 47, Alkaline Phosphatase 112, Total Protein 4.8 L, Albumin 1.5 L, Globulin 3.3, Albumin/Globulin Ratio 0.5 L Micro: Microbiology 11/07/20 12:00 Blood Culture (Wb) - Left Wrist Blood Culture - Preliminary 11/07/20 15:05 Mucosa - Nose Respiratory Panel (PCR) - Final ABG Data ABG results: ABG 11/07/20 15:50 Specimen Type ART Sample Site L Radial pH 7.40 Bicarbonate Actual 18.4 L Total CO2 19 Base Excess -6 L O2 Saturation 94 L O2 % 50 ABG pCO2 29.6 L ABG pO2 71 L Vent Mode BiLevel POC PEEP 4 POC Pressure Suppt 10 Radiology Impression Chest X-Ray 11/07/20 12:10 IMPRESSION: Patchy airspace opacity in both lungs which is likely infectious in etiology. Electronically Signed: Jl Romero MD at 12:54 EDT Tel , Service support , Chest X-Ray 11/07/20 19:55 IMPRESSION: Increasing right lower lobe consolidation. No evidence of pneumothorax status post right central line placement with tip in distal superior vena cava Electronically Signed: Toño Thornton MD at 20:25 EDT , Service support , Charges/Coding Procedures Hospitalists Procedures: [id number] [facility] H[facility]
[2020-11-08 05:41] LABS: Color, Urine Yellow (Yellow); Glucose, Dipstick Normal (Normal); Ketone-Dipstick Negative (Negative); Leukocyte Esterase-Dipstick 25 /ul (Negative); Nitrite-Dipstick Negative (Negative); Occult Blood-Urine 10 /ul (Negative); Protein-Dipstick 15 mg/dl (Negative); Urine Bilirubin Dipstick Negative (Negative); Urine Clarity Clear (Clear); Urine Urobilinogen Normal (Normal)
[2020-11-08 06:12] LABS: White Blood Cells 0-5 SEEN /hpf (0-5)
[2020-11-08 06:13] LABS: Bacteria 1+ /hpf (None Seen)
[2020-11-08] MEDS: 0.9% Normal Saline 1,000 ML 100 ML IV ×2 (06:26→16:14)
[2020-11-08] MEDS: Ipratropium/Albuterol Sulfate 3 ML AMPUL.NEB INHALATION ×4 (06:53→19:30)
--- NOTE | 2020-11-08 09:51 | PCM.PN.HOSP ---
Subjective Subjective Patient states that he feels pretty poorly. He remains on pressors of Levophed and vasopressin at this time with borderline blood pressures. Per discussion with Dr. Rollins, his discussion with Dr. Faustin indicates that his prognosis is poor with regards to his metastatic non-small cell lung CA. Objective Data Objective Data Vital Signs: Vital Signs Temp Pulse Resp BP Pulse Ox 99.5 F H 97 23 H 87/73 L 92 11/08/20 08:00 11/08/20 08:00 11/08/20 08:00 11/08/20 08:00 11/08/20 08:00 Oxygen Flow Rate (L/min) 6 Oxygen Delivery Method Bi-pap Weight: 60.4 kg Body Mass Index (BMI) 16.8 Intake & Output: Intake and Output for Last 24 Hours 11/06/20 11/07/20 11/08/20 23:59 23:59 23:59 Intake Total 3093.99 / 3150.29 1630.02 / 1630.02 Output Total 900 / 900 Balance 3093.99 / 3150.29 730.02 / 730.02 Lab / Micro Data Result Diagrams: 11/08/20 03:45 11/08/20 03:45 Labs: Laboratory Results - last 24 hr 11/07/20 11:58: WBC 0.4 L*, RBC 2.64 L, Hgb 8.6 L, Hct 26.5 L, MCV 100.4 H, MCH 32.6 H, MCHC 32.5, RDW Std Deviation 61.7 H, RDW Coeff of Natalie 16.9 H, Plt Count 133 L, MPV 9.5, Immature Gran % (Auto) 17.900 H, Neut % (Auto) 12.8 L, Lymph % (Auto) 66.7 H, [place] % (Auto) 2.6, Eos % (Auto) 0.0, Baso % (Auto) 0.0, Absolute Neuts (auto) 0.1 L, Absolute Lymphs (auto) 0.26 L, Nucleated RBC % 12.8 H, Differential Comment SCANNED, Diff Path Review July11/07/20 11:58: Sodium 134 L, Potassium 3.8, Chloride 99, Carbon Dioxide 26.0, Anion Gap 9, BUN 26 H, Creatinine 0.96, Estim Creat Clear Calc 54.07, Est GFR (MDRD) Af Amer 97, Est GFR (MDRD) Non-Af 81, BUN/Creatinine Ratio 26.9 H, Glucose 104, Calcium 8.4 L, Total Bilirubin 0.60, AST 35, ALT 43, Alkaline Phosphatase 128 H, Troponin I High Sens 10.2, Total Protein 6.0 L, Albumin 1.9 L, Globulin 4.1, Albumin/Globulin Ratio 0.5 L 11/07/20 11:58: Phosphorus 1.8 L, Magnesium 1.8 11/07/20 12:00: PT 15.0 H, INR 1.3, APTT 29.3 11/07/20 12:00: Lactic Acid 3.9 H* 11/07/20 15:05: COVID-19 (LUANN) Negative 11/07/20 17:10: Lactic Acid 4.8 H* 11/07/20 21:20: MRSA (PCR) Negative 11/07/20 21:20: Troponin I High Sens 17.2 11/08/20 01:00: Troponin I High Sens 19.3 11/08/20 03:45: WBC 0.5 L*, RBC 2.27 L, Hgb 7.4 L, Hct 23.9 L, MCV 105.3 H, MCH 32.6 H, MCHC 31.0 L, RDW Std Deviation 67.6 H, RDW Coeff of Natalie 17.4 H, Plt Count 101 L, MPV 9.7, Neut % (Auto) Not Reportable, Absolute Neuts (auto) Not Reportable, Absolute Lymphs (auto) Not Reportable, Diff Path Review July11/08/20 03:45: Sodium 137, Potassium 4.7, Chloride 105, Carbon Dioxide 20.0 L, Anion Gap 12, BUN 31 H, Creatinine 1.10, Estim Creat Clear Calc 47.52, Est GFR (MDRD) Af Amer 84, Est GFR (MDRD) Non-Af 69, BUN/Creatinine Ratio 28.2 H, Glucose 91, Calcium 7.3 L, Total Bilirubin 0.60, AST 63 H, ALT 47, Alkaline Phosphatase 112, Total Protein 4.8 L, Albumin 1.5 L, Globulin 3.3, Albumin/Globulin Ratio 0.5 L 11/08/20 04:50: Urine Color Yellow, Urine Clarity Clear, Urine pH 7.0, Ur Specific [place] 1.010, Urine Protein 15 H, Urine Glucose (UA) Normal, Urine Ketones Negative, Urine Occult Blood 10 H, Urine Nitrite Negative, Urine Bilirubin Negative, Urine Urobilinogen Normal, Ur Leukocyte Esterase 25 H, Urine RBC 0 SEEN, Urine WBC 0-5 SEEN, Ur Squamous Epith Cells 0 SEEN, Urine Bacteria 1+, Urine Mucus 0 SEEN 11/08/20 08:00: Blood Type O POSITIVE, Antibody Screen NEGATIVE Micro: Microbiology 11/07/20 12:10 Blood Culture (Wb) - Right Forearm Blood Culture - Preliminary 11/08/20 04:50 Urine, Random Legionella Antigen - Final 11/08/20 04:50 Urine, Random Streptococcus pneumoniae Antigen (M - Final 11/07/20 12:00 Blood Culture (Wb) - Left Wrist Blood Culture - Preliminary 11/07/20 15:05 Mucosa - Nose Respiratory Panel (PCR) - Final ABG Data ABG results: ABG 11/07/20 15:50 Specimen Type ART Sample Site L Radial pH 7.40 Bicarbonate Actual 18.4 L Total CO2 19 Base Excess -6 L O2 Saturation 94 L O2 % 50 ABG pCO2 29.6 L ABG pO2 71 L Vent Mode BiLevel POC PEEP 4 POC Pressure Suppt 10 Radiography Diagnostic Testing: Radiology Impression Chest X-Ray 11/07/20 12:10 IMPRESSION: Patchy airspace opacity in both lungs which is likely infectious in etiology. Electronically Signed: Jl Romero MD at 12:54 EDT Tel , Service support , Chest X-Ray 11/07/20 19:55 IMPRESSION: Increasing right lower lobe consolidation. No evidence of pneumothorax status post right central line placement with tip in distal superior vena cava Electronically Signed: Toño Thornton MD at 20:25 EDT , Service support , Physical Exam Const alert, oriented x3 and no apparent distress Constitutional Narrative: Cachectic elderly white male who appears older than stated age, lying in bed, no signs of acute distress but appears as if he feels poorly, mild toxic appearance Exam Limitations: no limitations HEENT HEENT Narrative: Poor dentition Head and Scalp: normocephalic Mouth: dry mucous membranes Eyes PERRL and EOMs intact bilaterally Eyes Narrative: Pale conjunctiva, no icterus Neck no lymphadenopathy and supple Neck Narrative: Trachea midline Resp no retractions and no use of accessory muscles Resp Narrative: Severely diminished diffusely, mild tachypnea Cardio regular rate, regular rhythm, S1 normal heart sound, S2 normal heart sound, no murmurs, no rub, no gallops, no clicks and no JVD GI normal to inspection, nondistended, normoactive bowel sounds, soft to palpation, non-tender and non-distended GI Narrative: Thin Extremity no clubbing, cyanosis or edema Extremity Narrative: Decreased lean muscle mass Peripheral Pulses: Yes pulses 2+ throughout Skin no rashes or lesions noted, no wounds, no jaundice, no petechiae and no mottling Skin Narrative: Right IJ clean and dry and dressing intact Neuro oriented x3, CN's II-XII intact bilaterally, moves all extremities and no focal motor deficits Neuro Narrative: Generalized weakness Sensorium / Orientation: awake and alert Speech: speech normal Psych Psych Narrative: Flat affect Assessment & Plan Assessment/Plan (1) Septic shock: (2) NSCLC metastatic to bone: (3) Acute respiratory failure with hypoxia: (4) Pancytopenia: (5) Atrial fibrillation with RVR: PLAN: Gram-negative septic shock -Patient was dosed with 30mL/kg body weight and despite adequate fluid resuscitation required vasopressors -Patient remains on pressors of Levophed and vasopressin at this time -Wean as able -Continue broad-spectrum antibiotics -Await organism identification and sensitivities -Suspect urine/pulmonary sources -Cultures pending, UA however is unimpressive -MRSA PCR is negative -Goal MAP is 65 -Continue stress dose steroids as patient is on baseline Decadron Acute hypoxic respiratory failure -Continue oxygen supplementation -Patient is currently on BiPAP with an FiO2 of 60%, SPO2 is 92 to 94% -Wean as able -Continue broad-spectrum antibiotics -Viral respiratory panel is negative -Strep pneumo and Legionella urine antigens are negative Pancytopenia -Suspect related to bone marrow infiltration with regards to his cancer -Patient denies chemotherapy -I have asked heme-onc if Neupogen will be of assistance in this case -Awaiting reply -Monitor counts -May also be exacerbated by sepsis as his white count and platelet count were normal in September of this year -Baseline hemoglobin appears to be 8-9 Lactic acidosis -Secondary to shock -Continue pressors -Patient has been adequately volume resuscitated PAF -Patient is currently normal sinus rhythm -Continue amiodarone -Continue Eliquis -Continue to monitor on telemetry Metastatic non-small cell lung CA -Mets to bones -Patient denies any chemotherapy or radiation -Oncologist is aware that the patient is admitted and indicates prognosis is overall very poor -Palliative care consultation COPD -Continue aerosols -IS -Supportive oxygen 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
--- NOTE | 2020-11-08 10:05 | CASEMGMT ---
Palliative screening tool completed per [facility] policy, d/t [employer] [address] Rollins request. Patient meets criteria, faxed screening tool and face sheet to [facility]. Marivel Posadas RNCM
--- NOTE | 2020-11-08 10:07 | CASEMGMT ---
RNCM Initial Assessment: Assessment deferred at this time as per primary nurse- Patient on Bipap and pressors and not sure that patient will allow anyone in room- patient not feeling well. Patient has a H/o Metastatic cancer. Has a Significant other. Was Dc'd from TCU on 06/25/20. RADHA Rogel
[2020-11-08] MEDS: Midodrine HCl 5 MG Tablet 2.5 MG PO ×2 (10:18→21:39)
[2020-11-08] MEDS: Amiodarone 200 MG Tablet 100 MG PO ×2 (10:18→16:12)
[2020-11-08] MEDS: APIXABAN 2.5 MG TABLET PO ×2 (10:18→21:39)
[2020-11-08] MEDS: Famotidine 20 MG Tablet PO ×2 (10:18→21:38)
[2020-11-08] MEDS: levoFLOXacin IV 750 MG/150 ML BAG 100 MG IV (10:25)
--- NOTE | 2020-11-08 16:06 | PCM.HP.PAL ---
[facility] - General General Date of Admission: 11/07/20 Chief Complaint: Syncopal event, hypoxia HPI Narrative ZAY WOMACK, is a 75 M who presents to [facility] 11/07/2020 with a syncopal event and hypoxemia. Patient had approximately 10-day history of progressive shortness of breath, cough, and yellow sputum production. He developed significant fatigue and malaise and was unable to perform independent ADLs so presented to the ED. Initial BP was 62/44, afebrile, respirations 24, and 91% on 2 L. His hemoglobin was around his baseline at 8.6. He did show evidence of neutropenia and lymphopenia, lactic acid was elevated at 3.9. He does have a history of malnutrition. Chest x-ray showed evidence of infectious etiology with patchy airspace opacities in both lungs. Blood pressure remained low. Patient admitted to the CVICU for further evaluation and management. A central line was placed for blood pressure support/pressors. He is on stress dose steroids and BiPAP therapy, as well as broad-spectrum antibiotics and bronchodilator therapy. Typically has to take midodrine at home for blood pressure support. Palliative care was consulted due to his multiple readmissions to the hospital secondary to respiratory distress, syncope and malaise, and abdominal pain. He was originally seen by palliative when hospitalized in May 2020, at that time he seemed agreeable to palliative services but declined when he was discharged to TCU for skilled therapy. At that time, he had a sigmoid volvulus and ongoing abdominal pain s/p open sigmoidectomy with ostomy to the left lower quadrant. He also was seen by Dr. Johnston for new onset left facial weakness. He had this left ear pain and hearing loss and was found to have a middle ear effusion which was treated with myringotomy tube placement. He then developed left facial palsy with inability to close the eye and facial droop. At that time, an MRI showed a large mass along the left jugular foramen in the setting of active metastatic non-small cell lung carcinoma. He was eventually discharged from TCU 06/25/2020. Patient again was admitted 10/10 through 10/12/2020 with syncope, he was currently getting chemotherapy. Patient has a history of NSCLC with bone metastases, follows with Dr. Faustin. He does have associated pancytopenia. He completed 6 weeks of radiation and has been on chemotherapy. Also with notable weight loss since the beginning of the year. 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 He is on mirtazapine for depression and anxiety. He does have a history of alcohol abuse but has been sober for approximately 6 months. Patient still lives with his significant other, Ann. He is a remote smoker. Remains a full code, which was discussed with the hospitalist. Zay takes acetaminophen 1 g as needed at home for pain, as well as oxycodone 5 mg every 4 hours as needed. Also takes melatonin for insomnia. He is on a maintenance dose of dexamethasone 4 mg daily for now. He denies any current nausea or vomiting, has been having intermittent episodes. He feels very weak and expresses concern he will make it out of the hospital. He has had a low-grade temp today and remains mildly tachycardic with hypotension. He is on airVo at 50% and is maintaining saturations greater than 90%. He appears very frail and emaciated. Denies any edema or chest pain. Short of breath at times. Dates therapy was in to see him today and he could not even get out of bed. Does not currently have any pain, does get intermittent pain to the bones. Discussed palliative services, he remembers some of our last conversation back in May. He is very interested in services at this time and would like a liaison to reach out to his significant other and arrange to meet to obtain more information. I did explain the limitations of palliative care and he verbalized understanding. [facility] Medical History Alcohol abuse Atrial fibrillation Zhu's palsy Colostomy in place COPD (chronic obstructive pulmonary disease) Depression History of open sigmoidectomy Lung cancer metastatic to bone Parkinson's disease Substance abuse Home Medications promethazine 25 mg PO Q6H PRN PRN 05/31/20 [History Last Taken Unknown] acetaminophen 1,000 mg PO Q6H PRN PRN tablet 06/21/20 [Rx Last Taken 10/09/20] apixaban 2.5 mg PO BID #60 tablet 06/21/20 [Rx Last Taken 11/06/20] benzonatate 1 - 2 mg PO TID PRN PRN 10/09/20 [History Last Taken Unknown] dexamethasone 4 mg PO DAILY 10/09/20 [History Last Taken 11/06/20] famotidine 20 mg PO BID 10/09/20 [History Last Taken 11/06/20] gabapentin 100 mg PO TID 10/09/20 [History Last Taken 11/06/20] oxycodone 5 mg PO Q4H PRN 10/09/20 [History Last Taken 11/07/20] amiodarone 100 mg PO BID 11/07/20 [History Last Taken 11/06/20] melatonin 3 mg PO QHS 11/07/20 [History Last Taken 11/06/20] midodrine 2.5 mg PO BID 11/07/20 [History Last Taken 11/06/20] mirtazapine 15 mg PO QHS 11/07/20 [History Last Taken 11/06/20] Allergy/AdvReac Type Severity Reaction Status Date / Time Penicillins AdvReac Rash Verified 11/03/20 09:03 sulfamethoxazole AdvReac Rash Verified 11/03/20 09:03 [From Bactrim] trimethoprim [From Bactrim] AdvReac Rash Verified 11/03/20 09:03 Family History Mother CVA (cerebral vascular accident) Father Cancer Oral/throat CA with history of chew tobacco use. Surgical History Albert's pouch of intestine History of cardioversion (~06/02/20) History of eyelid surgery Social History household members: significant other Smoking Status: Former smoker how long ago did patient quit smoking: Patient quit cigarette tobacco 2006, started as teen, 1.5-2 ppd. alcohol intake: former details: Prior 4-5 beers daily, stopped 6 months prior to current presentation. substance use type: does not use ROS ROS Narrative Review of systems otherwise negative from a constitutional, HEENT, respiratory, cardiovascular, GI, genitourinary, musculoskeletal, skin, neurologic, psychiatric and hematologic system unless stated above. Physical Exam Const alert General Appearance: cooperative, ill appearing and frail Nutritional Appearance: cachectic HEENT normocephalic and head/scalp atraumatic Neck supple General: trachea midline Resp Effort and Inspection: symmetric chest movement; Negative for able to speak in complete sentences, pursed lip breathing, actively coughing or audible wheezes Auscultation: rales right and diminished lung sounds; Negative for rhonchi or wheezes Cardio regular rhythm, S1 normal heart sound and S2 normal heart sound Rate: tachycardic GI normal to inspection, nondistended, normoactive bowel sounds GI Narrative: ostomy Extremity no clubbing, cyanosis or edema Skin no rashes or lesions noted Skin Narrative: Port to chest Neuro CN's II-XII intact bilaterally and no focal motor deficits Neuro Narrative: Chronic left-sided facial droop due to Zhu's palsy/mass Psych mental status grossly normal Attitude: calm and engaged Activity / Motor Behavior: appropriate eye contact Thought Process: normal thought process Assessment & Plan Assessment/Plan (1) Debility: (2) Shortness of breath: (3) NSCLC metastatic to bone: (4) Leukopenia due to antineoplastic chemotherapy: (5) Malnutrition: QUALIFIERS: Malnutrition type: unspecified type Qualified Code(s): E46 - Unspecified protein-calorie malnutrition (6) Weakness: (7) Pancytopenia: (8) Acute respiratory failure with hypoxia: (9) Septic shock: (10) Anemia: QUALIFIERS: Anemia type: unspecified type Qualified Code(s): D64.9 - Anemia, unspecified (11) Nausea: (12) Facial palsy: PLAN: 75-year-old male with non-small cell lung cancer metastatic to bone, admitted with septic shock, respiratory failure with hypoxia requiring airVo, and significant debility and weakness, seen today for palliative care referral for symptom management when he returns home. 1. Debility/weakness: Likely multifactorial but currently getting chemotherapy and has significant pancytopenia and anemia. Patient would benefit from palliative services for close monitoring at home and coordination of care with his oncologist and specialists. He may be a candidate for Neupogen, unclear if oncology will be consulted or not. 2. Shortness of breath: Somewhat improved since admission, remains on airVo and activity tolerance is still quite poor. He will need intensive therapy and will likely have prolonged recovery. He remains on antimicrobials for possible pneumonia. We will continue to follow. 3. Malnutrition: Has been exacerbated since left-sided palsy of the face, having difficulty eating. Dietitian consult. 4. NSCLC with mets to the bone and brain: He has underwent gamma knife therapy in the past. As noted previously, radiation complete, currently receiving chemotherapy but was unable to get his last treatment. I suspect he would be hospice appropriate if he decides to decline further treatment for his cancer. His prognosis is quite poor. Patient would benefit from more intensive hospice services and [id number] nursing availability 21/10. #5. Septic shock/anemia/nausea/facial palsy/pancytopenia/leukopenia: Complicates overall care, management, recovery, and prognosis. Defer management to primary team and oncology. Thank you for the opportunity to participate in this patient's care, please do not hesitate to contact [facility] Palliative with any further questions or concerns. Palliative direct line is [phone]. We will have a liaison call the patient's significant other on Friday, this will give him time to may be improve some and go to a regular nursing floor where his can be present for a meeting. Greater than 50% of F2F visit dedicated to education and counseling of palliative care services, medications, comorbid conditions and potential assistance with management, and plan of care moving forward. Start time: 1714 End time: 1752
--- NOTE | 2020-11-08 19:30 | CPS ---
decreased AirVo FiO2 to 65%
[2020-11-08] MEDS: MELATONIN 3 MG TABLET PO (21:38)
[2020-11-08] MEDS: Mirtazapine 15 MG Tablet 7.5 MG PO (21:51)
--- NOTE | 2020-11-08 23:05 | CPS ---
decreased AirVo FiO2 to 54%
[2020-11-09] VITALS (42 sets, daily range): BP systolic 93–122; BP diastolic 55–90; PULSE 99–116; RESP 12–35; TEMP 37.5–38.3; O2SAT 87–99
[2020-11-09] MEDS: 0.9% Normal Saline 1,000 ML 100 ML IV (02:14)
[2020-11-09 04:19] LABS: Anion Gap 9 (5-15); BUN 17 mg/dL (7-18); BUN/Creat Ratio 28.1 RATIO (10-20); Calcium,Total 7.4 mg/dL (8.5-10.1); Chloride 109 mmol/L (98-107); Creatinine, Serum 0.61 mg/dL (0.70-1.30); EST Glomerular Filtration Rate 138 mL/min (>60); Est Glom Filt Rate - Afr Amer 167 mL/min (>60); Estimated Creatinine Clearance 54.53 ml/min; Glucose 111 mg/dL (74-106); Potassium 3.5 mmol/L (3.5-5.1); Sodium Level 140 mmol/L (136-145)
[2020-11-09 04:21] LABS: Absolute Lymphocyte Count 0.09 X10^3/uL (0.83-4.51); Absolute Neutrophil Count 0.8 X10^3/uL (2.0-7.7); Basophil# 0.01 X10^3/uL; Basophil% 1.1 % (0-1); Hematocrit 20.8 % (40-54); Hemoglobin 6.7 g/dL (13.0-16.5); Lymphocyte # 0.09 X10^3/ul (0.83-4.51); Lymphocyte % 9.7 % (19-41); Mean Corp Hgb Conc 32.2 g/dL (32-36); Mean Corpuscular Hgb 33.2 pg (27.0-32.0); Mean Platelet Vol. 9.8 fl (6.2-12.0); Monocyte# 0.06 X10^3/uL; Monocyte% 6.5 % (0-10); NRBC Flagged by Analyzer 7.5 % (0-5); Neutrophil # 0.76 X10^3/uL (2.7-7.7); Neutrophil % 81.6 % (47-70); POSITIVE COUNT YES; POSITIVE DIFFERENTIAL YES; POSITIVE MORPHOLOGY YES; Platelet Count 63 K/mm3 (150-450); RBC Distribution Width CV 17.9 % (11.6-14.6); RBC Distribution Width SD 67.8 fl (35.1-43.9); Red Blood Count 2.02 M/mm3 (4.6-6.2)
[2020-11-09 04:31] LABS: Differential Indicated SCAN CRITERIA MET; White Blood Count 0.9 K/mm3 (4.4-11.0)
[2020-11-09 04:51] LABS: Anisocytosis 2+; Polychromasia RARE
[2020-11-09 04:52] LABS: Platelet Estimate MOD DEC (ADEQ)
[2020-11-09] MEDS: CHLORHEXIDINE GLUC 2% CLOTH 1 EACH TOWELETTE TOPICAL (05:30)
[2020-11-09] MEDS: Hydrocortisone Sod Succinate 100 MG/2 ML Vial 50 MG IV ×3 (05:30→20:51)
[2020-11-09] MEDS: Gabapentin 100 MG Capsule PO ×3 (05:30→20:53)
--- NOTE | 2020-11-09 05:44 | PN.CC_ITS ---
Assessment & Plan Assessment/Plan (1) Septic shock: PLAN: RECOMMENDATIONS: 1. Stop continuous IV fluids today. 2. Transfuse 2 units packed red blood cells. Check H&H posttransfusion. 3. Continue to wean FiO2 to maintain oxygen saturations at or above 90%. 4. Continue antimicrobials, pending finalized infectious work-up. 5. Continue scheduled bronchodilator therapy. IMPRESSIONS: 1. Gram-negative septic shock Improving. The patient appears to have gram-negative bacteremia with possible urinary and pulmonary sources. At this time, the patient has been weaned from vasopressor support. We will begin to wean his stress dose steroids today. He has been adequately volume resuscitated. Therefore, continuous supplemental fluids can be discontinued. Continue current antimicrobial management, pending finalized culture results. 2. Acute hypoxemic respiratory failure Improving. The patient does have questionable underlying obstructive lung disease with what appears to be superimposed pneumonia. Although the patient initially required noninvasive positive pressure ventilatory support for stabi lization of his respiratory status, he has since been weaned to Airvo heated high flow oxygen. Plan to continue to wean FiO2 to maintain oxygen saturations at or above 90%. The patient will be maintained on scheduled bronchodilator therapy. Antimicrobials will be continued as noted above. 3. Pancytopenia Likely related to recent chemotherapy and consumption in the setting of sepsis. Given that the patient has a hemoglobin of 6.7 g/dL this morning, will plan to transfuse blood products today. 4. History of metastatic non-small cell lung cancer The patient has a history of metastatic non-small cell lung cancer with overall poor prognosis, per my discussion with his oncologist. 5. History of paroxysmal atrial fibrillation/questionable COPD/depression/anxiety Complicates care, management, recovery and prognosis. Continue home indications as indicated. This note was generated with [employer] dictation software. It may contain incorrect words, spelling, and punctuation that were not noted in checking the note before signing. Subjective Subjective The patient was seen and examined at the bedside this morning. Events from the last 24 hours have been reviewed. The patient continues to have some low-grade fevers. The patient remains tachycardic and tachypneic. He is currently maintaining appropriate oxygen saturations Airvo heated high flow with an FiO2 requirement of 50% and flow rate of 50 L/min. The patient is currently documented to be overall net +4 L for the hospital admission. The patient remains pancytopenic with a hemoglobin this morning noted to be 6.7 g/dL. Platelet count is low at 63,000. The patient was able to be weaned off of all vasopressor support over the last 24 hours. Objective Data Objective Data The patient's most recent lab work, culture data and imaging studies have all been personally reviewed. Surface echocardiogram from May 2020 demonstrated normal LV size with an ejection fraction of 45%. Pulmonary artery systolic pressure was estimated to be 30 mmHg. Preliminary blood cultures from November 07 were positive for gram-negative rods. Respiratory viral panel was negative. Strep and urine Legionella antigens were negative. Sputum and urine cultures are pending. Vital Signs: Vital Signs Temp Pulse Resp BP Pulse Ox 99.5 F H 110 H 28 H 97/66 92 11/09/20 05:00 11/09/20 05:00 11/09/20 05:00 11/09/20 05:00 11/09/20 05:00 Oxygen Flow Rate (L/min) 50 Oxygen Delivery Method Airvo Weight: 59.6 kg Body Mass Index (BMI) 16.8 Intake & Output: Intake and Output for Last 24 Hours 11/07/20 11/08/20 11/09/20 23:59 23:59 23:59 Intake Total 3093.99 / 3150.29 3465.89 / 4359.06 1116.50 / 1116.50 Output Total 2360 / 2360 1250 / 1250 Balance 3093.99 / 3150.29 1105.89 / 1999.06 -133.50 / -133.50 Medical Nutrition Assessment Dietitian: Nutrition Therapy Diagnosis Start: 11/08/20 10:03 Freq: Status: Active Protocol: Document 11/08/20 10:25 AG (Rec: 11/08/20 10:26 [id number]) Nutrition Malnutrition Evidence of Malnutrition Exists Yes Malnutrition (severe): Chronic Evidenced By Suboptimal Energy Intake ( Severe),Weight Loss (Severe) Clinical Problem Chronic Disease or Condition Related Malnutrition Etiology severe, chronic malnutrition r /t inadequate energy intake w/ increased nutrient needs d/t metastatic cancer Signs/Symptoms as evidenced by chronically decreased appetite (estimated to be meeting <75% of estimated nutritional needs x 6 months), w/ worsening PO intake estimated to be meeting <50% of estimated nutritional needs x 1 week [employer]; unintentional wt loss of 22.4# /15% x 6 months; loss of subcutaneous fat, obvious muscle wasting upon physical exam; BMI 17.6 Status Active Problem Recommendation Dietitian Recommendations/Changes Continue regular diet as medically indicated. Will add 120mL Ensure Enlive 4x/day, Magic Cup BID, and fortify foods when possible for additional calories/protein if consumed. Lab / Micro Data Attestation: I reviewed the patient's lab results. Result Diagrams: 11/09/20 04:00 11/09/20 04:00 Labs: Laboratory Results - last 24 hr 11/08/20 04:50: Urine Color Yellow, Urine Clarity Clear, Urine pH 7.0, Ur Specific [place] 1.010, Urine Protein 15 H, Urine Glucose (UA) Normal, Urine Ketones Negative, Urine Occult Blood 10 H, Urine Nitrite Negative, Urine Bilirubin Negative, Urine Urobilinogen Normal, Ur Leukocyte Esterase 25 H, Urine RBC 0 SEEN, Urine WBC 0-5 SEEN, Ur Squamous Epith Cells 0 SEEN, Urine Bacteria 1+, Urine Mucus 0 SEEN 11/08/20 08:00: Blood Type O POSITIVE, Antibody Screen NEGATIVE 11/09/20 04:00: WBC 0.9 L*, RBC 2.02 L, Hgb 6.7 L, Hct 20.8 L, MCV 103.0 H, MCH 33.2 H, MCHC 32.2, RDW Std Deviation 67.8 H, RDW Coeff of Natalie 17.9 H, Plt Count 63 L, MPV 9.8, Immature Gran % (Auto) 1.100 H, Neut % (Auto) 81.6 H, Lymph % (Auto) 9.7 L, [place] % (Auto) 6.5, Eos % (Auto) 0.0, Baso % (Auto) 1.1 H, Absolute Neuts (auto) 0.8 L, Absolute Lymphs (auto) 0.09 L, Nucleated RBC % 7.5 H, Diff Path Review May foll, Platelet Estimate MOD DEC, Polychromasia RARE, Anisocytosis 2+ 11/09/20 04:00: Sodium 140, Potassium 3.5, Chloride 109 H, Carbon Dioxide 22.0, Anion Gap 9, BUN 17, Creatinine 0.61 L, Estim Creat Clear Calc 54.53, Est GFR (MDRD) Af Amer 167, Est GFR (MDRD) Non-Af 138, BUN/Creatinine Ratio 28.1 H, Glucose 111 H, Calcium 7.4 L Micro: Microbiology 11/08/20 10:20 Sputum, Expectorated/Coughed Gram Stain - Final 11/07/20 12:10 Blood Culture (Wb) - Right Forearm Blood Culture - Preliminary 11/08/20 04:50 Urine, Random Legionella Antigen - Final 11/08/20 04:50 Urine, Random Streptococcus pneumoniae Antigen (M - Final 11/07/20 12:00 Blood Culture (Wb) - Left Wrist Blood Culture - Preliminary 11/07/20 15:05 Mucosa - Nose Respiratory Panel (PCR) - Final Physical Exam Const alert and oriented x3 General Appearance: cooperative and ill appearing HEENT normocephalic and head/scalp atraumatic HEENT Narrative: Mild right facial droop. Eyes PERRL, EOMs intact bilaterally and conjunctivae normal Neck supple General: trachea midline and CVC in place Chest inspection of chest normal Resp Effort and Inspection: tachypneic Auscultation: diminished lung sounds; Negative for rales, rhonchi or wheezes Cardio regular rate and regular rhythm GI normal to inspection, nondistended, normoactive bowel sounds Extremity no clubbing, cyanosis or edema Skin no rashes or lesions noted Neuro no focal motor deficits Psych Mood & Affect: flat affect Charges/Coding Visit Charges Inpatient E&M: 80067 [facility] H[facility] L3
[2020-11-09] MEDS: Ipratropium/Albuterol Sulfate 3 ML AMPUL.NEB INHALATION ×4 (06:46→18:39)
[2020-11-09] MEDS: Midodrine HCl 5 MG Tablet 2.5 MG PO ×2 (08:13→20:53)
[2020-11-09] MEDS: Famotidine 20 MG Tablet PO ×2 (08:14→20:54)
[2020-11-09] MEDS: Amiodarone 200 MG Tablet 100 MG PO ×2 (08:14→16:11)
[2020-11-09] MEDS: APIXABAN 2.5 MG TABLET PO ×2 (08:14→20:52)
[2020-11-09] MEDS: levoFLOXacin IV 750 MG/150 ML BAG 100 MG IV (08:19)
[2020-11-09 09:03] LABS: Pathologist Review Reviewed
[2020-11-09 09:07] LABS: Pathologist Review Reviewed
[2020-11-09] MEDS: TBO-FILGRASTIM 300 MCG/0.5 ML ML SC (10:21)
[2020-11-09 10:57] LABS: Pathologist Review Reviewed
--- NOTE | 2020-11-09 11:52 | PN.HOSP_ITS ---
Subjective Subjective Patient states he is feeling a little bit better today. Notes that his breathing has improved. No overnight issues. His hemoglobin did drop to 6.7 and 2 L of blood were ordered by critical care already this morning. He has been off pressors since 4:00 yesterday afternoon. Objective Data Objective Data Vital Signs: Vital Signs Temp Pulse Resp BP Pulse Ox 99.7 F H 105 H 20 H 105/71 93 11/09/20 11:41 11/09/20 11:43 11/09/20 11:41 11/09/20 11:41 11/09/20 11:41 Oxygen Flow Rate (L/min) 50 Oxygen Delivery Method Airvo Weight: 59.6 kg Body Mass Index (BMI) 16.8 Intake & Output: Intake and Output for Last 24 Hours 11/07/20 11/08/20 11/09/20 23:59 23:59 23:59 Intake Total 3093.99 / 3150.29 3465.89 / 4359.06 2106.67 / 2106.67 Output Total 2360 / 2360 1500 / 1500 Balance 3093.99 / 3150.29 1105.89 / 1999.06 606.67 / 606.67 Medical Nutrition Assessment Dietitian: Nutrition Therapy Diagnosis Start: 11/08/20 10:03 Freq: Status: Active Protocol: Document 11/08/20 10:25 AG (Rec: 11/08/20 10:26 AG [id number]) Nutrition Malnutrition Evidence of Malnutrition Exists Yes Malnutrition (severe): Chronic Evidenced By Suboptimal Energy Intake ( Severe),Weight Loss (Severe) Clinical Problem Chronic Disease or Condition Related Malnutrition Etiology severe, chronic malnutrition r /t inadequate energy intake w/ increased nutrient needs d/t metastatic cancer Signs/Symptoms as evidenced by chronically decreased appetite (estimated to be meeting <75% of estimated nutritional needs x 6 months), w/ worsening PO intake estimated to be meeting <50% of estimated nutritional needs x 1 week [employer]; unintentional wt loss of 22.4# /15% x 6 months; loss of subcutaneous fat, obvious muscle wasting upon physical exam; BMI 17.6 Status Active Problem Recommendation Dietitian Recommendations/Changes Continue regular diet as medically indicated. Will add 120mL Ensure Enlive 4x/day, Magic Cup BID, and fortify foods when possible for additional calories/protein if consumed. Lab / Micro Data Result Diagrams: 11/09/20 04:00 11/09/20 04:00 Labs: Laboratory Results - last 24 hr 11/07/20 11:58: Diff Path Review Reviewed 11/08/20 03:45: Diff Path Review Reviewed 11/08/20 08:00: Crossmatch See Detail 11/09/20 04:00: WBC 0.9 L*, RBC 2.02 L, Hgb 6.7 L, Hct 20.8 L, MCV 103.0 H, MCH 33.2 H, MCHC 32.2, RDW Std Deviation 67.8 H, RDW Coeff of Natalie 17.9 H, Plt Count 63 L, MPV 9.8, Immature Gran % (Auto) 1.100 H, Neut % (Auto) 81.6 H, Lymph % (Auto) 9.7 L, [place] % (Auto) 6.5, Eos % (Auto) 0.0, Baso % (Auto) 1.1 H, Absolute Neuts (auto) 0.8 L, Absolute Lymphs (auto) 0.09 L, Nucleated RBC % 7.5 H, Diff Path Review Reviewed, Platelet Estimate MOD DEC, Polychromasia RARE, Anisocytosis 2+ 11/09/20 04:00: Sodium 140, Potassium 3.5, Chloride 109 H, Carbon Dioxide 22.0, Anion Gap 9, BUN 17, Creatinine 0.61 L, Estim Creat Clear Calc 54.53, Est GFR (MDRD) Af Amer 167, Est GFR (MDRD) Non-Af 138, BUN/Creatinine Ratio 28.1 H, Glucose 111 H, Calcium 7.4 L Micro: Microbiology 11/07/20 12:00 Blood Culture (Wb) - Left Wrist Blood Culture - Preliminary GNR Poss Pseudomonas sp 11/07/20 12:10 Blood Culture (Wb) - Right Forearm Blood Culture - Preliminary GNR Poss Pseudomonas sp 11/08/20 10:20 Sputum, Expectorated/Coughed Gram Stain - Final 11/08/20 04:50 Urine, Random Legionella Antigen - Final 11/08/20 04:50 Urine, Random Streptococcus pneumoniae Antigen (M - Final 11/07/20 15:05 Mucosa - Nose Respiratory Panel (PCR) - Final Physical Exam Const alert, oriented x3 and no apparent distress Constitutional Narrative: Cachectic elderly white male who appears older than stated age lying in bed on high flow nasal cannula/airflow, appears comfortable at this time Exam Limitations: no limitations HEENT head/scalp atraumatic HEENT Narrative: Dry mucous membranes, fair dentition, no thrush Head and Scalp: normocephalic Resp no retractions and no use of accessory muscles Resp Narrative: Diffusely diminished but clear Auscultation: Negative for crackles, rales, rhonchi or wheezes Cardio regular rhythm, S1 normal heart sound, S2 normal heart sound, no murmurs, no rub, no gallops, no clicks and no JVD Cardio Narrative: Mild tachycardia GI normal to inspection, nondistended, normoactive bowel sounds, soft to palpation, non-tender, non-distended and hepatosplenomegaly GI Narrative: Thin Palpation: Negative for tender, guarding or hernia Extremity normal to inspection and no clubbing, cyanosis or edema Peripheral Pulses: Yes pulses 2+ throughout Skin no rashes or lesions noted, no wounds, skin turgor normal, no jaundice, no petechiae and no mottling Neuro oriented x3, CN's II-XII intact bilaterally, moves all extremities and no focal motor deficits Sensorium / Orientation: awake and alert Speech: speech normal Motor Exam: strength 5/5 throughout Assessment & Plan Assessment/Plan (1) Acute respiratory failure with hypoxia: (2) Septic shock: (3) Pancytopenia: (4) Pseudomonal bacteremia: PLAN: Septic shock secondary to gram-negative bacteremia--> suspected Pseudomonas -Patient was dosed with 30mL/kg body weight and despite adequate fluid resuscitation required vasopressors -Patient was able to be weaned from pressors of Levophed and vasopressin yester day afternoon -BP remains stable -Continue broad-spectrum antibiotics -Await organism identification and sensitivities--> initial presumption is Pseudomonas on blood culture but will wait for finalized report -Suspect urine/pulmonary sources -Cultures remain pending -MRSA PCR is negative -Goal MAP is 65 -Continue stress dose steroids as patient is on baseline Decadron Acute hypoxic respiratory failure -Continue oxygen supplementation -Patient has been converted to air Vo with a flow of 50 L/min and an FiO2 of 48% -SpO2 is 93 to 95% on this -Continue to wean as able -Continue broad-spectrum antibiotics -Viral respiratory panel is negative -Strep pneumo and Legionella urine antigens are negative Pancytopenia -Suspect related to bone marrow infiltration with regards to his cancer -Patient denies chemotherapy -Granix ordered per discussion with heme-onc -Packed red blood cells ordered -Continue to monitor counts -May also be exacerbated by sepsis as his white count and platelet count were normal in September of this year -Baseline hemoglobin appears to be 8-9 -Suspect drop in hemoglobin is more related to dilution with fluid resusc itation there are no signs of acute blood loss PAF -Patient is currently normal sinus rhythm -Continue amiodarone -Continue Eliquis -Continue to monitor on telemetry Metastatic non-small cell lung CA -Mets to bones -Patient was getting chemotherapy and had undergone gamma knife radiation in the past -Oncologist is aware that the patient is admitted and indicates prognosis is overall very poor -Palliative care following COPD -Continue aerosols -IS -Supportive oxygen 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
--- NOTE | 2020-11-09 11:59 | CHAPLAIN ---
Type of Pastoral Visit _x__ Initial Visit ___ Follow-up Visit ___ On-call Visit ___ General Patient Visit ___ Spiritual Assessment ___ Family Conference ___ Bereavement ___ Rapid Response ___ Code Blue ___ Other (describe below) Pastoral Care Referral From _x__ Patient ___ Family ___ Nurse ___ Physician ___ Public Defender ___ Artificial Inseminator ___ Other (describe below) Sacrament/Intervention _x__ Active listening ___ Anointing ___ Uatsdin ___ Bereavement ___ Communion _x__ Tahmina exploration ___ ___ Life review _x__ Prayer ___ Reconciliation ___ Sacrament of Sick _x__ Supportive presence ___ Wedding ___ Other (describe below) Pastoral Comments patient was seen in previous admissions and welcomes visit of spiritual care support; pt says that everything is being done and many people are praying for me which pt responds so I'm not worrying;
--- NOTE | 2020-11-09 13:00 | CASEMGMT ---
RN HUA Face to Face with patient for initial transition planning/care coordination assessment. RN CM introduced self and role at [facility]. Patient lying in bed, alert and oriented. Patient willing to participate in assessment and is able to answer all questions appropriately. Care providers, pharmacy, and demographics verified. Patient wishes to discharge home but is willing to go to TCU if recommended. SW updated regarding potential SNF placement. Patient states he has no further needs or concerns at this time. CM to follow for discharge planning needs that may arise. PCP: Marcelino Specialists: Roxie, oncologist Preferred Pharmacy: [facility] Insurance: [facility] Prescription Benefit: yes Living Will/HPOA: no living will, significant other Ann Bach HPOA LNOK: significant other Living Arrangements: patient is currently staying with significant other and her grandson in a mobile home. Patient states he was independent at home prior to current illness Transportation: Ann STOREY/HHC: Patient states he has shower chair, cane, walker at home. Patient has previously been to TCU in the past. Patient has had [facility] in the past. Patient was max 2 assist to sit edge of bed. Patient agreeable to TCU if he would need SNF at discharge. SW updated. Disposition Plan: TBD pending course of treatment and progress with therapy. HHC vs SNF. Kitty BULLOCK, RN, CM
--- NOTE | 2020-11-09 13:42 | CASEMGMT ---
BLAKE spoke w/Adrienne in TCU, she put pt on the list. RADHA Martin
--- NOTE | 2020-11-09 14:19 | CASEMGMT ---
Palliative screening tool completed for Lace/Strata 3. Patient does not meet criteria at this time.
[2020-11-09] MEDS: Acetaminophen 325 MG Tablet 650 MG PO (20:53)
[2020-11-09] MEDS: Mirtazapine 15 MG Tablet 7.5 MG PO (20:55)
[2020-11-09] MEDS: MELATONIN 3 MG TABLET PO (20:55)
[2020-11-09 21:03] LABS: Hematocrit 26.6 % (40-54); Hemoglobin 8.6 g/dL (13.0-16.5)
[2020-11-10] VITALS (40 sets, daily range): BP systolic 87–123; BP diastolic 62–94; PULSE 89–165; RESP 12–29; TEMP 36.5–38.9; O2SAT 89–100
[2020-11-10 04:28] LABS: Hemoglobin 8.6 g/dL (13.0-16.5); Mean Corp Hgb Conc 33.1 g/dL (32-36); Mean Corpuscular Hgb 32.2 pg (27.0-32.0); Mean Corpuscular Volume 97.4 fL (80-94); Mean Platelet Vol. 9.2 fl (6.2-12.0); POSITIVE COUNT YES; POSITIVE DIFFERENTIAL YES; POSITIVE MORPHOLOGY YES; Platelet Count 51 K/mm3 (150-450); RBC Distribution Width CV 18.6 % (11.6-14.6); RBC Distribution Width SD 65.2 fl (35.1-43.9); Red Blood Count 2.67 M/mm3 (4.6-6.2); White Blood Count 2.8 K/mm3 (4.4-11.0)
[2020-11-10 04:43] LABS: Differential Indicated MANUAL DIFF
[2020-11-10 05:00] LABS: Anion Gap 7 (5-15); BUN 23 mg/dL (7-18); BUN/Creat Ratio 49.5 RATIO (10-20); Chloride 109 mmol/L (98-107); Creatinine, Serum 0.46 mg/dL (0.70-1.30); EST Glomerular Filtration Rate 187 mL/min (>60); Est Glom Filt Rate - Afr Amer 226 mL/min (>60); Estimated Creatinine Clearance 53.72 ml/min; Glucose 122 mg/dL (74-106); Potassium 2.7 mmol/L (3.5-5.1); Sodium Level 141 mmol/L (136-145)
[2020-11-10 05:15] LABS: Neutrophil-Band 25 % (0-5); Neutrophil-Segmented 58 % (47-70)
[2020-11-10 05:16] LABS: Absolute Neutrophil Count 2.4 X10^3/uL (2.0-7.7); Lymphocyte 7 % (19-41); Metamyelocyte 3 % (0-1); Monocyte 5 % (0-10); Myelocyte 2 % (0-0)
[2020-11-10 05:17] LABS: Anisocytosis 2+; Nucleated Red Bld Cells,Manual 2 % (0-5); Platelet Estimate MOD DEC (ADEQ); Red Cell Morphology NORM C+C NORMAL (NORM C&C)
[2020-11-10 05:18] LABS: Acanthocytes RARE; Ovalocyte RARE; Tear Drop Cell RARE
[2020-11-10] MEDS: Potassium Chloride 10mEq/100mL 10 MEQ/100 ML IV.SOLN. 100 MEQ IV BOLUS ×4 (05:21→10:51)
[2020-11-10] MEDS: Gabapentin 100 MG Capsule PO ×2 (05:25→20:58)
--- NOTE | 2020-11-10 05:44 | PCM.PN.INT ---
Assessment & Plan Assessment/Plan (1) Septic shock: PLAN: RECOMMENDATIONS: 1. Continue to wean supplemental oxygen to maintain saturations at or above 90%. 2. Okay to discontinue stress dose steroids. Continue midodrine per home regimen. 3. Aggressive potassium repletion. Check magnesium and phosphorus levels as well. 4. Continue antimicrobials as ordered. 5. Continue scheduled bronchodilator therapy. 6. Attempt diuresis today with Lasix as tolerated by hemodynamics. IMPRESSIONS: 1. Gram-negative septic shock Improving. The patient appears to have gram-negative bacteremia with possible urinary and pulmonary sources. At this time, the patient has been weaned from vasopressor support. Stress dose steroids will be discontinued today. He has been adequately volume resuscitated. Continue current antimicrobial management. 2. Acute hypoxemic respiratory failure Improving. The patient does have questionable underlying obstructive lung disease with what appears to be superimposed pneumonia. Plan to continue to wean FiO2 to maintain oxygen saturations at or above 90%. The patient will be maintained on scheduled bronchodilator therapy. Antimicrobials will be continued as noted above. 3. Pancytopenia Likely related to recent chemotherapy and consumption in the setting of sepsis. Continue to monitor blood counts daily and transfuse if hemoglobin once again drops below 7 g/dL. 4. History of metastatic non-small cell lung cancer The patient has a history of metastatic non-small cell lung cancer with overall poor prognosis, per my discussion with his oncologist. 5. History of paroxysmal atrial fibrillation/questionable COPD/depression/anxiety Complicates care, management, recovery and prognosis. Continue home indications as indicated. This note was generated with [employer] dictation software. It may contain incorrect words, spelling, and punctuation that were not noted in checking the note before signing. Subjective Subjective The patient was seen and examined at the bedside this morning. Events from the last 24 hours have been reviewed. The patient continues to have low-grade fevers but remains otherwise hemodynamically stable. The patient is documented to be overall net +5.3 L for the hospital admission. The patient did receive 2 units of packed red blood cells yesterday with appropriate improvement in his hemoglobin to 8.6 g/dL. The patient does remain pancytopenic. Chemistry profile this morning was notable for a potassium of 2.7. Objective Data Objective Data The patient's most recent lab work, culture data and imaging studies have all been personally reviewed. Surface echocardiogram from May 2020 demonstrated normal LV size with an ejection fraction of 45%. Pulmonary artery systolic pressure was estimated to be 30 mmHg. Blood cultures from November 07 were positive for Pseudomonas aeruginosa. Respiratory viral panel was negative. Strep and urine Legionella antigens were negative. Sputum and urine cultures are pending. Vital Signs: Vital Signs Temp Pulse Resp BP Pulse Ox 100.2 F H 99 21 H 102/77 93 11/10/20 01:00 11/10/20 03:09 11/10/20 03:09 11/10/20 01:00 11/10/20 03:09 Oxygen Flow Rate (L/min) 50 Oxygen Delivery Method Bi-pap Weight: 59.5 kg Body Mass Index (BMI) 16.8 Intake & Output: Intake and Output for Last 24 Hours 11/08/20 11/09/20 11/10/20 23:59 23:59 23:59 Intake Total 3465.89 / 4359.06 3366.67 / 3366.67 50 / 50 Output Total 2360 / 2360 2050 / 2150 200 / 200 Balance 1105.89 / 1998. 1316.67 / 1216.67 -150 / -150 Medical Nutrition Assessment Dietitian: Nutrition Therapy Diagnosis Start: 11/08/20 10:03 Freq: Status: Active Protocol: Document 11/08/20 10:25 AG (Rec: 11/08/20 10:26 AG [id number]) Nutrition Malnutrition Evidence of Malnutrition Exists Yes Malnutrition (severe): Chronic Evidenced By Suboptimal Energy Intake ( Severe),Weight Loss (Severe) Clinical Problem Chronic Disease or Condition Related Malnutrition Etiology severe, chronic malnutrition r /t inadequate energy intake w/ increased nutrient needs d/t metastatic cancer Signs/Symptoms as evidenced by chronically decreased appetite (estimated to be meeting <75% of estimated nutritional needs x 6 months), w/ worsening PO intake estimated to be meeting <50% of estimated nutritional needs x 1 week 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 Will add 120mL Ensure Enlive 4x/day, Magic Cup BID, and fortify foods when possible for additional calories/protein if consumed. Lab / Micro Data Attestation: I reviewed the patient's lab results. Result Diagrams: 11/10/20 04:19 11/10/20 04:19 Labs: Laboratory Results - last 24 hr 11/07/20 11:58: Diff Path Review Reviewed 11/08/20 03:45: Diff Path Review Reviewed 11/08/20 08:00: Crossmatch See Detail 11/09/20 04:00: Diff Path Review Reviewed 11/09/20 20:47: Hgb 8.6 L, Hct 26.6 L 11/10/20 04:19: WBC 2.8 L, RBC 2.67 L, Hgb 8.6 L, Hct 26.0 L, MCV 97.4 H D, MCH 32.2 H, MCHC 33.1, RDW Std Deviation 65.2 H, RDW Coeff of Natalie 18.6 H, Plt Count 51 L, MPV 9.2, Neut % (Auto) Not Reportable, Absolute Neuts (auto) 2.4, Absolute Lymphs (auto) 0.20 L, Neutrophils % (Manual) 58, Band Neutrophils % 25 H, Lymphocytes % (Manual) 7 L, Monocytes % (Manual) 5, Metamyelocytes % 3 H, Myelocytes % 2 H, Nucleated RBCs/100 WBC 2, Diff Path Review May foll, Platelet Estimate MOD DEC, RBC Morphology NORM C+C, Anisocytosis 2+, Tear Drop Cells RARE, Ovalocytes RARE, Acanthocytes (Spur) RARE 11/10/20 04:19: Sodium 141, Potassium 2.7 L*, Chloride 109 H, Carbon Dioxide 25.0, Anion Gap 7, BUN 23 H, Creatinine 0.46 L, Estim Creat Clear Calc 53.72, Est GFR (MDRD) Af Amer 226, Est GFR (MDRD) Non-Af 187, BUN/Creatinine Ratio 49.5 H, Glucose 122 H, Calcium 8.0 L Micro: Microbiology 11/07/20 12:10 Blood Culture (Wb) - Right Forearm Blood Culture - Preliminary Pseudomonas aeroginosa 11/08/20 10:20 Sputum, Expectorated/Coughed Gram Stain - Final 11/08/20 10:20 Sputum, Expectorated/Coughed Respiratory Culture - Preliminary Appears to be normal respiratory dariel. Further studies to follow. 11/08/20 04:50 Urine Catheter - Mccain Urine Culture - Preliminary Culture exhibits no growth. 11/07/20 12:00 Blood Culture (Wb) - Left Wrist Blood Culture - Preliminary GNR Poss Pseudomonas sp 11/08/20 04:50 Urine, Random Legionella Antigen - Final 11/08/20 04:50 Urine, Random Streptococcus pneumoniae Antigen (M - Final 11/07/20 15:05 Mucosa - Nose Respiratory Panel (PCR) - Final Physical Exam Const alert and oriented x3 General Appearance: cooperative and on BiPAP HEENT normocephalic and head/scalp atraumatic Eyes PERRL, EOMs intact bilaterally and conjunctivae normal Neck supple General: trachea midline and CVC in place Chest inspection of chest normal Resp Auscultation: diminished lung sounds; Negative for rales, rhonchi or wheezes Cardio regular rate and regular rhythm GI normal to inspection, nondistended, normoactive bowel sounds Extremity no clubbing, cyanosis or edema Skin no rashes or lesions noted Neuro no focal motor deficits Psych Mood & Affect: flat affect Charges/Coding Visit Charges Inpatient E&M: 97584 Subs Hosp L3
[2020-11-10 06:35] LABS: Magnesium 2.1 mg/dL (1.6-2.6); Phosphorus 2.1 mg/dL (2.5-4.9)
[2020-11-10] MEDS: Ipratropium/Albuterol Sulfate 3 ML AMPUL.NEB INHALATION ×4 (06:36→19:29)
[2020-11-10] MEDS: Furosemide 40 MG/4 ML Vial IV (08:34)
[2020-11-10] MEDS: APIXABAN 2.5 MG TABLET PO ×2 (10:52→20:56)
[2020-11-10] MEDS: Midodrine HCl 5 MG Tablet 2.5 MG PO (10:52)
[2020-11-10] MEDS: Amiodarone 200 MG Tablet 100 MG PO (10:52)
[2020-11-10] MEDS: Famotidine 20 MG Tablet PO ×2 (10:56→20:59)
[2020-11-10] MEDS: Acetaminophen 325 MG Tablet 650 MG PO ×2 (10:56→14:03)
[2020-11-10] MEDS: CHLORHEXIDINE GLUC 2% CLOTH 1 EACH TOWELETTE TOPICAL (11:30)
[2020-11-10] MEDS: levoFLOXacin IV 750 MG/150 ML BAG 100 MG IV (12:24)
--- NOTE | 2020-11-10 12:30 | EKG12_ITS ---
Test Reason : Blood Pressure : / mmHG Vent. Rate : 149 BPM Atrial Rate : 147 BPM P-R Int : 000 ms QRS Dur : 092 ms QT Int : 254 ms P-R-T Axes : 000 003 208 degrees QTc Int : 400 ms Atrial fibrillation Marked ST abnormality, possible lateral myocardia ischemia Abnormal ECG Confirmed by DAYANA AMAYA, CRISTIANA ([id number]), photo editor SAVANNA LEWIS ([id number]) on 11/15/2020 11:02:38 AM Referred By: SHEMAR Confirmed By:CRISTIANA ANNE MD
[2020-11-10 12:32] LABS: Pathologist Review Reviewed
--- NOTE | 2020-11-10 12:33 | EKG12_ITS ---
Test Reason : AFIB Blood Pressure : / mmHG Vent. Rate : 113 BPM Atrial Rate : 113 BPM P-R Int : 142 ms QRS Dur : 092 ms QT Int : 342 ms P-R-T Axes : 067 012 080 degrees QTc Int : 469 ms Sinus tachycardia with Premature atrial complexes Nonspecific ST and T wave abnormality Abnormal ECG Confirmed by DAYANA AMAYA, CRISTIANA ([id number]), senior technical editor SAVANNA LEWIS ([id number]) on 11/15/2020 11:19:27 AM Referred By: SHILPI Confirmed By:CRISTIANA ANNE MD
--- NOTE | 2020-11-10 12:34 | EKG12_ITS ---
Test Reason : AFIB Blood Pressure : / mmHG Vent. Rate : 114 BPM Atrial Rate : 114 BPM P-R Int : 174 ms QRS Dur : 094 ms QT Int : 350 ms P-R-T Axes : 067 015 084 degrees QTc Int : 482 ms Sinus tachycardia with Premature atrial complexes ST & T wave abnormality, consider lateral ischemia Abnormal ECG Confirmed by DAYANA AMAYA, CRISTIANA ([id number]), assignment desk editor SAVANNA LEWIS ([id number]) on 11/15/2020 11:17:21 AM Referred By: SHILPI Confirmed By:CRISTIANA ANNE MD
--- NOTE | 2020-11-10 13:07 | PN.HOSP_ITS ---
Subjective Subjective Patient is currently sleeping soundly on BiPAP. Per discussion with nursing he had a good night his oxygen saturations were stable through the night. His blood pressures remained stable off pressors. He is very weak but was able to sit up in a chair twice yesterday. Objective Data Objective Data Vital Signs: Vital Signs Temp Pulse Resp BP Pulse Ox 101.1 F H 121 H 22 H 123/90 H 92 11/10/20 11:00 11/10/20 11:00 11/10/20 11:50 11/10/20 11:00 11/10/20 11:50 Oxygen Flow Rate (L/min) 50 Oxygen Delivery Method Bi-pap Weight: 59.5 kg Body Mass Index (BMI) 16.8 Intake & Output: Intake and Output for Last 24 Hours 11/08/20 11/09/20 11/10/20 23:59 23:59 23:59 Intake Total 3465.89 / 4359.06 3366.67 / 3366.67 1335.67 / 1335.67 Output Total 2360 / 2360 2050 / 2150 1660 / 1660 Balance 1105.89 / 1999.06 1316.67 / 1216.67 -324.33 / -324.33 Medical Nutrition Assessment Dietitian: Nutrition Therapy Diagnosis Start: 11/08/20 10:03 Freq: Status: Active Protocol: Document 11/10/20 09:48 AG (Rec: 11/10/20 09:48 AG [id number]) Nutrition Malnutrition Evidence of Malnutrition Exists Yes Malnutrition (severe): Chronic Evidenced By Suboptimal Energy Intake ( Severe),Weight Loss (Severe) Clinical Problem Chronic Disease or Condition Related Malnutrition Etiology severe, chronic malnutrition r /t inadequate energy intake w/ increased nutrient needs d/t metastatic cancer Signs/Symptoms as evidenced by chronically decreased appetite (estimated to be meeting <75% of estimated nutritional needs x 6 months), w/ worsening PO intake estimated to be meeting <50% of estimated nutritional needs x 1 week [employer] RE[employer]; unintentional wt loss of 22.4# /15% x 6 months; loss of subcutaneous fat, obvious muscle wasting upon physical exam; BMI 17.3 Status Active Problem Recommendation Dietitian Recommendations/Changes Continue regular diet as medically indicated; 120mL Ensure Enlive 4x/day, Magic Cup BID, and fortified foods when possible for additional calories/protein if consumed. Lab / Micro Data Result Diagrams: 11/10/20 04:19 11/10/20 04:19 Labs: Laboratory Results - last 24 hr 11/08/20 08:00: Crossmatch See Detail 11/09/20 20:47: Hgb 8.6 L, Hct 26.6 L 11/10/20 04:19: WBC 2.8 L, RBC 2.67 L, Hgb 8.6 L, Hct 26.0 L, MCV 97.4 H D, MCH 32.2 H, MCHC 33.1, RDW Std Deviation 65.2 H, RDW Coeff of Natalie 18.6 H, Plt Count 51 L, MPV 9.2, Neut % (Auto) Not Reportable, Absolute Neuts (auto) 2.4, Absolute Lymphs (auto) 0.20 L, Neutrophils % (Manual) 58, Band Neutrophils % 25 H, Lymphocytes % (Manual) 7 L, Monocytes % (Manual) 5, Metamyelocytes % 3 H, Myelocytes % 2 H, Nucleated RBCs/100 WBC 2, Diff Path Review Reviewed, Platelet Estimate MOD DEC, RBC Morphology NORM C+C, Anisocytosis 2+, Tear Drop Cells RARE, Ovalocytes RARE, Acanthocytes (Spur) RARE 11/10/20 04:19: Sodium 141, Potassium 2.7 L*, Chloride 109 H, Carbon Dioxide 25.0, Anion Gap 7, BUN 23 H, Creatinine 0.46 L, Estim Creat Clear Calc 53.72, Est GFR (MDRD) Af Amer 226, Est GFR (MDRD) Non-Af 187, BUN/Creatinine Ratio 49.5 H, Glucose 122 H, Calcium 8.0 L 11/10/20 04:19: Phosphorus 2.1 L, Magnesium 2.1 Micro: Microbiology 11/08/20 10:20 Sputum, Expectorated/Coughed Gram Stain - Final 11/08/20 10:20 Sputum, Expectorated/Coughed Respiratory Culture - Final Presumptive C albicans 11/08/20 04:50 Urine Catheter - Mccain Urine Culture - Final Culture exhibits no growth. 11/07/20 12:10 Blood Culture (Wb) - Right Forearm Blood Culture - Final Pseudomonas aeroginosa 11/07/20 12:00 Blood Culture (Wb) - Left Wrist Blood Culture - Final GNR Poss Pseudomonas sp 11/08/20 04:50 Urine, Random Legionella Antigen - Final 11/08/20 04:50 Urine, Random Streptococcus pneumoniae Antigen (M - Final 11/07/20 15:05 Mucosa - Nose Respiratory Panel (PCR) - Final Physical Exam Const Constitutional Narrative: Cachectic elderly white male lying in bed on BiPAP, sleeping comfortably, nontoxic in no acute distress at this time HEENT head/scalp atraumatic HEENT Narrative: Temporal wasting Head and Scalp: normocephalic Neck supple Resp normal respiratory effort, no retractions and no use of accessory muscles Resp Narrative: Diminished, few bibasilar crackles Auscultation: crackles; Negative for rales, rhonchi or wheezes Cardio regular rate, regular rhythm, S1 normal heart sound, S2 normal heart sound, no murmurs, no rub, no gallops, no clicks and no JVD GI normal to inspection, nondistended, normoactive bowel sounds, soft to palpation, non-tender and non-distended Extremity no clubbing, cyanosis or edema Peripheral Pulses: Yes pulses 2+ throughout Assessment & Plan Assessment/Plan (1) Pseudomonal bacteremia: (2) Acute respiratory failure with hypoxia: (3) Septic shock: (4) NSCLC metastatic to bone: PLAN: Septic shock secondary to pseudomonal bacteremia -Patient was dosed with 30mL/kg body weight and despite adequate fluid resuscitation required vasopressors -Patient was able to be weaned from pressors of Levophed and vasopressin pm of 11/08 -BP remains stable -We will continue Levaquin and treat for 7-day-->ANC greater than 500 -Urine culture is negative and sputum culture shows presumptive Fabi albicans -MRSA PCR is negative -Goal MAP is 65 -Stress dose steroids discontinued and home Decadron reinitiated Acute hypoxic respiratory failure -Continue oxygen supplementation -Patient has been converted to air Vo with a flow of 50 L/min and an FiO2 of 85%/and is utilizing intermittent daytime BiPAP and BiPAP at night -Continue to wean as able -Viral respiratory panel is negative -Strep pneumo and Legionella urine antigens are negative -Lasix given now the blood pressure is stable -40 mg IV push twice daily Pancytopenia secondary to chemotherapy -Granix given and white count is responding -Continue to monitor counts -May also be exacerbated by sepsis as his white count and platelet count were normal in September of this year -Baseline hemoglobin appears to be 8-9 -Hemoglobin is stable today after 1 unit packed red blood cells on 11/09/2020 PAF -Patient remains in normal sinus rhythm -Continue amiodarone -Continue Eliquis -Continue to monitor on telemetry Metastatic non-small cell lung CA -Mets to bones -Patient was getting chemotherapy and had undergone gamma knife radiation in the past -Oncologist is aware that the patient is admitted and indicates prognosis is ove rall very poor -Palliative care following -Patient is hospice appropriate if he chooses to do so COPD -Continue aerosols -IS -Supportive oxygen 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
--- NOTE | 2020-11-10 14:15 | CASEMGMT ---
Social Work Note SW reviewed chart. Pt still on Bipap, requiring mod assistance with PT/OT. SW in to speak with pt. SW introduced self and role at [facility]. Patient was provided a list of SNF providers including quality and resource use data and consistent with the patient?s preferred geographic region, medical needs, and insurance network. SW informed pt that TCU is able to accept pt when medically cleared. Pt agreeable to TCU. SW placed a call to Adrienne with TCU, pt may be ready for discharge to TCU over the weekend. Green sheet on chart in the event pt is medically ready for discharge to TCU over the weekend. Pt will need COVID test on day of discharge. Plan: TCU when medically cleared. Pt will need COVID test on day of discharge. Kitty Smith TOOL ROOM LATHE OPERATOR, INDUSTRIAL CONTROLLER
--- NOTE | 2020-11-10 15:38 | CON.PCM.ID_ITS ---
Assessment & Plan Assessment/Plan (1) Pseudomonal bacteremia: (2) Septic shock: PLAN: Pseudomonas bacteremia. Neutropenia better today, but given new fever, port, and metastatic cancer, will treat as neutropenic fever, repeat bcx pending. Covid neg. Will change levaquin to vanc/cefepime. Reports rash with PCN in the past. Will follow, thank you, d/w Dr. Rollins (3) NSCLC metastatic to bone: (4) Pancytopenia: HPI Consult Data Date of Consult: 11/10/20 HPI Narrative HPI Narrative: MICKY WOMACK, is a 75 M with metastatic lung cancer, presented with septic shock, pseudomonas bacteremia, neutropenia. Reported several days of weakness, dyspnea, sycope. Covid rapid Ag and PCR neg. Admitted, given vanc/levaquin. Vanc stopped. Now fever to 101.3. No abd pain, no sputum, on bipap, feeling ok but still dyspnea. No joint pain. Full ROS performed and neg except as noted above. [facility] Medical History Alcohol abuse Atrial fibrillation Zhu's palsy Colostomy in place COPD (chronic obstructive pulmonary disease) Depression History of open sigmoidectomy Lung cancer metastatic to bone Parkinson's disease Substance abuse Home Medications promethazine 25 mg PO Q6H PRN PRN 05/31/20 [History Last Taken Unknown] acetaminophen 1,000 mg PO Q6H PRN PRN tablet 06/21/20 [Rx Last Taken 10/09/20] apixaban 2.5 mg PO BID #60 tablet 06/21/20 [Rx Last Taken 11/06/20] benzonatate 1 - 2 mg PO TID PRN PRN 10/09/20 [History Last Taken Unknown] dexamethasone 4 mg PO DAILY 10/09/20 [History Last Taken 11/06/20] famotidine 20 mg PO BID 10/09/20 [History Last Taken 11/06/20] gabapentin 100 mg PO TID 10/09/20 [History Last Taken 11/06/20] oxycodone 5 mg PO Q4H PRN 10/09/20 [History Last Taken 11/07/20] amiodarone 100 mg PO BID 11/07/20 [History Last Taken 11/06/20] melatonin 3 mg PO QHS 11/07/20 [History Last Taken 11/06/20] midodrine 2.5 mg PO BID 11/07/20 [History Last Taken 11/06/20] mirtazapine 15 mg PO QHS 11/07/20 [History Last Taken 11/06/20] Allergy/AdvReac Type Severity Reaction Status Date / Time Penicillins AdvReac Rash Verified 11/03/20 09:03 sulfamethoxazole AdvReac Rash Verified 11/03/20 09:03 [From Bactrim] trimethoprim [From Bactrim] AdvReac Rash Verified 11/03/20 09:03 Family History Mother CVA (cerebral vascular accident) Father Cancer Oral/throat CA with history of chew tobacco use. Surgical History Albert's pouch of intestine History of cardioversion (~06/02/20) History of eyelid surgery Social History household members: significant other Smoking Status: Former smoker how long ago did patient quit smoking: Patient quit cigarette tobacco 2006, started as teen, 1.5-2 ppd. alcohol intake: former details: Prior 4-5 beers daily, stopped 6 months prior to current presentation. substance use type: does not use Physical Exam Const alert Constitutional Narrative: ill appearing HEENT head/scalp atraumatic Eyes PERRL and EOMs intact bilaterally Neck supple and No nodes Resp normal air movement and clear to auscultation bilaterally Cardio regular rate and regular rhythm GI normal to inspection, nondistended, normoactive bowel sounds Extremity no clubbing, cyanosis or edema Skin no rashes or lesions noted Skin Narrative: port in place Neuro CN's II-XII intact bilaterally Medical Records Data Medical Nutrition Assessment Dietitian: Nutrition Therapy Diagnosis Start: 11/08/20 10:03 Freq: Status: Active Protocol: Document 11/10/20 09:48 AG (Rec: 11/10/20 09:48 AG [id number]) Nutrition Malnutrition Evidence of Malnutrition Exists Yes Malnutrition (severe): Chronic Evidenced By Suboptimal Energy Intake ( Severe),Weight Loss (Severe) Clinical Problem Chronic Disease or Condition Related Malnutrition Etiology severe, chronic malnutrition r /t inadequate energy intake w/ increased nutrient needs d/t metastatic cancer Signs/Symptoms as evidenced by chronically decreased appetite (estimated to be meeting <75% of estimated nutritional needs x 6 months), w/ worsening PO intake estimated to be meeting <50% of estimated nutritional needs x 1 week [employer]; unintentional wt loss of 22.4# /15% x 6 months; loss of subcutaneous fat, obvious muscle wasting upon physical exam; BMI 17.3 Status Active Problem Recommendation Dietitian Recommendations/Changes Continue regular diet as medically indicated; 120mL Ensure Enlive 4x/day, Magic Cup BID, and fortified foods when possible for additional calories/protein if consumed. Lab / Micro Data Result Diagrams: 11/10/20 04:19 11/10/20 04:19 Labs: Laboratory Results - last 24 hr 11/08/20 08:00: Crossmatch See Detail 11/09/20 20:47: Hgb 8.6 L, Hct 26.6 L 11/10/20 04:19: WBC 2.8 L, RBC 2.67 L, Hgb 8.6 L, Hct 26.0 L, MCV 97.4 H D, MCH 32.2 H, MCHC 33.1, RDW Std Deviation 65.2 H, RDW Coeff of Natalie 18.6 H, Plt Count 51 L, MPV 9.2, Neut % (Auto) Not Reportable, Absolute Neuts (auto) 2.4, Absolute Lymphs (auto) 0.20 L, Neutrophils % (Manual) 58, Band Neutrophils % 25 H, Lymphocytes % (Manual) 7 L, Monocytes % (Manual) 5, Metamyelocytes % 3 H, Myelo cytes % 2 H, Nucleated RBCs/100 WBC 2, Diff Path Review Reviewed, Platelet Estimate MOD DEC, RBC Morphology NORM C+C, Anisocytosis 2+, Tear Drop Cells RARE, Ovalocytes RARE, Acanthocytes (Spur) RARE 11/10/20 04:19: Sodium 141, Potassium 2.7 L*, Chloride 109 H, Carbon Dioxide 25.0, Anion Gap 7, BUN 23 H, Creatinine 0.46 L, Estim Creat Clear Calc 53.72, Est GFR (MDRD) Af Amer 226, Est GFR (MDRD) Non-Af 187, BUN/Creatinine Ratio 49.5 H, Glucose 122 H, Calcium 8.0 L 11/10/20 04:19: Phosphorus 2.1 L, Magnesium 2.1 Micro: Microbiology 11/08/20 10:20 Sputum, Expectorated/Coughed Gram Stain - Final 11/08/20 10:20 Sputum, Expectorated/Coughed Respiratory Culture - Final Presumptive C albicans 11/08/20 04:50 Urine Catheter - Mccain Urine Culture - Final Culture exhibits no growth. 11/07/20 12:10 Blood Culture (Wb) - Right Forearm Blood Culture - Final Pseudomonas aeroginosa 11/07/20 12:00 Blood Culture (Wb) - Left Wrist Blood Culture - Final GNR Poss Pseudomonas sp
[2020-11-10] MEDS: dexAMETHasone 4 MG/ML Vial IV (15:44)
[2020-11-10] MEDS: Amiodarone 360 MG in Dextrose 5% Viaflo Bag 192.8 ML 33.3 MG CONT INF (16:26)
--- NOTE | 2020-11-10 16:52 | PCM.RX.CS ---
Consult Pharmacy has been consulted to manage selected antiobiotic: Vancomycin Type of Consult: New start Suspected Infection: Other Labs: Sodium 141 mmol/L (136-145) 11/10/20 04:19 Potassium 2.7 mmol/L (3.5-5.1) L* 11/10/20 04:19 Chloride 109 mmol/L (98-107) H 11/10/20 04:19 Carbon Dioxide 25.0 mmol/L (21.0-32.0) 11/10/20 04:19 Anion Gap 7 (5-15) 11/10/20 04:19 BUN 23 mg/dL (7-18) H 11/10/20 04:19 Creatinine 0.46 mg/dL (0.70-1.30) L 11/10/20 04:19 Est GFR (MDRD) Af Amer 226 mL/min (>60) 11/10/20 04:19 Est GFR (MDRD) Non-Af 187 mL/min (>60) 11/10/20 04:19 BUN/Creatinine Ratio 49.5 RATIO (10-20) H 11/10/20 04:19 Glucose 122 mg/dL (74-106) H 11/10/20 04:19 Microbiology: Microbiology 11/08/20 10:20 Sputum, Expectorated/Coughed Gram Stain - Final 11/08/20 10:20 Sputum, Expectorated/Coughed Respiratory Culture - Final Presumptive C albicans 11/08/20 04:50 Urine Catheter - Mccain Urine Culture - Final Culture exhibits no growth. 11/07/20 12:10 Blood Culture (Wb) - Right Forearm Blood Culture - Final Pseudomonas aeroginosa 11/07/20 12:00 Blood Culture (Wb) - Left Wrist Blood Culture - Final GNR Poss Pseudomonas sp 11/08/20 04:50 Urine, Random Legionella Antigen - Final 11/08/20 04:50 Urine, Random Streptococcus pneumoniae Antigen (M - Final 11/07/20 15:05 Mucosa - Nose Respiratory Panel (PCR) - Final Goal Trough: 15-20 mcg/mL Pharmacy Plan for Drug Dosing: NEW START IV VANCOMYCIN Consulting Physician: Francy Indication: Neutropenic Fever Goal Trough: 15-20 SrCr: 0.46 CrCl: 54 Comments: pt was previously start on Vancomycin 11/07/20 and received a 750mg and one dose of 500mg Vancomcyin Dose: Pt to receive a 1250mg loading dose and then start on a maintenance dose of 500mg q12h. Trough before the 4th total dose Pending Level: 11/12 at 0430 Pharmacy Service will continue to monitor and adjust dosing as required. Follow-Up Labs: Trough Vancomycin - 11/12 @ 0430
[2020-11-10] MEDS: MELATONIN 3 MG TABLET PO (20:57)
[2020-11-10] MEDS: Midodrine HCl 5 MG Tablet 10 MG PO (21:00)
[2020-11-10] MEDS: Mirtazapine 15 MG Tablet 7.5 MG PO (21:00)
[2020-11-10] MEDS: Amiodarone 360 MG in Dextrose 5% Viaflo Bag 192.8 ML 16.7 MG CONT INF (22:25)
[2020-11-11] VITALS (39 sets, daily range): BP systolic 97–119; BP diastolic 72–89; PULSE 83–104; RESP 12–31; TEMP 36.8–37.7; O2SAT 87–98
[2020-11-11 04:31] LABS: Hemoglobin 8.7 g/dL (13.0-16.5); Mean Corp Hgb Conc 32.2 g/dL (32-36); Mean Corpuscular Hgb 31.5 pg (27.0-32.0); Mean Corpuscular Volume 97.8 fL (80-94); Mean Platelet Vol. 11.2 fl (6.2-12.0); POSITIVE COUNT YES; POSITIVE DIFFERENTIAL YES; POSITIVE MORPHOLOGY YES; RBC Distribution Width CV 18.7 % (11.6-14.6); RBC Distribution Width SD 65.6 fl (35.1-43.9); Red Blood Count 2.76 M/mm3 (4.6-6.2); White Blood Count 4.6 K/mm3 (4.4-11.0)
[2020-11-11 04:32] LABS: Differential Indicated MANUAL DIFF; Platelet Count 39 K/mm3 (150-450)
[2020-11-11 04:43] LABS: Anion Gap 7 (5-15); BUN 23 mg/dL (7-18); BUN/Creat Ratio 51.9 RATIO (10-20); Calcium,Total 7.7 mg/dL (8.5-10.1); Chloride 109 mmol/L (98-107); Creatinine, Serum 0.44 mg/dL (0.70-1.30); EST Glomerular Filtration Rate 198 mL/min (>60); Est Glom Filt Rate - Afr Amer 239 mL/min (>60); Estimated Creatinine Clearance 54.26 ml/min; Glucose 139 mg/dL (74-106); Potassium 3.4 mmol/L (3.5-5.1); Sodium Level 141 mmol/L (136-145)
[2020-11-11] MEDS: Vancomycin IV 500 MG/100 ML BAG 100 MG IV ×2 (05:44→16:56)
--- NOTE | 2020-11-11 05:51 | PCM.PN.INT ---
Assessment & Plan Assessment/Plan (1) Septic shock: PLAN: RECOMMENDATIONS: 1. Wean patient from BiPAP as tolerated today. Maintain oxygen saturations at or above 90%. 2. Continue broad-spectrum antimicrobial coverage per ID recommendations. 3. Continue midodrine and Decadron, per home regimen. 4. Obtain speech therapy evaluation, given patient reported swallowing difficulties. 5. Additional potassium repletion. 6. Continue scheduled bronchodilator therapy. 7. Attempt diuresis today with Lasix if tolerated by hemodynamics. IMPRESSIONS: 1. Gram-negative septic shock Improving. The patient appears to have gram-negative bacteremia with possible urinary and pulmonary sources. At this time, the patient has been weaned from vasopressor support and stress dose steroids. The patient will be continued on midodrine and Decadron per outpatient regimen. He has been adequately volume resuscitated. Continue current antimicrobial management, per ID recommendations. 2. Acute hypoxemic respiratory failure Improving. The patient does have questionable underlying obstructive lung disease with what appears to be superimposed pneumonia. Plan to continue to wean FiO2 to maintain oxygen saturations at or above 90%. The patient will be maintained on scheduled bronchodilator therapy. Antimicrobials will be continued as noted above. 3. Pancytopenia Likely related to recent chemotherapy and consumption in the setting of sepsis. Continue to monitor blood counts daily and transfuse if hemoglobin once again drops below 7 g/dL. 4. Hypokalemia Additional electrolyte repletion as ordered. Recheck levels in the morning. 5. History of metastatic non-small cell lung cancer The patient has a history of metastatic non-small cell lung cancer with overall poor prognosis, per my discussion with his oncologist. 6. History of paroxysmal atrial fibrillation/questionable COPD/depression/anxiety Complicates care, management, recovery and prognosis. Continue home indications as indicated. This note was generated with [employer] dictation software. It may contain incorrect words, spelling, and punctuation that were not noted in checking the note before signing. Subjective Subjective The patient was seen and examined at the bedside this morning. Events from the last 24 hours have been reviewed. Although the patient is currently afebrile, he did spike a high-grade fever yesterday afternoon to 102.1 ?F. At the present time, the patient is hemodynamically stable and maintaining appropriate oxygen saturations on BiPAP with an FiO2 requirement of 50%. The patient's antimicrobials were broadened yesterday after being evaluated by infectious diseases. Platelet count is low this morning at 39,000. Potassium is low at 3.4. The patient did develop atrial fibrillation with RVR yesterday afternoon, for which he was placed on amiodarone infusion. He has since converted back to normal sinus rhythm. The patient does report residual dyspnea this morning and states that he has difficulty eating due to swallowing issues. Objective Data Objective Data The patient's most recent lab work, culture data and imaging studies have all been personally reviewed. Surface echocardiogram from May 2020 demonstrated normal LV size with an ejection fraction of 45%. Pulmonary artery systolic pressure was estimated to be 30 mmHg. Blood cultures from November 07 were positive for Pseudomonas aeruginosa. Respiratory viral panel was negative. Strep and urine Legionella antigens were negative. Sputum and urine cultures are pending. Vital Signs: Vital Signs Temp Pulse Resp BP Pulse Ox 98.2 F 88 20 H 102/80 97 11/11/20 05:00 11/11/20 05:00 11/11/20 05:00 11/11/20 05:00 11/11/20 05:00 Oxygen Flow Rate (L/min) 50 Oxygen Delivery Method Bi-pap Weight: 60.1 kg Body Mass Index (BMI) 16.8 Intake & Output: Intake and Output for Last 24 Hours 11/09/20 11/10/20 11/11/20 23:59 23:59 23:59 Intake Total 3366.67 / 3366.67 2672.00 / 2672.00 300 / 300 Output Total 2050 / 2150 2460 / 2490 120 / 120 Balance 1316.67 / 1216.67 212.00 / 182.00 180 / 180 Medical Nutrition Assessment Dietitian: Nutrition Therapy Diagnosis Start: 11/08/20 10:03 Freq: Status: Active Protocol: Document 11/10/20 09:48 AG (Rec: 11/10/20 09:48 AG [id number]) Nutrition Malnutrition Evidence of Malnutrition Exists Yes Malnutrition (severe): Chronic Evidenced By Suboptimal Energy Intake ( Severe),Weight Loss (Severe) Clinical Problem Chronic Disease or Condition Related Malnutrition Etiology severe, chronic malnutrition r /t inadequate energy intake w/ increased nutrient needs d/t metastatic cancer Signs/Symptoms as evidenced by chronically decreased appetite (estimated to be meeting <75% of estimated nutritional needs x 6 months), w/ worsening PO intake estimated to be meeting <50% of estimated nutritional needs x 1 week [employer]; unintentional wt loss of 22.4# /15% x 6 months; loss of subcutaneous fat, obvious muscle wasting upon physical exam; BMI 17.3 Status Active Problem Recommendation Dietitian Recommendations/Changes Continue regular diet as medically indicated; 120mL Ensure Enlive 4x/day, Magic Cup BID, and fortified foods when possible for additional calories/protein if consumed. Lab / Micro Data Attestation: I reviewed the patient's lab results. Result Diagrams: 11/11/20 04:20 11/11/20 04:20 Labs: Laboratory Results - last 24 hr 11/08/20 08:00: Crossmatch See Detail 11/10/20 04:19: Diff Path Review Reviewed 11/10/20 04:19: Phosphorus 2.1 L, Magnesium 2.1 11/11/20 04:20: WBC 4.6, RBC 2.76 L, Hgb 8.7 L, Hct 27.0 L, MCV 97.8 H, MCH 31.5, MCHC 32.2, RDW Std Deviation 65.6 H, RDW Coeff of Natalie 18.7 H, Plt Count 39 L*, MPV 11.2, Neut % (Auto) Not Reportable 11/11/20 04:20: Sodium 141, Potassium 3.4 L, Chloride 109 H, Carbon Dioxide 25.0, Anion Gap 7, BUN 23 H, Creatinine 0.44 L, Estim Creat Clear Calc 54.26, Est GFR (MDRD) Af Amer 239, Est GFR (MDRD) Non-Af 198, BUN/Creatinine Ratio 51.9 H, Glucose 139 H, Calcium 7.7 L Micro: Microbiology 11/08/20 10:20 Sputum, Expectorated/Coughed Gram Stain - Final 11/08/20 10:20 Sputum, Expectorated/Coughed Respiratory Culture - Final Presumptive C albicans 11/08/20 04:50 Urine Catheter - Mccain Urine Culture - Final Culture exhibits no growth. 11/07/20 12:10 Blood Culture (Wb) - Right Forearm Blood Culture - Final Pseudomonas aeroginosa 11/07/20 12:00 Blood Culture (Wb) - Left Wrist Blood Culture - Final GNR Poss Pseudomonas sp 11/08/20 04:50 Urine, Random Legionella Antigen - Final 11/08/20 04:50 Urine, Random Streptococcus pneumoniae Antigen (M - Final 11/07/20 15:05 Mucosa - Nose Respiratory Panel (PCR) - Final Physical Exam Const alert and oriented x3 General Appearance: cooperative, ill appearing, frail and on BiPAP HEENT normocephalic and head/scalp atraumatic Eyes PERRL, EOMs intact bilaterally and conjunctivae normal Neck supple General: trachea midline and CVC in place Chest inspection of chest normal Resp normal respiratory effort Auscultation: diminished lung sounds; Negative for rales, rhonchi or wheezes Cardio regular rate and regular rhythm GI normal to inspection, nondistended, normoactive bowel sounds Extremity no clubbing, cyanosis or edema Skin no rashes or lesions noted Neuro no focal motor deficits Psych Mood & Affect: flat affect Charges/Coding Visit Charges Inpatient E&M: 56639 Subs Hosp L3
[2020-11-11 06:04] LABS: Neutrophil-Segmented 76 % (47-70); Total Cells Counted 100 (MANUAL DIFF)
[2020-11-11 06:05] LABS: Lymphocyte 9 % (19-41); Metamyelocyte 2 % (0-1); Monocyte 4 % (0-10); Myelocyte 1 % (0-0); Neutrophil-Band 8 % (0-5); Nucleated Red Bld Cells,Manual 1 % (0-5)
[2020-11-11 06:07] LABS: Absolute Lymphocyte Count 0.41 X10^3/uL (0.83-4.51); Absolute Neutrophil Count 3.9 X10^3/uL (2.0-7.7); Lymphocyte # 0.41 X10^3/ul (0.83-4.51); Neutrophil # 3.86 X10^3/uL (2.7-7.7); Platelet Estimate MKD DEC (ADEQ)
[2020-11-11 06:08] LABS: Anisocytosis 1+; Microcytosis 1+
[2020-11-11] MEDS: Gabapentin 100 MG Capsule PO ×3 (07:03→20:48)
[2020-11-11] MEDS: Ipratropium/Albuterol Sulfate 3 ML AMPUL.NEB INHALATION ×4 (07:16→19:50)
[2020-11-11] MEDS: APIXABAN 2.5 MG TABLET PO ×2 (08:37→20:48)
[2020-11-11] MEDS: Furosemide 40 MG/4 ML Vial IV ×2 (08:37→17:00)
[2020-11-11] MEDS: dexAMETHasone 4 MG/ML Vial IV (08:37)
[2020-11-11] MEDS: Famotidine 20 MG Tablet PO ×2 (08:38→20:48)
[2020-11-11] MEDS: Midodrine HCl 5 MG Tablet 10 MG PO ×2 (08:39→20:49)
[2020-11-11] MEDS: Amiodarone 360 MG in Dextrose 5% Viaflo Bag 192.8 ML 16.7 MG CONT INF (10:32)
[2020-11-11] MEDS: CHLORHEXIDINE GLUC 2% CLOTH 1 EACH TOWELETTE TOPICAL (12:00)
--- NOTE | 2020-11-11 16:00 | PCM.PN.HOSP ---
Subjective Subjective Patient developed fevers, A. fib, hypotension yesterday afternoon. Antibiotics were changed back to Vanco and Zosyn despite adequate coverage based on sensitivities from first cultures. Repeat cultures have been drawn. Patient is much better this morning and fevers have abated. Patient is back in sinus rhythm. Patient reports fatigue but states his breathing is improved. Objective Data Objective Data Vital Signs: Vital Signs Temp Pulse Resp BP Pulse Ox 98.5 F 96 23 H 106/84 H 91 11/11/20 09:00 11/11/20 14:30 11/11/20 14:30 11/11/20 13:00 11/11/20 14:30 Oxygen Flow Rate (L/min) 6 Oxygen Delivery Method Airvo Weight: 60.1 kg Body Mass Index (BMI) 16.8 Intake & Output: Intake and Output for Last 24 Hours 11/09/20 11/10/20 11/11/20 23:59 23:59 23:59 Intake Total 3366.67 / 3366.67 2672.00 / 2672.00 1001.5 / 1001.5 Output Total 2050 / 2150 2460 / 2490 470 / 470 Balance 1316.67 / 1216.67 212.00 / 182.00 531.5 / 531.5 Medical Nutrition Assessment Dietitian: Nutrition Therapy Diagnosis Start: 11/08/20 10:03 Freq: Status: Active Protocol: Document 11/11/20 09:56 (Rec: 11/11/20 09:56 [id number]) Nutrition Malnutrition Evidence of Malnutrition Exists Yes Malnutrition (severe): Chronic Evidenced By Suboptimal Energy Intake ( Severe),Weight Loss (Severe) Clinical Problem Chronic Disease or Condition Related Malnutrition Etiology severe, chronic malnutrition r /t inadequate energy intake w/ increased nutrient needs d/t metastatic cancer Signs/Symptoms as evidenced by chronically decreased appetite (estimated to be meeting <75% of estimated nutritional needs x 6 months), w/ worsening PO intake estimated to be meeting <50% of estimated nutritional needs x [address] [employer]; unintentional wt loss of 22.4# /15% x 6 months; loss of subcutaneous fat, obvious muscle wasting upon physical exam; BMI 17.3 Status Active Problem Recommendation Dietitian Recommendations/Changes Continue regular diet, consistency per [employer]; 120mL Ensure Enlive 4x/day, Magic Cup BID, and fortified foods when possible for additional calories/protein if consumed. If pt desires to pursue aggressive care, may need to consider placement of PEG for long-term enteral nutrition support. Lab / Micro Data Result Diagrams: 11/11/20 04:20 11/11/20 04:20 Labs: Laboratory Results - last 24 hr 11/08/20 08:00: Crossmatch See Detail 11/11/20 04:20: WBC 4.6, RBC 2.76 L, Hgb 8.7 L, Hct 27.0 L, MCV 97.8 H, MCH 31.5, MCHC 32.2, RDW Std Deviation 65.6 H, RDW Coeff of Natalie 18.7 H, Plt Count 39 L*, MPV 11.2, Neut % (Auto) Not Reportable, Absolute Neuts (auto) 3.9, Absolute Lymphs (auto) 0.41 L, Total Counted 100, Neutrophils % (Manual) 76 H, Band Neutrophils % 8 H, Lymphocytes % (Manual) 9 L, Monocytes % (Manual) 4, Metamyelocytes % 2 H, Myelocytes % 1 H, Nucleated RBCs/100 WBC 1, Diff Path Review May foll, Platelet Estimate MKD DEC, Anisocytosis 1+, Microcytosis 1+ 11/11/20 04:20: Sodium 141, Potassium 3.4 L, Chloride 109 H, Carbon Dioxide 25.0, Anion Gap 7, BUN 23 H, Creatinine 0.44 L, Estim Creat Clear Calc 54.26, Est GFR (MDRD) Af Amer 239, Est GFR (MDRD) Non-Af 198, BUN/Creatinine Ratio 51.9 H, Glucose 139 H, Calcium 7.7 L Micro: Microbiology 11/11/20 10:58 Mucosa - Nasopharyngeal Respiratory Panel (PCR) - Final 11/08/20 10:20 Sputum, Expectorated/Coughed Gram Stain - Final 11/08/20 10:20 Sputum, Expectorated/Coughed Respiratory Culture - Final Presumptive C albicans 11/08/20 04:50 Urine Catheter - Mccain Urine Culture - Final Culture exhibits no growth. 11/07/20 12:10 Blood Culture (Wb) - Right Forearm Blood Culture - Final Pseudomonas aeroginosa 11/07/20 12:00 Blood Culture (Wb) - Left Wrist Blood Culture - Final GNR Poss Pseudomonas sp 11/08/20 04:50 Urine, Random Legionella Antigen - Final 11/08/20 04:50 Urine, Random Streptococcus pneumoniae Antigen (M - Final 11/07/20 15:05 Mucosa - Nose Respiratory Panel (PCR) - Final Physical Exam Const alert, oriented x3 and no apparent distress Constitutional Narrative: Thin elderly white male who appears older than stated age, nontoxic-appearing at this point, appears much more comfortable than yesterday, Exam Limitations: no limitations HEENT head/scalp atraumatic Head and Scalp: normocephalic Mouth: dry mucous membranes Resp normal respiratory effort, no retractions and no use of accessory muscles Resp Narrative: Markedly diminished diffusely Cardio regular rate, regular rhythm, S1 normal heart sound, S2 normal heart sound, no murmurs, no rub, no gallops, no clicks and no JVD GI normal to inspection, nondistended, normoactive bowel sounds, soft to palpation, non-tender and non-distended Extremity normal to inspection and no clubbing, cyanosis or edema Extremity Narrative: Decreased lean muscle mass Peripheral Pulses: Yes pulses 2+ throughout Skin Skin Narrative: Right IJ in place, clean and dry Neuro oriented x3 and no focal motor deficits Sensorium / Orientation: awake and alert Psych Psych Narrative: Flat affect, appears depressed Assessment & Plan Assessment/Plan (1) Chronic atrial fibrillation with RVR: (2) Pseudomonal bacteremia: (3) Pancytopenia: (4) Acute respiratory failure with hypoxia: (5) Septic shock: (6) NSCLC metastatic to bone: PLAN: Septic shock secondary to pseudomonal bacteremia -Patient was dosed with 30mL/kg body weight and despite adequate fluid resuscitation required vasopressors -Patient was able to be weaned from pressors of Levophed and vasopressin pm of 11/08 -BP remains stable -With new fevers repeat cultures were obtained and antibiotics were changed to Vanco and Zosyn -Urine culture is negative and sputum culture shows presumptive Fabi albicans -MRSA PCR is negative -Goal MAP is 65 -Appreciate ID and critical care input Acute hypoxic respiratory failure -Continue oxygen supplementation -Patient has been converted to air Vo with a flow of 50 L/min and an FiO2 of 40%/and is utilizing intermittent daytime BiPAP and BiPAP at night -Continue to wean as able -Viral respiratory panel is negative -Strep pneumo and Legionella urine antigens are negative -Lasix given now the blood pressure is stable -40 mg IV push twice daily Pancytopenia secondary to chemotherapy -Granix given and white count is responding -Continue to monitor counts -May also be exacerbated by sepsis as his white count and platelet count were normal in September of this year -Baseline hemoglobin appears to be 8-9 -Hemoglobin is stable today after 1 unit packed red blood cells on 11/09/2020 -Platelet count is down some likely due to sepsis -Monitor for platelet transfusion needs -White count has normalized with Granix and absolute neutrophil count is 3.9 PAF -Patient reverted back to normal sinus rhythm overnight -Continue IV amiodarone at this time -We will likely try back to oral amiodarone tomorrow at 200 mg daily -Continue Eliquis Hypokalemia -Potassium is improved the last 24 hours -Rebolus and repeat potassium in a.m. 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
[2020-11-11] MEDS: Amiodarone 200 MG Tablet PO (20:48)
[2020-11-11] MEDS: Mirtazapine 15 MG Tablet 7.5 MG PO (20:49)
[2020-11-11] MEDS: MELATONIN 3 MG TABLET PO (20:49)
[2020-11-11] MEDS: 0.9% Saline Lock 10 ML Syringe IV (21:00)
[2020-11-12] VITALS (39 sets, daily range): BP systolic 84–112; BP diastolic 64–87; PULSE 88–99; RESP 12–29; TEMP 37.2–37.7; O2SAT 89–98
[2020-11-12] MEDS: 0.9% Saline Lock 10 ML Syringe IV ×4 (04:28→18:18)
[2020-11-12] MEDS: Vancomycin IV 500 MG/100 ML BAG 100 MG IV (04:31)
[2020-11-12 04:45] LABS: Hematocrit 27.7 % (40-54); Hemoglobin 8.9 g/dL (13.0-16.5); Mean Corp Hgb Conc 32.1 g/dL (32-36); Mean Corpuscular Hgb 31.3 pg (27.0-32.0); Mean Corpuscular Volume 97.5 fL (80-94); Mean Platelet Vol. 11.6 fl (6.2-12.0); POSITIVE COUNT YES; POSITIVE DIFFERENTIAL YES; POSITIVE MORPHOLOGY YES; RBC Distribution Width CV 18.6 % (11.6-14.6); RBC Distribution Width SD 64.9 fl (35.1-43.9); Red Blood Count 2.84 M/mm3 (4.6-6.2); White Blood Count 7.5 K/mm3 (4.4-11.0)
[2020-11-12 05:03] LABS: Differential Indicated MANUAL DIFF; Platelet Count 34 K/mm3 (150-450)
[2020-11-12] MEDS: Gabapentin 100 MG Capsule PO ×3 (05:53→21:24)
[2020-11-12] MEDS: Amiodarone 200 MG Tablet PO (05:53)
[2020-11-12 06:05] LABS: Vancomycin, Trough Level 10.1 ug/mL (5.0-15.0)
--- NOTE | 2020-11-12 06:35 | PN.CC_ITS ---
Assessment & Plan Assessment/Plan (1) Septic shock: PLAN: RECOMMENDATIONS: 1. Wean patient from BiPAP as tolerated today. Maintain oxygen saturations at or above 90%. 2. Continue broad-spectrum antimicrobial coverage per ID recommendations. 3. Continue midodrine and Decadron, per home regimen. 4. Continue scheduled bronchodilator therapy. 5. Continue diuretic therapy as tolerated by hemodynamics and renal function. 6. Encourage incentive spirometer use and mobilize patient as tolerated. IMPRESSIONS: 1. Gram-negative septic shock Improving. The patient appears to have gram-negative bacteremia with possible urinary and pulmonary sources. At this time, the patient has been weaned from vasopressor support and stress dose steroids. The patient will be continued on midodrine and Decadron per outpatient regimen. He has been adequately volume resuscitated. Continue current antimicrobial management, per ID recommendations. 2. Acute hypoxemic respiratory failure Improving. The patient does have questionable underlying obstructive lung disease with what appears to be superimposed pneumonia. Plan to continue to wean FiO2 to maintain oxygen saturations at or above 90%. The patient will be maintained on scheduled bronchodilator therapy. Antimicrobials will be continued as noted above. Diuretics will be continued as tolerated by hemodynamics and renal function. 3. Pancytopenia Likely related to recent chemotherapy and consumption in the setting of sepsis. Continue to monitor blood counts daily and transfuse if hemoglobin once again drops below 7 g/dL. 4. History of metastatic non-small cell lung cancer The patient has a history of metastatic non-small cell lung cancer with overall poor prognosis, per my discussion with his oncologist. 5. History of paroxysmal atrial fibrillation/questionable COPD/depre ssion/anxiety Complicates care, management, recovery and prognosis. Continue home indications as indicated. This note was generated with [employer] dictation software. It may contain incorrect words, spelling, and punctuation that were not noted in checking the note before signing. Subjective Subjective The patient was seen and examined at the bedside this morning. Events from the last 24 hours have been reviewed. The patient has been running low-grade fevers, but has remained hemodynamically stable. The patient was tolerant of BiPAP overnight with an FiO2 of 50%. Prior to this, the patient was able to be maintained throughout the day yesterday on Airvo heated high flow with an FiO2 requirement of 40%. The patient is currently documented to be overall net +4.3 L for the hospital admission. The patient remains on broad-spectrum antimicrobials. The patient remains on twice daily IV Lasix. He has been discontinued from his amiodarone infusion and placed on p.o. amiodarone. He remains in normal sinus rhythm. Platelet count remains low at 34,000. Objective Data Objective Data The patient's most recent lab work, culture data and imaging studies have all been personally reviewed. Surface echocardiogram from May 2020 demonstrated normal LV size with an ejection fraction of 45%. Pulmonary artery systolic pre ssure was estimated to be 30 mmHg. Blood cultures from November 07 were positive for Pseudomonas aeruginosa. Respiratory viral panel was negative. Strep and urine Legionella antigens were negative. Sputum and urine cultures are pending. Vital Signs: Vital Signs Temp Pulse Resp BP Pulse Ox 99.8 F H 92 22 H 104/84 H 97 11/12/20 06:00 11/12/20 06:00 11/12/20 06:00 11/12/20 06:00 11/12/20 06:00 Oxygen Flow Rate (L/min) 50 Oxygen Delivery Method Bi-pap Weight: 58.3 kg Body Mass Index (BMI) 16.8 Intake & Output: Intake and Output for Last 24 Hours 11/10/20 11/11/20 11/12/20 23:59 23:59 23:59 Intake Total 2672.00 / 2672.00 2382.85 / 2382.85 250 / 250 Output Total 2460 / 2490 3370 / 3770 650 / 650 Balance 212.00 / 182.00 -987.15 / -1387.15 -400 / -400 Medical Nutrition Assessment Dietitian: Nutrition Therapy Diagnosis Start: 11/08/20 10:03 Freq: Status: Active Protocol: Document 11/11/20 09:56 (Rec: 11/11/20 09:56 [id number]) Nutrition Malnutrition Evidence of Malnutrition Exists Yes Malnutrition (severe): Chronic Evidenced By Suboptimal Energy Intake ( Severe),Weight Loss (Severe) Clinical Problem Chronic Disease or Condition Related Malnutrition Etiology severe, chronic malnutrition r /t inadequate energy intake w/ increased nutrient needs d/t metastatic cancer Signs/Symptoms as evidenced by chronically decreased appetite (estimated to be meeting <75% of estimated nutritional needs x 6 months), w/ worsening PO intake estimated to be meeting <50% 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 If pt desires to pursue aggressive care, may need to consider placement of PEG for long-term enteral nutrition support. Lab / Micro Data Attestation: I reviewed the patient's lab results. Result Diagrams: 11/12/20 04:22 11/12/20 04:22 Labs: Laboratory Results - last 24 hr 11/12/20 04:22: WBC 7.5, RBC 2.84 L, Hgb 8.9 L, Hct 27.7 L, MCV 97.5 H, MCH 31.3, MCHC 32.1, RDW Std Deviation 64.9 H, RDW Coeff of Natalie 18.6 H, Plt Count 34 L*, MPV 11.6, Neut % (Auto) Not Reportable 11/12/20 04:22: Vancomycin Trough 10.1 Micro: Microbiology 11/11/20 10:58 Mucosa - Nasopharyngeal Respiratory Panel (PCR) - Final 11/08/20 10:20 Sputum, Expectorated/Coughed Gram Stain - Final 11/08/20 10:20 Sputum, Expectorated/Coughed Respiratory Culture - Final Presumptive C albicans 11/08/20 04:50 Urine Catheter - Mccain Urine Culture - Final Culture exhibits no growth. 11/07/20 12:10 Blood Culture (Wb) - Right Forearm Blood Culture - Final Pseudomonas aeroginosa 11/07/20 12:00 Blood Culture (Wb) - Left Wrist Blood Culture - Final GNR Poss Pseudomonas sp 11/08/20 04:50 Urine, Random Legionella Antigen - Final 11/08/20 04:50 Urine, Random Streptococcus pneumoniae Antigen (M - Final 11/07/20 15:05 Mucosa - Nose Respiratory Panel (PCR) - Final Physical Exam Const alert and oriented x3 General Appearance: cooperative, ill appearing, frail and on BiPAP HEENT normocephalic and head/scalp atraumatic Eyes PERRL, EOMs intact bilaterally and conjunctivae normal Neck supple General: trachea midline and CVC in place Chest inspection of chest normal Resp normal respiratory effort Auscultation: diminished lung sounds; Negative for rales, rhonchi or wheezes Cardio regular rate and regular rhythm GI normal to inspection, nondistended, normoactive bowel sounds Extremity no clubbing, cyanosis or edema Skin no rashes or lesions noted Neuro no focal motor deficits Psych Mood & Affect: flat affect Charges/Coding Visit Charges Inpatient E&M: 36866 Subs Hosp L3
[2020-11-12 06:40] LABS: Total Cells Counted 100 (MANUAL DIFF)
[2020-11-12 06:42] LABS: Anion Gap 7 (5-15); BUN 32 mg/dL (7-18); BUN/Creat Ratio 48.8 RATIO (10-20); Calcium,Total 7.8 mg/dL (8.5-10.1); Chloride 106 mmol/L (98-107); Creatinine, Serum 0.66 mg/dL (0.70-1.30); EST Glomerular Filtration Rate 126 mL/min (>60); Est Glom Filt Rate - Afr Amer 152 mL/min (>60); Estimated Creatinine Clearance 52.63 ml/min; Glucose 132 mg/dL (74-106); Metamyelocyte 4 % (0-1); Neutrophil-Band 8 % (0-5); Neutrophil-Segmented 83 % (47-70); Potassium 3.6 mmol/L (3.5-5.1); Sodium Level 140 mmol/L (136-145)
[2020-11-12 06:43] LABS: Absolute Lymphocyte Count 0.23 X10^3/uL (0.83-4.51); Absolute Neutrophil Count 6.8 X10^3/uL (2.0-7.7); Lymphocyte 3 % (19-41); Lymphocyte # 6.83 X10^3/ul (0.83-4.51); Monocyte 2 % (0-10); Monocyte# 0.23 X10^3/uL; Platelet Estimate MKD DEC (ADEQ)
[2020-11-12 06:44] LABS: Anisocytosis 1+; Microcytosis 1+; Ovalocyte RARE
[2020-11-12] MEDS: Ipratropium/Albuterol Sulfate 3 ML AMPUL.NEB INHALATION ×4 (06:56→19:51)
--- NOTE | 2020-11-12 09:18 | PCM.PN.HOSP ---
Subjective Subjective Patient reports he is feeling a little bit better today. He states his breathing seems to improve some. He remains on air Vo but the plan is to trial heated high flow nasal cannula today. He remains in sinus rhythm and afebrile. Objective Data Objective Data Vital Signs: Vital Signs Temp Pulse Resp BP Pulse Ox 99.1 F 95 16 100/75 95 11/12/20 08:00 11/12/20 08:44 11/12/20 08:44 11/12/20 08:00 11/12/20 08:44 Oxygen Flow Rate (L/min) 50 Oxygen Delivery Method Airvo Weight: 58.3 kg Body Mass Index (BMI) 16.8 Intake & Output: Intake and Output for Last 24 Hours 11/10/20 11/11/20 11/12/20 23:59 23:59 23:59 Intake Total 2672.00 / 2672.00 2382.85 / 2382.85 250 / 250 Output Total 2460 / 2490 3370 / 3770 650 / 650 Balance 212.00 / 182.00 -987.15 / -1387.15 -400 / -400 Medical Nutrition Assessment Dietitian: Nutrition Therapy Diagnosis Start: 11/08/20 10:03 Freq: Status: Active Protocol: Document 11/11/20 09:56 (Rec: 11/11/20 09:56 [id number]) Nutrition Malnutrition Evidence of Malnutrition Exists Yes Malnutrition (severe): Chronic Evidenced By Suboptimal Energy Intake ( Severe),Weight Loss (Severe) Clinical Problem Chronic Disease or Condition Related Malnutrition Etiology severe, chronic malnutrition r /t inadequate energy intake w/ increased nutrient needs d/t metastatic cancer Signs/Symptoms as evidenced by chronically decreased appetite (estimated to be meeting <75% of estimated nutritional needs x 6 months), w/ worsening PO intake estimated to be meeting <50% of estimated nutritional needs 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 If pt desires to pursue aggressive care, may need to consider placement of PEG for long-term enteral nutrition support. Lab / Micro Data Result Diagrams: 11/12/20 04:22 11/12/20 04:22 Labs: Laboratory Results - last 24 hr 11/12/20 04:22: WBC 7.5, RBC 2.84 L, Hgb 8.9 L, Hct 27.7 L, MCV 97.5 H, MCH 31.3, MCHC 32.1, RDW Std Deviation 64.9 H, RDW Coeff of Natalie 18.6 H, Plt Count 34 L*, MPV 11.6, Neut % (Auto) Not Reportable, Absolute Neuts (auto) 6.8, Absolute Lymphs (auto) 0.23 L, Total Counted 100, Neutrophils % (Manual) 83 H, Band Neutrophils % 8 H, Lymphocytes % (Manual) 3 L, Monocytes % (Manual) 2, Metamyelocytes % 4 H, Diff Path Review May foll, Platelet Estimate MKD DEC, Anisocytosis 1+, Microcytosis 1+, Ovalocytes RARE 11/12/20 04:22: Sodium 140, Potassium 3.6, Chloride 106, Carbon Dioxide 27.0, Anion Gap 7, BUN 32 H, Creatinine 0.66 L, Estim Creat Clear Calc 52.63, Est GFR (MDRD) Af Amer 152, Est GFR (MDRD) Non-Af 126, BUN/Creatinine Ratio 48.8 H, Glucose 132 H, Calcium 7.8 L 11/12/20 04:22: Vancomycin Trough 10.1 Micro: Microbiology 11/11/20 10:58 Mucosa - Nasopharyngeal Respiratory Panel (PCR) - Final 11/08/20 10:20 Sputum, Expectorated/Coughed Gram Stain - Final 11/08/20 10:20 Sputum, Expectorated/Coughed Respiratory Culture - Final Presumptive C albicans 11/08/20 04:50 Urine Catheter - Mccain Urine Culture - Final Culture exhibits no growth. 11/07/20 12:10 Blood Culture (Wb) - Right Forearm Blood Culture - Final Pseudomonas aeroginosa 11/07/20 12:00 Blood Culture (Wb) - Left Wrist Blood Culture - Final GNR Poss Pseudomonas sp 11/08/20 04:50 Urine, Random Legionella Antigen - Final 11/08/20 04:50 Urine, Random Streptococcus pneumoniae Antigen (M - Final 11/07/20 15:05 Mucosa - Nose Respiratory Panel (PCR) - Final Physical Exam Const alert, oriented x3 and no apparent distress Constitutional Narrative: Cachectic elderly white male who appears older than stated age lying in bed, appears less fatigued and more interactive today, remains on air Vo Exam Limitations: no limitations HEENT head/scalp atraumatic HEENT Narrative: Mild thrush noted Head and Scalp: normocephalic Resp normal respiratory effort, no retractions and no use of accessory muscles Resp Narrative: Diffusely diminished but no adventitious lung sounds Auscultation: Negative for crackles, rales, rhonchi or wheezes Cardio regular rate, regular rhythm, S1 normal heart sound, S2 normal heart sound, no murmurs, no rub, no gallops, no clicks and no JVD GI normal to inspection, nondistended, normoactive bowel sounds, soft to palpation, non-tender and non-distended; Negative for hepatosplenomegaly GI Narrative: Thin Extremity normal to inspection and no clubbing, cyanosis or edema Peripheral Pulses: Yes pulses 2+ throughout Neuro oriented x3 and CN's II-XII intact bilaterally Neuro Narrative: Marked generalized weakness but no focal deficit Sensorium / Orientation: awake and alert Speech: speech normal Assessment & Plan Assessment/Plan (1) Septic shock: (2) Pseudomonal bacteremia: (3) Acute respiratory failure with hypoxia: (4) Chronic atrial fibrillation with RVR: (5) NSCLC metastatic to bone: PLAN: Septic shock secondary to pseudomonal bacteremia -Patient was dosed with 30mL/kg body weight and despite adequate fluid resuscitation required vasopressors -Patient was able to be weaned from pressors of Levophed and vasopressin pm of 11/08 -BP remains stable--> on midodrine 2.5 at baseline(increased to 10 mg to enable diuresis) -With new fevers repeat cultures were obtained and antibiotics were changed to Vanco and Zosyn -Urine culture is negative and sputum culture shows presumptive Fabi albicans -Repeat blood cultures are pending--> cultures obtained secondary to fever spikes -MRSA PCR is negative -Appreciate ID and critical care input -Hopeful transfer out of ICU in the next 24 hours Acute hypoxic respiratory failure -Continue oxygen supplementation -Patient has been converted to air Vo with a flow of 50 L/min and an FiO2 of 48%/and is utilizing intermittent daytime BiPAP and BiPAP at night -Continue to wean as able--> trial heated high flow nasal cannula today -Viral respiratory panel is negative -Strep pneumo and Legionella urine antigens are negative -Continue Lasix IV push 40 mg twice daily to enable weaning of oxygen Pancytopenia secondary to chemotherapy -Granix given and white count is responding -Continue to monitor counts -May also be exacerbated by sepsis as his white count and platelet count were normal in September of this year -Baseline hemoglobin appears to be 8-9 -Hemoglobin is stable today after 1 unit packed red blood cells on 11/09/2020 -Platelet count is down some likely due to sepsis--> seems to be stabilizing -Monitor for platelet transfusion needs -White count has normalized with Granix and absolute neutrophil count is 6.8 PAF -Patient developed A. fib with RVR during his course--> reverted back to normal sinus rhythm after initiation of amiodarone drip on 11/10/2020 -Transition back to oral amiodarone but increased from 100 to 200 mg daily on 11/12/2020 -Continue Eliquis -Monitor closely for bleeding with thrombocytopenia Hypokalemia -Resolved -Monitor with continued diuresis Metastatic non-small cell lung CA -Mets to bones -Patient was getting chemotherapy and had undergone gamma knife radiation in the past -Oncologist is aware that the patient is admitted and indicates prognosis is overall very poor -Palliative care following -Patient is hospice appropriate if he chooses to do so COPD -Continue aerosols -IS -Supportive oxygen 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
[2020-11-12] MEDS: Midodrine HCl 5 MG Tablet 10 MG PO ×2 (10:54→21:24)
[2020-11-12] MEDS: APIXABAN 2.5 MG TABLET PO ×2 (10:55→21:24)
[2020-11-12] MEDS: Furosemide 40 MG/4 ML Vial IV ×2 (10:55→18:18)
[2020-11-12] MEDS: dexAMETHasone 4 MG/ML Vial IV (10:55)
[2020-11-12] MEDS: NYSTATIN 500,000 UNIT/5 ML UDC 500000 UNIT PO ×4 (10:55→21:24)
[2020-11-12] MEDS: Famotidine 20 MG Tablet PO ×2 (10:55→21:24)
--- NOTE | 2020-11-12 11:10 | PCM.RX.CS ---
Consult Pharmacy has been consulted to manage selected antiobiotic: Vancomycin Type of Consult: Follow-up Suspected Infection: Sepsis Prior Doses of Antibiotics Received/Current Regimen: On 500mg iv q12h. Labs: Sodium 140 mmol/L (136-145) 11/12/20 04:22 Potassium 3.6 mmol/L (3.5-5.1) 11/12/20 04:22 Chloride 106 mmol/L (98-107) 11/12/20 04:22 Carbon Dioxide 27.0 mmol/L (21.0-32.0) 11/12/20 04:22 Anion Gap 7 (5-15) 11/12/20 04:22 BUN 32 mg/dL (7-18) H 11/12/20 04:22 Creatinine 0.66 mg/dL (0.70-1.30) L 11/12/20 04:22 Est GFR (MDRD) Af Amer 152 mL/min (>60) 11/12/20 04:22 Est GFR (MDRD) Non-Af 126 mL/min (>60) 11/12/20 04:22 BUN/Creatinine Ratio 48.8 RATIO (10-20) H 11/12/20 04:22 Glucose 132 mg/dL (74-106) H 11/12/20 04:22 Vancomycin Trough 10.1 ug/mL (5.0-15.0) 11/12/20 04:22 Microbiology: Microbiology 11/11/20 10:58 Mucosa - Nasopharyngeal Respiratory Panel (PCR) - Final 11/08/20 10:20 Sputum, Expectorated/Coughed Gram Stain - Final 11/08/20 10:20 Sputum, Expectorated/Coughed Respiratory Culture - Final Presumptive C albicans 11/08/20 04:50 Urine Catheter - Mccain Urine Culture - Final Culture exhibits no growth. 11/07/20 12:10 Blood Culture (Wb) - Right Forearm Blood Culture - Final Pseudomonas aeroginosa 11/07/20 12:00 Blood Culture (Wb) - Left Wrist Blood Culture - Final GNR Poss Pseudomonas sp 11/08/20 04:50 Urine, Random Legionella Antigen - Final 11/08/20 04:50 Urine, Random Streptococcus pneumoniae Antigen (M - Final 11/07/20 15:05 Mucosa - Nose Respiratory Panel (PCR) - Final Weight used for dosin.3 kg Estimated Creatinine Clearance: 53ml/min Goal Trough: 15-20 mcg/mL Pharmacy Plan for Drug Dosing: Today's trough was 10.1 ~11 hrs post last dose with goal range 15-20mcg/ml. Will change dose to 750mg iv q12h. Another trough level ordered for 11.14.20 before 4th dose of new regimen. Pharmacy Service will continue to monitor and adjust dosing as required. Follow-Up Labs: Trough Vancomycin - 8.21@0430 before 0500 dose
[2020-11-12] MEDS: CHLORHEXIDINE GLUC 2% CLOTH 1 EACH TOWELETTE TOPICAL (15:51)
[2020-11-12] MEDS: Mirtazapine 15 MG Tablet 7.5 MG PO (21:23)
[2020-11-12] MEDS: MELATONIN 3 MG TABLET PO (21:25)
--- NOTE | 2020-11-12 22:00 | NURSING ---
11/07/20 and 11/08/20- Right chest port noted and not accessed. Patient stated port hasn't worked since 1994. Mike RN
[2020-11-13] VITALS (37 sets, daily range): BP systolic 81–116; BP diastolic 48–81; PULSE 87–156; RESP 12–27; TEMP 36.6–37.8; O2SAT 87–97
[2020-11-13 04:00] LABS: Hematocrit 28.8 % (40-54); Hemoglobin 9.1 g/dL (13.0-16.5); Mean Corp Hgb Conc 31.6 g/dL (32-36); Mean Corpuscular Hgb 31.2 pg (27.0-32.0); Mean Corpuscular Volume 98.6 fL (80-94); POSITIVE COUNT YES; POSITIVE DIFFERENTIAL YES; POSITIVE MORPHOLOGY YES; RBC Distribution Width CV 18.4 % (11.6-14.6); RBC Distribution Width SD 65.8 fl (35.1-43.9); Red Blood Count 2.92 M/mm3 (4.6-6.2); White Blood Count 7.8 K/mm3 (4.4-11.0)
[2020-11-13 04:13] LABS: Anion Gap 7 (5-15); BUN 33 mg/dL (7-18); BUN/Creat Ratio 52.1 RATIO (10-20); Calcium,Total 8.1 mg/dL (8.5-10.1); Chloride 103 mmol/L (98-107); Creatinine, Serum 0.63 mg/dL (0.70-1.30); EST Glomerular Filtration Rate 131 mL/min (>60); Est Glom Filt Rate - Afr Amer 159 mL/min (>60); Estimated Creatinine Clearance 52.63 ml/min; Glucose 150 mg/dL (74-106); Potassium 3.2 mmol/L (3.5-5.1); Sodium Level 140 mmol/L (136-145)
[2020-11-13 04:35] LABS: Differential Indicated MANUAL DIFF
[2020-11-13 04:37] LABS: Platelet Count 28 K/mm3 (150-450)
[2020-11-13 04:58] LABS: Lymphocyte 7 % (19-41); Monocyte 2 % (0-10); Myelocyte 4 % (0-0); Neutrophil-Band 20 % (0-5); Neutrophil-Segmented 67 % (47-70)
[2020-11-13 04:59] LABS: Absolute Lymphocyte Count 0.55 X10^3/uL (0.83-4.51); Absolute Neutrophil Count 6.8 X10^3/uL (2.0-7.7); Platelet Estimate MKD DEC (ADEQ)
[2020-11-13 05:00] LABS: Anisocytosis 1+; Red Cell Morphology NORM C+C NORMAL (NORM C&C); Tear Drop Cell 1+
[2020-11-13] MEDS: Ipratropium/Albuterol Sulfate 3 ML AMPUL.NEB INHALATION ×3 (07:00→19:24)
[2020-11-13] MEDS: Gabapentin 100 MG Capsule PO ×3 (07:02→21:59)
--- NOTE | 2020-11-13 08:44 | PCM.PN.INT ---
Assessment & Plan Assessment/Plan (1) Septic shock: PLAN: RECOMMENDATIONS: 1. Continue BiPAP with sleep, nasal cannula during the day. Maintain oxygen saturations at or above 90%. 2. Continue broad-spectrum antimicrobial coverage per ID recommendations. 3. Continue midodrine and Decadron, per home regimen. 4. Continue scheduled bronchodilator therapy. 5. Continue diuretic therapy as tolerated by hemodynamics and renal function. 6. Encourage incentive spirometer use and mobilize patient as tolerated. 7. Potential transfer from the intensive care unit later today pending oxygenation status IMPRESSIONS: 1. Pseudomonal septic shock Improving. The patient appears to have gram-negative bacteremia with possible urinary and pulmonary sources. At this time, the patient has been weaned from vasopressor support and stress dose steroids. The patient will be continued on midodrine and Decadron per outpatient regimen. He has been adequately volume resuscitated. The patient did demonstrate endorgan damage by doubling of creatinine. Continue current antimicrobial management, per ID recommendations. 2. Acute hypoxemic respiratory failure Improving. The patient does have questionable underlying obstructive lung disease with what appears to be superimposed pneumonia. Plan to continue to wean FiO2 to maintain oxygen saturations at or above 90%. The patient will be maintained on scheduled bronchodilator therapy. Antimicrobials will be continued as noted above. Diuretics will be continued as tolerated by hemodynamics and renal function. Given baseline pulmonary status, reasonable to continue BiPAP with sleep, but wean nasal cannula oxygen as tolerated during the day. Potential transfer from the intensive care unit later today pending oxygenation status. 3. Pancytopenia Likely related to recent chemotherapy and consumption in the setting of sepsis. Continue to monitor blood counts daily and transfuse if hemoglobin once again drops below 7 g/dL. 4. History of metastatic non-small cell lung cancer The patient has a history of metastatic non-small cell lung cancer with overall poor prognosis, per my discussion with his oncologist. 5. History of paroxysmal atrial fibrillation/questionable COPD/depression/anxiety Complicates care, management, recovery and prognosis. Continue home indications as indicated. This note was generated with [employer] software. It may contain incorrect words, spelling, and punctuation that were not noted in checking the note before signing. Subjective Subjective Patient did okay overnight. Nursing reported no issues. Patient has been able to tolerate 5 L nasal cannula. No bleeding has been reported. Patient subjectively feels unchanged compared to previous. Objective Data Objective Data Vital Signs: Vital Signs Temp Pulse Resp BP Pulse Ox 37.4 C H 88 20 H 99/72 97 11/13/20 05:00 11/13/20 07:00 11/13/20 07:00 11/13/20 07:00 11/13/20 07:00 Oxygen Flow Rate (L/min) 5 Oxygen Delivery Method Nasal Cannula Weight: 57.6 kg Body Mass Index (BMI) 16.8 Intake & Output: Intake and Output for Last 24 Hours 11/11/20 11/12/20 11/13/20 23:59 23:59 23:59 Intake Total 2382.85 / 2382.85 1915 / 1915 100 / 100 Output Total 3370 / 3770 4045 / 4095 185 / 185 Balance -987.15 / -1387.15 -2130 / -2180 -85 / -85 Medical Nutrition Assessment Dietitian: Nutrition Therapy Diagnosis Start: 11/08/20 10:03 Freq: Status: Active Protocol: Document 11/11/20 09:56 (Rec: 11/11/20 09:56 [id number]) Nutrition Malnutrition Evidence of Malnutrition Exists Yes Malnutrition (severe): Chronic Evidenced By Suboptimal Energy Intake ( Severe),Weight Loss (Severe) Clinical Problem Chronic Disease or Condition Related Malnutrition Etiology severe, chronic malnutrition r /t inadequate energy intake w/ increased nutrient needs d/t metastatic cancer Signs/Symptoms as evidenced by chronically decreased appetite (estimated to be meeting <75% of estimated nutritional needs x 6 months), w/ worsening PO intake estimated to be meeting <50% of estimated nutritional needs x 1 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 If pt desires to pursue aggressive care, may need to consider placement of PEG for long-term enteral nutrition support. Lab / Micro Data Result Diagrams: 11/13/20 03:45 11/13/20 03:45 Labs: Laboratory Results - last 24 hr 11/13/20 03:45: WBC 7.8, RBC 2.92 L, Hgb 9.1 L, Hct 28.8 L, MCV 98.6 H, MCH 31.2, MCHC 31.6 L, RDW Std Deviation 65.8 H, RDW Coeff of Natalie 18.4 H, Plt Count 28 L*, MPV 12.0, Neut % (Auto) Not Reportable, Absolute Neuts (auto) 6.8, Absolute Lymphs (auto) 0.55 L, Neutrophils % (Manual) 67, Band Neutrophils % 20 H, Lymphocytes % (Manual) 7 L, Monocytes % (Manual) 2, Myelocytes % 4 H, Diff Path Review May foll, Platelet Estimate MKD DEC, RBC Morphology NORM C+C, Anisocytosis 1+, Tear Drop Cells 1+ 11/13/20 03:45: Sodium 140, Potassium 3.2 L, Chloride 103, Carbon Dioxide 30.0, Anion Gap 7, BUN 33 H, Creatinine 0.63 L, Estim Creat Clear Calc 52.63, Est GFR (MDRD) Af Amer 159, Est GFR (MDRD) Non-Af 131, BUN/Creatinine Ratio 52.1 H, Glucose 150 H, Calcium 8.1 L Micro: Microbiology 11/11/20 10:58 Mucosa - Nasopharyngeal Respiratory Panel (PCR) - Final 11/08/20 10:20 Sputum, Expectorated/Coughed Gram Stain - Final 11/08/20 10:20 Sputum, Expectorated/Coughed Respiratory Culture - Final Presumptive C albicans 11/08/20 04:50 Urine Catheter - Mccain Urine Culture - Final Culture exhibits no growth. 11/07/20 12:10 Blood Culture (Wb) - Right Forearm Blood Culture - Final Pseudomonas aeroginosa 11/07/20 12:00 Blood Culture (Wb) - Left Wrist Blood Culture - Final GNR Poss Pseudomonas sp 11/08/20 04:50 Urine, Random Legionella Antigen - Final 11/08/20 04:50 Urine, Random Streptococcus pneumoniae Antigen (M - Final 11/07/20 15:05 Mucosa - Nose Respiratory Panel (PCR) - Final Physical Exam Const alert, oriented x3 and no apparent distress General Appearance: cooperative and frail Nutritional Appearance: cachectic HEENT normocephalic, head/scalp atraumatic and moist oral mucous membranes Eyes PERRL and EOMs intact bilaterally Neck full ROM and no lymphadenopathy Neck Narrative: Central line is clean, dry and intact Chest inspection of chest normal Resp normal respiratory effort and no use of accessory muscles Effort and Inspection: able to speak in complete sentences Auscultation: clear to auscultation bilaterally; Negative for rales, rhonchi or wheezes Percussion: Negative for dullness Cardio regular rate, regular rhythm, S1 normal heart sound, S2 normal heart sound, no murmurs, no rub and no gallops GI normal to inspection, nondistended, normoactive bowel sounds GI Narrative: +Ostomy no CVA tenderness Extremity no clubbing, cyanosis or edema Skin no rashes or lesions noted Neuro oriented x3, CN's II-XII intact bilaterally, moves all extremities and no focal motor deficits Psych cooperative Mood & Affect: flat affect Charges/Coding Visit Charges Inpatient E&M: 55200 Subs Hosp L3
[2020-11-13] MEDS: NYSTATIN 500,000 UNIT/5 ML UDC 500000 UNIT PO ×4 (09:34→22:00)
[2020-11-13] MEDS: APIXABAN 2.5 MG TABLET PO ×2 (09:34→22:05)
[2020-11-13] MEDS: Midodrine HCl 5 MG Tablet 10 MG PO ×2 (09:34→21:50)
[2020-11-13] MEDS: Furosemide 40 MG/4 ML Vial IV (09:35)
[2020-11-13] MEDS: Amiodarone 200 MG Tablet PO (09:35)
[2020-11-13] MEDS: Famotidine 20 MG Tablet PO ×2 (09:35→22:00)
[2020-11-13] MEDS: dexAMETHasone 4 MG Tablet PO (11:29)
--- NOTE | 2020-11-13 12:28 | EKG12_ITS ---
Test Reason : AFIB Blood Pressure : / mmHG Vent. Rate : 149 BPM Atrial Rate : 149 BPM P-R Int : 138 ms QRS Dur : 100 ms QT Int : 238 ms P-R-T Axes : 000 006 165 degrees QTc Int : 374 ms Sinus tachycardia Nonspecific ST and T wave abnormality Abnormal ECG Confirmed by DAYANA AMAYA, CRISTIANA ([id number]), acquisition editor SAVANNA LEWIS ([id number]) on 11/15/2020 11:13:40 AM Referred By: Confirmed By:CRISTIANA ANNE MD
[2020-11-13] MEDS: Metoprolol Tartrate 5 MG/5 ML Vial 2.5 MG IV (12:48)
--- NOTE | 2020-11-13 13:26 | PN.HOSP_ITS ---
Subjective Subjective Developed afib w RVR today. Objective Data Objective Data Vital Signs: Vital Signs Temp Pulse Resp BP Pulse Ox 37.5 C H 145 H 22 H 87/68 L 92 11/13/20 12:00 11/13/20 12:48 11/13/20 12:00 11/13/20 12:48 11/13/20 12:00 Oxygen Flow Rate (L/min) 7 Oxygen Delivery Method Nasal Cannula Weight: 57.6 kg Body Mass Index (BMI) 16.8 Intake & Output: Intake and Output for Last 24 Hours 11/11/20 11/12/20 11/13/20 23:59 23:59 23:59 Intake Total 2382.85 / 2382.85 1915 / 1915 575 / 575 Output Total 3370 / 3770 4045 / 4095 1335 / 1335 Balance -987.15 / -1387.15 -2130 / -2180 -760 / -760 Medical Nutrition Assessment Dietitian: Malnutrition Criteria Met Start: 11/08/20 10:03 Freq: Status: Active Protocol: Document 11/13/20 09:52 EKATERINA (Rec: 11/13/20 09:52 [email or web address] [id number]) Nutrition Malnutrition Evidence of Malnutrition Exists Yes Malnutrition (severe): Chronic Evidenced By Suboptimal Energy Intake ( Severe),Weight Loss (Severe), Physical Changes (Moderate) Clinical Problem Chronic Disease or Condition Related Malnutrition Etiology severe, chronic malnutrition r /t inadequate energy intake w/ increased nutrient needs d/t metastatic cancer Signs/Symptoms as evidenced by chronically decreased appetite (estimated to be meeting <75% of estimated nutritional needs x 6 months), w/ worsening PO intake estimated to be meeting <50% of estimated nutritional needs x 1 week [employer]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 Continue oral nutrition supplementation w/ meals and medpass (120mL Ensure Enlive 4x/day, Magic Cup BID, and fortified foods when possible) for additional calories/ protein if consumed. If pt desires to pursue aggressive care, may need to consider placement of PEG for long-term enteral nutrition support. Lab / Micro Data Result Diagrams: 11/13/20 03:45 11/13/20 03:45 Labs: Laboratory Results - last 24 hr 11/13/20 03:45: WBC 7.8, RBC 2.92 L, Hgb 9.1 L, Hct 28.8 L, MCV 98.6 H, MCH 31.2, MCHC 31.6 L, RDW Std Deviation 65.8 H, RDW Coeff of Natalie 18.4 H, Plt Count 28 L*, MPV 12.0, Neut % (Auto) Not Reportable, Absolute Neuts (auto) 6.8, Absolute Lymphs (auto) 0.55 L, Neutrophils % (Manual) 67, Band Neutrophils % 20 H, Lymphocytes % (Manual) 7 L, Monocytes % (Manual) 2, Myelocytes % 4 H, Diff Path Review July, Platelet Estimate MKD DEC, RBC Morphology NORM C+C, Anisocytosis 1+, Tear Drop Cells 1+ 11/13/20 03:45: Sodium 140, Potassium 3.2 L, Chloride 103, Carbon Dioxide 30.0, Anion Gap 7, BUN 33 H, Creatinine 0.63 L, Estim Creat Clear Calc 52.63, Est GFR (MDRD) Af Amer 159, Est GFR (MDRD) Non-Af 131, BUN/Creatinine Ratio 52.1 H, Glucose 150 H, Calcium 8.1 L Micro: Microbiology 11/11/20 10:58 Mucosa - Nasopharyngeal Respiratory Panel (PCR) - Final 11/08/20 10:20 Sputum, Expectorated/Coughed Gram Stain - Final 11/08/20 10:20 Sputum, Expectorated/Coughed Respiratory Culture - Final Presumptive C albicans 11/08/20 04:50 Urine Catheter - Mccain Urine Culture - Final Culture exhibits no growth. 11/07/20 12:10 Blood Culture (Wb) - Right Forearm Blood Culture - Final Pseudomonas aeroginosa 11/07/20 12:00 Blood Culture (Wb) - Left Wrist Blood Culture - Final GNR Poss Pseudomonas sp 11/08/20 04:50 Urine, Random Legionella Antigen - Final 11/08/20 04:50 Urine, Random Streptococcus pneumoniae Antigen (M - Final 11/07/20 15:05 Mucosa - Nose Respiratory Panel (PCR) - Final Physical Exam Narrative cachectic. afebrile. Const alert Resp normal respiratory effort, no retractions, no use of accessory muscles and clear to auscultation bilaterally Cardio Cardio Narrative: irregularly irregular. tachycardic GI normal to inspection, nondistended, normoactive bowel sounds, non-tender and non-distended Assessment & Plan Assessment/Plan (1) Septic shock: (2) Pseudomonal bacteremia: (3) Acute respiratory failure with hypoxia: PLAN: 1. Septic shock secondary to pseudomonal bacteremia -Patient was dosed with 30mL/kg body weight and despite adequate fluid resuscitation required vasopressors -Patient was able to be weaned from pressors of Levophed and vasopressin pm of 11/08 -BP remains stable--> on midodrine 2.5 at baseline(increased to 10 mg to enable diuresis) -Urine culture is negative and sputum culture shows presumptive Fabi albicans -Repeat blood cultures are pending--> cultures obtained secondary to fever spikes -MRSA PCR is negative -Appreciate ID and critical care input On cefepime 2. Acute hypoxic respiratory failure -Continue oxygen supplementation -Patient has been converted to air Vo with a flow of 50 L/min and an FiO2 of 48%/and is utilizing intermittent daytime BiPAP and BiPAP at night -Continue to wean as able--> trial heated high flow nasal cannula today -Viral respiratory panel is negative -Strep pneumo and Legionella urine antigens are negative -Continue Lasix IV push 40 mg twice daily to enable weaning of oxygen 3. Pancytopenia secondary to chemotherapy -Granix given and white count is responding -Continue to monitor counts -May also be exacerbated by sepsis as his white count and platelet count were normal in September of this year -Baseline hemoglobin appears to be 8-9 -Hemoglobin is stable today after 1 unit packed red blood cells on 11/09/2020 -Platelet count is down some likely due to sepsis--> seems to be stabilizing -Monitor for platelet transfusion needs -White count has normalized with Granix and absolute neutrophil count is 6.8 4. PAF -Patient developed A. fib with RVR during his course--> reverted back to normal sinus rhythm after initiation of amiodarone drip on 11/10/2020 -Transition back to oral amiodarone but increased from 100 to 200 mg daily on 11/12/2020 -Continue Eliquis -Monitor closely for bleeding with thrombocytopenia 11/13: back in afib with RVR. To receive IV metoprolol 5. Hypokalemia -ongoing -Monitor with continued diuresis 6. Metastatic non-small cell lung CA -Mets to bones -Patient was getting chemotherapy and had undergone gamma knife radiation in the past -Oncologist is aware that the patient is admitted and indicates prognosis is overall very poor -Palliative care following -Patient is hospice appropriate if he chooses to do so 7. 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 Moderate protein caloriemalnutrition -Liberalize diet -Oral supplementations 11. Depression/anxiety -Continue home Remeron 12. DVT/GI prophylaxis -Continue Eliquis -Famotidine 20 mg twice daily 13. CODE STATUS -Full code per conversation on admission -Patient is aware that his overall condition is grave given his baseline medical conditions on top of his current sepsis Charges/Coding Visit Charges Inpatient E&M: 27296 Subs Hosp L2
[2020-11-13] MEDS: Acetaminophen 325 MG Tablet 650 MG PO (14:18)
--- NOTE | 2020-11-13 14:54 | PCM.PN.ID ---
Physical Exam Narrative Feeling better, no fever, no abd pain, no n/v/d. Const alert General Appearance: cooperative Resp normal air movement and clear to auscultation bilaterally Cardio regular rate and regular rhythm GI normal to inspection, nondistended, normoactive bowel sounds Skin no rashes or lesions noted ID ID: Route of nutrition/ use of supplements: [] Nutritional Intake: [] IV Site: [] Mccain Catheter: [] Assessment & Plan Assessment/Plan (1) Pseudomonal bacteremia: (2) Septic shock: PLAN: Pseudomonas bacteremia. Much improved. Cont cefepime for now, will stop vanc. Wbc much improved. Plan on short course po cipro at discharge. Will follow (3) NSCLC metastatic to bone: (4) Pancytopenia:
[2020-11-13 15:23] LABS: Pathologist Review Reviewed
[2020-11-13 15:23] LABS: Pathologist Review Reviewed
[2020-11-13 15:23] LABS: Pathologist Review Reviewed
[2020-11-13] MEDS: Amiodarone 360 MG in Dextrose 5% Viaflo Bag 192.8 ML 33.3 MG CONT INF (15:33)
[2020-11-13] MEDS: CHLORHEXIDINE GLUC 2% CLOTH 1 EACH TOWELETTE TOPICAL (17:25)
[2020-11-13] MEDS: Amiodarone 360 MG in Dextrose 5% Viaflo Bag 192.8 ML 16.7 MG CONT INF (21:46)
[2020-11-13] MEDS: Mirtazapine 15 MG Tablet 7.5 MG PO (21:58)
[2020-11-13] MEDS: MELATONIN 3 MG TABLET PO (22:01)
--- NOTE | 2020-11-13 23:23 | CPS ---
o2 decreased to 40% nurse aware
[2020-11-14] VITALS (26 sets, daily range): BP systolic 89–112; BP diastolic 64–83; PULSE 75–124; RESP 12–26; TEMP 36.6–37.3; O2SAT 90–97
[2020-11-14 03:45] LABS: Hematocrit 27.3 % (40-54); Hemoglobin 8.7 g/dL (13.0-16.5); Mean Corp Hgb Conc 31.9 g/dL (32-36); Mean Corpuscular Hgb 31.5 pg (27.0-32.0); Mean Corpuscular Volume 98.9 fL (80-94); Mean Platelet Vol. 11.5 fl (6.2-12.0); POSITIVE COUNT YES; POSITIVE DIFFERENTIAL YES; POSITIVE MORPHOLOGY YES; RBC Distribution Width SD 64.2 fl (35.1-43.9); Red Blood Count 2.76 M/mm3 (4.6-6.2); White Blood Count 6.9 K/mm3 (4.4-11.0)
[2020-11-14 03:46] LABS: Differential Indicated MANUAL DIFF; Platelet Count 25 K/mm3 (150-450)
[2020-11-14 03:55] LABS: Anion Gap 5 (5-15); BUN 33 mg/dL (7-18); BUN/Creat Ratio 62.9 RATIO (10-20); Calcium,Total 7.9 mg/dL (8.5-10.1); Chloride 104 mmol/L (98-107); Creatinine, Serum 0.52 mg/dL (0.70-1.30); EST Glomerular Filtration Rate 163 mL/min (>60); Est Glom Filt Rate - Afr Amer 197 mL/min (>60); Glucose 143 mg/dL (74-106); Potassium 3.6 mmol/L (3.5-5.1); Sodium Level 141 mmol/L (136-145)
[2020-11-14 04:18] LABS: Metamyelocyte 2 % (0-1); Myelocyte 1 % (0-0); Neutrophil-Band 6 % (0-5); Neutrophil-Segmented 82 % (47-70); Promyelocyte 2 % (0-0); Total Cells Counted 100 (MANUAL DIFF)
[2020-11-14 04:19] LABS: Anisocytosis RARE; Lymphocyte 7 % (19-41); Microcytosis RARE; Monocyte 0 % (0-10); Ovalocyte RARE; Platelet Estimate MKD DEC (ADEQ)
[2020-11-14 04:20] LABS: Absolute Lymphocyte Count 0.48 X10^3/uL (0.83-4.51); Absolute Neutrophil Count 6.1 X10^3/uL (2.0-7.7); Lymphocyte # 0.48 X10^3/ul (0.83-4.51); Neutrophil # 6.06 X10^3/uL (2.7-7.7)
[2020-11-14] MEDS: Amiodarone 200 MG Tablet PO ×2 (04:28→22:47)
[2020-11-14] MEDS: Gabapentin 100 MG Capsule PO ×3 (05:52→22:46)
[2020-11-14] MEDS: Ipratropium/Albuterol Sulfate 3 ML AMPUL.NEB INHALATION ×4 (07:03→19:10)
--- NOTE | 2020-11-14 07:07 | PN.CC_ITS ---
Assessment & Plan Assessment/Plan (1) Septic shock: PLAN: RECOMMENDATIONS: 1. Continue BiPAP with sleep, nasal cannula during the day. Maintain oxygen saturations at or above 90%. 2. Continue broad-spectrum antimicrobial coverage per ID recommendations. 3. Continue midodrine and Decadron, per home regimen. 4. Continue scheduled bronchodilator therapy. 5. Continue diuretic therapy as tolerated by hemodynamics and renal function. 6. Encourage incentive spirometer use and mobilize patient as tolerated. 7. Potential transfer from the intensive care unit later today if no r ecurrence of A. fib with RVR IMPRESSIONS: 1. Pseudomonal septic shock Improving. The patient appears to have gram-negative bacteremia with po ssible urinary and pulmonary sources. At this time, the patient has been weaned from vasopressor support and stress dose steroids. The patient will be continued on midodrine and Decadron per outpatient regimen. He has been adequately volume resuscitated. The patient did demonstrate endorgan damage by doubling of creatinine. Continue current antimicrobial management, per ID recommendations. Hypotension overnight likely secondary to A. fib with RVR 2. Acute hypoxemic respiratory failure Improving. The patient does have questionable underlying obstructive lung disease with what appears to be superimposed pneumonia. Plan to continue to wean FiO2 to maintain oxygen saturations at or above 90%. The patient will be maintained on scheduled bronchodilator therapy. Antimicrobials will be continued as noted above. Diuretics will be continued as tolerated by hemodynamics and renal function. Continue to monitor renal function on a daily basis with increased IV Lasix dosing. Given baseline pulmonary status, reasonable to continue BiPAP with sleep, but wean nasal cannula oxygen as tolerated during the day. Potential transfer from the intensive care unit later today pending arrhythmia status. 3. Pancytopenia Likely related to recent chemotherapy and consumption in the setting of sepsis. Continue to monitor blood counts daily and transfuse if hemoglobin once again drops below 7 g/dL. 4. History of metastatic non-small cell lung cancer The patient has a history of metastatic non-small cell lung cancer with overall poor prognosis, per my discussion with his oncologist. 5. History of paroxysmal atrial fibrillation/questionable COPD/depression/anxiety Complicates care, management, recovery and prognosis. Continue home indications as indicated. Patient did go into A. fib with RVR yesterday and converted with amnio drip. This note was generated with [employer] software. It may contain incorrect words, spelling, and punctuation that were not noted in checking the note before signing. Subjective Subjective Patient with significant issues yesterday afternoon after going into A. fib with RVR. Patient was initiated on amiodarone IV. Patient subsequently went into normal sinus rhythm after initiation of BiPAP with sleep. Patient now back on his p.o. amiodarone and 4 L. Patient with no complaints other than frustration for the setback. Objective Data Objective Data Vital Signs: Vital Signs Temp Pulse Resp BP Pulse Ox 37.0 C 75 14 102/77 97 11/14/20 07:00 11/14/20 07:00 11/14/20 07:00 11/14/20 07:00 11/14/20 06:00 Oxygen Flow Rate (L/min) 4 Oxygen Delivery Method Bi-pap Weight: 58.145 kg Body Mass Index (BMI) 16.8 Intake & Output: Intake and Output for Last 24 Hours 11/12/20 11/13/20 11/14/20 23:59 23:59 23:59 Intake Total 1915 / 1915 1078 / 1078 487.22 / 487.22 Output Total 4045 / 4095 1835 / 1835 Balance -2130 / -2180 -757 / -757 487.22 / 487.22 Medical Nutrition Assessment Dietitian: Malnutrition Criteria Met Start: 11/08/20 10:03 Freq: Status: Active Protocol: Document 11/13/20 09:52 EKATERINA (Rec: 11/13/20 09:52 [facility] [id number]) Nutrition Malnutrition Evidence of Malnutrition Exists Yes Malnutrition (severe): Chronic Evidenced By Suboptimal Energy Intake ( Severe),Weight Loss (Severe), Physical Changes (Moderate) Clinical Problem Chronic Disease or Condition Related Malnutrition Etiology severe, chronic malnutrition r /t inadequate energy intake w/ increased nutrient needs d/t metastatic cancer Signs/Symptoms as evidenced by chronically decreased appetite (estimated to be meeting <75% of estimated nutritional needs x 6 months), w/ worsening PO intake estimated to be meeting <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 Continue oral nutrition supplementation w/ meals and medpass (120mL Ensure Enlive 4x/day, Magic Cup BID, and fortified foods when possible) for additional calories/ protein if consumed. If pt desires to pursue aggressive care, may need to consider placement of PEG for long-term enteral nutrition support. Lab / Micro Data Result Diagrams: 11/14/20 03:32 11/14/20 03:32 Labs: Laboratory Results - last 24 hr 11/11/20 04:20: Diff Path Review Reviewed 11/12/20 04:22: Diff Path Review Reviewed 11/13/20 03:45: Diff Path Review Reviewed 11/14/20 03:32: WBC 6.9, RBC 2.76 L, Hgb 8.7 L, Hct 27.3 L, MCV 98.9 H, MCH 31.5, MCHC 31.9 L, RDW Std Deviation 64.2 H, RDW Coeff of Natalie 18.0 H, Plt Count 25 L*, MPV 11.5, Neut % (Auto) Not Reportable, Absolute Neuts (auto) 6.1, Absolute Lymphs (auto) 0.48 L, Total Counted 100, Neutrophils % (Manual) 82 H, Band Neutrophils % 6 H, Lymphocytes % (Manual) 7 L, Monocytes % (Manual) 0, Metamyelocytes % 2 H, Myelocytes % 1 H, Promyelocytes % 2 H, Diff Path Review May foll, Platelet Estimate MKD DEC, Anisocytosis RARE, Microcytosis RARE, Ovalocytes RARE 11/14/20 03:32: Sodium 141, Potassium 3.6, Chloride 104, Carbon Dioxide 32.0, Anion Gap 5, BUN 33 H, Creatinine 0.52 L, Estim Creat Clear Calc 52.00, Est GFR (MDRD) Af Amer 197, Est GFR (MDRD) Non-Af 163, BUN/Creatinine Ratio 62.9 H, Gl ucose 143 H, Calcium 7.9 L Micro: Microbiology 11/11/20 10:58 Mucosa - Nasopharyngeal Respiratory Panel (PCR) - Final 11/08/20 10:20 Sputum, Expectorated/Coughed Gram Stain - Final 11/08/20 10:20 Sputum, Expectorated/Coughed Respiratory Culture - Final Presumptive C albicans 11/08/20 04:50 Urine Catheter - Mccain Urine Culture - Final Culture exhibits no growth. 11/07/20 12:10 Blood Culture (Wb) - Right Forearm Blood Culture - Final Pseudomonas aeroginosa 11/07/20 12:00 Blood Culture (Wb) - Left Wrist Blood Culture - Final GNR Poss Pseudomonas sp 11/08/20 04:50 Urine, Random Legionella Antigen - Final 11/08/20 04:50 Urine, Random Streptococcus pneumoniae Antigen (M - Final 11/07/20 15:05 Mucosa - Nose Respiratory Panel (PCR) - Final Physical Exam Const alert, oriented x3 and no apparent distress General Appearance: cooperative and frail Nutritional Appearance: cachectic HEENT normocephalic, head/scalp atraumatic and moist oral mucous membranes Eyes PERRL and EOMs intact bilaterally Neck full ROM and no lymphadenopathy Neck Narrative: Central line is clean, dry and intact Chest inspection of chest normal Resp normal respiratory effort and no use of accessory muscles Effort and Inspection: able to speak in complete sentences Auscultation: clear to auscultation bilaterally; Negative for rales, rhonchi or wheezes Percussion: Negative for dullness Cardio regular rate, regular rhythm, S1 normal heart sound, S2 normal heart sound, no murmurs, no rub and no gallops GI normal to inspection, nondistended, normoactive bowel sounds GI Narrative: +Ostomy no CVA tenderness Extremity no clubbing, cyanosis or edema Skin no rashes or lesions noted Neuro oriented x3, CN's II-XII intact bilaterally, moves all extremities and no focal motor deficits Psych cooperative Mood & Affect: flat affect Charges/Coding Visit Charges Inpatient E&M: 33642 Subs Hosp L3
[2020-11-14] MEDS: dexAMETHasone 4 MG Tablet PO (08:17)
[2020-11-14] MEDS: Furosemide 40 MG/4 ML Vial IV ×2 (09:57→17:17)
[2020-11-14] MEDS: APIXABAN 2.5 MG TABLET PO ×2 (09:57→22:47)
[2020-11-14] MEDS: NYSTATIN 500,000 UNIT/5 ML UDC 500000 UNIT PO ×4 (09:57→22:46)
[2020-11-14] MEDS: Midodrine HCl 5 MG Tablet 10 MG PO ×2 (09:57→22:48)
[2020-11-14] MEDS: Famotidine 20 MG Tablet PO ×2 (09:58→22:46)
--- NOTE | 2020-11-14 10:16 | NURSING ---
Was consulted on patient d/t having a colostomy. appliance had been changed on 11/10/20 but a urostomy bag was applied. there is a small leak noted to the lateral edge of the appliance. removed appliance. stoma is beefy red. peristomal skin is intact. patient denies having any issues with the appliance. patient had been changing the appliance at home. cleansed peristomal skin with warm water. pat dry. placed a new 2 piece flat [place] appliance with an [employer] ring. pt tolerated well. appliance can be changed by nursing weekly and prn.
--- NOTE | 2020-11-14 11:58 | CASEMGMT ---
Addendum entered by Hilary Stafford 11/14/20 12:00: SW did also speak w/pt about POA, pt meant more financial POA, he was aware Ann is medical. He also asked about a Last Will, he states he knows he probably needs to speak w/a esthetic dermatologist. SW advised pt to speak w/bank about financial POA, and a esthetic dermatologist may be who he needs to call to create a Last Will. RADHA Martin Original Note: Pt has indicated to physician he would like to speak w/hospice, also asked about POA. POA papers for Healthcare are on file, significant other Ann is pt's POA. SW met w/pt, he confirms wants to speak w/hospice, states I think it's time. SW offered to call Ann, pt agreeable. SW called Ann, then pt called her also. She is able to be here any time to meet w/hospice. SW offered support to both. SW called [facility], faxed referral, they are to call SW with time of meeting and call Ann directly to set up a time to meet. RADHA Martin
[2020-11-14 12:42] LABS: Pathologist Review Reviewed
--- NOTE | 2020-11-14 13:01 | PN.HOSP_ITS ---
Subjective Subjective Tells me that he is very sick. He inquires about the process of assigning a POA. He tells me that he would like to comfortable, but aknowledges that his family is not ready for it. Objective Data Objective Data Vital Signs: Vital Signs Temp Pulse Resp BP Pulse Ox 36.8 C 80 20 H 104/76 94 11/14/20 08:00 11/14/20 09:00 11/14/20 09:00 11/14/20 09:00 11/14/20 09:00 Oxygen Flow Rate (L/min) 5 Oxygen Delivery Method Nasal Cannula Weight: 58.145 kg Body Mass Index (BMI) 16.8 Intake & Output: Intake and Output for Last 24 Hours 11/12/20 11/13/20 11/14/20 23:59 23:59 23:59 Intake Total 1915 / 1915 1078 / 1078 487.22 / 487.22 Output Total 4045 / 4095 1835 / 1835 100 / 100 Balance -2130 / -2180 -757 / -757 387.22 / 387.22 Medical Nutrition Assessment Dietitian: Malnutrition Criteria Met Start: 11/08/20 10:03 Freq: Status: Active Protocol: Document 11/13/20 09:52 EKATERINA (Rec: 11/13/20 09:52 EKATERINA [id number]) Nutrition Malnutrition Evidence of Malnutrition Exists Yes Malnutrition (severe): Chronic Evidenced By Suboptimal Energy Intake ( Severe),Weight Loss (Severe), Physical Changes (Moderate) Clinical Problem Chronic Disease or Condition Related Malnutrition Etiology severe, chronic malnutrition r /t inadequate energy intake w/ increased nutrient needs d/t metastatic cancer Signs/Symptoms as evidenced by chronically decreased appetite (estimated to be meeting <75% of estimated nutritional needs x 6 months), w/ worsening PO intake estimated to be meeting <50% 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 Continue oral nutrition supplementation w/ meals and medpass (120mL Ensure Enlive 4x/day, Magic Cup BID, and fortified foods when possible) for additional calories/ protein if consumed. If pt desires to pursue aggressive care, may need to consider placement of PEG for long-term enteral nutrition support. Lab / Micro Data Result Diagrams: 11/14/20 03:32 11/14/20 03:32 Labs: Laboratory Results - last 24 hr 11/11/20 04:20: Diff Path Review Reviewed 11/12/20 04:22: Diff Path Review Reviewed 11/13/20 03:45: Diff Path Review Reviewed 11/14/20 03:32: WBC 6.9, RBC 2.76 L, Hgb 8.7 L, Hct 27.3 L, MCV 98.9 H, MCH 31.5, MCHC 31.9 L, RDW Std Deviation 64.2 H, RDW Coeff of Natalie 18.0 H, Plt Count 25 L*, MPV 11.5, Neut % (Auto) Not Reportable, Absolute Neuts (auto) 6.1, Absolute Lymphs (auto) 0.48 L, Total Counted 100, Neutrophils % (Manual) 82 H, Band Neutrophils % 6 H, Lymphocytes % (Manual) 7 L, Monocytes % (Manual) 0, Metamyelocytes % 2 H, Myelocytes % 1 H, Promyelocytes % 2 H, Diff Path Review Reviewed, Platelet Estimate MKD DEC, Anisocytosis RARE, Microcytosis RARE, Ovalocytes RARE 11/14/20 03:32: Sodium 141, Potassium 3.6, Chloride 104, Carbon Dioxide 32.0, Anion Gap 5, BUN 33 H, Creatinine 0.52 L, Estim Creat Clear Calc 52.00, Est GFR (MDRD) Af Amer 197, Est GFR (MDRD) Non-Af 163, BUN/Creatinine Ratio 62.9 H, Glucose 143 H, Calcium 7.9 L Micro: Microbiology 11/11/20 10:58 Mucosa - Nasopharyngeal Respiratory Panel (PCR) - Final 11/08/20 10:20 Sputum, Expectorated/Coughed Gram Stain - Final 11/08/20 10:20 Sputum, Expectorated/Coughed Respiratory Culture - Final Presumptive C albicans 11/08/20 04:50 Urine Catheter - Mccain Urine Culture - Final Culture exhibits no growth. 11/07/20 12:10 Blood Culture (Wb) - Right Forearm Blood Culture - Final Pseudomonas aeroginosa 11/07/20 12:00 Blood Culture (Wb) - Left Wrist Blood Culture - Final GNR Poss Pseudomonas sp 11/08/20 04:50 Urine, Random Legionella Antigen - Final 11/08/20 04:50 Urine, Random Streptococcus pneumoniae Antigen (M - Final 11/07/20 15:05 Mucosa - Nose Respiratory Panel (PCR) - Final Physical Exam Const alert Constitutional Narrative: cachectic. afebrile. non-toxic. HEENT HEENT Narrative: temporal wasting. left facial droop. Resp normal respiratory effort, no retractions, no use of accessory muscles and clear to auscultation bilaterally Cardio regular rate, regular rhythm, S1 normal heart sound and S2 normal heart sound GI normal to inspection, nondistended, normoactive bowel sounds, soft to palpation, non-tender and non-distended Extremity normal to inspection, full ROM and no clubbing, cyanosis or edema Assessment & Plan Assessment/Plan (1) Septic shock: (2) Pseudomonal bacteremia: (3) Acute respiratory failure with hypoxia: PLAN: 1. Septic shock secondary to pseudomonal bacteremia -Patient was dosed with 30mL/kg body weight and despite adequate fluid resuscitation required vasopressors -Patient was able to be weaned from pressors of Levophed and vasopressin pm of 11/08 -BP remains stable--> on midodrine 2.5 at baseline(increased to 10 mg to enable diuresis) -Urine culture is negative and sputum culture shows presumptive Fabi albicans -Repeat blood cultures are pending--> cultures obtained secondary to fever spike s -MRSA PCR is negative -Appreciate ID and critical care input On cefepime 2. Acute hypoxic respiratory failure -Continue oxygen supplementation, currenlty on 5liters -Viral respiratory panel is negative -Strep pneumo and Legionella urine antigens are negative -Continue Lasix IV push 40 mg twice daily to enable weaning of oxygen 3. Pancytopenia secondary to chemotherapy -Granix given and white count is responding -Continue to monitor counts -May also be exacerbated by sepsis as his white count and platelet count were normal in September of this year -Baseline hemoglobin appears to be 8-9 -Hemoglobin is stable today after 1 unit packed red blood cells on 11/09/2020 -Platelet count is down some likely due to sepsis--> seems to be stabilizing -Monitor for platelet transfusion needs -White count has normalized with Granix and absolute neutrophil count is 6.8 4. PAF -Patient developed A. fib with RVR during his course--> reverted back to normal sinus rhythm after initiation of amiodarone drip on 11/10/2020 -Transition back to oral amiodarone but increased from 100 to 200 mg daily on 11/12/2020 -Continue Eliquis -Monitor closely for bleeding with thrombocytopenia 11/13: back in afib with RVR. To receive IV metoprolol 11/14: back in NSR. on amiodarone 5. Hypokalemia -improved -Monitor with continued diuresis 6. Metastatic non-small cell lung CA -Mets to bones -Patient was getting chemotherapy and had undergone gamma knife radiation in the past -Oncologist is aware that the patient is admitted and indicates prognosis is overall very poor -Palliative care following 7. 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 Moderate protein caloriemalnutrition -Liberalize diet -Oral supplementations 11. Depression/anxiety -Continue home Remeron 12. DVT/GI prophylaxis -Continue Eliquis -Famotidine 20 mg twice daily 13. CODE STATUS -DNRCCA, DNI Advance care planning: Today spent greater than 20 minutes discussed with the patient about goals of care. Patient really volunteered much of the information without much prompting on my behalf saying that his family is not ready but he feels ready and the understands that his overall quality of life is going to be poor to matter what happens. I did encourage him to speak with hospice which she is open to and will await their input in regards to where patient may be best suited. In the meantime, told patient we will continue with ongoing medical treatment. He did endorse that he does not want to have resuscitation event of cardiopulmonary arrest and does not want to be intubated nor have CPR. Charges/Coding Visit Charges Inpatient E&M: 17883 Subs Hosp L2 Procedures Hospitalists Procedures: 73571 Advncd Care Plan 30 Min
--- NOTE | 2020-11-14 13:08 | CASEMGMT ---
BLAKE spoke w/Celi at [facility], she will be meeting w/pt and significant other Ann at 2pm, she called Ann to set up the time. BLAKE let both pt and bedside RN know. RADHA Martin
--- NOTE | 2020-11-14 14:35 | PCS.PANDOC ---
PANDEMIC DOCUMENTATION INITIATED: Date: 11/13/20 Time: 1899
--- NOTE | 2020-11-14 14:45 | CASEMGMT ---
RUBIA CM updated by hospice that patient and significant other wanting to sign with hospice. Patient and significant other requesting home with hospice on to make appropriate arrangements. SW and hospitalist updated.
[2020-11-14] MEDS: 0.9% Saline Lock 10 ML Syringe IV ×2 (17:18→22:57)
--- NOTE | 2020-11-14 20:56 | CPS ---
Patient refuses bipap H.S. he states he would only like to wear the nasal cannula
[2020-11-14] MEDS: Mirtazapine 15 MG Tablet 7.5 MG PO (22:47)
[2020-11-14] MEDS: MELATONIN 3 MG TABLET PO (22:47)
[2020-11-15] VITALS (13 sets, daily range): BP systolic 98–107; BP diastolic 75–83; PULSE 76–95; RESP 12–18; TEMP 36.2–36.9; O2SAT 90–95
[2020-11-15] MEDS: Gabapentin 100 MG Capsule PO ×3 (05:37→21:21)
[2020-11-15] MEDS: 0.9% Saline Lock 10 ML Syringe IV ×4 (05:39→21:26)
[2020-11-15 07:21] LABS: Hemoglobin 8.9 g/dL (13.0-16.5); Mean Corp Hgb Conc 31.8 g/dL (32-36); Mean Corpuscular Hgb 31.7 pg (27.0-32.0); Mean Corpuscular Volume 99.6 fL (80-94); Mean Platelet Vol. 12.2 fl (6.2-12.0); POSITIVE COUNT YES; POSITIVE DIFFERENTIAL YES; POSITIVE MORPHOLOGY YES; RBC Distribution Width CV 17.7 % (11.6-14.6); RBC Distribution Width SD 64.4 fl (35.1-43.9); Red Blood Count 2.81 M/mm3 (4.6-6.2); White Blood Count 7.2 K/mm3 (4.4-11.0)
[2020-11-15] MEDS: Ipratropium/Albuterol Sulfate 3 ML AMPUL.NEB INHALATION ×3 (07:24→15:18)
[2020-11-15 07:39] LABS: Differential Indicated MANUAL DIFF
[2020-11-15 08:03] LABS: Neutrophil-Band 6 % (0-5); Neutrophil-Segmented 84 % (47-70); Total Cells Counted 100 (MANUAL DIFF)
[2020-11-15 08:04] LABS: Anisocytosis 2+; Lymphocyte 6 % (19-41); Metamyelocyte 1 % (0-1); Myelocyte 3 % (0-0); Platelet Estimate MKD DEC (ADEQ)
[2020-11-15 08:05] LABS: Hypochromasia 2+
[2020-11-15 08:07] LABS: Platelet Count 31 K/mm3 (150-450)
[2020-11-15 08:09] LABS: Absolute Lymphocyte Count 0.43 X10^3/uL (0.83-4.51); Absolute Neutrophil Count 6.5 X10^3/uL (2.0-7.7)
[2020-11-15 08:18] LABS: Anion Gap 7 (5-15); BUN 37 mg/dL (7-18); BUN/Creat Ratio 62.1 RATIO (10-20); Calcium,Total 8.2 mg/dL (8.5-10.1); Chloride 103 mmol/L (98-107); EST Glomerular Filtration Rate 140 mL/min (>60); Est Glom Filt Rate - Afr Amer 170 mL/min (>60); Estimated Creatinine Clearance 48.84 ml/min; Glucose 139 mg/dL (74-106); Potassium 3.4 mmol/L (3.5-5.1); Sodium Level 141 mmol/L (136-145)
--- NOTE | 2020-11-15 08:36 | PN.CC_ITS ---
Assessment & Plan Assessment/Plan (1) Septic shock: PLAN: RECOMMENDATIONS: 1. Okay to just use nasal cannula given goals of therapy. Maintain oxygen saturations at or above 90%. 2. Continue broad-spectrum antimicrobial coverage per ID recommendations. 3. Continue midodrine and Decadron, per home regimen. 4. Removal of central line prior to discharge 5. Continue diuretic therapy as tolerated by hemodynamics and renal function. 6. Encourage incentive spirometer use and mobilize patient as tolerated. 7. Given goals, will sign off from a critical care perspective. Please call if we can be of further assistance. IMPRESSIONS: 1. Pseudomonal septic shock Improving. The patient appears to have gram-negative bacteremia with possible urinary and pulmonary sources. At this time, the patient has been weaned from vasopressor support and stress dose steroids. The patient will be continued on midodrine and Decadron per outpatient regimen. He has been adequately volume resuscitated. The patient did demonstrate endorgan damage by doubling of creatinine. Continue current antimicrobial management, per ID recommendations. 2. Acute hypoxemic respiratory failure Improving. The patient does have questionable underlying obstructive lung disease with what appears to be superimposed pneumonia. Plan to continue to wean FiO2 to maintain oxygen saturations at or above 90%. The patient will be maintained on scheduled bronchodilator therapy. Antimicrobials will be continued as noted above. Diuretics will be continued as tolerated by hemodynamics and renal function. Continue to monitor renal function on a daily basis with increased IV Lasix dosing. Patient likely does not require BiPAP with sleep given goals of therapy as this has caused discomfort in the past. 3. Pancytopenia Likely related to recent chemotherapy and consumption in the setting of sepsis. Continue to monitor blood counts daily and transfuse if hemoglobin once again drops below 7 g/dL. 4. History of metastatic non-small cell lung cancer The patient has a history of metastatic non-small cell lung cancer with overall poor prognosis, per my discussion with his oncologist. 5. History of paroxysmal atrial fibrillation/questionable COPD/depression/anxiety Complicates care, management, recovery and prognosis. Continue home indications as indicated. Patient did go into A. fib with RVR yesterday and converted with amnio drip. This note was generated with Contactually dictation software. It may contain incorrect words, spelling, and punctuation that were not noted in checking the note before signing. Subjective Subjective Patient did okay overnight. Patient did not use BiPAP therapy, but states he feels relatively unchanged this morning. Patient did meet with hospice yesterday and has elected to use more of a symptomatic approach. Patient states that he is planning on going home tomorrow after arrangements are made. Patient has been tolerating 6 L with no issues. Objective Data Objective Data Vital Signs: Vital Signs Temp Pulse Resp BP Pulse Ox 36.6 C 81 16 102/78 94 11/15/20 03:39 11/15/20 07:01 11/15/20 03:39 11/15/20 03:39 11/15/20 03:39 Oxygen Flow Rate (L/min) 5 Oxygen Delivery Method Nasal Cannula Weight: 54.1 kg Body Mass Index (BMI) 16.8 Intake & Output: Intake and Output for Last 24 Hours 11/13/20 11/14/20 11/15/20 23:59 23:59 23:59 Intake Total 1078 / 1078 1355.22 / 1475.22 340 / 340 Output Total 1835 / 1835 2175 / 3325 1400 / 1400 Balance -757 / -757 -819.78 / -1849.78 -1060 / -1060 Medical Nutrition Assessment Dietitian: Malnutrition Criteria Met Start: 11/08/20 10:03 Freq: Status: Active Protocol: Document 11/13/20 09:52 EKATERINA (Rec: 11/13/20 09:52 EKATERINA [id number]) Nutrition Malnutrition Evidence of Malnutrition Exists Yes Malnutrition (severe): Chronic Evidenced By Suboptimal Energy Intake ( Severe),Weight Loss (Severe), Physical Changes (Moderate) Clinical Problem Chronic Disease or Condition Related Malnutrition Etiology severe, chronic malnutrition r /t inadequate energy intake w/ increased nutrient needs d/t metastatic cancer Signs/Symptoms as evidenced by chronically decreased appetite (estimated to be meeting <75% of estimated nutritional needs x 6 months), w/ worsening PO intake estimated to be 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 Continue oral nutrition supplementation w/ meals and medpass (120mL Ensure Enlive 4x/day, Magic Cup BID, and fortified foods when possible) for additional calories/ protein if consumed. If pt desires to pursue aggressive care, may need to consider placement of PEG for long-term enteral nutrition support. Lab / Micro Data Result Diagrams: 11/15/20 06:05 11/15/20 06:05 Labs: Laboratory Results - last 24 hr 11/14/20 03:32: Diff Path Review Reviewed 11/15/20 06:05: WBC 7.2, RBC 2.81 L, Hgb 8.9 L, Hct 28.0 L, MCV 99.6 H, MCH 31.7, MCHC 31.8 L, RDW Std Deviation 64.4 H, RDW Coeff of Natalie 17.7 H, Plt Count 31 L*, MPV 12.2 H, Neut % (Auto) Not Reportable, Absolute Neuts (auto) 6.5, Absolute Lymphs (auto) 0.43 L, Total Counted 100, Neutrophils % (Manual) 84 H, Band Neutrophils % 6 H, Lymphocytes % (Manual) 6 L, Metamyelocytes % 1, Myelocytes % 3 H, Diff Path Review May foll, Platelet Estimate MKD DEC, Hypochromasia 2+, Anisocytosis 2+ 11/15/20 06:05: Sodium 141, Potassium 3.4 L, Chloride 103, Carbon Dioxide 31.0, Anion Gap 7, BUN 37 H, Creatinine 0.60 L, Estim Creat Clear Calc 48.84, Est GFR (MDRD) Af Amer 170, Est GFR (MDRD) Non-Af 140, BUN/Creatinine Ratio 62.1 H, Glucose 139 H, Calcium 8.2 L Micro: Microbiology 11/10/20 13:36 Blood Culture (Wb) - Line Draw Blood Culture - Preliminary No growth in 48 hours. 11/10/20 13:30 Blood Culture (Wb) - Central Line Blood Culture - Preliminary No growth in 48 hours. 11/11/20 10:58 Mucosa - Nasopharyngeal Respiratory Panel (PCR) - Final 11/08/20 10:20 Sputum, Expectorated/Coughed Gram Stain - Final 11/08/20 10:20 Sputum, Expectorated/Coughed Respiratory Culture - Final Presumptive C albicans 11/08/20 04:50 Urine Catheter - Mccain Urine Culture - Final Culture exhibits no growth. 11/07/20 12:10 Blood Culture (Wb) - Right Forearm Blood Culture - Final Pseudomonas aeroginosa 11/07/20 12:00 Blood Culture (Wb) - Left Wrist Blood Culture - Final GNR Poss Pseudomonas sp 11/08/20 04:50 Urine, Random Legionella Antigen - Final 11/08/20 04:50 Urine, Random Streptococcus pneumoniae Antigen (M - Final 11/07/20 15:05 Mucosa - Nose Respiratory Panel (PCR) - Final Physical Exam Const alert, oriented x3 and no apparent distress General Appearance: cooperative and frail Nutritional Appearance: cachectic HEENT normocephalic, head/scalp atraumatic and moist oral mucous membranes Eyes PERRL and EOMs intact bilaterally Neck full ROM and no lymphadenopathy Neck Narrative: Central line is clean, dry and intact Chest inspection of chest normal Resp normal respiratory effort and no use of accessory muscles Effort and Inspection: able to speak in complete sentences Auscultation: clear to auscultation bilaterally; Negative for rales, rhonchi or wheezes Percussion: Negative for dullness Cardio regular rate, regular rhythm, S1 normal heart sound, S2 normal heart sound, no murmurs, no rub and no gallops GI normal to inspection, nondistended, normoactive bowel sounds GI Narrative: +Ostomy no CVA tenderness Extremity no clubbing, cyanosis or edema Skin no rashes or lesions noted Neuro oriented x3, moves all extremities and no focal motor deficits Neuro Narrative: Left facial droop Psych cooperative Mood & Affect: flat affect Charges/Coding Visit Charges Inpatient E&M: 27866 Subs Hosp L2
[2020-11-15] MEDS: NYSTATIN 500,000 UNIT/5 ML UDC 500000 UNIT PO ×4 (09:34→21:21)
[2020-11-15] MEDS: Amiodarone 200 MG Tablet PO ×2 (09:34→21:21)
[2020-11-15] MEDS: Furosemide 40 MG/4 ML Vial IV ×2 (09:34→17:44)
[2020-11-15] MEDS: dexAMETHasone 4 MG Tablet PO (09:35)
[2020-11-15] MEDS: Midodrine HCl 5 MG Tablet 10 MG PO ×2 (09:35→21:21)
[2020-11-15] MEDS: APIXABAN 2.5 MG TABLET PO ×2 (09:35→21:21)
[2020-11-15] MEDS: Famotidine 20 MG Tablet PO ×2 (09:35→21:21)
--- NOTE | 2020-11-15 11:10 | CASEMGMT ---
Mcr Notice Went to patient bedside, verified patient name, . Introduced self and role. Explained/reviewed IP Mcr Notice with patient. Acknowledged and signed form. Copy provided to patient and original placed in patient hard chart. RUBIA DobbinsCM
--- NOTE | 2020-11-15 14:15 | CHAPLAIN ---
Type of Pastoral Visit ___ Initial Visit _x__ Follow-up Visit ___ On-call Visit ___ General Patient Visit ___ Spiritual Assessment ___ Family Conference ___ Bereavement ___ Rapid Response ___ Code Blue ___ Other (describe below) Pastoral Care Referral From _x__ Patient ___ Family ___ Nurse ___ Physician ___ Director Translational ___ Real Estate Accountant ___ Other (describe below) Sacrament/Intervention _x__ Active listening ___ Anointing ___ Yarsanism ___ Bereavement ___ Communion ___ [place] exploration ___ ___ Life review _x__ Prayer ___ Reconciliation ___ Sacrament of Sick _x__ Supportive presence ___ Wedding ___ Other (describe below) Pastoral Comments patient is sitting in chair; pt offers information that hospice was agreed upon as of yesterday; pt is tearful as he talks about this decision; lots of time to listen, being quiet for pt to process thoughts and feelings, and reflecting with pt about the ramifications of his disease process and outcomes; pt expresses thankfulness for visit and being present in his situation and life; pt is open to prayer support and conversation about his tahmina
--- NOTE | 2020-11-15 15:14 | PN.HOSP_ITS ---
Subjective Subjective Feels well. No acute issues overnight. Plan is for home with hospice on the . Objective Data Objective Data Vital Signs: Vital Signs Temp Pulse Resp BP Pulse Ox 36.4 C L 81 16 107/77 94 11/15/20 09:30 11/15/20 15:00 11/15/20 11:30 11/15/20 09:30 11/15/20 09:30 Oxygen Flow Rate (L/min) 5 Oxygen Delivery Method Nasal Cannula Weight: 54.1 kg Body Mass Index (BMI) 16.8 Intake & Output: Intake and Output for Last 24 Hours 11/13/20 11/14/20 11/15/20 23:59 23:59 23:59 Intake Total 1078 / 1078 1355.22 / 1475.22 880 / 880 Output Total 1835 / 1835 2175 / 3325 2825 / 2825 Balance -757 / -757 -819.78 / -1849.78 -1945 / -1945 Medical Nutrition Assessment Dietitian: Malnutrition Criteria Met Start: 11/08/20 10:03 Freq: Status: Active Protocol: Document 11/13/20 09:52 EKATERINA (Rec: 11/13/20 09:52 [facility] [id number]) Nutrition Malnutrition Evidence of Malnutrition Exists Yes Malnutrition (severe): Chronic Evidenced By Suboptimal Energy Intake ( Severe),Weight Loss (Severe), Physical Changes (Moderate) Clinical Problem Chronic Disease or Condition Related Malnutrition Etiology severe, chronic malnutrition r /t inadequate energy intake w/ increased nutrient needs d/t metastatic cancer Signs/Symptoms as evidenced by chronically decreased appetite (estimated to be meeting <75% of estimated nutritional needs x 6 months), w/ worsening PO intake estimated to be meeting <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 Continue oral nutrition supplementation w/ meals and medpass (120mL Ensure Enlive 4x/day, Magic Cup BID, and fortified foods when possible) for additional calories/ protein if consumed. If pt desires to pursue aggressive care, may need to consider placement of PEG for long-term enteral nutrition support. Lab / Micro Data Result Diagrams: 11/15/20 06:05 11/15/20 06:05 Labs: Laboratory Results - last 24 hr 11/15/20 06:05: WBC 7.2, RBC 2.81 L, Hgb 8.9 L, Hct 28.0 L, MCV 99.6 H, MCH 31.7, MCHC 31.8 L, RDW Std Deviation 64.4 H, RDW Coeff of Natalie 17.7 H, Plt Count 31 L*, MPV 12.2 H, Neut % (Auto) Not Reportable, Absolute Neuts (auto) 6.5, Absolute Lymphs (auto) 0.43 L, Total Counted 100, Neutrophils % (Manual) 84 H, Band Neutrophils % 6 H, Lymphocytes % (Manual) 6 L, Metamyelocytes % 1, Myelocytes % 3 H, Diff Path Review July, Platelet Estimate MKD DEC, Hypochromasia 2+, Anisocytosis 2+ 11/15/20 06:05: Sodium 141, Potassium 3.4 L, Chloride 103, Carbon Dioxide 31.0, Anion Gap 7, BUN 37 H, Creatinine 0.60 L, Estim Creat Clear Calc 48.84, Est GFR (MDRD) Af Amer 170, Est GFR (MDRD) Non-Af 140, BUN/Creatinine Ratio 62.1 H, Glucose 139 H, Calcium 8.2 L Micro: Microbiology 11/10/20 13:36 Blood Culture (Wb) - Line Draw Blood Culture - Final No growth in 5 days. 11/10/20 13:30 Blood Culture (Wb) - Central Line Blood Culture - Final No growth in 5 days. 11/11/20 10:58 Mucosa - Nasopharyngeal Respiratory Panel (PCR) - Final 11/08/20 10:20 Sputum, Expectorated/Coughed Gram Stain - Final 11/08/20 10:20 Sputum, Expectorated/Coughed Respiratory Culture - Final Presumptive C albicans 11/08/20 04:50 Urine Catheter - Mccain Urine Culture - Final Culture exhibits no growth. 11/07/20 12:10 Blood Culture (Wb) - Right Forearm Blood Culture - Final Pseudomonas aeroginosa 11/07/20 12:00 Blood Culture (Wb) - Left Wrist Blood Culture - Final GNR Poss Pseudomonas sp 11/08/20 04:50 Urine, Random Legionella Antigen - Final 11/08/20 04:50 Urine, Random Streptococcus pneumoniae Antigen (M - Final 11/07/20 15:05 Mucosa - Nose Respiratory Panel (PCR) - Final Physical Exam Const alert Exam Limitations: no limitations Nutritional Appearance: cachectic Resp normal respiratory effort, no retractions, no use of accessory muscles and clear to auscultation bilaterally Cardio regular rate, regular rhythm, S1 normal heart sound and S2 normal heart sound GI normal to inspection, nondistended, normoactive bowel sounds, soft to palpation, non-tender and non-distended Extremity normal to inspection Assessment & Plan Assessment/Plan (1) Septic shock: (2) Pseudomonal bacteremia: (3) Acute respiratory failure with hypoxia: PLAN: 1. Septic shock secondary to pseudomonal bacteremia -Patient was dosed with 30mL/kg body weight and despite adequate fluid resuscitation required vasopressors -Patient was able to be weaned from pressors of Levophed and vasopressin pm of 11/08 -BP remains stable--> on midodrine 2.5 at baseline(increased to 10 mg to enable diuresis) -Urine culture is negative and sputum culture shows presumptive Fabi albicans -Repeat blood cultures are pending--> cultures obtained secondary to fever spikes -MRSA PCR is negative -Appreciate ID and critical care input On cefepime 2. Acute hypoxic respiratory failure -Continue oxygen supplementation, currenlty on 5li -Viral respiratory panel is negative -Strep pneumo and Legionella urine antigens are negative -Continue Lasix IV push 40 mg twice daily to enable weaning of oxygen 3. Pancytopenia secondary to chemotherapy -Granix given and white count is responding -Continue to monitor counts -May also be exacerbated by sepsis as his white count and platelet count were normal in September of this year -Baseline hemoglobin appears to be 8-9 -Hemoglobin is stable today after 1 unit packed red blood cells on 11/09/2020 -Platelet count is down some likely due to sepsis--> seems to be stabilizing -Monitor for platelet transfusion needs -White count has normalized with Granix and absolute neutrophil count is 6.8 4. PAF -Patient developed A. fib with RVR during his course--> reverted back to normal sinus rhythm after initiation of amiodarone drip on 11/10/2020 -Transition back to oral amiodarone but increased from 100 to 200 mg daily on 11/12/2020 -Continue Eliquis -Monitor closely for bleeding with thrombocytopenia 11/13: back in afib with RVR. To receive IV metoprolol 11/14: back in NSR. on amiodarone 5. Hypokalemia -improved -Monitor with continued diuresis 6. Metastatic non-small cell lung CA -Mets to bones -Patient was getting chemotherapy and had undergone gamma knife radiation in the past -Oncologist is aware that the patient is admitted and indicates prognosis is overall very poor -Palliative care following 7. 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 Moderate protein caloriemalnutrition -Liberalize diet -Oral supplementations 11. Depression/anxiety -Continue home Remeron 12. DVT/GI prophylaxis -Continue Eliquis -Famotidine 20 mg twice daily 13. CODE STATUS -DNRCCA, DNI Plan for home with hospice on the . Charges/Coding Visit Charges Inpatient E&M: 63768 Subs Hosp L2
--- NOTE | 2020-11-15 19:12 | PCM.PN.ID ---
Physical Exam Narrative Feeling better, no fever, no abd pain Const alert Resp normal air movement and clear to auscultation bilaterally Cardio regular rate and regular rhythm GI normal to inspection, nondistended, normoactive bowel sounds Skin no rashes or lesions noted ID ID: Route of nutrition/ use of supplements: [] Nutritional Intake: [] IV Site: [] Mccain Catheter: [] Assessment & Plan Assessment/Plan (1) Pseudomonal bacteremia: (2) Septic shock: PLAN: Pseudomonas bacteremia. Much improved. Cont cefepime for now, ok to stop in AM. Will follow as needed (3) NSCLC metastatic to bone: (4) Pancytopenia:
[2020-11-15] MEDS: MELATONIN 3 MG TABLET PO (21:21)
[2020-11-15] MEDS: Mirtazapine 15 MG Tablet 7.5 MG PO (21:21)
[2020-11-16] VITALS (7 sets, daily range): BP systolic 107–108; BP diastolic 80–82; PULSE 76–91; RESP 16–20; TEMP 36.9–37; O2SAT 94
[2020-11-16] MEDS: 0.9% Saline Lock 10 ML Syringe IV ×2 (05:51→09:40)
[2020-11-16] MEDS: Gabapentin 100 MG Capsule PO (05:51)
[2020-11-16] MEDS: Ipratropium/Albuterol Sulfate 3 ML AMPUL.NEB INHALATION ×2 (06:51→10:55)
[2020-11-16] MEDS: dexAMETHasone 4 MG Tablet PO (09:41)
[2020-11-16] MEDS: NYSTATIN 500,000 UNIT/5 ML UDC 500000 UNIT PO (09:41)
[2020-11-16] MEDS: Furosemide 40 MG/4 ML Vial IV (09:41)
[2020-11-16] MEDS: Midodrine HCl 5 MG Tablet 10 MG PO (09:41)
[2020-11-16] MEDS: APIXABAN 2.5 MG TABLET PO (09:41)
[2020-11-16] MEDS: Amiodarone 200 MG Tablet PO (09:41)
[2020-11-16] MEDS: Famotidine 20 MG Tablet PO (09:41)
--- NOTE | 2020-11-16 10:59 | PCM.DC ---
Discharge Instructions Diet Discharge Diet: No restrictions Activity Discharge Activity: Return to Normal Activity Follow Up Care Test Results: Test results from this visit will be discussed in further detail at your follow-up appointment, if applicable. Discharge Plan Admission Admit Date/Time: 11/07/20 14:56 Primary Reason for Your Visit: septic shock Attending Provider: Billy Martin Primary Care Provider: Jan Benson Consulting Providers: Nedra Villafuerte ; Agustin Baez ; Nubia Mallory ; Sejal Coreas ; Lakeisha Clarke ; Clotilde Mckeon NP ; Srini Sen ; Alber Rollins Discharge Orders/Prescriptions Prescriptions: New lorazepam 1 mg tablet 1 mg PO TID PRN (Reason: anxiety) Qty: 18 RF: 0 Continued promethazine 25 MG tablet 25 mg PO Q6H PRN PRN (Reason: Nausea) RF: 0 acetaminophen 500 MG tablet 1,000 mg PO Q6H PRN PRN (Reason: Pain Score 1-10) RF: 0 famotidine 20 mg Tablet 20 mg PO BID RF: 0 dexamethasone 4 mg Tablet 4 mg PO DAILY RF: 0 oxycodone 5 mg Capsule 5 mg PO Q4H PRN (Reason: Pain) RF: 0 gabapentin 100 mg Tablet 100 mg PO TID RF: 0 benzonatate 100 mg capsule 1 - 2 mg PO TID PRN PRN (Reason: .) RF: 0 melatonin 3 mg tablet 3 mg PO QHS RF: 0 midodrine 2.5 mg tablet 2.5 mg PO BID RF: 0 amiodarone 200 MG tablet 100 mg PO BID RF: 0 mirtazapine 15 MG tablet 15 mg PO QHS RF: 0 Discontinued apixaban 2.5 MG tablet 2.5 mg PO BID Qty: 60 RF: 0 Referrals / Follow Up: Jan Benson MD [Primary Care Provider] - Disposition Disposition (needs filled in before D/C Order can be placed): Hospice in Home
--- NOTE | 2020-11-16 11:05 | PCM.DC.SUM ---
Providers Date of Admission: 11/07/20 Primary Care Physician: Dr. Jan Benson MD Consultations 11/07/20 20:13 Consult: Digital Photographic Printer / Pulmonary Medicine Routine Consulting Provider: Alber Rollins Reason for Consult: Septic shock, hypoxia, pancytopenia, PNA EMERGENT Consult: No Notified: Yes Date Notified: 11/07/20 Time Notified: 14:56 Method of Notification: cortext 11/08/20 09:49 Consult: Hospice / Palliative Care Routine Consulting Provider: [facility] Reason for Consult: palliative care please pt with poor cancer prognosis and septic shock EMERGENT Consult: No Notified: Yes Date Notified: 11/08/20 Time Notified: 09:49 Method of Notification: notified by CM 11/08/20 16:00 Consult: Onc/Wound/technical delivery manager Routine Comment: Reason for Consult:: Colostomy 11/10/20 13:04 Consult: Infectious Disease Routine Consulting Provider: Srini Sen Reason for Consult: Gram negative rods due septic shock persistent fever EMERGENT Consult: No Notified: No Date Notified: 11/10/20 Time Notified: 13:05 11/10/20 15:58 Consult: Infectious Disease Routine Consulting Provider: Srini Sen Reason for Consult: Septic shock EMERGENT Consult: No Notified: Yes Date Notified: 11/10/20 Time Notified: 13:30 Method of Notification: Verbal Reason For Visit: SEPTIC SHOCK, HYPOXIA, PNA, PANCYTOPENIA Diagnosis Discharge Diagnosis (1) Pseudomonal bacteremia: Status: Acute Code(s): R78.81 - Bacteremia; B96.5 - Pseudomonas (aeruginosa) (mallei) (pseudomallei) as the cause of diseases classified elsewhere (2) Septic shock: Status: Acute Code(s): A41.9 - Sepsis, unspecified organism; R65.21 - Severe sepsis with septic shock (3) NSCLC metastatic to bone: Status: Acute Code(s): C34.90 - Malignant neoplasm of unspecified part of unspecified bronchus or lung; C79.51 - Secondary malignant neoplasm of bone (4) Pancytopenia: Status: Acute Code(s): D61.818 - Other pancytopenia Medications at Discharge Home Medications promethazine 25 mg PO Q6H PRN PRN 05/31/20 acetaminophen 1,000 mg PO Q6H PRN PRN tablet 06/21/20 benzonatate 1 - 2 mg PO TID PRN PRN 10/09/20 dexamethasone 4 mg PO DAILY 10/09/20 famotidine 20 mg PO BID 10/09/20 gabapentin 100 mg PO TID 10/09/20 oxycodone 5 mg PO Q4H PRN 10/09/20 amiodarone 100 mg PO BID 11/07/20 melatonin 3 mg PO QHS 11/07/20 midodrine 2.5 mg PO BID 11/07/20 mirtazapine 15 mg PO QHS 11/07/20 lorazepam 1 mg PO TID PRN #18 tab 11/16/20 Hospital Course Operations None Procedures Central line placement Summary of Care Provided Minutes Spent on Discharge: 32 Hospital Course: 75-year-old male with metastatic lung cancer presents with septic shock. Patient found to have pseudomonal bacteremia. Patient from septic shock standpoint resolved and was continued on antibiotics during his hospitalization. Patient was seen in consultation by critical care medicine as well as infectious disease. On the , patient mention to me that he is ready to move on and did not want to proceed with aggressive measures. Patient change his CODE STATUS to DNR Comfort Care arrest no intubation and agreed to speak with hospice. Patient spoke with hospice on and agreed to go home with hospice and would have that arranged on the . The remainder the patient's hospitalization has been uncomplicated. Patient will go to home with hospice as his life expectancy is less than 6 months. 1. Septic shock secondary to pseudomonal bacteremia -Patient was dosed with 30mL/kg body weight and despite adequate fluid resuscitation required vasopressors -Patient was able to be weaned from pressors of Levophed and vasopressin pm of 11/08 -BP remains stable--> on midodrine 2.5 at baseline(increased to 10 mg to enable diuresis) -Urine culture is negative and sputum culture shows presumptive Fabi albicans -Repeat blood cultures are pending--> cultures obtained secondary to fever spikes -MRSA PCR is negative -Appreciate ID and critical care input Stop cefepime 2. Acute hypoxic respiratory failure -Continue oxygen supplementation, currenlty on 5liters -Viral respiratory panel is negative -Strep pneumo and Legionella urine antigens are negative -Continue Lasix IV push 40 mg twice daily to enable weaning of oxygen 3. Pancytopenia secondary to chemotherapy -Granix given and white count is responding -Continue to monitor counts -May also be exacerbated by sepsis as his white count and platelet count were normal in September of this year -Baseline hemoglobin appears to be 8-9 -Hemoglobin is stable today after 1 unit packed red blood cells on 11/09/2020 -Platelet count is down some likely due to sepsis--> seems to be stabilizing -Monitor for platelet transfusion needs -White count has normalized with Granix and absolute neutrophil count is 6.8 4. PAF -Patient developed A. fib with RVR during his course--> reverted back to normal sinus rhythm after initiation of amiodarone drip on 11/10/2020 -Transition back to oral amiodarone but increased from 100 to 200 mg daily on 11/12/2020 -Continue Eliquis -Monitor closely for bleeding with thrombocytopenia 11/13: back in afib with RVR. To receive IV metoprolol 11/14: back in NSR. on amiodarone 5. Hypokalemia -improved -Monitor with continued diuresis 6. Metastatic non-small cell lung CA -Mets to bones -Patient was getting chemotherapy and had undergone gamma knife radiation in the past -Oncologist is aware that the patient is admitted and indicates prognosis is overall very poor -Palliative care following 7. 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 Physical Exam Const alert General Appearance: cooperative Nutritional Appearance: cachectic Medical Records Data Medical Nutrition Assessment Dietitian: Malnutrition Criteria Met Start: 11/08/20 10:03 Freq: Status: Active Protocol: Document 11/13/20 09:52 [facility] (Rec: 11/13/20 09:52 [facility] [id number]) Nutrition Malnutrition Evidence of Malnutrition Exists Yes Malnutrition (severe): Chronic Evidenced By Suboptimal Energy Intake ( Severe),Weight Loss (Severe), Physical Changes (Moderate) Clinical Problem Chronic Disease or Condition Related Malnutrition Etiology severe, chronic malnutrition r /t inadequate energy intake w/ increased nutrient needs d/t metastatic cancer Signs/Symptoms as evidenced by chronically decreased appetite (estimated to be meeting <75% of estimated nutritional needs x 6 months), w/ worsening PO intake estimated to be meeting <50% of estimated nutritional needs x 1 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 Continue oral nutrition supplementation w/ meals and medpass (120mL Ensure Enlive 4x/day, Magic Cup BID, and fortified foods when possible) for additional calories/ protein if consumed. If pt desires to pursue aggressive care, may need to consider placement of PEG for long-term enteral nutrition support. Weight / BMI Weight Weight: 52.7 kg Body Mass Index (BMI) 16.8 ABG / Lab / Microbiology Data Result Diagrams: 11/15/20 06:05 11/15/20 06:05 Microbiology: Microbiology 11/10/20 13:36 Blood Culture (Wb) - Line Draw Blood Culture - Final No growth in 5 days. 11/10/20 13:30 Blood Culture (Wb) - Central Line Blood Culture - Final No growth in 5 days. 11/11/20 10:58 Mucosa - Nasopharyngeal Respiratory Panel (PCR) - Final 11/08/20 10:20 Sputum, Expectorated/Coughed Gram Stain - Final 11/08/20 10:20 Sputum, Expectorated/Coughed Respiratory Culture - Final Presumptive C albicans 11/08/20 04:50 Urine Catheter - Mccain Urine Culture - Final Culture exhibits no growth. 11/07/20 12:10 Blood Culture (Wb) - Right Forearm Blood Culture - Final Pseudomonas aeroginosa 11/07/20 12:00 Blood Culture (Wb) - Left Wrist Blood Culture - Final GNR Poss Pseudomonas sp 11/08/20 04:50 Urine, Random Legionella Antigen - Final 11/08/20 04:50 Urine, Random Streptococcus pneumoniae Antigen (M - Final 11/07/20 15:05 Mucosa - Nose Respiratory Panel (PCR) - Final D/C Instructions Discharge Diet: No restrictions Meaningful Use Info Meaningful Use Diagnoses (Choose all that apply): None applicable Discharge Plan Admission Admit Date/Time: 11/07/20 14:56 Primary Reason for Your Visit: septic shock Attending Provider: Billy Martin Primary Care Provider: Jan Benson Consulting Providers: Nedra Villafuerte ; Agustin Baez ; Nubia Mallory ; Sejal Coreas ; Lakeisha Clarke ; Clotilde Mckeon NP ; Srini Sen ; Alber Rollins Discharge Orders/Prescriptions Prescriptions: New lorazepam 1 mg tablet 1 mg PO TID PRN (Reason: anxiety) Qty: 18 RF: 0 Continued promethazine 25 MG tablet 25 mg PO Q6H PRN PRN (Reason: Nausea) RF: 0 acetaminophen 500 MG tablet 1,000 mg PO Q6H PRN PRN (Reason: Pain Score 1-10) RF: 0 famotidine 20 mg Tablet 20 mg PO BID RF: 0 dexamethasone 4 mg Tablet 4 mg PO DAILY RF: 0 oxycodone 5 mg Capsule 5 mg PO Q4H PRN (Reason: Pain) RF: 0 gabapentin 100 mg Tablet 100 mg PO TID RF: 0 benzonatate 100 mg capsule 1 - 2 mg PO TID PRN PRN (Reason: .) RF: 0 melatonin 3 mg tablet 3 mg PO QHS RF: 0 midodrine 2.5 mg tablet 2.5 mg PO BID RF: 0 amiodarone 200 MG tablet 100 mg PO BID RF: 0 mirtazapine 15 MG tablet 15 mg PO QHS RF: 0 Discontinued apixaban 2.5 MG tablet 2.5 mg PO BID Qty: 60 RF: 0 Referrals / Follow Up: Jan Benson MD [Primary Care Provider] - Disposition Disposition (needs filled in before D/C Order can be placed): Hospice in Home Charges/Coding Visit Charges Inpatient E&M: 01616 Disch Hosp
--- NOTE | 2020-11-16 11:34 | NURSING ---
In to reassess the ostomy appliance. appliance is intact. patient states he is going home with hospice today. pt tearful at times. pt comforted. denies further needs at this time. pt very appreciative of the care received.
--- NOTE | 2020-11-16 11:42 | CASEMGMT ---
Pt is discharged home w/hospice, hospice confirmed earlier that all DME was delivered yesterday. BLAKE Engle set up a 12:30 ambulance w/[facility]. SW spoke w/pt, asked him again about POA as he had asked RN again about it. Pt states he states he needs assist with getting financial POA, SW explained will let SW know at hospice he needs assist. SW let pt know he is set up for a 12:30 pickup w/[facility], pt states understanding and is agreeable. He states he will call significant other, declined having SW call her for him. SW let bedside RN know pickup time of 12:30pm. SW called [facility], spoke w/Celi, let her know of 12:30pm pickup. SW also asked her to have SW follow up w/pt regarding assist w/financial POA, she was already aware and planned to do so. All discharge paperwork faxed to [facility]. No further needs, pt home w/hospice today. RADHA Martin
[2020-11-16 11:46] LABS: Pathologist Review Reviewed
--- NOTE | 2020-11-16 13:11 | NURSING ---
Report called to RUBIA Harden at hospice at [phone].
== END 2020-11-16 12:45 | disposition hospice, home (50) | DRG 871 ==
LOC: ED 12:54 → ICU 15:30 → PCU 11-14 17:08
PROVIDERS: Hospitalist; Internal Medicine; Internal Medicine Critical Care Medicine; Internal Medicine Infectious Disease; Student in an Organized Health Care Education/Training Program; Admitting Provider Family Medicine; Emergency Provider Emergency Medicine; PCP Internal Medicine
DX: A41.50 Gram-negative sepsis, unspecified (principal); D61.810 Antineoplastic chemotherapy induced pancytopenia; R65.21 Severe sepsis with septic shock; J96.01 Acute respiratory failure with hypoxia; J18.9 Pneumonia, unspecified organism; C79.51 Secondary malignant neoplasm of bone; C34.90 Malignant neoplasm of unspecified part of unspecified bronchus or lung; J44.0 Chronic obstructive pulmonary disease with (acute) lower respiratory infection; Z68.1 Body mass index [BMI] 19.9 or less, adult; E44.0 Moderate protein-calorie malnutrition; B96.5 Pseudomonas (aeruginosa) (mallei) (pseudomallei) as the cause of diseases classified elsewhere; D50.9 Iron deficiency anemia, unspecified; T45.1X5A Adverse effect of antineoplastic and immunosuppressive drugs, initial encounter; E87.6 Hypokalemia; F41.9 Anxiety disorder, unspecified; F32.9 Major depressive disorder, single episode, unspecified; G51.0 Bell's palsy; G20 Parkinson's disease; F10.11 Alcohol abuse, in remission; Z93.3 Colostomy status; I48.0 Paroxysmal atrial fibrillation; Z92.3 Personal history of irradiation; Z66 Do not resuscitate; Z79.01 Long term (current) use of anticoagulants; Z79.899 Other long term (current) drug therapy; Z87.891 Personal history of nicotine dependence; Z87.19 Personal history of other diseases of the digestive system
CPT/HCPCS: 36415; 36600; 71045; 80048; 80053; 80202; 80299; 81001; 82803; 83605; 83735; 84100; 84484; 85014; 85018; 85025; 85610; 85730; 86644; 86850; 86900; 86901; 86920; 86922; 87040; 87070; 87077; 87086; 87184; 87186; 87205; 87449; 87633; 87635; 87641; 92507; 92526; 92610; 93005; 94002; 94003; 94640; 94660; 94762; 97110; 97163; 97166; 97530; 97535; 97803; 99251; 99285; J7030; J7040; J7050; P9016; U0005; A4216; G0463; J0696; J1447; J1940; J3490; U0003